=== PATIENT | male | born 1950 | race Caucasian/White ===

== ENCOUNTER 2020-08-31 09:46 | Outpatient (CLI) | payer MEDICARE, BC, SELFPAY ==
--- NOTE | 2020-08-31 09:53 | EST_ITS ---
Patient Info Name: Dylan Rodriges Age: 70 years : 1950 Gender: Male Ht: 67 in Wt: 155 lbs BSA: 1.83 m2 HR: 58 bpm Heart Rhythm: Sinus Rhythm Exam Date: 08/31/2020 10:03 AM Exam Location: [facility] Patient Status: Outpatient Admit Date: 08/31/2020 Staff Ordering Physician: Silverio Moss MD Plate Maker Zinc: Sada Telles RDCS Attending Provider: GUSTAVO MURO Referring Physician: Isa CONCEPCION; Exercise Technologist: Sada Telles RDCS Exam Type: CA stress echo Study Info Indications R07.89 - Other chest pain Treadmill exercise stress echocardiogram is performed. Summary 1. No abnormal ST/T wave changes meeting strict criteria for reversible myocardial ischemia. 2. Occasional stress-induced PVCs and PACs noted. 3. Normal left venticular systolic function with no regional wall motion abnormalities noted at rest. 4. Normal augmentation of all wall segments without evidence of ischemia with stress. 5. Excellent exercise capacity for age achieving 88% of age predicted maximum heart rate and 12.1 Mets peak exercise. Stress Echo Findings Left Ventricle Normal left venticular systolic function with no regional wall motion abnormalities noted at rest. Normal augmentation of all wall segments without evidence of ischemia with stress. Left Ventricle Left ventricular chamber size, wall thickness, systolic and diastolic function are normal with no regional wall motion abnormalities with an estimated ejection fraction of 65-70%. Protocol: Stephan Stress ECG Details Stage: REST Duration (min): 1 min : 12 sec Speed (mph): 0.0 Grade (%): 0 HR (bpm): 64 SBP (mmHg): 139 DBP (mmHg): 76 METS: --- Stage: REST Duration (min): 17 min : 57 sec Speed (mph): 0.0 Grade (%): 0 HR (bpm): 63 SBP (mmHg): 129 DBP (mmHg): 72 METS: --- Stage: STAGE 1 Duration (min): 1 min : 0 sec Speed (mph): 1.7 Grade (%): 10 HR (bpm): 80 SBP (mmHg): 129 DBP (mmHg): 72 METS: --- Stage: STAGE 1 Duration (min): 2 min : 0 sec Speed (mph): 1.7 Grade (%): 10 HR (bpm): 85 SBP (mmHg): 129 DBP (mmHg): 72 METS: --- Stage: STAGE 1 Duration (min): 3 min : 0 sec Speed (mph): 1.7 Grade (%): 10 HR (bpm): 86 SBP (mmHg): 147 DBP (mmHg): 70 METS: --- Stage: STAGE 2 Duration (min): 1 min : 0 sec Speed (mph): 2.5 Grade (%): 12 HR (bpm): 94 SBP (mmHg): 147 DBP (mmHg): 70 METS: --- Stage: STAGE 2 Duration (min): 2 min : 0 sec Speed (mph): 2.5 Grade (%): 12 HR (bpm): 104 SBP (mmHg): 180 DBP (mmHg): 74 METS: --- Stage: STAGE 2 Duration (min): 3 min : 0 sec Speed (mph): 2.5 Grade (%): 12 HR (bpm): 101 SBP (mmHg): 180 DBP (mmHg): 74 METS: --- Stage: STAGE 3 Duration (min): 1 min : 0 sec Speed (mph): 3.4 Grade (%): 14 HR (bpm): 109 SBP (mmHg): 170 DBP (mmHg): 75 METS: --- Stage: STAGE 3 Duration (min): 2 min : 0 sec Speed (mph):
== END 2020-08-31 09:47 | disposition home or self-care (01) ==
LOC: ANHCARD 09:50
PROVIDERS: PCP Family Medicine; Visit Provider Family Medicine
DX: R07.9 Chest pain, unspecified (principal)
CPT/HCPCS: 93351

== ENCOUNTER 2021-02-16 14:30 | Outpatient (RCR) | payer MEDICARE, BC, SELFPAY ==
[2020-12-02 11:09] VITALS: BMI 24.5
[2020-12-02 11:18] VITALS: BMI 24.5
== END 2021-02-22 08:04 | disposition home or self-care (01) ==
LOC: ANHDMC 14:30
PROVIDERS: PCP Family Medicine; Visit Provider Family Medicine
DX: E11.21 Type 2 diabetes mellitus with diabetic nephropathy (principal); Z71.3 Dietary counseling and surveillance; Z71.89 Other specified counseling
CPT/HCPCS: 97802; G0108; G0109

== ENCOUNTER → 2021-03-04 13:13 | Outpatient (CLI) | payer MEDICARE, BC, SELFPAY ==
--- NOTE | ~2021-03-04 | CT_ITS ---
EXAMINATION: CT abdomen pelvis w con DATE: 03/04/2021 13:44 INDICATION: Left flank pain. Elevated liver enzymes. Frequent bowel movements. History of chronic lym phocytic leukemia. TECHNIQUE: Computed tomography (CT) of the abdomen and pelvis was performed with 100 cc Omnipaque 350 intravenous contrast. Automated exposure control and iterative reconstruction technique were employe d. Exam dose: 679.80 mGy-cm total exam DLP. COMPARISON: 05/05/2016 CT abdomen pelvis FINDINGS: No infiltrate or consolidation at the lung bases. Normal heart size. No pericardial or pleu ral effusion. Diffuse hepatic steatosis. No hepatic space-occupying mass lesion. The gallbladder is present. No gal lbladder wall thickening or pericholecystic fluid or fat stranding. No bile duct or pancreatic duct d ilatation. No pancreatic mass lesion or calcification. Normal splenic size. Normal morphology of the adrenal glands. A few very small right renal cysts are suggested. Approximately 3 mm nonobstructing mid right renal calculus. No ureteral calculus or hydroureteronephrosis. Normal caliber of the abdominal aorta. No intraperitoneal or retroperitoneal or patellar lytic mass l esion or adenopathy or ascites. Left inguinal fat-containing hernia. The urinary bladder is unremarkable. Prostate enlargement and calcifications. Normal appendix. Diverticulosis of the colon; no apparent evidence of diverticulitis. No bowel obstru ction, bowel wall thickening, pneumatosis or intraperitoneal free air. Degenerative changes of the thoracic and lumbar spine. No suspicious osteolytic or osteoblastic lesio ns are noted. IMPRESSION: Hepatic steatosis 3 mm nonobstructing mid right renal calculus A few very small right renal cysts Diverticulosis of the colon; no apparent diverticulitis Fat-containing left inguinal hernia Reviewed, dictated and finalized at Location A. Reviewed, dictated and finalized at location A.
[2021-03-04 13:36] LABS: Estimated Glomerular Filt Rate > 60
== END ==
PROVIDERS: PCP Family Medicine; Visit Provider Physician Assistant
DX: K76.0 Fatty (change of) liver, not elsewhere classified (principal); N20.0 Calculus of kidney; K57.30 Diverticulosis of large intestine without perforation or abscess without bleeding; K44.9 Diaphragmatic hernia without obstruction or gangrene; N28.1 Cyst of kidney, acquired
CPT/HCPCS: 74177; Q9967

== ENCOUNTER 2021-04-21 09:13 | Outpatient (RCR) | payer MEDICARE, BC, SELFPAY | END 2021-04-21 10:16 | disposition home or self-care (01) | LOC: ANHDMC 09:13 | PROVIDERS: PCP Family Medicine; Visit Provider Family Medicine | DX: E11.21 Type 2 diabetes mellitus with diabetic nephropathy (principal); Z71.89 Other specified counseling | CPT/HCPCS: G0108 ==

== ENCOUNTER → 2021-06-14 15:05 | Outpatient (CLI) | payer MEDICARE, BC, SELFPAY ==
--- NOTE | ~2021-06-14 | XR_ITS ---
XR hip LT min 3V w AP pelvis DATE: 06/14/2021 15:59 INDICATION: Left hip pain TECHNIQUE: AP pelvis. AP and lateral views of left hip COMPARISON: None FINDINGS: There is diffuse osteopenia. The pubic symphysis and sacroiliac joints are intact. No pelvi c fracture or bone destruction. There is suggestion of a possible subacute or old left greater trochanteric fracture. This may be bet ter demonstrated by CT examination. Otherwise no left hip fracture or dislocation or bone destruction is detected. IMPRESSION: Suggestion of possible subacute or old left greater trochanteric fracture; CT examination of the left hip may be more helpful for definitive evaluation Reviewed, dictated and finalized at location A. IMPRESSION: Suggestion of possible subacute or old left greater trochanteric fr acture; CT examination of the left hip may be more helpful for definitive evalu ation
== END ==
PROVIDERS: PCP Family Medicine; Visit Provider Physician Assistant
DX: M25.559 Pain in unspecified hip (principal)
CPT/HCPCS: 73502

== ENCOUNTER → 2021-06-21 10:16 | Outpatient (CLI) | payer MEDICARE, BC, SELFPAY ==
--- NOTE | ~2021-06-21 | CT_ITS ---
EXAMINATION: CT pelvis wo con DATE: 06/21/2021 10:35 INDICATION: Left hip pain. TECHNIQUE: Computed tomography (CT) of the pelvis was performed without intravenous contrast. Automat ed exposure control and iterative reconstruction technique were employed. The dose-length product was 422.09 mGy-cm. COMPARISON: CT abdomen and pelvis 03/04/2021, pelvis and left hip radiographs 06/14/2021 FINDINGS: There is a left inguinal hernia containing fat. There is diverticulosis of the colon withou t evidence of diverticulitis. There is subcutaneous gas in right anterior abdominal wall, likely an i njection site. Bone alignment is normal. No fracture. There is mild osteoarthritis of the hips. There is mild lumbar spondylosis. IMPRESSION: 1. Mild osteoarthritis of the hips. 2. Left inguinal hernia containing fat. Reviewed, dictated and finalized at location A.
== END ==
PROVIDERS: PCP Family Medicine; Visit Provider Physician Assistant
DX: K40.90 Unilateral inguinal hernia, without obstruction or gangrene, not specified as recurrent (principal); M16.0 Bilateral primary osteoarthritis of hip
CPT/HCPCS: 72192

== ENCOUNTER → 2021-09-19 13:07 | Outpatient (CLI) | payer MEDICARE, BC, SELFPAY ==
--- NOTE | ~2021-09-19 | XR_ITS ---
EXAMINATION: XR hip RT min 3V w AP pelvis DATE: 09/19/2021 14:03 INDICATION: Pain in unspecified hip. TECHNIQUE: An anteroposterior view of the pelvis and 2 views of right hip were obtained. COMPARISON: Pelvis radiograph 06/14/2021 FINDINGS: Bone alignment is normal. No fracture. There is mild osteoarthritis of the hips. There is m ild lumbar spondylosis. IMPRESSION: 1. Mild osteoarthritis of the hips. Reviewed, dictated and finalized at location A. L COREMAKER
--- NOTE | ~2021-09-19 | XR_ITS ---
EXAMINATION: XR lumbar spine 2-3V DATE: 09/19/2021 14:02 INDICATION: Pain in unspecified hip. TECHNIQUE: 3 views of lumbar spine were obtained. COMPARISON: CT abdomen and pelvis 03/04/2021 FINDINGS: There is 4 degrees levocurvature of lumbar spine. There are Schmorl's nodes at multiple lev els. There is mildly decreased disc height at L1-L2 and L3-L4. There are endplate osteophytes at most levels. The facet joints are unremarkable. There is a 4 mm stone in right kidney. There are phleboli ths in the pelvis. IMPRESSION: 1. Mild lumbar spondylosis. Reviewed, dictated and finalized at location A. BRANDER IMPRESSION: 1. Mild lumbar spondylosis.
== END ==
PROVIDERS: PCP Family Medicine; Visit Provider Physician Assistant
DX: M16.0 Bilateral primary osteoarthritis of hip (principal); M47.896 Other spondylosis, lumbar region
CPT/HCPCS: 72100; 73502

== ENCOUNTER → 2021-09-27 08:42 | Outpatient (CLI) | payer MEDICARE, BC, SELFPAY ==
--- NOTE | ~2021-09-27 | CT_ITS ---
EXAMINATION: CT abdomen pelvis wo con DATE: 09/27/2021 09:04 INDICATION: Left flank and low back pain TECHNIQUE: Computed tomography (CT) of the abdomen and pelvis was performed without intravenous contr ast. The dose-length product (DLP) was 696.32 mGy-cm. Automated exposure control and iterative recons truction technique were employed. COMPARISON: 03/04/2021 FINDINGS: Minimal dependent atelectasis is present in the lung bases. The heart size is normal. There is a stable 6 mm nodule of the right middle lobe. There is mild nodularity of the liver surface. Mil d splenomegaly is noted. The pancreas, gallbladder, and adrenal glands are normal. There is a 4 mm no nobstructing stone of the right kidney. No stones are identified in the left kidney, ureters, or the bladder. There is no hydronephrosis or hydroureter. No pathologically enlarged abdominal or pelvic ly mph nodes are identified. There is calcified atherosclerosis of the aorta and many of the other arter ies. There is no free intraperitoneal gas or evidence of bowel obstruction. A fat-containing left ing uinal hernia is noted. Colonic diverticulosis is present without evidence of diverticulitis. There is moderate lumbar spondylosis. IMPRESSION: 1. No CT correlate for the patient's symptoms. Nonobstructing right nephrolithiasis. Reviewed, dictated and finalized at location A. ER/WAITRESS BAR IMPRESSION: 1. No CT correlate for the patient's symptoms. Nonobstructing right nephrolithi asis.
== END ==
PROVIDERS: PCP Physician Assistant; Visit Provider Physician Assistant
DX: R10.9 Unspecified abdominal pain (principal); N20.0 Calculus of kidney
CPT/HCPCS: 74176

== ENCOUNTER 2021-10-29 01:18 | Inpatient (IN) | payer MEDICARE, BC, SELFPAY ==
[2021-10-29] VITALS (14 sets, daily range): BP systolic 102–144; BP diastolic 51–71; PULSE 55–76; RESP 13–23; TEMP 36.6–37.8; O2SAT 88–100; BMI 25.9; BMI 24.5
--- NOTE | ~2021-10-29 | US_ITS ---
EXAMINATION: US right upper quadrant DATE: 10/29/2021 10:32 INDICATION: Pancreatitis. Abnormal liver function tests. TECHNIQUE: Multiple grayscale and Doppler ultrasound images of the abdomen were obtained. COMPARISON: CT abdomen and pelvis 10/29/2021 FINDINGS: There is edema around the pancreas, consistent with acute interstitial pancreatitis. The li abisai demonstrates coarsened echotexture and surface nodularity, consistent with cirrhosis. There is no rmal flow in main portal vein. The gallbladder is normal in size. No gallstones. Gallbladder wall thi ckening is noted. There was no sonographic Gilliam sign. The common duct is normal and measures 5 mm. IMPRESSION: 1. Acute interstitial pancreatitis. 2. Cirrhosis of the liver. 3. Gallbladder wall thickening, which may secondary to interstitial edema or chronic liver disease. Reviewed, dictated and finalized at location A. ER CALENDER HELPER IMPRESSION: 1. Acute interstitial pancreatitis. 2. Cirrhosis of the liver. 3. Gallbladder wall thickening, which may secondary to interstitial edema or ch ronic liver disease.
--- NOTE | ~2021-10-29 | MR_ITS ---
EXAMINATION: MR MRCP wo/w con/w 3D wo ind DATE: 10/31/2021 14:15 INDICATION: Pancreatitis. Cirrhosis. TECHNIQUE: Magnetic resonance imaging (MRI) of the abdomen was performed without and with 14 mL Multi Radha intravenous contrast. Sequences included coronal T2-weighted FS FSE, coronal T2-weighted FSE, a xial T1-weighted LAVA, coronal FS FIESTA, axial dual-echo T1-weighted SPGR, coronal lava-FLEX, sagitt al T2-weighted FSE, axial T2-weighted FSE, and axial DWI. Thick-slab T2-weighted FSE images were obta ined for magnetic resonance cholangiopancreatography (MRCP). Maximum intensity projection 3-D reconst ructions of the volumetric data were created by the technologist. Postcontrast sequences included cor onal LAVA-flex and time course of axial T1-weighted LAVA. COMPARISON: CT abdomen and pelvis 10/29/2021 FINDINGS: ABDOMEN MRI: There are small pleural effusions, right worse than left. There is dependent atelectasis bilaterally. The liver demonstrates hypertrophy of left lateral segment and surface nodularity, cons istent with cirrhosis. There is sludge in the gallbladder, which is normal in size. Gallbladder wall thickening is seen, likely secondary to chronic liver disease. There is mild splenomegaly. There is e cass around the pancreas, consistent with pancreatitis. The pancreatic parenchyma enhances throughout . The adrenal glands and kidneys are normal. There are no dilated loops of bowel. There is a small vo lume of ascites. There are no pathologically enlarged lymph nodes. ABDOMEN MRCP: The common duct is normal and measures 5 mm. No choledocholithiasis. IMPRESSION: 1. Acute interstitial pancreatitis. 2. No choledocholithiasis. 3. Cirrhosis of the liver with portal venous hypertension. 4. Small pleural effusions. Reviewed, dictated and finalized at location B. OLL DIRECTOR
--- NOTE | ~2021-10-29 | CT_ITS ---
EXAMINATION: CT abdomen pelvis w con DATE: 10/29/2021 03:01 INDICATION: Abdominal pain. TECHNIQUE: Computed tomography (CT) of the abdomen and pelvis was performed with 100 mL Omnipaque 350 intravenous contrast. Automated exposure control and iterative reconstruction technique were employe d. The dose-length product was 482.07 mGy-cm. COMPARISON: CT abdomen and pelvis 09/27/2021, 05/05/16 FINDINGS: The visualized portions of the lung bases demonstrates airspace and groundglass opacities i n the lower lobes and lingula with a dependent predominance. Nodules in right middle lobe and lingula are stable from 05/05/2016, consistent with granulomatous disease. No pleural effusion. The heart siz e is normal. No pericardial effusion. The liver demonstrates surface nodularity, consistent with cirr hosis. Paraesophageal varices are noted. There is a paraumbilical portacaval shunt. The gallbladder i s distended. The spleen is normal. There is fat stranding around the pancreas, consistent with acute interstitial pancreatitis. The adrenal glands and kidneys are normal. There is a left inguinal hernia containing fat. There is diverticulosis of the colon without evidence of diverticulitis. There are n o dilated loops of bowel. The appendix is normal. There are no pathologically enlarged lymph nodes. T here is no free intraperitoneal fluid. There is mild thoracolumbar spondylosis. IMPRESSION: 1. Acute interstitial pancreatitis. 2. Cirrhosis of the liver with portal venous hypertension. 2. Airspace and groundglass opacities in the lower lobes and lingula with a dependent predominance, m ost likely atelectasis. Pneumonia cannot be excluded. Reviewed, dictated and finalized at location A. CIPAL NETWORK ENGINEER IMPRESSION: 1. Acute interstitial pancreatitis. 2. Cirrhosis of the liver with portal venous hypertension. 2. Airspace and groundglass opacities in the lower lobes and lingula with a dep endent predominance, most likely atelectasis. Pneumonia cannot be excluded.
--- NOTE | ~2021-10-29 | XR_ITS ---
XR chest 1V portable 10/30/2021 01:18 Indication: Shortness of breath and cough Procedure: AP portable chest Comparison: Comparison to multiple prior studies sequentially, with oldest reviewed study dated 01/28/2009. Findings: Heart size normal. Bibasilar atelectasis. No edema or pneumothorax. No acute osseous abnorm ality. Impression: 1: Bibasilar atelectasis. Pneumonia less favored. Reviewed, dictated and finalized at location A. ANALYST Impression: 1: Bibasilar atelectasis. Pneumonia less favored.
[2021-10-29] MEDS: MORPHINE SULFATE (*CRX) 4 MG/ML INJ IV PUSH (01:53)
[2021-10-29] MEDS: ONDANSETRON INJ 4 MG/2 ML VIAL IV PUSH ×4 (01:54→13:46)
[2021-10-29] MEDS: SODIUM CHLORIDE 0.9% IV 1,000 ML 999 ML IV CONT ×2 (01:54→03:47)
[2021-10-29 01:57] LABS: Basophils Percent Auto 0.4 % (0.2-1.2); Eosinophils Absolute Auto 0.1 K/mm3 (0-0.3); Eosinophils Percent Auto 0.7 % (0-4.4); Hematocrit 43.6 % (42.0-52.0); Hemoglobin 14.6 g/dL (14.0-18.0); Immature Granulocyte Absolute 0.04 K/mm3 (0.00-0.031); Immature Granulocyte Percent A 0.4 % (0-0.5); Lymphocytes Absolute Auto 3.06 K/mm3 (0.9-3.2); Lymphocytes Percent Auto 27.8 % (18.3-44.2); Mean Corpuscular HGB Conc 33.5 g/dl (32-36); Mean Corpuscular Hemoglobin 30.5 pg (26-34); Mean Platelet Volume 11.8 fl (7.4-10.4); Monocytes Absolute Auto 0.6 K/mm3 (0.1-0.6); Monocytes Percent Auto 5.4 % (2.6-8.5); Neutrophils Absolute Auto 7.2 K/mm3 (1.3-6.7); Neutrophils Percent Auto 65.3 % (45.5-73.1); Platelet Count Result 114 k/mm3 (150-375); Red Blood Count 4.79 M/mm3 (4.6-6.20); Red Cell Distribution Width 14.9 % (11.5-14.5)
[2021-10-29 02:06] LABS: Lactic Acid Reflex 2.1 mmol/L (0.7-2.1)
--- NOTE | 2021-10-29 02:27 | ED.GENADULT ---
HPI - General Adult General Chief complaint: Abdominal Pain Stated complaint: abdominal pain Time Seen by Provider: 10/29/21 01:42 History of Present Illness HPI narrative: Patient 71-year-old gentleman who presents the emergency department with chief complaint of abdominal pain. The patient states that this evening started having pain in the right side of his abdomen states it is not worsened by anything or is improved by anything. Patient reports that he had nausea and vomiting reports is been able to keep anything down. Patient states the pain is not worsened by anything or is improved by anything. Patient does not have recent kidney stone but states his somewhat different Related Data Home Medications Medication Instructions Recorded Confirmed finasteride 1 mg tablet 1 mg PO DAILY 12/04/19 09/19/21 sildenafil (pulm.hypertension) 20 20 mg PO ONCE tablet 12/04/19 09/19/21 mg tablet blood sugar diagnostic #10 ea 10/26/20 09/19/21 Allergies Allergy/AdvReac Type Severity Reaction Status Date / Time Bumble Bee Allergy Mild Anaphylactic Uncoded 02/25/21 11:03 Shock Honey Bee Allergy Unknown Swelling Uncoded 02/25/21 11:03 Review of Systems Review of Systems: A 10 system review of systems was completed on the patient and is negative except for what is stated in the HPI. Nursing and ancillary documentation was reviewed. [facility] Family History Family History Father Family history of malignant neoplasm, Onset Age: 75 Mother Carcinoma of colon, Onset Age: 60 Social History Social History Second hand tobacco smoke exposure: No Alcohol intake: never Spiritual care concerns: No Exam Narrative: GENERAL: Well-appearing, well-nourished, and in no acute distress. HEAD: Normocephalic, atraumatic. EYES: PERRLA and EOMI. ENT: Nares clear, no rhinorrhea or epistaxis. Mucous membranes moist. NECK: Supple. CHEST: Clear to auscultation. No respiratory distress. HEART: Regular rate and rhythm. No murmur heard. Normal peripheral pulses. ABDOMEN: Soft, nontender, nondistended, normal active bowel sounds. EXTREMITIES: Normal range of motion. No edema. SKIN: Warm, dry, no rash. NEURO: No focal deficits. Alert and oriented x3. PSYCH: Normal mood and affect. Course Course Emergency Course: CT scan shows evidence of acute pancreatitis Vital Signs Vital signs: Vital Signs Temperature 36.6 C 10/29/21 01:24 Pulse Rate 66 10/29/21 01:24 Respiratory Rate 18 10/29/21 01:24 Blood Pressure 144/67 H 10/29/21 01:24 Pulse Oximetry 100 10/29/21 01:24 Temperature 36.6 C 10/29/21 01:24 Pulse Rate 55 L 10/29/21 02:16 Respiratory Rate 18 10/29/21 02:16 Blood Pressure 103/71 10/29/21 02:15 Pulse Oximetry 98 10/29/21 02:22 Medical Decision Making Vital Signs Vital Signs: Vital Signs Temperature 36.6 C 10/29/21 01:24 Pulse Rate 66 10/29/21 01:24 Respiratory Rate 18 10/29/21 01:24 Blood Pressure 144/67 H 10/29/21 01:24 Pulse Oximetry 100 10/29/21 01:24 Temperature 36.6 C 10/29/21 01:24 Pulse Rate 55 L 10/29/21 02:16 Respiratory Rate 18 10/29/21 02:16 Blood Pressure 103/71 10/29/21 02:15 Pulse Oximetry 98 10/29/21 02:22 Lab Data Result diagrams: 10/29/21 01:47 10/29/21 01:47 Labs: Lab Results 10/29/21 10/29/21 10/29/21 Range/Units 01:47 01:47 01:47 WBC 11.0 H (4.5-10.0) K/mm3 RBC 4.79 (4.6-6.20) M/mm3 Hgb 14.6 (14.0-18.0) g/dL Hct 43.6 (42.0-52.0) % MCV 91.0 (80-100) fl MCH 30.5 (26-34) pg MCHC 33.5 (32-36) g/dl RDW 14.9 H (11.5-14.5) % Plt Count 114 L (150-375) k/mm3 MPV 11.8 H (7.4-10.4) fl Immature Gran % (Auto) 0.4 (0-0.5) % Neut % (Auto) 65.3 (45.5-73.1) % Lymph % (Auto) 27.8 (18.3-44.2) %
[2021-10-29 02:31] LABS: Alanine Aminotransferase 60 U/L (4-50); Albumin Level 4.9 g/dL (3.5-5.1); Alkaline Phosphatase 164 U/L (38-126); Anion Gap 16 mmol/L (8-16); Aspartate Amino Transferase 131 U/L (17-59); Bilirubin,Total 0.9 mg/dL (0.2-1.3); Blood Urea Nitrogen 17 mg/dL (9-20); Carbon Dioxide 20 mmol/L (22-30); Chloride 103 mmol/L (98-107); Estimated CRCL calculation 80 ml/min; Estimated Glomerular Filt Rate > 60; Glucose 205 mg/dL (65-110); Potassium 3.7 mmol/L (3.4-5.0); Sodium 139 mmol/L (137-145)
[2021-10-29] MEDS: HYDROmorphone HCL INJ (*CRX) 1 MG/ML SYR IV PUSH ×4 (02:43→13:47)
--- NOTE | 2021-10-29 02:46 | PC.NURSE ---
Pt to CT scan via stretcher at this time. Pt on 2 L NC O2.
[2021-10-29 03:01] LABS: Add Urine Microscopic? YES; Appearance Urine Clear (Clear); Bilirubin Urine Negative (Negative); Blood Urine Negative (Negative); Color Urine Yellow (Yellow); Glucose Urine UA 3+ mg/dL (Negative); Ketones Urine Negative (Negative); Leukocyte Esterase Ur Negative LEU/UL (Negative); Nitrate Urine Negative (Negative); Protein Urine Negative (Negative); RBC Urine 0-2 /hpf (0-2); Specific Grav Ur 1.021 (1.001-1.035); Urobilinogen Urine Negative mg/dL (<2.0); WBC Urine 0-3 /hpf
[2021-10-29 03:22] LABS: Lipase > 40000 U/L (23-300)
[2021-10-29] MEDS: SODIUM CHLORIDE 0.9% IV 1,000 ML 125 ML IV CONT (04:46)
[2021-10-29 04:54] LABS: Reflex Lactic Acid Yes or No Add Lactic
--- NOTE | 2021-10-29 06:22 | PC.NURSE ---
This patient, Dylan Rodriges, was admitted to 3 Med Surg Room 304-01. Patient/family oriented to hospital policies and general routines including ID bracelet, bed and alarms, visiting hours, pain management, procedures, bathroom and other care routines, personal items, smoking policy, room service/diet, and visiting hours. Information on how to activate the Rapid Response Team has been discussed. Patient/Family are encouraged to report perceived risks to care and to ask questions if they do not understand what they are told or what they should do.
[2021-10-29 07:28] LABS: Lactic Acid 1.4 mmol/L (0.7-2.1)
--- NOTE | 2021-10-29 09:24 | PM.IMHP ---
H&P: HPI History of Present Illness Date/Time: 10/29/21 09:24 Chief Complaint: Abd pain Narrative: Patient is a 71-year-old man with a history of diabetes on multiple medications, hyperlipidemia, BPH, hypothyroidism, who presented to the emergency room with sudden worsening epigastric abdominal pain with intermittent radiation to his lower quadrants which began around 9:00 p.m. on 10/28/2021. Patient otherwise been feeling well without any complaints prior to 9:00 p.m. when pain suddenly began. He states pain is constant, waxing waning, currently rated a 7/10 and it is intermittently sharp and stabbing and moves in a horseshoe from his left lower quadrant to epigastric to right lower quadrant. He did have associated chills, nausea and vomiting prior to arrival. Denies similar pain in the past. Patient states none of his diabetic medications are new. He states he drinks about a 6 pack of beer per year. Denies any chest pain, shortness of breath, cough, fever, urinary symptoms, leg swelling, calf pain, headache, lightheadedness, dizziness, or any other symptoms at this time. Code: Full Code POA: , Nemo POA: Dr. Mcleod Review of Systems Review of Systems: All systems reviewed & are unremarkable except as noted in HPI and below PMFSH Past Medical History Medical History BPH (benign prostatic hyperplasia) Chronic lymphocytic leukemia Dysmetabolic syndrome X Erectile dysfunction Hypothyroidism, unspecified Insomnia, unspecified Mixed hyperlipidemia VIKAS (obstructive sleep apnea) Type 2 diabetes mellitus with diabetic nephropathy Surgical History Surgical History History of surgery on right wrist Family History Family History Father Family history of malignant neoplasm, Onset Age: 75 Mother Carcinoma of colon, Onset Age: 60 Social History Social History (Updated 10/29/21 @ 15:33 by Belle Lawton PA-C) Smoking status: Never smoker Second hand tobacco smoke exposure: No Alcohol intake: never Alcohol use details: Six beers per year Substance use: never Substance use type: does not use Living arrangements: with family Additional living arrangements comments: [facility] Occupation/Education: retired Spiritual care concerns: No Meds Home Medications and Allergies Home Medications Medication Instructions Recorded Confirmed Type finasteride 1 mg tablet 5 mg PO DAILY 12/04/19 10/29/21 History ketoconazole 2 % topical cream 1 applic TOPICAL BID #60 gm 04/09/20 10/29/21 Rx lancets 33 gauge #100 ea 08/30/20 09/19/21 Rx blood sugar diagnostic #10 ea 10/26/20 09/19/21 History blood sugar diagnostic #100 ea 10/26/20 09/19/21 Rx ezetimibe 10 mg tablet 10 mg PO DAILY #90 tablet 06/29/21 10/29/21 Rx dulaglutide 3 mg/0.5 mL See Rx Instructions .ROUTE 07/28/21 10/29/21 Rx subcutaneous pen injector .COMPLEX #6 ml pantoprazole 40 mg tablet,delayed 40 mg PO QAM #90 tablet 09/12/21 10/29/21 Rx release tramadol 50 mg tablet 50 mg PO Q6H PRN #28 tablet 09/23/21 10/29/21 Rx OneTouch Verio test strips #100 ea NS 10/18/21 Rx atorvastatin 20 mg PO DAILY 10/29/21 10/29/21 History empagliflozin [Jardiance] 10 mg PO DAILY 10/29/21 10/29/21 History fenofibrate 160 mg PO DAILY 10/29/21 10/29/21 History fluticasone propionate 2 spray INTRANASAL DAILY 10/29/21 10/29/21 History glimepiride 4 mg PO DAILY 10/29/21 10/29/21 History levothyroxine 75 mcg PO DAILY 10/29/21 10/29/21 History metformin 1,000 mg PO BID 10/29/21 10/29/21 History tamsulosin 0.4 mg PO DAILY 10/29/21 10/29/21 History trazodone 50 mg PO DAILY 10/29/21 10/29/21 History Allergies Allergy/AdvReac Type Severity Reaction Status Date / Time Bumble Bee Allergy Mild Anaphylactic Uncoded 02/25/21 11:03 Shock Honey Bee Allergy
[2021-10-29] MEDS: PANTOPRAZOLE SODIUM IV 40 MG VIAL IV PUSH ×2 (09:32→20:59)
[2021-10-29 11:48] LABS: Glucose Point of Care 215 mg/dl (65-105)
[2021-10-29] MEDS: INSULIN ASPART (*BKC) 100 UNITS/ML SUB-Q (12:40)
[2021-10-29] MEDS: SODIUM CHLORIDE 0.9% IV 1,000 ML 75 ML IV CONT (14:46)
[2021-10-29 16:43] LABS: Glucose Point of Care 192 mg/dl (65-105)
[2021-10-29] MEDS: NEOMYCIN/POLYMYXIN/BACITRACIN OINTMENT 15 GM TUBE 1 APPLIC TOPICAL (16:44)
[2021-10-29 20:42] LABS: Glucose Point of Care 223 mg/dl (65-105)
[2021-10-29] MEDS: traZODone HCL 50 MG TABLET PO (20:58)
[2021-10-29] MEDS: DOCUSATE SODIUM 100 MG CAPSULE PO (20:58)
[2021-10-29] MEDS: traMADol HCL (*CRX) 50 MG TABLET PO (20:58)
[2021-10-30] VITALS (7 sets, daily range): BP systolic 108–129; BP diastolic 51–60; PULSE 64–95; RESP 16–20; TEMP 36.1–36.8; O2SAT 86–100
[2021-10-30] MEDS: FUROSEMIDE INJ 40 MG/4 ML VIAL IV PUSH (02:33)
[2021-10-30] MEDS: SODIUM CHLORIDE 0.9% IV 1,000 ML 30 ML IV CONT (05:33)
[2021-10-30] MEDS: LEVOTHYROXINE SODIUM 75 MCG TABLET PO (05:33)
[2021-10-30 06:51] LABS: Basophils Percent Auto 0.4 % (0.2-1.2); Eosinophils Percent Auto 0.4 % (0-4.4); Hematocrit 36.3 % (42.0-52.0); Hemoglobin 12.1 g/dL (14.0-18.0); Immature Granulocyte Absolute 0.03 K/mm3 (0.00-0.031); Immature Granulocyte Percent A 0.4 % (0-0.5); Lymphocytes Absolute Auto 1.29 K/mm3 (0.9-3.2); Lymphocytes Percent Auto 17.1 % (18.3-44.2); Mean Corpuscular HGB Conc 33.3 g/dl (32-36); Mean Corpuscular Volume 90.1 fl (80-100); Mean Platelet Volume 12.8 fl (7.4-10.4); Monocytes Absolute Auto 0.5 K/mm3 (0.1-0.6); Monocytes Percent Auto 6.1 % (2.6-8.5); Neutrophils Absolute Auto 5.7 K/mm3 (1.3-6.7); Neutrophils Percent Auto 75.6 % (45.5-73.1); Platelet Count Result 85 k/mm3 (150-375); Red Blood Count 4.03 M/mm3 (4.6-6.20); Red Cell Distribution Width 15.2 % (11.5-14.5); White Blood Count 7.6 K/mm3 (4.5-10.0)
[2021-10-30 07:05] LABS: Alanine Aminotransferase 51 U/L (4-50); Albumin Level 3.9 g/dL (3.5-5.1); Alkaline Phosphatase 64 U/L (38-126); Anion Gap 10 mmol/L (8-16); Aspartate Amino Transferase 62 U/L (17-59); Bilirubin,Total 0.8 mg/dL (0.2-1.3); Blood Urea Nitrogen 13 mg/dL (9-20); Calcium 8.2 mg/dL (8.4-10.2); Carbon Dioxide 26 mmol/L (22-30); Chloride 97 mmol/L (98-107); Estimated CRCL calculation 64 ml/min; Estimated Glomerular Filt Rate > 60; Glucose 152 mg/dL (65-110); Magnesium 1.8 mg/dL (1.6-2.3); Potassium 3.5 mmol/L (3.4-5.0); Sodium 133 mmol/L (137-145)
[2021-10-30 07:34] LABS: Lipase 4414 U/L (23-300)
[2021-10-30] MEDS: TAMSULOSIN HCL 0.4 MG CAPSULE PO (08:36)
[2021-10-30] MEDS: FINASTERIDE 5 MG TABLET PO (08:36)
[2021-10-30] MEDS: FLUTICASONE PROPIONATE 0.05% NA SPR 16 GM BTL (*BKC) 2 SPRAY NASAL (08:37)
[2021-10-30] MEDS: PANTOPRAZOLE SODIUM IV 40 MG VIAL IV PUSH ×2 (08:37→21:42)
[2021-10-30] MEDS: DOCUSATE SODIUM 100 MG CAPSULE PO ×2 (08:39→21:44)
[2021-10-30 10:14] LABS: Hemoglobin A1C 8.1 % (<5.7)
[2021-10-30 10:31] LABS: Glucose Point of Care 167 mg/dl (65-105)
--- NOTE | 2021-10-30 11:16 | WPDGICN ---
Assessment and Plan Assessment and plan (1) Acute pancreatitis: Qualifiers: Acute pancreatitis complication: unspecified Pancreatitis type: unspecified pancreatitis type Qualified Code(s): K85.90 - Acute pancreatitis without necrosis or infection, unspecified Code(s): K85.90 - Acute pancreatitis without necrosis or infection, unspecified Status: Acute Assessment and Plan: first episode, denies etoh use will get MRCP to better assess biliary system already feeling better with medical treatment, on liquid diet monitor lft Dr Allred is coming back tomorrow (patient tells me that he actually has an appointment to see him this coming week because his chronic GERD) (2) Cirrhosis: Code(s): K74.60 - Unspecified cirrhosis of liver Status: Acute Assessment and Plan: long standing history of elevated liver enzymes, even had liver bx ~ 20 years ago probably michael related based on history and comorbidities compensated cirrhosis follow-up with Dr Allred (3) Elevated liver enzymes: Code(s): R74.8 - Abnormal levels of other serum enzymes Status: Acute Assessment and Plan: at baseline hepatitis panel in the past negative (4) Gastro-esophageal reflux disease without esophagitis: Code(s): K21.9 - Gastro-esophageal reflux disease without esophagitis Status: Acute Assessment and Plan: on ppi at home (5) Type 2 diabetes mellitus with diabetic nephropathy: Qualifiers: Diabetes mellitus penitentiary insulin use: without penitentiary use Qualified Code(s): E11.21 - Type 2 diabetes mellitus with diabetic nephropathy Code(s): E11.21 - Type 2 diabetes mellitus with diabetic nephropathy Status: Acute (6) Mixed hyperlipidemia: Code(s): E78.2 - Mixed hyperlipidemia Status: Acute (7) Chronic lymphocytic leukemia: Code(s): C91.10 - Chronic lymphocytic leukemia of B-cell type not having achieved remission Status: Acute Assessment and Plan: no issues GI Consult Note Consult date/time: 10/30/21 11:16 Reason for consult: acute pancreatitis, cirrhosis, elevated liver cirrhosis HPI: Dylan Rodriges is a 71 year old male with history of diabetes on multiple medications, hyperlipidemia, BPH, hypothyroidism, CLL without any chemotherapy, GERD for which is using ppi (he is seeing Dr Allred), elevated liver enzymes ~ about 20 years ago had liver biopsy without major findings. He is here with 2 days of severe upper abdominal pain then nausea and vomiting, denies previous episodes, no alcohol use. CT scan reviewed and showed interstitial pancreatitis, also cirrhosis, lipase 40k, transaminases 120 (baseline 60's), normal bilirubin. Today is feeling better and tolerating liquid diet. Also family history of colon cancer and he is uptodate with his colonoscopies. Review of Systems Constitutional: Constitutional: Reports chills Eyes: Eyes: Reports no additional eye complaints ENT: Reports Normal hearing present Cardiovascular: Cardiovascular: Denies chest pain Respiratory: Respiratory: Denies dyspnea Gastrointestinal: Gastrointestinal: Reports abdominal pain, Reports nausea and Reports vomiting Genitourinary: Genitourinary: Denies dysuria Musculoskeletal: Musculoskeletal: Denies neck pain Integumentary/Breasts: Skin/Breast: Denies dry skin Neurologic: Denies headache(s) Psychiatric: Psychiatric: Denies behavioral changes [facility] Past Medical History Medical History (Updated 10/30/21 @ 11:21 by Myron Morrison MD) BPH (benign prostatic hyperplasia) Chronic lymphocytic leukemia Cirrhosis Dysmetabolic syndrome X Erectile dysfunction Hypothyroidism, unspecified Insomnia, unspecified Mixed hyperlipidemia VIKAS (obstructive sleep apnea) Type 2 diabetes mellitus with diabetic nephropathy Surgical History Surgical History History of surgery on right w
[2021-10-30 11:41] LABS: Glucose Point of Care 201 mg/dl (65-105)
--- NOTE | 2021-10-30 12:32 | PM.IMPN ---
Progress Note: A&P Assessment and Plan (1) Acute pancreatitis: Qualifiers: Acute pancreatitis complication: unspecified Pancreatitis type: unspecified pancreatitis type Qualified Code(s): K85.90 - Acute pancreatitis without necrosis or infection, unspecified Code(s): K85.90 - Acute pancreatitis without necrosis or infection, unspecified Status: Acute Assessment and Plan: Patient continues to have abd pain after eating, which is normal for pancreatitis. Will advance to Low fat diet, monitor sx Continue monitoring LFTs and pancreatic enzymes Right upper quadrant ultrasound shows Acute interstitial pancreatitis. Cirrhosis of the liver. Gallbladder wall thickening, which may secondary to interstitial edema or chronic liver disease. GI evaluated the patient and is going to do an MRCP tomorrow for further evaluation a biliary system Continue monitoring. (2) Elevated liver enzymes: Code(s): R74.8 - Abnormal levels of other serum enzymes Status: Acute Assessment and Plan: Patient state he was found to have liver enzyme elevation about 6 months ago. He sees Dr. Allred GI specialist for his routine EGD and colonoscopies, but was never referred for his elevated liver enzymes. CT has concerns of liver cirrhosis Right upper quadrant ultrasound shows cirrhosis Currently he is compensated with his liver cirrhosis and most likely due to AMES Hepatic panel normal GI consultation and appreciate their input Continue monitoring. (3) Gastro-esophageal reflux disease without esophagitis: Code(s): K21.9 - Gastro-esophageal reflux disease without esophagitis Status: Acute Assessment and Plan: Patient takes pantoprazole once daily. 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 Will have him on IV pantoprazole q.12 while in the hospital. (4) Type 2 diabetes mellitus with diabetic nephropathy: Qualifiers: Diabetes mellitus senior living insulin use: without intermodal dispatcher use Qualified Code(s): E11.21 - Type 2 diabetes mellitus with diabetic nephropathy Code(s): E11.21 - Type 2 diabetes mellitus with diabetic nephropathy Status: Acute Assessment and Plan: Will hold all of his diabetes medications since some of these can trigger pancreatitis episodes. He states none of his medications are new. Continue monitoring glucose a.c. HS, hypoglycemic protocol in place, sliding scale insulin. (5) Mixed hyperlipidemia: Code(s): E78.2 - Mixed hyperlipidemia Status: Acute Assessment and Plan: Will hold patient's high cholesterol medications at this time due to LFT elevations. (6) BPH (benign prostatic hyperplasia): Code(s): N40.0 - Benign prostatic hyperplasia without lower urinary tract symptoms Status: Acute Assessment and Plan: Will continue patient's Flomax and finasteride. Continue monitoring for any urinary issues. Time Spent With Patient Time with patient: 25 - 35 minutes Subjective Date/time seen: 10/30/21 12:32 Interval history: Date of service 10/30/2021: Patient says he had some pain rated 8/10 after lunch. He has not been eating very much because he does not like the type of food he has been receiving. He thinks he would eat more if he we advanced his diet. Denies fever, chills, nausea, vomiting, chest pain, shortness of breath, leg swelling, calf pain, or any other symptoms this time. Review of Systems Review of Systems: All systems reviewed & are unremarkable except as noted in HPI and below Exam Narrative: General: 71-year-old man who appears more comfortable today sitting up in bed. In no acute distress. Skin: No jaundice
[2021-10-30] MEDS: INSULIN ASPART (*BKC) 100 UNITS/ML SUB-Q (12:41)
[2021-10-30] MEDS: HYDROmorphone HCL INJ (*CRX) 1 MG/ML SYR 0.5 MG IV PUSH (12:45)
[2021-10-30] MEDS: NEOMYCIN/POLYMYXIN/BACITRACIN OINTMENT 15 GM TUBE 1 APPLIC TOPICAL (15:23)
[2021-10-30] MEDS: traMADol HCL (*CRX) 50 MG TABLET PO ×2 (16:48→23:00)
[2021-10-30 17:02] LABS: Glucose Point of Care 170 mg/dl (65-105)
[2021-10-30] MEDS: traZODone HCL 50 MG TABLET PO (21:42)
[2021-10-30] MEDS: ONDANSETRON INJ 4 MG/2 ML VIAL IV PUSH (21:44)
[2021-10-30 22:34] LABS: Glucose Point of Care 153 mg/dl (65-105)
[2021-10-31 06:00] VITALS: BP 122/71; PULSE 71; RESP 18; TEMP 37.5; O2SAT 92
[2021-10-31 06:49] LABS: Hematocrit 35.6 % (42.0-52.0); Hemoglobin 12.1 g/dL (14.0-18.0); Mean Corpuscular Hemoglobin 30.9 pg (26-34); Mean Corpuscular Volume 90.8 fl (80-100); Mean Platelet Volume 12.3 fl (7.4-10.4); Platelet Count Result 78 k/mm3 (150-375); Red Blood Count 3.92 M/mm3 (4.6-6.20); Red Cell Distribution Width 15.2 % (11.5-14.5); White Blood Count 5.7 K/mm3 (4.5-10.0)
[2021-10-31 07:07] LABS: Alanine Aminotransferase 46 U/L (4-50); Albumin Level 3.9 g/dL (3.5-5.1); Alkaline Phosphatase 69 U/L (38-126); Anion Gap 11 mmol/L (8-16); Aspartate Amino Transferase 48 U/L (17-59); Bilirubin,Total 0.8 mg/dL (0.2-1.3); Blood Urea Nitrogen 13 mg/dL (9-20); Calcium 8.3 mg/dL (8.4-10.2); Carbon Dioxide 24 mmol/L (22-30); Chloride 98 mmol/L (98-107); Estimated CRCL calculation 92 ml/min; Estimated Glomerular Filt Rate > 60; Glucose 138 mg/dL (65-110); Lipase 790 U/L (23-300); Magnesium 1.8 mg/dL (1.6-2.3); Potassium 3.7 mmol/L (3.4-5.0); Sodium 133 mmol/L (137-145)
[2021-10-31] MEDS: LEVOTHYROXINE SODIUM 75 MCG TABLET PO (07:44)
[2021-10-31 09:12] LABS: Glucose Point of Care 147 mg/dl (65-105)
[2021-10-31] MEDS: FINASTERIDE 5 MG TABLET PO (09:23)
[2021-10-31] MEDS: TAMSULOSIN HCL 0.4 MG CAPSULE PO (09:23)
[2021-10-31] MEDS: PANTOPRAZOLE SODIUM IV 40 MG VIAL IV PUSH ×2 (09:23→20:37)
[2021-10-31] MEDS: FLUTICASONE PROPIONATE 0.05% NA SPR 16 GM BTL (*BKC) 2 SPRAY NASAL (09:23)
[2021-10-31] MEDS: DOCUSATE SODIUM 100 MG CAPSULE PO ×2 (09:23→20:37)
[2021-10-31 11:50] LABS: Glucose Point of Care 146 mg/dl (65-105)
--- NOTE | 2021-10-31 12:40 | WPDGIPROGNO ---
Progress Note: A&P Assessment and Plan (1) Acute pancreatitis: Qualifiers: Acute pancreatitis complication: unspecified Pancreatitis type: unspecified pancreatitis type Qualified Code(s): K85.90 - Acute pancreatitis without necrosis or infection, unspecified Code(s): K85.90 - Acute pancreatitis without necrosis or infection, unspecified Status: Acute Assessment and Plan: Acute pancreatitis. This appears to be idiopathic. Laboratory parameters including LFTs and lipase have improved dramatically since hospitalization. Patient now tolerating liquid diet. MRCP is scheduled for today to further define the biliary tree. This is normal would suggest advancing to a low-fat diet. (2) Cirrhosis: Code(s): K74.60 - Unspecified cirrhosis of liver Status: Acute Assessment and Plan: CT scan reveals underlying cirrhosis of liver. Portal hypertension accompanies this. This been present on mildly on recent CT scans. Etiology for this is unclear but may be fatty liver. Supportive care is suggested. (3) Gastro-esophageal reflux disease without esophagitis: Code(s): K21.9 - Gastro-esophageal reflux disease without esophagitis Status: Acute Assessment and Plan: GE reflux appears stable. Currently on pantoprazole 40 mg p.o. daily. Anti-reflux measures are encourage. At some point follow-up EGD may be beneficial both for GE reflux as well as to assess for underlying esophageal varices. This can be arranged electively as an outpatient. (4) Type 2 diabetes mellitus with diabetic nephropathy: Qualifiers: Diabetes mellitus rodent exterminator insulin use: without residential use Qualified Code(s): E11.21 - Type 2 diabetes mellitus with diabetic nephropathy Code(s): E11.21 - Type 2 diabetes mellitus with diabetic nephropathy Status: Acute (5) Chronic lymphocytic leukemia: Code(s): C91.10 - Chronic lymphocytic leukemia of B-cell type not having achieved remission Status: Acute Assessment and Plan: Patient is felt to have CLL currently in remission. Subjective Date/time seen: 10/31/21 12:40 71-year-old white male patient with acute pancreatitis time seen in follow-up patient initially seen over the weekend by Dr. Zuluaga. Patient states abdominal pain persists but is improved significantly. He has required some pain medicines. He has had no bowel movement since admission hospital. Patient currently on liquid diet which appears to be tolerating without difficulty. At home he was never told he had gallstones. Recent gallbladder ultrasound and CT scan revealed no evidence of gallstones pancreatitis is evident. Also question of portal hypertension underlying cirrhosis. Patient denies any ongoing alcohol use. Family history noncontributory. Past medical history is significant for acid reflux disease currently felt to be stable on Protonix. Patient does have a family history of colon cancer. Recent colonoscopy within the last several years is unremarkable. Patient is felt to have CLL in remission. Family history noncontributory. Patient does have a history of mild elevation of LFTs and felt to have underlying cirrhosis likely on the basis of fatty liver. Review of Systems Review of Systems: All systems reviewed & are unremarkable except as noted in HPI and below Exam Narrative: Physical exam reveals patient be alert. Vital signs stable. HEENT exam unremarkable. Patient is anicteric. Lungs are clear to auscultation and percussion. Heart is without murmur or extra sounds. Abdomen bowel sounds are quiet abdomen is soft flat nontender. Objective Data Vital Signs Vital Signs: Vital Signs - 24 hr 10/30/21 14:00 10/30/21 21:47 10/31/21 06:00 Temperature 97.8 F 96.9 F L 99.5 F Pulse Rate 95 64 71 Respiratory Rate 18 16 18 Blood Pressure 108/51 L 129/60 122/71 Pulse Oximetry 90 92 92 Intake/Output Intake/Output: Intake & Outpu
[2021-10-31 14:00] VITALS: BP 124/63; PULSE 68; RESP 16; TEMP 36.4; O2SAT 94
[2021-10-31] MEDS: NEOMYCIN/POLYMYXIN/BACITRACIN OINTMENT 15 GM TUBE 1 APPLIC TOPICAL (14:19)
[2021-10-31] MEDS: polyethylene glycoL 3350 17 GM POWD.PACK PO (14:19)
--- NOTE | 2021-10-31 14:27 | PM.IMPN ---
Progress Note: A&P Assessment and Plan (1) Acute pancreatitis: Qualifiers: Acute pancreatitis complication: unspecified Pancreatitis type: unspecified pancreatitis type Qualified Code(s): K85.90 - Acute pancreatitis without necrosis or infection, unspecified Code(s): K85.90 - Acute pancreatitis without necrosis or infection, unspecified Status: Acute Assessment and Plan: Patient continues to have abd pain after eating, which is normal for pancreatitis. Lipase trending down to 700 today. Continue monitoring LFTs and pancreatic enzymes Right upper quadrant ultrasound shows Acute interstitial pancreatitis. Cirrhosis of the liver. Gallbladder wall thickening, which may secondary to interstitial edema or chronic liver disease. GI evaluated the patient and is going to do an MRCP today which is pending. Will start low-fat diet at this time and see how he tolerates it. Will switch to oral pain medications p.r.n.. Continue monitoring. (2) Elevated liver enzymes: Code(s): R74.8 - Abnormal levels of other serum enzymes Status: Acute Assessment and Plan: Patient state he was found to have liver enzyme elevation about 6 months ago. He sees Dr. Allred GI specialist for his routine EGD and colonoscopies, but was never referred for his elevated liver enzymes. CT has concerns of liver cirrhosis Right upper quadrant ultrasound shows cirrhosis Currently he is compensated with his liver cirrhosis and most likely due to AMES Hepatic panel normal GI consultation and appreciate their input Continue monitoring. (3) Gastro-esophageal reflux disease without esophagitis: Code(s): K21.9 - Gastro-esophageal reflux disease without esophagitis Status: Acute Assessment and Plan: Patient takes pantoprazole once daily. 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 Will have him on IV pantoprazole q.12 while in the hospital. (4) Type 2 diabetes mellitus with diabetic nephropathy: Qualifiers: Diabetes mellitus jail insulin use: without exterminator use Qualified Code(s): E11.21 - Type 2 diabetes mellitus with diabetic nephropathy Code(s): E11.21 - Type 2 diabetes mellitus with diabetic nephropathy Status: Acute Assessment and Plan: Will hold all of his diabetes medications since some of these can trigger pancreatitis episodes. He states none of his medications are new. Continue monitoring glucose a.c. HS, hypoglycemic protocol in place, sliding scale insulin. (5) Mixed hyperlipidemia: Code(s): E78.2 - Mixed hyperlipidemia Status: Acute Assessment and Plan: Will hold patient's high cholesterol medications at this time due to LFT elevations. (6) BPH (benign prostatic hyperplasia): Code(s): N40.0 - Benign prostatic hyperplasia without lower urinary tract symptoms Status: Acute Assessment and Plan: Will continue patient's Flomax and finasteride. Continue monitoring for any urinary issues. Subjective Date/time seen: 10/31/21 14:27 Interval history: Date of service 10/31/2021: Patient is feeling well at this time. He is eager to get some food after his MRCP. Denies any abdominal pain currently. He states he tolerated a low-fat diet last night with only minimal discomfort. Denies any fevers, chills, chest pain, shortness of breath, cough, nausea, vomiting, leg swelling, calf pain, or any other symptoms at this time. Review of Systems Review of Systems: All systems reviewed & are unremarkable except as noted in HPI and below Exam Narrative: General: 71-year-old man who appears more comfortable today sitting up in bed, texting on hi
[2021-10-31] MEDS: INSULIN ASPART (*BKC) 100 UNITS/ML SUB-Q (17:18)
[2021-10-31 17:20] LABS: Glucose Point of Care 202 mg/dl (65-105)
[2021-10-31] MEDS: BISACODYL 10 MG SUPPOSITORY RECTAL (18:07)
[2021-10-31] MEDS: traZODone HCL 50 MG TABLET PO (20:37)
[2021-10-31] MEDS: traMADol HCL (*CRX) 50 MG TABLET PO (20:38)
[2021-10-31 20:47] LABS: Glucose Point of Care 167 mg/dl (65-105)
[2021-10-31 21:17] VITALS: BP 129/61; PULSE 67; RESP 12; TEMP 36.3; O2SAT 94
[2021-11-01 04:51] VITALS: BP 118/70; PULSE 68; RESP 14; TEMP 36.3; O2SAT 94
[2021-11-01 05:56] LABS: Hematocrit 35.3 % (42.0-52.0); Hemoglobin 12.2 g/dL (14.0-18.0); Immature Platelet Fraction Pct 9.5 % (0.9-11.2); Mean Corpuscular HGB Conc 34.6 g/dl (32-36); Mean Corpuscular Hemoglobin 30.3 pg (26-34); Mean Corpuscular Volume 87.8 fl (80-100); Mean Platelet Volume 11.8 fl (7.4-10.4); Platelet Count Result 85 k/mm3 (150-375); Red Blood Count 4.02 M/mm3 (4.6-6.20); Red Cell Distribution Width 14.4 % (11.5-14.5); White Blood Count 5.7 K/mm3 (4.5-10.0)
[2021-11-01 06:09] LABS: Alanine Aminotransferase 39 U/L (4-50); Albumin Level 3.8 g/dL (3.5-5.1); Alkaline Phosphatase 86 U/L (38-126); Anion Gap 12 mmol/L (8-16); Aspartate Amino Transferase 43 U/L (17-59); Bilirubin,Total 0.8 mg/dL (0.2-1.3); Blood Urea Nitrogen 12 mg/dL (9-20); Calcium 8.5 mg/dL (8.4-10.2); Carbon Dioxide 21 mmol/L (22-30); Chloride 98 mmol/L (98-107); Estimated CRCL calculation 92 ml/min; Estimated Glomerular Filt Rate > 60; Glucose 163 mg/dL (65-110); Potassium 3.9 mmol/L (3.4-5.0); Sodium 131 mmol/L (137-145)
[2021-11-01] MEDS: LEVOTHYROXINE SODIUM 75 MCG TABLET PO (06:33)
[2021-11-01 07:46] LABS: Glucose Point of Care 168 mg/dl (65-105)
[2021-11-01] MEDS: FLUTICASONE PROPIONATE 0.05% NA SPR 16 GM BTL (*BKC) 2 SPRAY NASAL (08:12)
[2021-11-01] MEDS: FINASTERIDE 5 MG TABLET PO (08:13)
[2021-11-01] MEDS: DOCUSATE SODIUM 100 MG CAPSULE PO (08:14)
[2021-11-01] MEDS: TAMSULOSIN HCL 0.4 MG CAPSULE PO (08:14)
[2021-11-01] MEDS: PANTOPRAZOLE SODIUM IV 40 MG VIAL IV PUSH (08:15)
[2021-11-01] MEDS: traMADol HCL (*CRX) 50 MG TABLET PO (11:09)
--- NOTE | 2021-11-01 11:18 | WPDGIPROGNO ---
Progress Note: A&P Assessment and Plan (1) Acute pancreatitis: Qualifiers: Acute pancreatitis complication: unspecified Pancreatitis type: unspecified pancreatitis type Qualified Code(s): K85.90 - Acute pancreatitis without necrosis or infection, unspecified Code(s): K85.90 - Acute pancreatitis without necrosis or infection, unspecified Status: Acute Assessment and Plan: Patient with acute pancreatitis. Lipase is continued to improve. Clinically pain is less bowel sounds present passing stool. MRCP reveals no evidence choledocholithiasis. Etiology of pancreatitis likely idiopathic. As patient does not drink no evidence for gallstones. Suggest advancing to low-fat diet discharge if pain is controlled. hopefully discharged today of others agree. (2) Cirrhosis: Code(s): K74.60 - Unspecified cirrhosis of liver Status: Acute Assessment and Plan: Patient with underlying cirrhosis of the liver. Evident on CT scan. Portal hypertension evident on most recent exam. Continue to follow supportively at this juncture. Likely etiology is fatty liver. (3) Chronic lymphocytic leukemia: Code(s): C91.10 - Chronic lymphocytic leukemia of B-cell type not having achieved remission Status: Acute Assessment and Plan: CLL felt to be in remission. 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 Tolerating low-fat diet. Had a bowel movement. Review of Systems Review of Systems: All systems reviewed & are unremarkable except as noted in HPI and below Exam Narrative: Physical exam patient is alert and afebrile. He is anicteric. Lungs are clear. Heart without murmur. Abdomen bowel sounds present soft no localized tenderness. No masses. Objective Data Vital Signs Vital Signs: Vital Signs - 24 hr 10/31/21 14:00 10/31/21 21:17 11/01/21 04:51 Temperature 97.5 F L 97.4 F L 97.3 F L Pulse Rate 68 67 68 Respiratory Rate 16 12 14 Blood Pressure 124/63 129/61 118/70 Pulse Oximetry 94 94 94 Intake/Output Intake/Output: Intake & Output 10/29/21 10/30/21 10/31/21 11/01/21 23:59 23:59 23:59 23:59 Intake Total 4150 2930 1480 360 Output Total 2150 900 300 Balance 4150 780 580 60 Meds/Results Medications: Active Medications Generic Name Dose Route Start Last Admin Trade Name Freq PRN Reason Stop Dose Admin Hydrocodone Bitart/Acetaminophen 1 tab 10/31/21 14:40 Hydrocodone/Acetaminophen (*Crx) 5-325 Mg Tablet PO Q4H PRN Pain Rated 7-10 Dextrose 12.5 gm 10/29/21 09:27 Dextrose 50% 25 Gm/50 Ml Syringe IV PUSH PRN PRN Hypoglycemia Protocol Docusate Sodium 100 mg 10/29/21 21:00 11/01/21 08:14 Docusate Sodium 100 Mg Capsule PO 100 mg Q12HR LÓPEZ Administration Finasteride 5 mg 10/30/21 09:00 11/01/21 08:13 Finasteride 5 Mg Tablet PO 11/29/21 08:59 5 mg DAILY LÓPEZ Administration Fluticasone Propionate 2 spray 10/30/21 09:00 11/01/21 08:12 Fluticasone Propionate 0.05% Na Spr 16 Gm Btl (*Bkc) NASAL 2 spray DAILY LÓPEZ Administration Glucagon 1 mg 10/29/21 09:27 Glucagon For Inj 1 Mg Vial IM PRN PRN Hypoglycemia Protocol Glucose 15 gm 10/29/21 09:27 Glucose Oral Gel 15 Gm Of Glucse In 37.5 Gm Tube PO PRN PRN Hypoglycemia Protocol Hydromorphone HCl 0.5 mg 10/31/21 14:40 Hydromorphone Hcl Inj (*Crx) 1 Mg/Ml Syr IV PUSH Q4H PRN Severe uncontrolled pain Dextrose 1,000 mls @ 100 mls/hr 10/29/21 09:27 Dextrose 5% 1,000 Ml IVPB PRN PRN
[2021-11-01 11:30] LABS: Glucose Point of Care 369 mg/dl (65-105)
[2021-11-01] MEDS: INSULIN ASPART (*BKC) 100 UNITS/ML SUB-Q (11:51)
[2021-11-01 12:06] LABS: Glucose Point of Care 289 mg/dl (65-105)
--- NOTE | 2021-11-01 13:28 | PM.DS ---
DS: Admitting Diagnosis Discharge Date 11/01/21 Admitting Diagnosis pancreatitis DS: Discharge Diagnosis Discharge Diagnosis (1) Acute pancreatitis: Qualifiers: Acute pancreatitis complication: unspecified Pancreatitis type: unspecified pancreatitis type Qualified Code(s): K85.90 - Acute pancreatitis without necrosis or infection, unspecified Code(s): K85.90 - Acute pancreatitis without necrosis or infection, unspecified Status: Acute Assessment and Plan: Idiopathic. Pt does not drink and there is no evidence for gallstones. Lipase trending down to 700. LFTs WNL Right upper quadrant ultrasound shows Acute interstitial pancreatitis. Cirrhosis of the liver. Gallbladder wall thickening, which may secondary to interstitial edema or chronic liver disease. GI evaluated the patient, ordered MRCP which showed acute interstitial pancreatitis and cirrhosis of the liver with portal venous hypertension. Tolerating low fat diet well. Clinically pain is less, bowel sounds are present, and patient is passing stool. Per GI stable for discharge. Will continue low fat diet on discharge and send w/ small narcotic prescription as he is still having some mild pain. (2) Elevated liver enzymes: Code(s): R74.8 - Abnormal levels of other serum enzymes Status: Acute Assessment and Plan: Patient state he was found to have liver enzyme elevation about 6 months ago. He sees Dr. Allred GI specialist for his routine EGD and colonoscopies, but was never referred for his elevated liver enzymes. CT has concerns of liver cirrhosis Right upper quadrant ultrasound shows cirrhosis Currently he is compensated with his liver cirrhosis and most likely due to AMES Hepatic panel normal GI consultation and outpatient follow up. (3) Gastro-esophageal reflux disease without esophagitis: Code(s): K21.9 - Gastro-esophageal reflux disease without esophagitis Status: Acute Assessment and Plan: Patient takes pantoprazole once daily. 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 Was on IV pantoprazole q.12 while in the hospital. (4) Type 2 diabetes mellitus with diabetic nephropathy: Qualifiers: Diabetes mellitus correction insulin use: without parts counterman use Qualified Code(s): E11.21 - Type 2 diabetes mellitus with diabetic nephropathy Code(s): E11.21 - Type 2 diabetes mellitus with diabetic nephropathy Status: Acute Assessment and Plan: -Glucose monitoring ACHS, hypoglycemic protocol, and sliding scale insulin. -All 4 of his diabetes medications were held during admission due to risk of causing pancreatitis. Blood sugars have been reasonably well controlled during admission. -Will restart 3 of 4 home medications on discharge. Reviewed literature on Uptodate and [facility], his Januvia, Metformin, and glimepiride are not known to cause pancreatitis. Will discontinue his Trulicity which could potentially be linked to pancreatitis and advise follow up with pcp within 1 week to discuss alternative options. (5) Mixed hyperlipidemia: Code(s): E78.2 - Mixed hyperlipidemia Status: Acute Assessment and Plan: High cholesterol medications were held during admission due to LFT elevations. LFTs have normalized. . Repeat labs 1 week. (6) BPH (benign prostatic hyperplasia): Code(s): N40.0 - Benign prostatic hyperplasia without lower urinary tract symptoms Status: Acute Assessment and Plan: Continued Flomax and finasteride. (7) Cirrhosis: Code(s): K74.60 - Unspecified cirrhosis of liver Status: Acute Assessment and Plan: -Patient with unde
[2021-11-01 13:55] VITALS: BP 117/65; PULSE 61; RESP 17; TEMP 36.1; O2SAT 96
== END 2021-11-01 15:30 | disposition home or self-care (01) | DRG 439 ==
LOC: ANHED 03:32 → ANH3MEDSUR 07:35
PROVIDERS: Physician Assistant; Admitting Provider Internal Medicine; Emergency Provider Emergency Medicine; PCP Family Medicine; Visit Provider Physician Assistant
DX: K85.00 Idiopathic acute pancreatitis without necrosis or infection (principal); C91.10 Chronic lymphocytic leukemia of B-cell type not having achieved remission; K75.81 Nonalcoholic steatohepatitis (NASH); K74.60 Unspecified cirrhosis of liver; K21.9 Gastro-esophageal reflux disease without esophagitis; E11.21 Type 2 diabetes mellitus with diabetic nephropathy; E78.2 Mixed hyperlipidemia; N40.0 Benign prostatic hyperplasia without lower urinary tract symptoms; E03.9 Hypothyroidism, unspecified; G47.33 Obstructive sleep apnea (adult) (pediatric); E88.81 Metabolic syndrome and other insulin resistance
CPT/HCPCS: 36415; 71045; 74177; 74183; 76376; 76705; 80053; 81001; 82948; 83036; 83605; 83690; 83735; 85025; 85027; 85055; 96361; 96374; 96375; 96376; 99285; A9270; A9577; C9113; G0378; J1170; J1815; J1940; J2270; J2405; J7030; Q9967

== ENCOUNTER 2022-03-28 05:51 | Inpatient (IN) | payer MEDICARE, BC, SELFPAY ==
[2022-03-28] VITALS (27 sets, daily range): BP systolic 88–153; BP diastolic 49–79; PULSE 44–80; RESP 12–24; TEMP 35.9–36.7; O2SAT 91–98; BMI 24.2
--- NOTE | ~2022-03-28 | CT_ITS ---
EXAMINATION: CT abdomen pelvis wo con DATE: 03/28/2022 06:48 INDICATION: Epigastric abdominal pain. TECHNIQUE: Computed tomography (CT) of the abdomen and pelvis was performed without intravenous contr ast. Automated exposure control and iterative reconstruction technique were employed. The dose-length product was 452.65 mGy-cm. COMPARISON: CT abdomen and pelvis 10/29/2021, MRCP 10/31/2021 FINDINGS: The visualized portions of the lung bases demonstrate mild atelectasis. Again seen is a 7 m m nodule at the minor fissure, likely benign. No pleural effusion. The heart size is normal. There ar e coronary artery calcifications. No pericardial effusion. The liver demonstrates surface nodularity, consistent with cirrhosis. There is mild splenomegaly. The gallbladder is distended. There is fat st randing around the head and body of pancreas, consistent with acute interstitial pancreatitis. The ad renal glands and left kidney are normal. There is a 5 mm stone in right kidney. There is a left ingui nal hernia containing fat. The prostate is mildly enlarged. There is diverticulosis of the colon with out evidence of diverticulitis. There are no dilated loops of bowel. The appendix is normal. There is mild thoracolumbar spondylosis. IMPRESSION: 1. Acute interstitial pancreatitis. 2. Cirrhosis of the liver with portal venous hypertension. 3. Gallbladder distention, which may be secondary to fasting. Reviewed, dictated and finalized at location A.
--- NOTE | ~2022-03-28 | XR_ITS ---
EXAMINATION: XR chest port-a-cath/central DATE: 03/30/2022 00:06 INDICATION: Central line placement. TECHNIQUE: A single frontal view of the chest was obtained. COMPARISON: Chest single view 10/30/2021, CT abdomen and pelvis 03/29/2022 FINDINGS: There are small pleural effusions. There are airspace opacities in the mid and lower lung z ones. No pneumothorax. The heart size is normal. A right internal jugular central venous catheter is seen with tip in the superior vena cava. IMPRESSION: 1. Small pleural effusions. 2. Airspace opacities in the mid and lower lung zones, consistent with atelectasis versus pneumonia. Reviewed, dictated and finalized at location A. IMPRESSION: 1. Small pleural effusions. 2. Airspace opacities in the mid and lower lung zones, consistent with atelecta sis versus pneumonia.
--- NOTE | ~2022-03-28 | MR_ITS ---
EXAMINATION: MR MRCP wo/w con/w 3D wo ind DATE: 03/30/2022 15:13 INDICATION: Abnormal liver function tests. Right upper quadrant abdominal pain. TECHNIQUE: Magnetic resonance imaging (MRI) of the abdomen was performed without and with 13 mL Multi Radha intravenous contrast. Sequences included coronal T2-weighted FS FSE, coronal T2-weighted FSE, a xial T1-weighted LAVA, coronal FS FIESTA, axial dual-echo T1-weighted SPGR, coronal lava-FLEX, sagitt al T2-weighted FSE, axial T2-weighted FSE, and axial DWI. Thick-slab T2-weighted FSE images were obta ined for magnetic resonance cholangiopancreatography (MRCP). Maximum intensity projection 3-D reconst ructions of the volumetric data were created by the technologist. Postcontrast sequences included cor onal LAVA-flex and time course of axial T1-weighted LAVA. COMPARISON: MRCP 10/31/2021, CT abdomen and pelvis 03/29/2022 FINDINGS: ABDOMEN MRI: There are small pleural effusions. There are airspace opacities in the lower lobes and l ingula, likely atelectasis. The liver demonstrates a nodular surface contour, consistent with cirrhos is. The gallbladder is normal in size contains sludge. Gallbladder wall thickening is likely secondar y to chronic liver disease. The spleen is normal. The pancreas enhances throughout. There is fat stra nding around the pancreas and in the peritoneum and retroperitoneum. There is a small volume of ascit es. The adrenal glands and kidneys are normal. There are no dilated loops of bowel. ABDOMEN MRCP: The common duct is normal and measures 4 mm. No choledocholithiasis. IMPRESSION: 1. Acute interstitial pancreatitis. 2. Cirrhosis of the liver. 3. Small volume of ascites. 4. Small pleural effusions. 5. Normal common duct. No choledocholithiasis. Reviewed, dictated and finalized at location A.
--- NOTE | ~2022-03-28 | US_ITS ---
EXAMINATION: US venous doppler [facility] DATE: 03/29/2022 14:27 INDICATION: SOB/ elevated D-Dimer . TECHNIQUE: Grayscale images without and with compression and Doppler images of the bilateral lower ex tremity veins were obtained. COMPARISON: None FINDINGS: The right common femoral vein, profunda (deep) femoral vein, femoral vein, popliteal vein, peroneal v ein, posterior tibial veins, and greater saphenous vein are patent. The left common femoral vein, profunda femoral vein, femoral vein, popliteal vein, peroneal vein, pos terior tibial veins and greater saphenous vein are patent. IMPRESSION: 1. Patent bilateral lower extremity veins. No evidence of deep venous thrombosis Reviewed, dictated and finalized at location K. IMPRESSION: 1. Patent bilateral lower extremity veins. No evidence of deep venous thrombos is
--- NOTE | ~2022-03-28 | CT_ITS ---
EXAMINATION: CTA chest PE protocol DATE: 03/29/2022 13:30 INDICATION: Shortness of breath. Elevated d-dimer. TECHNIQUE: Computed tomography angiography (CTA) of the chest was performed with 100 mL Omnipaque-300 intravenous contrast timed to evaluate the pulmonary arteries. Coronal maximum intensity projection 3D-reconstructions were created by the technologist. Automated exposure control and iterative reconst ruction technique were employed. Exam dose: 317.37 mGy-cm total exam DLP. COMPARISON: 10/30/2021 portable AP chest FINDINGS: Examination is limited by motion. No apparent pulmonary embolism is identified. The periphe ral pulmonary arteries are not optimally demonstrated. Cardiomegaly. No pericardial effusion. There is a small right pleural effusion. No hilar or mediastinal mass lesion or lymphadenopathy is evident. No thoracic aortic aneurysm or dissection. There is dependent lingular and prominent bilateral lobe atelectasis/infiltrate No suspicious osteolytic or osteoblastic lesions are noted. IMPRESSION: No pulmonary embolism detected Lingular and particularly prominent bilateral lower lobe dependent atelectasis/infiltrate Reviewed, dictated and finalized at Location A. Reviewed, dictated and finalized at location A. IMPRESSION: No pulmonary embolism detected Lingular and particularly prominent bilateral lower lobe dependent atelectasis/ infiltrate
--- NOTE | ~2022-03-28 | CT_ITS ---
EXAMINATION: CT abdomen pelvis wo con DATE: 03/29/2022 18:53 INDICATION: fever + pancreatitis, mid abd pain TECHNIQUE: Computed tomography (CT) of the abdomen and pelvis was performed without intravenous contr ast. Automated exposure control and iterative reconstruction technique were employed. The dose-length product was 563.44 mGy-cm. COMPARISON: None FINDINGS: Lower thorax: Motion artifact. Bibasilar consolidation and small bilateral effusions. Aortic and olegario nary artery calcification. Liver: Normal. Biliary/Gallbladder: Gallbladder is mildly enlarged. No bile duct dilation. Pancreas: Peripancreatic inflammatory change Spleen: Normal. Adrenals:No mass. Kidneys: Persistent contrast excretion from a previous imaging study. GI tract: The rectum is dilated to 6.4 cm by formed stool. The appendix is normal Mesentery/Peritoneum: Small volume perihepatic and bilateral paracolic gutter fluid Retroperitoneum: No mass. Pelvis: Contrast filled bladder. Prostatomegaly. Soft Tissues: Soft tissues and body wall unremarkable. Bones: No acute osseous finding. IMPRESSION: Bibasilar consolidation/atelectasis. Small bilateral effusions. Persistent pancreatic inflammation. F ecal impaction. Reviewed, dictated and finalized at location K. IMPRESSION: Bibasilar consolidation/atelectasis. Small bilateral effusions. Persistent panc reatic inflammation. Fecal impaction.
--- NOTE | ~2022-03-28 | US_ITS ---
EXAMINATION: US abdomen limited DATE: 03/29/2022 14:28 INDICATION: Pancreatitis TECHNIQUE: Multiple limited grayscale and Doppler ultrasound images of the abdomen were obtained. COMPARISON: CT abdomen and pelvis 03/28/2022 FINDINGS: Echogenic, enlarged . The liver is enlarged with coarse echogenicity. Mild nodularity. Norm al hepatopetal flow in the main portal vein. Enlarged gallbladder, wall thickness 3 mm, nonspecific i n the setting of chronic liver disease. The normal common bile duct measures 6. There was no sonograp hic Gilliam sign. IMPRESSION: 1. Pancreatic findings consistent with the given history of pancreatitis 2. Hepatomegaly and cirrhosis. 3. Gallbladder hydrops with nonspecific wall thickening. Reviewed, dictated and finalized at location K.
--- NOTE | 2022-03-28 06:07 | ECG_ITS ---
Measurements Intervals [place] Rate: 47 P: 23 MD: 215 QRS: 53 QRSD: 98 T: 48 QT: 472 QTc: 421 Interpretive Statements SINUS BRADYCARDIA WITH FIRST DEGREE AV BLOCK Electronically Signed On 03-28-2022 11:14:30 CDT by Martin Carrasquillo M.D.
--- NOTE | 2022-03-28 06:08 | ED.ABDPAIN ---
HPI - Abdominal Pain General Chief Complaint: Abdominal Pain Stated Complaint: abdominal pain Time Seen by Provider: 03/28/22 05:56 Source: patient History of Present Illness HPI narrative: Patient presents with epigastric pain. Reports symptoms started around 230 3:00 and gotten progressively worse. Pain described as it just hurts is in his epigastric area there is no radiation there is no clear aggravating or alleviating factors. He reports some nausea but denies any vomiting or diarrhea. Reports chills at home. Denies any urinary symptoms chest pain cough or shortness of breath. Denies any lightheadedness or dizziness. Patient reports a history of pancreatitis and was admitted in March at this hospital and is concerned that he is having another episode. Related Data Home Medications Medication Instructions Recorded Confirmed finasteride 1 mg tablet 5 mg PO DAILY 12/04/19 02/17/22 blood sugar diagnostic (Blood #10 ea 10/26/20 02/17/22 Glucose Test strips) atorvastatin 20 mg tablet 20 mg PO DAILY 10/29/21 02/17/22 fenofibrate 160 mg tablet 160 mg PO DAILY 10/29/21 02/17/22 glimepiride 4 mg tablet 4 mg PO DAILY 10/29/21 02/17/22 levothyroxine 75 mcg tablet 75 mcg PO DAILY 10/29/21 02/17/22 Allergies Allergy/AdvReac Type Severity Reaction Status Date / Time Bumble Bee Allergy Mild Anaphylactic Uncoded 03/28/22 05:56 Shock Honey Bee Allergy Unknown Swelling Uncoded 03/28/22 05:56 Review of Systems Review of Systems: CONSTITUTIONAL: Denies fever, chills, or sweats. EYES: Denies visual changes, redness, or discharge. ENT: Denies rhinorrhea, congestion, sore throat, or otalgia. CARDIOVASCULAR: Denies chest pain, palpitations, or edema. RESPIRATORY: Denies cough or dyspnea. GASTROINTESTINAL: Abdominal pain with nausea GENITOURINARY: Denies dysuria or hematuria. SKIN: Denies rash or itching. MUSCULOSKELETAL: Denies back pain, joint pain, or myalgia. NEUROLOGIC: Denies headache, numbness, dizziness, or weakness. PSYCHIATRIC: Denies anxiety or depression. All systems reviewed & are unremarkable except as noted in HPI and below PMFSH Past Medical History Medical History BPH (benign prostatic hyperplasia) Chronic lymphocytic leukemia Cirrhosis Dysmetabolic syndrome X Erectile dysfunction Hypothyroidism, unspecified Insomnia, unspecified Mixed hyperlipidemia VIKAS (obstructive sleep apnea) Type 2 diabetes mellitus with diabetic nephropathy Surgical History Surgical History History of surgery on right wrist Family History Family History Father Family history of malignant neoplasm, Onset Age: 75 Mother Carcinoma of colon, Onset Age: 60 Social History Social History Second hand tobacco smoke exposure: No Alcohol intake: never Alcohol use details: Six beers per year Substance use: never Substance use type: does not use Additional living arrangements comments: Lives with in [facility] Spiritual care concerns: No Exam Narrative: GENERAL: Well-appearing, well-nourished, and in no acute distress. HEAD: Normocephalic, atraumatic. EYES: PERRLA and EOMI. ENT: Nares clear, no rhinorrhea or epistaxis. Mucous membranes moist. NECK: Supple. No masses. No JVD CHEST: Clear to auscultation. No respiratory distress. No wheezes rales or rhonchi HEART: Regular rate and rhythm. No murmur heard. Normal peripheral pulses. ABDOMEN: Moderate tenderness in his epigastric area no rebound or guarding soft, nondistended EXTREMITIES: Normal range of motion. No edema. SKIN: Warm, dry, no rash. NEURO: No focal deficits. Alert and oriented x3. PSYCH: Normal mood and affect. Course Reevaluation(s) Reevaluation #1: Patient continues have pain results thus far re
[2022-03-28] MEDS: MORPHINE SULFATE (*CRX) 4 MG/ML INJ IV PUSH (06:17)
[2022-03-28] MEDS: ONDANSETRON INJ 4 MG/2 ML VIAL IV PUSH (06:17)
[2022-03-28] MEDS: SODIUM CHLORIDE 0.9% IV 1,000 ML 999 ML IV CONT (06:19)
[2022-03-28 06:32] LABS: Basophils Percent Auto 0.4 % (0.2-1.2); Eosinophils Absolute Auto 0.1 K/mm3 (0-0.3); Eosinophils Percent Auto 0.7 % (0-4.4); Hematocrit 42.8 % (42.0-52.0); Hemoglobin 13.7 g/dL (14.0-18.0); Immature Granulocyte Absolute 0.04 K/mm3 (0.00-0.031); Immature Granulocyte Percent A 0.4 % (0-0.5); Lymphocytes Percent Auto 23.1 % (18.3-44.2); Mean Corpuscular Hemoglobin 29.5 pg (26-34); Mean Corpuscular Volume 92.2 fl (80-100); Mean Platelet Volume 12.5 fl (7.4-10.4); Monocytes Absolute Auto 0.6 K/mm3 (0.1-0.6); Monocytes Percent Auto 6.1 % (2.6-8.5); Neutrophils Absolute Auto 7.2 K/mm3 (1.3-6.7); Neutrophils Percent Auto 69.3 % (45.5-73.1); Platelet Count Result 107 k/mm3 (150-375); Red Blood Count 4.64 M/mm3 (4.6-6.20); Red Cell Distribution Width 15.1 % (11.5-14.5); White Blood Count 10.4 K/mm3 (4.5-10.0)
--- NOTE | 2022-03-28 06:46 | PC.NURSE ---
Pt went to Ct scan and efused states pain has gotten worse after Mso4 4mg. Pt request more pain meds. SIMONA Liang advised.
[2022-03-28 06:56] LABS: Alanine Aminotransferase 42 U/L (6-50); Albumin Level 4.8 g/dL (3.5-5.1); Alkaline Phosphatase 123 U/L (38-126); Anion Gap 10 mmol/L (8-16); Aspartate Amino Transferase 61 U/L (17-59); Bilirubin,Total 0.5 mg/dL (0.2-1.3); Blood Urea Nitrogen 19 mg/dL (9-20); Calcium 8.9 mg/dL (8.4-10.2); Carbon Dioxide 25 mmol/L (22-30); Chloride 103 mmol/L (98-107); Estimated CRCL calculation 70 ml/min; Estimated Glomerular Filt Rate > 60; Glucose 202 mg/dL (65-110); Potassium 3.8 mmol/L (3.4-5.0); Sodium 138 mmol/L (137-145)
[2022-03-28 07:04] LABS: Troponin I < 0.012 ng/mL (0.000-0.034)
--- NOTE | 2022-03-28 07:12 | PC.NURSE ---
Patient report received from AHSAN Dunn. All question answered and care of patient assumed.
[2022-03-28 07:20] LABS: Appearance Urine Clear (Clear); Bilirubin Urine Negative (Negative); Blood Urine Negative (Negative); Color Urine Yellow (Yellow); Glucose Urine UA 3+ mg/dL (Negative); Ketones Urine Negative (Negative); Leukocyte Esterase Ur Negative LEU/UL (Negative); Nitrate Urine Negative (Negative); Protein Urine Negative (Negative); Specific Grav Ur 1.015 (1.001-1.035); Urobilinogen Urine 0.2 mg/dL (<2.0); pH Urine 6.5 (5.0-9.0)
[2022-03-28 07:34] LABS: Add Urine Microscopic? YES
[2022-03-28 07:35] LABS: RBC Urine 0-2 /hpf (0-2); WBC Urine 0-3 /hpf
[2022-03-28] MEDS: SODIUM CHLORIDE 0.9% IV 1,000 ML 125 ML IV CONT ×2 (07:54→16:02)
--- NOTE | 2022-03-28 08:06 | PM.IMHP ---
H&P: HPI History of Present Illness Date/Time: 03/28/22 08:06 Chief Complaint: Acute abdominal pain Narrative: Patient is a 72-year-old male with a past medical history of cirrhosis of the liver, mixed hyperlipidemia, diabetes mellitus type 2 with neuropathy, VIKAS, dysmetabolic syndrome max and chronic lymphatic leukemia. Patient presented to [facility] with reports of epigastric pain that began around 230-3 o'clock this morning. It progressively became worse. Pain was described as nonradiating with no aggravating or alleviating factors. Patient does endorse nausea but denies any episodes of emesis or diarrhea. Patient endorses chills at home denies any known fever. There are no urinary symptoms, chest pain, shortness a breath. He denies any lightheadedness dizziness. Patient reports he has a history of pancreatitis and was admitted in March at this hospital I was concerned about having another episode. Therefore further workup was performed in the emergency department. Labs and imaging were obtained which revealed WBC of 10.4, hemoglobin 13.7, hematocrit 42.8, platelet 107, sodium 138, potassium 3.8, BUN 19 and creatinine is 0.8. Glucose mildly elevated at 202 and patient does have normal LFTs. Lipase 31,533 with a negative UA. CT of the abdomen and pelvis revealed acute interstitial pancreatitis with cirrhosis of the liver with portal venous hypertension as well as gallbladder distension which may be secondary to fasting. EKG was performed which revealed normal sinus bradycardia with a heart rate in 47. Hospitalist team was consulted for admission for acute pancreatitis without necrosis or infection. Patient will being started on aggressive IV fluid resuscitation and made NPO with a consult to Gastroenterology. Review of Systems Review of Systems: All systems reviewed & are unremarkable except as noted in HPI and below PMFSH Past Medical History Medical History BPH (benign prostatic hyperplasia) Chronic lymphocytic leukemia Cirrhosis Dysmetabolic syndrome X Erectile dysfunction Hypothyroidism, unspecified Insomnia, unspecified Mixed hyperlipidemia VIKAS (obstructive sleep apnea) Type 2 diabetes mellitus with diabetic nephropathy Surgical History Surgical History History of surgery on right wrist Family History Family History (Updated 03/28/22 @ 08:45 by Yessenia Rodriguez RN) Father Family history of malignant neoplasm, Onset Age: 75 CLL (chronic lymphocytic leukemia) Mother Carcinoma of colon, Onset Age: 60 Social History Social History Smoking status: Never smoker Second hand tobacco smoke exposure: No Alcohol intake: never Alcohol use details: Six beers per year Substance use: never Substance use type: does not use Additional living arrangements comments: Lives with in [facility] Spiritual care concerns: No Meds Home Medications and Allergies Home Medications Medication Instructions Recorded Confirmed Type finasteride 1 mg tablet 5 mg PO DAILY 12/04/19 02/17/22 History ketoconazole 2 % topical cream 1 applic topical BID #60 grams 04/09/20 02/17/22 Rx lancets 33 gauge (OneTouch Delica #100 ea 08/30/20 02/17/22 Rx Lancets) blood sugar diagnostic #100 ea 10/26/20 02/17/22 Rx blood sugar diagnostic (Blood #10 ea 10/26/20 02/17/22 History Glucose Test strips) tramadol 50 mg tablet 50 mg PO Q6H PRN pain #28 tabs 09/23/21 02/17/22 Rx OneTouch Verio test strips (blood #100 ea 10/18/21 02/17/22 Rx sugar diagnostic) atorvastatin 20 mg tablet 20 mg PO DAILY 10/29/21 02/17/22 History fenofibrate 160 mg tablet 160 mg PO DAILY 10/29/21 02/17/22 History glimepiride 4 mg tablet 4 mg PO DAILY 10/29/21 02/17/22 History levothyroxine 75 mcg tablet 75 mcg PO DAILY 10/29/21
--- NOTE | 2022-03-28 08:06 | PC.NURSE ---
Patient now resting comfortably in the stretcher with call light in reach. Patient reports pain level is down to 2/10 after IV Tylenol. VSS at this time. Awaiting admission.
--- NOTE | 2022-03-28 08:30 | PC.NURSE ---
This patient, Dylan Rodriges, was admitted to 3 Med Surg Room 331-01. Patient/family oriented to hospital policies and general routines including ID bracelet, bed and alarms, visiting hours, pain management, procedures, bathroom and other care routines, personal items, smoking policy, room service/diet, and visiting hours. Report received from Erin FOREMAN Information on how to activate the Rapid Response Team has been discussed. Patient/Family are encouraged to report perceived risks to care and to ask questions if they do not understand what they are told or what they should do.
[2022-03-28] MEDS: fentaNYL CITRATE INJ (*CRX) 100 MCG/2 ML VIAL 50 MCG IV PUSH ×4 (08:53→18:55)
[2022-03-28 10:15] LABS: Troponin I < 0.012 ng/mL (0.000-0.034)
--- NOTE | 2022-03-28 12:37 | WPDGICN ---
Assessment and Plan Assessment and plan (1) Acute pancreatitis: Qualifiers: Acute pancreatitis complication: unspecified Pancreatitis type: unspecified pancreatitis type Qualified Code(s): K85.90 - Acute pancreatitis without necrosis or infection, unspecified Code(s): K85.90 - Acute pancreatitis without necrosis or infection, unspecified Status: Acute Assessment and Plan: Patient with acute pancreatitis. Markedly elevated lipase noted on presentation. LFTs are essentially normal with mild elevation of AST to 61. Plan to double check lipid panel if not already obtained. I suspect this is idiopathic pancreatitis. Recent exacerbation revealed no evidence of gallstones. Patient does not drink alcohol to any significant degree. There is no family history of pancreatitis. Continued supportive care for now. Currently pain control and NPO status is encouraged. (2) Cirrhosis: Qualifiers: Hepatic cirrhosis type: other cirrhosis Qualified Code(s): K74.69 - Other cirrhosis of liver Code(s): K74.60 - Unspecified cirrhosis of liver Status: Acute Assessment and Plan: Patient has cirrhosis and portal hypertension by imaging studies. Etiology for support erosive felt to be secondary to fatty liver. Long-term weight loss and dietary restriction is encouraged. Supportive care. He may benefit from follow-up EGD to assess for the presence of varices as well as to reassess his GE reflux status. This can be performed electively as his pancreatitis improves. (3) History of colon polyps: Code(s): Z86.010 - Personal history of colonic polyps Status: Acute Assessment and Plan: Patient has a history of colon polyps. Most recent colonoscopy was 4 years ago. Follow-up colonoscopy electively over the next year is suggested this should be performed as an outpatient. (4) Chronic lymphocytic leukemia: Code(s): C91.10 - Chronic lymphocytic leukemia of B-cell type not having achieved remission Status: Acute Assessment and Plan: Patient with CLL. Currently stable. Followed by Hematology. (5) Type 2 diabetes mellitus with diabetic nephropathy: Qualifiers: Diabetes mellitus termite treater helper insulin use: without termite treater helper use Qualified Code(s): E11.21 - Type 2 diabetes mellitus with diabetic nephropathy Code(s): E11.21 - Type 2 diabetes mellitus with diabetic nephropathy Status: Acute (6) Gastro-esophageal reflux disease without esophagitis: Code(s): K21.9 - Gastro-esophageal reflux disease without esophagitis Status: Acute Assessment and Plan: GE reflux disease appears stable. Given his suggestion of cirrhosis by imaging studies follow-up EGD to assess for the presence of varices can be performed elective pancreatitis resolves. Currently patient has no heartburn or significant symptoms. GI Consult Note Consult date/time: 03/28/22 12:37 Reason for consult: Acute pancreatitis HPI: Dylan Rodriges is a 72 year old male I am asked to see at the request of the emergency room because of abdominal pain and pancreatitis. Patient in usual state of health until early this morning at 4:00 a.m. he awoke with rather severe abdominal pain. States pain is rather diffuse located in the mid abdomen. He states his rather intense. He had no emesis until he was in the emergency room and did notice some improvement after emesis. Patient continues to be quite tender. In the ER his lipase was quite elevated. CT scan consistent with acute pancreatitis. Patient has a prior history of pancreatitis in October of 2021 at that time workup included CT scan ultrasound MRCP with no evidence of gallstones. It was felt that he had idiopathic pancreatitis. Patient's past medical history is significant that imaging has revealed cirrhosis. Patient is felt to have underlying fatty liver causing his cirrhosis. He has been treated by Hematolo
[2022-03-29] VITALS (28 sets, daily range): BP systolic 73–146; BP diastolic 50–88; PULSE 61–93; RESP 16–22; TEMP 36.4–39.2; O2SAT 86–95
--- NOTE | 2022-03-29 | ECHO_ITS ---
Patient Info Name: Dyaln Rodriges Age: 72 years : 1950 Gender: Male Ht: 67 in Wt: 154 lbs BSA: 1.82 m2 HR: 85 bpm BP: 146 / 88 mmHg Heart Rhythm: Sinus Rhythm Technical Quality: Fair Exam Date: 03/29/2022 5:07 PM Exam Location: [facility] Patient Status: Inpatient Admit Date: 03/29/2022 Staff Ordering Physician: Shanique Bergeron PA-C Battery Starter: Celena Payton RDCS Attending Provider: Shanique Bergeron PA-C Referring Physician: Rubio BENITEZ; Exam Type: CA echo doppler color flow Study Info Indications - systolic ejection murmur/sob Complete two-dimensional, color flow and Doppler transthoracic echocardiogram is performed. Summary 1. Complete two-dimensional, color flow and Doppler transthoracic echocardiogram is performed. 2. Left ventricular chamber dimension is normal. 3. Left ventricular systolic function is normal, estimated at 60-65%. 4. The left ventricular diastolic function is grade I diastolic dysfunction. 5. E/e' 8 is minimally elevated. 6. There is mild aortic valve sclerosis. 7. There is trace tricuspid valve regurgitation. 8. Mild pulmonary hypertension, estimated pulmonary arterial systolic pressure is 42 mmHg. Left Ventricle E/e' 8 is minimally elevated. Left ventricular chamber dimension is normal. Left ventricular systolic function is normal, estimated at 60-65%. The left ventricular diastolic function is grade I diastolic dysfunction. Right Ventricle Right ventricular systolic function is normal and with normal TAPSE 2.3 cm. Right ventricular chamber dimension is normal. Left Atria Left atrial chamber dimension is normal. Right Atria Right atrial chamber dimension is normal. Aortic Valve The aortic valve is trileaflet. There is mild aortic valve sclerosis. There is no aortic valve stenosis. There is no aortic valve regurgitation. Pulmonic Valve There is no pulmonic regurgitation. Mitral Valve There is no mitral valve stenosis. There is no mitral valve regurgitation. Tricuspid Valve There is trace tricuspid valve regurgitation. Mild pulmonary hypertension, estimated pulmonary arterial systolic pressure is 42 mmHg. Pericardium/Pleural There is no pericardial effusion. Inferior Vena Cava Normal inferior vena cava with >50% collapse upon inspiration consistent with normal right atrial pressure, 5 mmHg. Aorta The aortic root size at the sinus of Valsalva is normal. Left Ventricular Outflow Tract Name Value Normal LVOT 2D LVOT Diameter 2.0 cm LVOT Doppler LVOT Peak Gradient 10 mmHg LVOT Mean Gradient 4 mmHg LVOT VTI 22 cm LVOT VTI/AV VTI Ratio 0.7 LVOT Stroke Volume 69 ml LVOT CO 5.6 l/min LVOT CI 3.1 l/min/m2 Pulmonic Valve Name Value Normal
[2022-03-29] MEDS: fentaNYL CITRATE INJ (*CRX) 100 MCG/2 ML VIAL 50 MCG IV PUSH ×3 (00:14→09:28)
[2022-03-29] MEDS: SODIUM CHLORIDE 0.9% IV 1,000 ML 125 ML IV CONT ×2 (00:18→08:21)
--- NOTE | 2022-03-29 07:36 | WPDGIPROGNO ---
Progress Note: A&P Assessment and Plan (1) Acute pancreatitis: Qualifiers: Acute pancreatitis complication: unspecified Pancreatitis type: unspecified pancreatitis type Qualified Code(s): K85.90 - Acute pancreatitis without necrosis or infection, unspecified Code(s): K85.90 - Acute pancreatitis without necrosis or infection, unspecified Status: Acute Assessment and Plan: Patient with recurrent acute pancreatitis. [place]avener to be idiopathic. Morning labs are pending. But he does have bowel sounds. Plan to allow clear liquid diet. Daily lipase LFTs are encouraged at this point. (2) Cirrhosis: Qualifiers: Hepatic cirrhosis type: other cirrhosis Qualified Code(s): K74.69 - Other cirrhosis of liver Code(s): K74.60 - Unspecified cirrhosis of liver Status: Acute Assessment and Plan: Patient felt to have underlying cirrhosis. 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 Supportive care. No other specific therapy at this time. I would recommend elective EGD after resolution of pancreatitis to assess for varices. Also to assess for status of his stable GE reflux disease. (3) History of colon polyps: Code(s): Z86.010 - Personal history of colonic polyps Status: Acute Assessment and Plan: Patient has a history of colon polyps. Anticipate elective colonoscopy as an outpatient. Originally planned for next year can be performed electively as an outpatient. (4) Gastro-esophageal reflux disease without esophagitis: Code(s): K21.9 - Gastro-esophageal reflux disease without esophagitis Status: Acute Assessment and Plan: Patient with GE reflux appears stable. Plan to continue anti-reflux measures and PPI therapy. (5) Type 2 diabetes mellitus with diabetic nephropathy: Qualifiers: Diabetes mellitus termite exterminator helper insulin use: without custodial use Qualified Code(s): E11.21 - Type 2 diabetes mellitus with diabetic nephropathy Code(s): E11.21 - Type 2 diabetes mellitus with diabetic nephropathy Status: Acute (6) Chronic lymphocytic leukemia: Code(s): C91.10 - Chronic lymphocytic leukemia of B-cell type not having achieved remission Status: Acute Assessment and Plan: Patient with CLL. CBC parameters all appear adequate at present. Currently is followed by Hematology. On no specific therapy presently. Subjective Date/time seen: 03/29/22 07:36 Patient alert comfortable this morning. Notice is modest epigastric discomfort. He feels a hunger pain. Passing flatus. He has had no bowel movement. Review of Systems Review of Systems: Review of systems noncontributory. Exam Narrative: Physical exam reveals patient be alert. Vital signs stable. HEENT exam unremarkable he is anicteric. Lungs are clear. Heart without murmur. Abdomen soft and flat bowel sounds are present. No localized tenderness but modest up for abdominal discomfort. Objective Data Vital Signs Vital Signs: Vital Signs - 24 hr 03/28/22 07:45 03/28/22 07:46 03/28/22 08:00 Temperature Pulse Rate 49 L 49 L 52 L Respiratory Rate 17 20 18 Blood Pressure 92/52 L 93/56 L Pulse Oximetry 92 92 91 Oxygen Delivery 03/28/22 08:01 03/28/22 08:40 03/28/22 08:34 Temperature 96.6 F L Pulse Rate 51 L 53 L Respiratory Rate 19 18 Blood Pressure 96/79 L Pulse Oximetry 91 96 Oxygen Delivery Room Air 03/28/22 14:00 03/28/22 14:43 03/28/22 08:33 Temperature 98.1 F Pulse Rate 61 80 Respiratory Rate 18 Blood Pressure 110/64 Pulse Oximetry 96 96 Oxygen Delivery Room Air 03/28/22 12:00 03/28/22 16:00 03/28/22 20:00 Temperature Pulse Rate 60 62 Respiratory Rate Blood Pressure Pulse Oximetry Oxygen Delivery Room Air 03/28/22 20:00 03/28/22 21:41 03/29/22 00:00 Temperature 98.0 F Pulse Rate 61 59 L 67 Respiratory Rate 16 Blood Pressure 107/55 L Pulse Oximetry 95 Oxygen D
[2022-03-29 07:56] LABS: Basophils Percent Auto 0.3 % (0.2-1.2); Eosinophils Percent Auto 0.3 % (0-4.4); Hematocrit 38.2 % (42.0-52.0); Hemoglobin 12.1 g/dL (14.0-18.0); Immature Granulocyte Absolute 0.02 K/mm3 (0.00-0.031); Immature Granulocyte Percent A 0.3 % (0-0.5); Immature Platelet Fraction Pct 14.6 % (0.9-11.2); Lymphocytes Absolute Auto 1.26 K/mm3 (0.9-3.2); Lymphocytes Percent Auto 17.9 % (18.3-44.2); Mean Corpuscular HGB Conc 31.7 g/dl (32-36); Mean Corpuscular Hemoglobin 29.1 pg (26-34); Mean Corpuscular Volume 91.8 fl (80-100); Mean Platelet Volume 11.9 fl (7.4-10.4); Monocytes Absolute Auto 0.5 K/mm3 (0.1-0.6); Monocytes Percent Auto 7.5 % (2.6-8.5); Neutrophils Absolute Auto 5.2 K/mm3 (1.3-6.7); Neutrophils Percent Auto 73.7 % (45.5-73.1); Platelet Count Result 72 k/mm3 (150-375); Red Blood Count 4.16 M/mm3 (4.6-6.20); Red Cell Distribution Width 15.4 % (11.5-14.5)
[2022-03-29 08:14] LABS: Alanine Aminotransferase 40 U/L (6-50); Albumin Level 3.8 g/dL (3.5-5.1); Alkaline Phosphatase 66 U/L (38-126); Anion Gap 11 mmol/L (8-16); Aspartate Amino Transferase 74 U/L (17-59); Bilirubin,Total 1.2 mg/dL (0.2-1.3); Blood Urea Nitrogen 13 mg/dL (9-20); Calcium 7.6 mg/dL (8.4-10.2); Carbon Dioxide 19 mmol/L (22-30); Chloride 107 mmol/L (98-107); Estimated CRCL calculation 91 ml/min; Estimated Glomerular Filt Rate > 60; Glucose 111 mg/dL (65-110); Potassium 3.8 mmol/L (3.4-5.0); Sodium 137 mmol/L (137-145)
[2022-03-29 09:07] LABS: Lipase 6629 U/L (23-300)
[2022-03-29 11:34] LABS: D Dimer 1.94 ug/mL (<0.48)
--- NOTE | 2022-03-29 13:06 | PM.IMPN ---
Progress Note: A&P Assessment and Plan (1) Acute pancreatitis: Qualifiers: Acute pancreatitis complication: unspecified Pancreatitis type: unspecified pancreatitis type Qualified Code(s): K85.90 - Acute pancreatitis without necrosis or infection, unspecified Code(s): K85.90 - Acute pancreatitis without necrosis or infection, unspecified Status: Acute Assessment and Plan: Patient admitted for recurrent pancreatitis, with CT abdomen pelvis showing acute interstitial pancreatitis, cirrhosis of liver with portal venous hypertension, and gallbladder distension which may be secondary to fasting. 03/29- Patient does report chills, nausea, SOB, and hiccups today, but denies chest pain, palpitations. His oxygen requirements jumped from 0-6 L. He denied lower extremity swelling or pain. No appreciable leukocytosis on CBC, but will continue to trend this. Consult gastroenterology for further evaluation, appreciate assistance and recommendation IV pain management, fentanyl, norco, tylenol. IV fluid resuscitation today. RUQ US showed 1. Pancreatic findings consistent with the given history of pancreatitis 2. Hepatomegaly and cirrhosis. 3. Gallbladder hydrops with nonspecific wall thickening. Lipid Panel AM CBC/CMP/Lipase daily. (2) Fever: Code(s): R50.9 - Fever, unspecified Status: Acute Assessment and Plan: Pt developed fever of 102 today, CTA PE/Bilateral LE venous duplex showed no PE. WBC count 7 this AM. COVID negative. Blood cultures ordered UA showing glucose only CTA chest showed Lingular and particularly prominent bilateral lower lobe dependent atelectasis/infiltrate CTA abdomen pelvis showed no pleural effusion, normal heart size, fat stranding around the head and body of pancreas, Start empiric Primaxin today while investigating etiology. Lactic Acid Influenza screen Repeat CBC Continue to monitor VS (3) Systolic murmur: Code(s): R01.1 - Cardiac murmur, unspecified Status: Acute Assessment and Plan: Patient without reported cardiac history. Systolic ejection murmur heard over the aortic and mitral areas on exam, this, with patient's increased oxygen requirements to 6L, sensation of hiccups, chills, low-grade fever, will be evaluating further. D-dimer is elevated. Troponins were normal from the ER. EKG showed sinus bradycardia with first-degree AV block. Awaiting diagnostic results for further planning. Echo Stat CTA PE protocol and bilateral lower extremity venous duplex showed no PE. Stat Continue to monitor vital signs- Patient is tachypneic Continue telemetry monitoring (4) Cirrhosis: Qualifiers: Hepatic cirrhosis type: other cirrhosis Qualified Code(s): K74.69 - Other cirrhosis of liver Code(s): K74.60 - Unspecified cirrhosis of liver Status: Acute Assessment and Plan: During his last admission in October of 2021, MRCP showed cirrhosis of the liver with portal venous hypertension. Patient does follow with Dr. Allred for his EGDs and colonoscopies. Patient currently stable. 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 Patient continues to follow-up with primary. Thrombocytopenia (72) noted in labwork Will continue to monitor. (7) Respiratory alkalosis: Code(s): E87.3 - Al
[2022-03-29 13:38] LABS: Cholesterol 117 mg/dL (0-200); HDL Direct 45 mg/dL; Triglycerides 143 mg/dL (<150)
[2022-03-29 13:48] LABS: LDL Cholesterol Direct 50 mg/dL
[2022-03-29] MEDS: ACETAMINOPHEN 325 MG TABLET 650 MG PO (14:53)
[2022-03-29 15:08] LABS: PO2 ABG 57.5 mmHg (80.0-100.0); pH ABG 7.497 (7.350-7.450)
[2022-03-29 15:09] LABS: Base Excess ABG -4.7 mEq/l (+/-2.0); Fractional Inspired Oxygen 100 %; HCO3 ABG 16.3 mEq/l (22.0-26.0); Modified Allen's Test Pass; Oxygen Saturation ABG 92.8 % (95.0-100.0); Oxyhemoglobin 90.1 % THb (90.0-100.0); PO2 FiO2 Ratio Arterial Blood 0.57 %; Site Drawn RIGHT RADIAL; Total Hemoglobin 14.2 g/dL (12.0-18.0)
[2022-03-29 15:10] LABS: Device NON-REBREATHER MASK; PCO2 ABG 21.5 mmHg (35.0-45.0)
[2022-03-29 15:49] LABS: SARS-CoV-2 RNA PCR Negative
[2022-03-29] MEDS: WATER FOR IRRIGATION, STERILE 1,000 ML BOTTLE 1000 ML (16:04)
[2022-03-29] MEDS: FUROSEMIDE INJ 40 MG/4 ML VIAL IV PUSH (17:09)
[2022-03-29 17:15] LABS: Influenza Control Positive
[2022-03-29 17:28] LABS: Basophils Percent Auto 0.4 % (0.2-1.2); Hematocrit 42.1 % (42.0-52.0); Hemoglobin 13.4 g/dL (14.0-18.0); Immature Granulocyte Absolute 0.07 K/mm3 (0.00-0.031); Immature Granulocyte Percent A 0.9 % (0-0.5); Immature Platelet Fraction Pct 14.4 % (0.9-11.2); Lymphocytes Absolute Auto 1.13 K/mm3 (0.9-3.2); Mean Corpuscular HGB Conc 31.8 g/dl (32-36); Mean Corpuscular Hemoglobin 28.9 pg (26-34); Mean Corpuscular Volume 90.9 fl (80-100); Mean Platelet Volume 12.4 fl (7.4-10.4); Monocytes Absolute Auto 0.2 K/mm3 (0.1-0.6); Monocytes Percent Auto 2.5 % (2.6-8.5); Neutrophils Absolute Auto 6.1 K/mm3 (1.3-6.7); Neutrophils Percent Auto 81.2 % (45.5-73.1); Platelet Count Result 88 k/mm3 (150-375); Red Blood Count 4.63 M/mm3 (4.6-6.20); Red Cell Distribution Width 15.8 % (11.5-14.5); White Blood Count 7.5 K/mm3 (4.5-10.0)
[2022-03-29 17:41] LABS: Lactic Acid Reflex 5.2 mmol/L (0.7-2.0)
[2022-03-29] MEDS: LACTATED RINGERS 1,000 ML 999 ML IV CONT (17:57)
[2022-03-29] MEDS: MORPHINE SULFATE (*CRX) 4 MG/ML INJ IV PUSH (17:57)
[2022-03-29] MEDS: LORazepam INJ (*CRX) 2 MG/ML VIAL 0.5 MG IV PUSH (17:58)
[2022-03-29 18:51] LABS: CRP 14.2 mg/dL (<1.0)
[2022-03-29 18:52] LABS: Procalcitonin 9.6 ng/mL
[2022-03-29] MEDS: fentaNYL CITRATE INJ (*CRX) 100 MCG/2 ML VIAL 25 MCG IV PUSH (19:38)
[2022-03-29] MEDS: ONDANSETRON INJ 4 MG/2 ML VIAL IV PUSH (19:38)
[2022-03-29] MEDS: LACTATED RINGERS 500 ML 250 ML IV CONT (19:38)
[2022-03-29 20:22] LABS: Reflex Lactic Acid Yes or No Add Lactic
--- NOTE | 2022-03-29 21:06 | PM.CCN ---
Critical Care Event Note Summary Code activated: No Narrative: 03/29/2022 at 21:00 Nursing staff called to notify me that the patient was having hypotension. Patient had been admitted on the due to idiopathic pancreatitis. The patient had received 5.7 L of fluid total since admission. He received 3 L of fluid on the 1st day due to hypotension in the ER that had resolved and stabilized. The patient was subsequently admitted to the medical floor. Then in mid afternoon the patient spiked a fever to 102.5?. Had a lactic acid was obtained which was elevated at 5.2 and an ABG that demonstrated compensatory respiratory alkalosis. Patient received 1 L of fluid bolus. After a L fluid bolus patient developed oxygen requirement was placed on non-rebreather dementia leave wean down to 7 L high-flow. I guess due to the patient's oxygen requirement the patient subsequently received 40 mg of Lasix. The patient had had less than 250 mL of urine output throughout the day even with Lasix administration. Given the patient's fever and elevated D-dimer he underwent CTA of chest abdomen pelvis which demonstrated no evidence of pulmonary embolism but basilar atelectasis, small bilateral pleural effusions and persistent pancreatic inflammation consistent with pancreatitis. The patient has reported a mild cough on and off for last week or so. He was tested for COVID and influenza which were negative. His UA on admission was unremarkable. The patient had been started on empiric antibiotic therapy earlier in the day with Primaxin and blood cultures were obtained and are pending. Nursing staff called me this evening because the patient had persistent hypotension. He had received 25 mcg of fentanyl prior to my evaluation. Almost an hour after fentanyl administration patient remained hypotensive. He had received an additional 500 mL bolus at the time my evaluation. His blood pressure still remained in the 70 systolic. He was not tachycardic. He was having some mild tachypnea without increased work of breathing. He had high-flow nasal cannula in place at 7 L. His oxygen saturations were maintaining at 93%. Repeat lactic acid at that time was 4.4. The patient did have significant elevation in CRP as well. I ordered an additional 1.5 L in fluid bolus. Given the patient's high oxygen requirements, persistent hypotension and shock due to severe pancreatitis I felt the patient needed a higher level of care and side transfer the patient to the ICU. I did discuss the patient's case with the sandblast or shotblast equipment tender who agrees with current plan. If hypotension persist I have discussed with the patient the potential need for central line and he has agreed. I did order Parks catheter to be placed but patient is refusing Parks catheter at this time. I did a bedside bladder scan which demonstrated only 100 mL of urine. The patient had just urinated approximately 100 mL prior to my arrival at bedside. Assessment and plan: Septic shock due to pancreatitis--continue empiric antibiotic therapy with Primaxin. Blood cultures are pending. Continue with IV fluid resuscitation. Will transferred to the ICU. If persistent hypotension central line will be placed for pressor therapy. Addendum: After transfer to the ICU cheetah score was performed and was 11% indicating non fluid responsive state. After a total of 3 L in fluid bolus the patient blood pressures remained in the 70s systolic. The patient consented to central line placement and a right IJ line was placed. Patient has been started on Levophed. 75 minutes spent in critical care activities in exclusion of procedures. This case had a high probability of a clinically significant, sudden, or life threatening deterioration of this patient's condition which required my full and direct attention, intervention and personal management. Critical care time: 75 - 104 mins
[2022-03-29 21:17] LABS: Lactic Acid 4.4 mmol/L (0.7-2.0)
--- NOTE | 2022-03-29 21:24 | PC.NURSE ---
Patient refusing alejandre catheter at present. Dr. Mallory at bedside and is aware. Per bladder scan, 85cc post void in bladder.
[2022-03-29] MEDS: SODIUM CHLORIDE 0.9% IV 500 ML IV CONT (21:27)
[2022-03-29 21:41] LABS: Anion Gap 11 mmol/L (8-16); Blood Urea Nitrogen 18 mg/dL (9-20); Calcium 7.6 mg/dL (8.4-10.2); Carbon Dioxide 16 mmol/L (22-30); Chloride 106 mmol/L (98-107); Estimated CRCL calculation 63 ml/min; Estimated Glomerular Filt Rate > 60; Glucose 214 mg/dL (65-110); Potassium 3.5 mmol/L (3.4-5.0); Sodium 133 mmol/L (137-145)
[2022-03-29] MEDS: SODIUM CHLORIDE 0.9% IV 1,000 ML 999 ML IV CONT (22:01)
[2022-03-29 22:17] LABS: Lipase 88 U/L (23-300)
[2022-03-29 22:21] LABS: INR 1.7
[2022-03-29 22:22] LABS: Partial Thromboplastin Time 45.4 SECONDS (22.3-36.8)
[2022-03-29] MEDS: CALCIUM GLUC 1,000 MG/NS 50 ML 1,000 MG/50 ML BAG 100 MG IVPB (23:09)
[2022-03-29] MEDS: SODIUM BICARBONATE 8.4% 50 MEQ/50 ML SYRINGE IV PUSH (23:09)
[2022-03-29 23:28] LABS: Glucose Point of Care 215 mg/dl (65-105)
[2022-03-30] VITALS (24 sets, daily range): BP systolic 78–134; BP diastolic 59–76; PULSE 65–76; RESP 12–29; TEMP 36.2–36.8; O2SAT 90–99
--- NOTE | 2022-03-30 00:07 | P.PCNBED_ITS ---
Procedures Central Line Placement Right IJ: Central Line Date: 03/29/22 Central Line Time: 23:15 Consent: I have discussed with the patient and/or surrogate, the non-emergent placement of a central venous catheter, including its clinical necessity/indication and associated potential risks and complications. The patient and/or surrogate understand(s) and acknowledge(s) the need to proceed with central venous catheter insertion as an important element of the patient's clinical management. Time Out Performed: Yes Patient Position: trendelenburg Patient placed on monitor/pulse ox: Yes Provider Prep: mask, sterile gown, sterile gloves, Max. sterile barrier precautions, cap and hand hygiene with conventional soap/water or alcohol based hand rub Central line prep: 2% Chlorhexidine scrub and sterile full body sheet applied Local anesthesia used: lidocaine 1% Amount of anesthesia used (ml): 5 Sterile US Technique with sterile gel/sterile probe covers: Yes Central line lumen inserted: triple Georgian: 7 Length (cm): 16 Depth of Insertion (cm): 15 Post Procedure: sutured in place, good blood return, all ports aspirated, flushed, capped, transparent dressing, hemostatic product, antimicrobial product, securement product and aseptic technique maintained throughout procedure Post procedure x-ray: tip of catheter in good position and no pneumothorax seen Patient tolerated procedure: well Additional comments: Chest x-ray personally reviewed. Awaiting radiologic interpretation.
[2022-03-30] MEDS: SODIUM CHLORIDE 0.9% IV 1,000 ML 150 ML IV CONT ×2 (00:14→06:35)
[2022-03-30] MEDS: NOREPINEPHRINE 8 MG/D5W 250 ML 8 MG/250 ML BAG 9.38 MG IV CONT (00:16)
[2022-03-30 00:44] LABS: Glucose Point of Care 256 mg/dl (65-105)
[2022-03-30] MEDS: CENTRAL LINE FLUSH 10 ML IV PUSH ×4 (05:43→21:17)
[2022-03-30 05:45] LABS: Alanine Aminotransferase 137 U/L (6-50); Albumin Level 3.2 g/dL (3.5-5.1); Alkaline Phosphatase 81 U/L (38-126); Anion Gap 10 mmol/L (8-16); Aspartate Amino Transferase 284 U/L (17-59); Blood Urea Nitrogen 20 mg/dL (9-20); Calcium 7.2 mg/dL (8.4-10.2); Carbon Dioxide 19 mmol/L (22-30); Chloride 109 mmol/L (98-107); Estimated CRCL calculation 63 ml/min; Estimated Glomerular Filt Rate > 60; Glucose 220 mg/dL (65-110); Lipase 1820 U/L (23-300); Magnesium 1.5 mg/dL (1.6-2.3); Potassium 3.6 mmol/L (3.4-5.0); Sodium 138 mmol/L (137-145)
[2022-03-30 05:52] LABS: Hemoglobin 12.9 g/dL (14.0-18.0); Immature Platelet Fraction Pct 17.1 % (0.9-11.2); Mean Corpuscular HGB Conc 33.9 g/dl (32-36); Mean Corpuscular Hemoglobin 30.1 pg (26-34); Mean Corpuscular Volume 88.8 fl (80-100); Mean Platelet Volume 13.6 fl (7.4-10.4); Platelet Count Result 102 k/mm3 (150-375); Red Blood Count 4.28 M/mm3 (4.6-6.20); Red Cell Distribution Width 15.9 % (11.5-14.5); White Blood Count 21.4 K/mm3 (4.5-10.0)
[2022-03-30 07:44] LABS: Band Neutrophils Percent 34 % (0-6); Giant Platelets Present; Lymphocytes Absolute Manual 2.56 K/mm3 (1.1-4.5); Metamyelocytes Percent 12 %; Monocytes Absolute Manual 1.07 K/mm3 (0.1-0.90); Monocytes Percent Manual 5 % (3-9); Myelocytes Percent 1 %; Neutrophils Absolute Manual 14.98 K/mm3 (1.3-6.7); Neutrophils Percent Manual 36 % (46-73); Platelet Estimate Adequate (Adequate); Total Cells Counted 100
--- NOTE | 2022-03-30 08:27 | WPDGIPROGNO ---
Progress Note: A&P Assessment and Plan (1) Acute pancreatitis: Qualifiers: Acute pancreatitis complication: unspecified Pancreatitis type: unspecified pancreatitis type Qualified Code(s): K85.90 - Acute pancreatitis without necrosis or infection, unspecified Code(s): K85.90 - Acute pancreatitis without necrosis or infection, unspecified Status: Acute Assessment and Plan: Patient with acute pancreatitis. He had an episode in October now with recurrent pancreatitis. Imaging studies repeated last evening ending including ultrasound and CT scan revealed no gallstones but are consistent with pancreatitis. He had a good bowel movement suggesting no ileus. Abdominal exam however reveals right upper quadrant pain and overnight has had elevation of LFTs. Plan is for MRCP when he is clinically stable enough to undergo this test. Continue monitor LFT broad-spectrum antibiotics for possible infection given blood cultures now growing E coli. (2) Cirrhosis: Qualifiers: Hepatic cirrhosis type: other cirrhosis Qualified Code(s): K74.69 - Other cirrhosis of liver Code(s): K74.60 - Unspecified cirrhosis of liver Status: Acute Assessment and Plan: Patient with imaging suggesting portal hypertension and cirrhosis of liver. Currently felt to be secondary to AMES. Continue supportive care for now. (3) Chronic lymphocytic leukemia: Code(s): C91.10 - Chronic lymphocytic leukemia of B-cell type not having achieved remission Status: Acute Assessment and Plan: Patient with CLL. Lab studies are normally is not on medication. Followed by Oncology elsewhere. He does have significant lymphadenopathy around his neck. (4) Elevated liver enzymes: Code(s): R74.8 - Abnormal levels of other serum enzymes Status: Acute Assessment and Plan: Marked elevation of LFTs overnight with bilirubin approaching 7. This may represent shock liver from his hypotensive episode. However with right upper quadrant pain fever sepsis. MRCP will be obtained to ensure a clear common bile duct. This was not able to be performed this morning because of pressor agents. Hopefully can be performed later. (5) Hypotension: Code(s): I95.9 - Hypotension, unspecified Status: Acute Assessment and Plan: Patient with low blood pressure that developed overnight associated with fever, E coli sepsis. Now on pressor agents in the unit. Suspect this is related to his pancreatitis but other etiologies cannot be excluded. Imaging studies revealed no evidence pulmonary embolus. Subjective Date/time seen: 03/30/22 08:27 Patient became progressively short of breath yesterday was found to have significant hypo tension and was transferred to the intensive care unit where he is now on supplemental oxygen and pressor agents. Patient reports a large bowel movement. He has not taken significant pain medications today. Still feels somewhat uncomfortable in the upper abdomen. Review of Systems Review of Systems: Review of systems noncontributory. Exam Narrative: physical exam reveals patient to now be in the ICU. He is on pressor agents. Vital signs stable with improved blood pressure on agents. HEENT exam reveals supplemental oxygen. Lungs are clear. Heart without murmur. Abdomen bowel sounds are present soft he has significant tenderness predominantly in the right upper quadrant of the abdomen. No masses are palpable. Objective Data Vital Signs Vital Signs: Vital Signs - 24 hr 03/29/22 10:25 03/29/22 10:30 03/29/22 12:37 Temperature 98.7 F 99.2 F Pulse Rate 93 93 Respiratory Rate 22 H 22 H Blood Pressure 146/88 H 146/88 H Pulse Oximetry 88 L 90 86 L Oxygen Delivery Room Air Nasal Cannula Room Air Oxygen Flow Rate 2 03/29/22 12:45 03/29/22 14:53 03/29/22 14:00 Temperature 102.5 F H 102.5 F H Pulse Rate 88 Respiratory Rate 22 H Blood P
[2022-03-30 08:33] LABS: Reflex Lactic Acid Yes or No Add Lactic
[2022-03-30 09:02] LABS: Glucose Point of Care 219 mg/dl (65-105)
[2022-03-30] MEDS: MAGNESIUM SULF 2 GM/WATER 50ML 2 GM/50 ML BAG IVPB (09:05)
[2022-03-30] MEDS: LACTATED RINGERS 1,000 ML 125 ML IV CONT ×2 (09:06→18:02)
[2022-03-30 09:16] LABS: Lactic Acid 2.7 mmol/L (0.7-2.0)
[2022-03-30] MEDS: KCL 40 MEQ/WATER 100 ML 100 ML 25 ML IVPB (09:17)
[2022-03-30] MEDS: CALCIUM GLUC 2,000 MG/NS 100ML 2,000 MG/100 ML BAG 100 MG IVPB (09:17)
[2022-03-30 09:18] LABS: Appearance Urine Clear (Clear); Bilirubin Urine 3+ (Negative); Blood Urine Trace-lysed (Negative); Glucose Urine UA 3+ mg/dL (Negative); Ketones Urine 1+ mg/dL (Negative); Leukocyte Esterase Ur Negative LEU/UL (NEGATIVE); Nitrate Urine Negative (Negative); Protein Urine 1+ mg/dL (Negative); Specific Grav Ur 1.025 (1.001-1.035)
[2022-03-30] MEDS: PANTOPRAZOLE SODIUM IV 40 MG VIAL IV PUSH (09:18)
--- NOTE | 2022-03-30 09:23 | WPDCNINT ---
Assessment and Plan Assessment and plan (1) Acute pancreatitis: Qualifiers: Acute pancreatitis complication: unspecified Pancreatitis type: unspecified pancreatitis type Qualified Code(s): K85.90 - Acute pancreatitis without necrosis or infection, unspecified Code(s): K85.90 - Acute pancreatitis without necrosis or infection, unspecified Status: Acute Assessment and Plan: patient had an episode of pancreatitis in October with no obvious etiology this time presented again with acute interstitial pancreatitis with no clear etiology. his triglyceride level was normal, he does not drink alcohol imaging has not shown any gallstones. he is not also on any drugs that is known to cause pancreatitis gallbladder sludging is a possibility GI has been consulted and is following MRCP ordered NPO and pain control IV fluid repeat CT scan today shows persistent pancreatic inflammation (2) Cirrhosis: Qualifiers: Hepatic cirrhosis type: other cirrhosis Qualified Code(s): K74.69 - Other cirrhosis of liver Code(s): K74.60 - Unspecified cirrhosis of liver Status: Acute Assessment and Plan: GI believes cirrhosis is secondary to fatty liver. 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 Qualified Code(s): E11.21 - Type 2 diabetes mellitus with diabetic nephropathy Code(s): E11.21 - Type 2 diabetes mellitus with diabetic nephropathy Status: Acute Assessment and Plan: continue sliding scale insulin (4) Elevated liver enzymes: Code(s): R74.8 - Abnormal levels of other serum enzymes Status: Acute Assessment and Plan: suspect secondary to shock liver his bilirubin is also elevated and can be secondary to cholestasis versus cholangitis monitor levels (5) Septic shock: Code(s): A41.9 - Sepsis, unspecified organism; R65.21 - Severe sepsis with septic shock Status: Acute Assessment and Plan: secondary to Gram-negative bacteremia and pancreatitis, cholangitis is also possibility continue imipenem which showed cover for Gram-negative rods he has received significant amount IV fluids. Continue current IV fluids and change to LR monitor lactic acid level continue Levophed titration t (6) Gram-negative bacteremia: Code(s): R78.81 - Bacteremia Status: Acute Assessment and Plan: blood cultures are growing Gram-negative rods on prelim report continue imipenem (7) Metabolic acidosis: Code(s): E87.2 - Acidosis Status: Acute Assessment and Plan: secondary to sepsis and hyperchloremia change IV fluids to LR may need bicarb infusion (8) Electrolyte abnormality: Code(s): E87.8 - Other disorders of electrolyte and fluid balance, not elsewhere classified Status: Acute Assessment and Plan: replace low magnesium calcium and potassium (9) Hypoxia: Code(s): R09.02 - Hypoxemia Status: Acute Assessment and Plan: Chest CTA on admission showed bilateral dependent atelectasis versus infiltrates incentive spirometry continue imipenem Additional Plan DVT prophylaxis - SCDs as patient is thrombocytopenic Stress ulcer prophylaxis - IV PPI Nutrition - NPO Code Status - patient requests to be full code Case discussed with GI Total Critical Care Time - 40 minutes Due to a high probability of clinically significant, life threatening deterioration, the patient required my highest level of preparedness to intervene emergently and I personally spent this critical care time directly and personally managing the patient. This critical care time included obtaining a history; examining the patient; pulse oximetry;
[2022-03-30 09:27] LABS: Add Urine Microscopic? YES; Color Urine Dark Yellow (Yellow)
[2022-03-30 09:31] LABS: Mucus Urine Rare /lpf; RBC Urine 0-2 /hpf (0-2); WBC Urine 0-3 /hpf (0-3)
[2022-03-30 10:32] LABS: Ammonia < 9 umol/L (9-30)
[2022-03-30 12:22] LABS: Glucose Point of Care 192 mg/dl (65-105)
[2022-03-30] MEDS: MORPHINE SULFATE (*CRX) 2 MG/ML INJ IV PUSH (12:27)
[2022-03-30 13:10] LABS: Glucose Point of Care 204 mg/dl (65-105)
--- NOTE | 2022-03-30 13:22 | PM.IMPN ---
Progress Note: A&P Assessment and Plan (1) Acute pancreatitis: Qualifiers: Acute pancreatitis complication: unspecified Pancreatitis type: unspecified pancreatitis type Qualified Code(s): K85.90 - Acute pancreatitis without necrosis or infection, unspecified Code(s): K85.90 - Acute pancreatitis without necrosis or infection, unspecified Status: Acute Assessment and Plan: Appears to be stable, plan is for MRCP when he is off Levophed, appreciate GI consultation and critical care assistance, cannot rule out ascending cholangitis (2) Cirrhosis: Qualifiers: Hepatic cirrhosis type: other cirrhosis Qualified Code(s): K74.69 - Other cirrhosis of liver Code(s): K74.60 - Unspecified cirrhosis of liver Status: Acute Assessment and Plan: Unsure of etiology (3) Type 2 diabetes mellitus with diabetic nephropathy: Qualifiers: Diabetes mellitus intermediate project manager insulin use: without intermediate project manager use Qualified Code(s): E11.21 - Type 2 diabetes mellitus with diabetic nephropathy Code(s): E11.21 - Type 2 diabetes mellitus with diabetic nephropathy Status: Acute Assessment and Plan: Goal blood sugar of less than 180 consistently, hemoglobin A1c was 8, uncontrolled, will add Lantus 7 units before bed tonight (4) Elevated liver enzymes: Code(s): R74.8 - Abnormal levels of other serum enzymes Status: Acute (5) Septic shock: Code(s): A41.9 - Sepsis, unspecified organism; R65.21 - Severe sepsis with septic shock Status: Acute (6) Gram-negative bacteremia: Code(s): R78.81 - Bacteremia Status: Acute (7) Metabolic acidosis: Code(s): E87.2 - Acidosis Status: Acute (8) Electrolyte abnormality: Code(s): E87.8 - Other disorders of electrolyte and fluid balance, not elsewhere classified Status: Acute (9) Hypoxia: Code(s): R09.02 - Hypoxemia Status: Acute Subjective Date/time seen: 03/30/22 13:22 Interval history: Still with abdominal pain, about the same as yesterday. No new symptoms. Events yesterday that brought the patient to the ICU noted. Review of Systems Review of Systems: Twelve point review of systems was reviewed and is negative except as noted in the HPI Exam Narrative: General: Patient resting comfortably in bed, no acute distress HEENT: Atraumatic, normocephalic, mucous membranes moist CV: Regular rate and rhythm, S1, S2, no murmurs rubs or gallops noted Lungs: Clear to auscultation bilaterally, no rales or crackles noted, no wheezes, good air entry Abdomen: Soft, mildly diffusely tender to palpation, no rebounding or guarding Extremities: Normal to inspection, no edema noted Skin: No rashes noted, no lesions or wounds seen Psych: Euthymic, normal affect Neuro: Cranial nerves 2-12 grossly intact, strength 5/5 upper and lower extremities noted Objective Data Vital Signs Vital Signs: Vital Signs - 24 hr 03/29/22 14:53 03/29/22 14:00 03/29/22 15:00 Temperature 102.5 F H 102.5 F H Pulse Rate 88 Respiratory Rate 22 H Blood Pressure 123/53 L Pulse Oximetry 90 91 Oxygen Delivery Non-Rebreather Mask Oxygen Flow Rate 15 03/29/22 15:10 03/29/22 15:53 03/29/22 16:04 Temperature 100.4 F H Pulse Rate Respiratory Rate Blood Pressure Pulse Oximetry 92 94 Oxygen Delivery High Flow Nasal Cannula High Flow Nasal Cannula Oxygen Flow Rate 11 9 03/29/22 16:00 03/29/22 18:05 03/29/22 16:50 Temperature 98 F Pulse Rate 85 Respiratory Rate Blood Pressure Pulse Oximetry 93 Oxygen Delivery High Flow Nasal Cannula Oxygen Flow Rate 6 03/29/22 19:00 03/29/22 18:55 03/29/22 20:48 Temperature Pulse Rate Respiratory Rate Blood Pressure Pulse Oximetry 91 88 L 95 Oxygen Delivery High Flow Nasal Cannula High Flow Nasal Cannula High Flow Nasal Cannula Oxygen Flow Rate 7 6 7 03/29/22 19:30
[2022-03-30] MEDS: ONDANSETRON INJ 4 MG/2 ML VIAL IV PUSH (14:08)
[2022-03-30 15:44] LABS: Lactic Acid Reflex 2.1 mmol/L (0.7-2.0)
[2022-03-30 18:03] LABS: Glucose Point of Care 188 mg/dl (65-105)
[2022-03-30 21:01] LABS: Glucose Point of Care 165 mg/dl (65-105)
[2022-03-31] VITALS (13 sets, daily range): BP systolic 125–148; BP diastolic 68–83; PULSE 63–74; RESP 16–23; TEMP 36.7–37.8; O2SAT 90–98
[2022-03-31 00:49] LABS: Glucose Point of Care 160 mg/dl (65-105)
[2022-03-31] MEDS: LACTATED RINGERS 1,000 ML 125 ML IV CONT (05:15)
[2022-03-31 05:35] LABS: INR 1.6; Prothrombin Time 18.4 Seconds (11.1-14.7)
[2022-03-31 05:38] LABS: Alanine Aminotransferase 179 U/L (6-50); Albumin Level 2.8 g/dL (3.5-5.1); Alkaline Phosphatase 95 U/L (38-126); Anion Gap 5 mmol/L (8-16); Aspartate Amino Transferase 255 U/L (17-59); Bilirubin,Total 5.4 mg/dL (0.2-1.3); Blood Urea Nitrogen 18 mg/dL (9-20); Calcium 7.5 mg/dL (8.4-10.2); Carbon Dioxide 24 mmol/L (22-30); Chloride 106 mmol/L (98-107); Estimated CRCL calculation 91 ml/min; Estimated Glomerular Filt Rate > 60; Glucose 156 mg/dL (65-110); Lipase 182 U/L (23-300); Phosphorus 1.9 mg/dL (2.5-4.5); Potassium 3.7 mmol/L (3.4-5.0); Sodium 135 mmol/L (137-145)
[2022-03-31] MEDS: CENTRAL LINE FLUSH 10 ML IV PUSH ×4 (06:54→21:08)
[2022-03-31 07:04] LABS: Hematocrit 33.4 % (42.0-52.0); Hemoglobin 10.9 g/dL (14.0-18.0); Immature Platelet Fraction Pct 16.2 % (0.9-11.2); Mean Corpuscular HGB Conc 32.6 g/dl (32-36); Mean Corpuscular Hemoglobin 29.3 pg (26-34); Mean Corpuscular Volume 89.8 fl (80-100); Mean Platelet Volume 12.7 fl (7.4-10.4); Platelet Count Result 52 k/mm3 (150-375); Red Blood Count 3.72 M/mm3 (4.6-6.20); White Blood Count 5.6 K/mm3 (4.5-10.0)
[2022-03-31 09:04] LABS: Hypochromasia 1+ (NORMAL); Large Platelets Present; Platelet Estimate Decreased (Adequate)
[2022-03-31 09:05] LABS: Band Neutrophils Percent 25 % (0-6); Lymphocytes Absolute Manual 0.89 K/mm3 (1.1-4.5); Lymphocytes Percent Manual 16 % (18-44); Metamyelocytes Percent 2 %; Monocytes Absolute Manual 0.05 K/mm3 (0.1-0.90); Monocytes Percent Manual 1 % (3-9); Neutrophils Absolute Manual 4.53 K/mm3 (1.3-6.7); Neutrophils Percent Manual 56 % (46-73); Nucleated Red Blood Cells 1 %; Total Cells Counted 100
--- NOTE | 2022-03-31 09:08 | WPDINTPN ---
Progress Note: A&P Assessment and Plan (1) Acute pancreatitis: Qualifiers: Acute pancreatitis complication: unspecified Pancreatitis type: unspecified pancreatitis type Qualified Code(s): K85.90 - Acute pancreatitis without necrosis or infection, unspecified Code(s): K85.90 - Acute pancreatitis without necrosis or infection, unspecified Status: Acute Assessment and Plan: Patient had an episode of pancreatitis in October with no obvious etiology This time presented again with acute interstitial pancreatitis with no clear etiology. his triglyceride level was normal, he does not drink alcohol imaging has not shown any gallstones. he is not also on any drugs that is known to cause pancreatitis Gallbladder sludging is a possibility although MRCP did not show any stones or duct dilatation GI has been consulted and is following He appears to be clinically improved and lipase level has normalized. Start clear liquid diet and advance as tolerated Continue pain control Continue IV fluid but decrease rate MRCP 03/30 IMPRESSION: 1. Acute interstitial pancreatitis. 2. Cirrhosis of the liver. 3. Small volume of ascites. 4. Small pleural effusions. 5. Normal common duct. No choledocholithiasis. 03/28? CT abdomen pelvis IMPRESSION: 1. Acute interstitial pancreatitis. 2. Cirrhosis of the liver with portal venous hypertension. 3. Gallbladder distention, which may be secondary to fasting. 03/29? Chest CTA IMPRESSION:? No pulmonary embolism detected Lingular and particularly prominent bilateral lower lobe dependent atelectasis/infiltrate 03/29 US? abdomen IMPRESSION: 1. Pancreatic findings consistent with the given history of pancreatitis 2. Hepatomegaly and cirrhosis. 3. Gallbladder hydrops with nonspecific wall thickening. 03/29? CT abdomen pelvis Bibasilar consolidation/atelectasis. Small bilateral effusions. Persistent pancreatic inflammation. Fecal impaction (2) Cirrhosis: Qualifiers: Hepatic cirrhosis type: other cirrhosis Qualified Code(s): K74.69 - Other cirrhosis of liver Code(s): K74.60 - Unspecified cirrhosis of liver Status: Acute Assessment and Plan: GI believes cirrhosis is secondary to fatty liver. He had workup done on his last admission monitor coags Normal ammonia level (3) Type 2 diabetes mellitus with diabetic nephropathy: Qualifiers: Diabetes mellitus terminal system operator insulin use: without penitentiary use Qualified Code(s): E11.21 - Type 2 diabetes mellitus with diabetic nephropathy Code(s): E11.21 - Type 2 diabetes mellitus with diabetic nephropathy Status: Acute Assessment and Plan: continue sliding scale insulin (4) Elevated liver enzymes: Code(s): R74.8 - Abnormal levels of other serum enzymes Status: Acute Assessment and Plan: suspect secondary to shock liver his bilirubin is also elevated and can be secondary to cholestasis versus cholangitis monitor levels which are improving (5) Septic shock: Code(s): A41.9 - Sepsis, unspecified organism; R65.21 - Severe sepsis with septic shock Status: Acute Assessment and Plan: secondary to Gram-negative bacteremia and pancreatitis, cholangitis is also possibility continue imipenem which showed cover for Gram-negative rods he has received significant amount IV fluids and is now off of vasopressors. Will decrease IV fluid rate Lactic acid level has normalized Off Levophed since yesterday (6) Gram-negative bacteremia: Code(s): R78.81 - Bacteremia Status: Acute Assessment and Plan: blood cultures are growing Gram-negative rods on prelim report Identification is susceptibilities are pending continue imipenem (7) Metabolic acidosis: Code(s): E87.2 - Acidosis Status: Acute Assessment and Plan: secondary to sepsis and hyperchloremia Improved with changing IV fluids to LR (8) Electrolyte abnormality:
[2022-03-31] MEDS: PANTOPRAZOLE SODIUM IV 40 MG VIAL IV PUSH (09:10)
[2022-03-31] MEDS: CALCIUM GLUC 2,000 MG/NS 100ML 2,000 MG/100 ML BAG 100 MG IVPB (09:12)
[2022-03-31] MEDS: POTASSIUM PHOS,M-BASIC-D-BASIC 15 MMOL in SODIUM CHLORIDE 0.9% IV 250 ML 63.75 MMOL IVPB (09:12)
--- NOTE | 2022-03-31 11:41 | WPDGIPROGNO ---
Progress Note: A&P Assessment and Plan (1) Septic shock: Code(s): A41.9 - Sepsis, unspecified organism; R65.21 - Severe sepsis with septic shock Status: Acute Assessment and Plan: Patient with apparent septic shock associated with hypotension and elevated LFTs. Now on antibiotics. No specific in flexion identified. Suspect this is related to acute pancreatitis. Continue supportive care for now. Patient has become somewhat short of breath continued monitoring respiratory status advised. Blood pressure is improved. (2) Acute pancreatitis: Qualifiers: Acute pancreatitis complication: unspecified Pancreatitis type: unspecified pancreatitis type Qualified Code(s): K85.90 - Acute pancreatitis without necrosis or infection, unspecified Code(s): K85.90 - Acute pancreatitis without necrosis or infection, unspecified Status: Acute Assessment and Plan: Patient with recurrent acute pancreatitis. Initial episode in October. Appears to be idiopathic in nature. MRCP reveals no common bile duct nor gallbladder stones. (3) Cirrhosis: Qualifiers: Hepatic cirrhosis type: other cirrhosis Qualified Code(s): K74.69 - Other cirrhosis of liver Code(s): K74.60 - Unspecified cirrhosis of liver Status: Acute Assessment and Plan: Patient with underlying cirrhosis of liver. 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 Continued supportive care advised. (4) Elevated liver enzymes: Code(s): R74.8 - Abnormal levels of other serum enzymes Status: Acute Assessment and Plan: Elevated LFTs. Occurred rather abruptly associated with hypotensive episode raising question of ?shock liver?. Also potentially related to pancreatitis. Common bile duct appears normal by MRCP performed yesterday. Suggesting gallstones were not related. (5) Chronic lymphocytic leukemia: Code(s): C91.10 - Chronic lymphocytic leukemia of B-cell type not having achieved remission Status: Acute Assessment and Plan: CLL with unremarkable lab features. Patient now with mild anemia. Lymphadenopathy noted in his neck. Subjective Date/time seen: 03/31/22 11:41 Patient remains somewhat short of breath this morning. Denies significant abdominal pain at present. Continues to pass occasional stools. Review of Systems Review of Systems: Review of systems noncontributory. Exam Narrative: Physical exam reveals patient to be alert. Somewhat [place] of breath on supplemental oxygen. HEENT exam reveals mild scleral icterus. Lungs reveal scattered rhonchi. Heart without murmur. Abdomen is somewhat distended. Bowel sounds are present soft no significant tympany. No masses noted. No localized tenderness. Objective Data Vital Signs Vital Signs: Vital Signs - 24 hr 03/30/22 12:00 03/30/22 12:00 03/30/22 12:00 Temperature 97.6 F Pulse Rate 69 68 Respiratory Rate 28 H Blood Pressure 108/67 Pulse Oximetry 96 93 Oxygen Delivery High Flow Nasal Cannula Oxygen Flow Rate 5 03/30/22 15:20 03/30/22 15:20 03/30/22 15:39 Temperature Pulse Rate 76 76 Respiratory Rate 21 H Blood Pressure 121/70 Pulse Oximetry 93 90 Oxygen Delivery High Flow Nasal Cannula Oxygen Flow Rate 5 03/30/22 16:00 03/30/22 12:30 03/30/22 17:21 Temperature Pulse Rate 67 68 Respiratory Rate Blood Pressure 112/63 Pulse Oximetry 95 Oxygen Delivery Nasal Cannula Oxygen Flow Rate 4 03/30/22 16:00 03/30/22 18:00 03/30/22 18:00 Temperature 98.2 F Pulse Rate 68 72 72 Respiratory Rate 20 20 Blood Pressure 115/65 134/67 Pulse Oximetry 93 93 Oxygen Delivery Oxygen Flow Rate 03/30/22 20:00 03/30/22 20:00 03/30/22 20:00 Temperature 98.3 F Pulse Rate 73 73 73 Respiratory Rate 20 19 Blood Pressure 132/66 Pulse Oximetry 93 92 Oxygen Delivery Nasal Cannula Oxygen Flow Rate 6 03/30/22 22:00 03/30/22 22:00 03/31/22 00:00 Temp
--- NOTE | 2022-03-31 11:49 | PM.IMPN ---
Progress Note: A&P Assessment and Plan (1) Acute pancreatitis: Qualifiers: Acute pancreatitis complication: unspecified Pancreatitis type: unspecified pancreatitis type Qualified Code(s): K85.90 - Acute pancreatitis without necrosis or infection, unspecified Code(s): K85.90 - Acute pancreatitis without necrosis or infection, unspecified Status: Acute Assessment and Plan: Idiopathic pancreatitis, 1st episode was in October 2021, this is a recurrent episode. MRCP showed no choledocholithiasis. Lipid panel was essentially within normal limits. He does however have diabetes. Continue to advance diet as tolerated. Appreciate GI consultation (2) Cirrhosis: Qualifiers: Hepatic cirrhosis type: other cirrhosis Qualified Code(s): K74.69 - Other cirrhosis of liver Code(s): K74.60 - Unspecified cirrhosis of liver Status: Acute Assessment and Plan: GI believes cirrhosis is secondary to fatty liver. He had workup done on his last admission monitor coags Normal ammonia level (3) Type 2 diabetes mellitus with diabetic nephropathy: Qualifiers: Diabetes mellitus stunner insulin use: without senior care use Qualified Code(s): E11.21 - Type 2 diabetes mellitus with diabetic nephropathy Code(s): E11.21 - Type 2 diabetes mellitus with diabetic nephropathy Status: Acute Assessment and Plan: continue sliding scale insulin (4) Elevated liver enzymes: Code(s): R74.8 - Abnormal levels of other serum enzymes Status: Acute Assessment and Plan: suspect secondary to shock liver his bilirubin is also elevated and can be secondary to cholestasis versus cholangitis monitor levels which are improving (5) Septic shock: Code(s): A41.9 - Sepsis, unspecified organism; R65.21 - Severe sepsis with septic shock Status: Acute Assessment and Plan: secondary to Gram-negative bacteremia and pancreatitis, cholangitis is also possibility continue imipenem which showed cover for Gram-negative rods he has received significant amount IV fluids and is now off of vasopressors. Will decrease IV fluid rate Lactic acid level has normalized Off Levophed since yesterday (6) Gram-negative bacteremia: Code(s): R78.81 - Bacteremia Status: Acute Assessment and Plan: blood cultures are growing Gram-negative rods on prelim report Identification is susceptibilities are pending continue imipenem (7) Metabolic acidosis: Code(s): E87.2 - Acidosis Status: Acute Assessment and Plan: secondary to sepsis and hyperchloremia Improved with changing IV fluids to LR (8) Electrolyte abnormality: Code(s): E87.8 - Other disorders of electrolyte and fluid balance, not elsewhere classified Status: Acute Assessment and Plan: replace low calcium and potassium (9) Hypoxia: Code(s): R09.02 - Hypoxemia Status: Acute Assessment and Plan: Chest CTA on admission showed bilateral dependent atelectasis versus infiltrates incentive spirometry Up in chair continue imipenem (10) Thrombocytopenia: Code(s): D69.6 - Thrombocytopenia, unspecified Status: Acute Assessment and Plan: Patient has chronic thrombocytopenia going back to 2019. This appears likely secondary to cirrhosis and splenomegaly. Monitor this point. Not on any anticoagulation Additional Plan DVT prophylaxis - SCDs as patient is thrombocytopenic Stress ulcer prophylaxis - IV PPI Nutrition -start clear liquid diet Code Status - patient requests to be full code Transfer out of ICU today Subjective Date/time seen: 03/31/22 11:49 Interval history: Patient resting comfortably in bed. States he feels very weak and tired after having a bowel movement. Denies chest pain shortness a breath. Admits to some tenderness in his abdomen. No fevers or chills. Denies nausea vomiting or loni
[2022-03-31] MEDS: FINASTERIDE 5 MG TABLET PO (11:58)
[2022-03-31] MEDS: LEVOTHYROXINE SODIUM 75 MCG TABLET PO (11:58)
[2022-03-31 12:07] LABS: Glucose Point of Care 161 mg/dl (65-105)
[2022-03-31] MEDS: LACTATED RINGERS 1,000 ML 50 ML IV CONT (14:53)
--- NOTE | 2022-03-31 15:45 | PCPTNOTE ---
attempted PT eval 1545- pt refused, in ICU and reports fatigued; discussed pt with RN, Rissa, he did not sleep well last night and will be moving out of ICU this afternoon.
[2022-03-31 17:08] LABS: Glucose Point of Care 151 mg/dl (65-105)
--- NOTE | 2022-03-31 17:40 | PC.NURSE ---
This patient, Dylan Rodriges, was transferred to [[id number]] on 03/31/22 at 1740. Personal belongings sent with patient. Report given to [Molly FOREMAN]. Appropriate documentation sent with patient.
[2022-03-31 20:19] LABS: Glucose Point of Care 200 mg/dl (65-105)
[2022-03-31] MEDS: INSULIN GLARGINE (*BKC) 100 UNITS/ML 7 UNITS SUB-Q (21:00)
[2022-04-01] VITALS (9 sets, daily range): BP systolic 117–120; BP diastolic 69–71; PULSE 49–62; RESP 16–22; TEMP 36.6–36.9; O2SAT 90–97
[2022-04-01 00:47] LABS: Glucose Point of Care 157 mg/dl (65-105)
[2022-04-01 04:18] LABS: Glucose Point of Care 165 mg/dl (65-105)
[2022-04-01] MEDS: LEVOTHYROXINE SODIUM 75 MCG TABLET PO (05:56)
[2022-04-01] MEDS: CENTRAL LINE FLUSH 10 ML IV PUSH ×4 (06:10→22:06)
[2022-04-01 06:16] LABS: Hematocrit 31.5 % (42.0-52.0); Immature Platelet Fraction Pct 15.4 % (0.9-11.2); Mean Corpuscular HGB Conc 34.9 g/dl (32-36); Mean Corpuscular Hemoglobin 30.2 pg (26-34); Mean Corpuscular Volume 86.5 fl (80-100); Mean Platelet Volume 12.7 fl (7.4-10.4); Platelet Count Result 52 k/mm3 (150-375); Red Blood Count 3.64 M/mm3 (4.6-6.20); Red Cell Distribution Width 15.4 % (11.5-14.5)
[2022-04-01 06:24] LABS: INR 1.3; Prothrombin Time 15.4 Seconds (11.1-14.7)
[2022-04-01 06:25] LABS: Alanine Aminotransferase 186 U/L (6-50); Albumin Level 2.8 g/dL (3.5-5.1); Alkaline Phosphatase 153 U/L (38-126); Anion Gap 4 mmol/L (8-16); Aspartate Amino Transferase 215 U/L (17-59); Bilirubin,Total 5.7 mg/dL (0.2-1.3); Blood Urea Nitrogen 16 mg/dL (9-20); Calcium 7.7 mg/dL (8.4-10.2); Carbon Dioxide 24 mmol/L (22-30); Chloride 103 mmol/L (98-107); Estimated CRCL calculation 107 ml/min; Estimated Glomerular Filt Rate > 60; Glucose 139 mg/dL (65-110); Lipase 173 U/L (23-300); Magnesium 1.7 mg/dL (1.6-2.3); Potassium 3.5 mmol/L (3.4-5.0); Sodium 131 mmol/L (137-145)
[2022-04-01 07:26] LABS: Band Neutrophils Percent 3 % (0-6); Eosinophils Absolute Manual 0.05 K/mm3 (0.02-0.5); Eosinophils Percent Manual 1 % (0-4); Monocytes Percent Manual 2 % (3-9); Myelocytes Percent 2 %; Neutrophils Absolute Manual 4.35 K/mm3 (1.3-6.7); Neutrophils Percent Manual 84 % (46-73); Total Cells Counted 100
[2022-04-01 07:27] LABS: Platelet Estimate Decreased (Adequate)
--- NOTE | 2022-04-01 08:29 | WPDGIPROGNO ---
Progress Note: A&P Assessment and Plan (1) Acute pancreatitis: Qualifiers: Acute pancreatitis complication: unspecified Pancreatitis type: unspecified pancreatitis type Qualified Code(s): K85.90 - Acute pancreatitis without necrosis or infection, unspecified Code(s): K85.90 - Acute pancreatitis without necrosis or infection, unspecified Status: Acute Assessment and Plan: Idiopathic pancreatitis, 1st episode was in October 2021, this is a recurrent episode. MRCP showed no choledocholithiasis. Lipid panel was essentially within normal limits. Continue to advance diet as tolerated. He states that he never was a drinker. 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 He states that he has been worked up in the past for this. He had workup done on his last admission monitor coags Normal ammonia level (3) Type 2 diabetes mellitus with diabetic nephropathy: Qualifiers: Diabetes mellitus manager long term care insulin use: without correction use Qualified Code(s): E11.21 - Type 2 diabetes mellitus with diabetic nephropathy Code(s): E11.21 - Type 2 diabetes mellitus with diabetic nephropathy Status: Acute Assessment and Plan: continue sliding scale insulin (4) Elevated liver enzymes: Code(s): R74.8 - Abnormal levels of other serum enzymes Status: Acute Assessment and Plan: Although MRCP is normal, the fact that he came in with pancreatitis and has had a bump in his bilirubin and liver enzymes suggest that perhaps he has sludge in his common bile duct. We will need to continue to watch those (5) Septic shock: Code(s): A41.9 - Sepsis, unspecified organism; R65.21 - Severe sepsis with septic shock Status: Acute Assessment and Plan: secondary to Gram-negative bacteremia and pancreatitis, cholangitis is also possibility continue imipenem which showed cover for Gram-negative rods he has received significant amount IV fluids and is now off of vasopressors. Will decrease IV fluid rate Lactic acid level has normalized (6) Gram-negative bacteremia: Code(s): R78.81 - Bacteremia Status: Acute Assessment and Plan: blood cultures are growing Gram-negative rods on prelim report Identification is susceptibilities are pending continue imipenem (7) Thrombocytopenia: Code(s): D69.6 - Thrombocytopenia, unspecified Status: Acute Assessment and Plan: Patient has chronic thrombocytopenia going back to 2019. This appears likely secondary to cirrhosis and splenomegaly. Monitor this point. Not on any anticoagulation Additional Plan DVT prophylaxis - SCDs as patient is thrombocytopenic Subjective Date/time seen: 04/01/22 08:29 the patient states that he is comfortable today. He is tolerating clear liquids and denies abdominal pain. His lipase has returned to normal. Unfortunately bilirubin remains elevated, 5.7 today versus 5.4 yesterday. MRCP was normal. Review of Systems Review of Systems: All systems reviewed & are unremarkable except as noted in HPI and below Exam Const: General: alert Orientation/consciousness: patient oriented x3 Resp: Auscultation: clear to auscultation bilaterally Cardio: Rhythm: regular rhythm GI: GI Palp: Yes Soft to palpation and No Tenderness to palpation present (GI) Percussion: Yes normal to percussion Auscultation: normal bowel sounds Skin: General skin exam: jaundice Neuro: General: patient oriented x3 Objective Data Vital Signs Vital Signs: Vital Signs - 24 hr 03/31/22 10:00 03/31/22 10:00 03/31/22 12:00 Temperature Pulse Rate 64 64 63 Respiratory Rate 18 Blood Pressure 139/78 Pulse Oximetry 95 Oxygen Deliv
[2022-04-01] MEDS: PANTOPRAZOLE SODIUM IV 40 MG VIAL IV PUSH (10:01)
[2022-04-01] MEDS: FINASTERIDE 5 MG TABLET PO (10:02)
[2022-04-01 12:14] LABS: Glucose Point of Care 168 mg/dl (65-105)
--- NOTE | 2022-04-01 12:49 | PM.IMPN ---
Progress Note: A&P Assessment and Plan (1) Acute pancreatitis: Qualifiers: Acute pancreatitis complication: unspecified Pancreatitis type: unspecified pancreatitis type Qualified Code(s): K85.90 - Acute pancreatitis without necrosis or infection, unspecified Code(s): K85.90 - Acute pancreatitis without necrosis or infection, unspecified Status: Acute Assessment and Plan: Idiopathic pancreatitis, 1st episode was in October 2021, this is a recurrent episode. MRCP showed no choledocholithiasis. Lipid panel was essentially within normal limits. He does however have diabetes. Continue to advance diet as tolerated. Appreciate GI consultation (2) Cirrhosis: Qualifiers: Hepatic cirrhosis type: other cirrhosis Qualified Code(s): K74.69 - Other cirrhosis of liver Code(s): K74.60 - Unspecified cirrhosis of liver Status: Acute Assessment and Plan: GI believes cirrhosis is secondary to fatty liver. He had workup done on his last admission monitor coags Normal ammonia level (3) Type 2 diabetes mellitus with diabetic nephropathy: Qualifiers: Diabetes mellitus long distance billing operator insulin use: without shelter use Qualified Code(s): E11.21 - Type 2 diabetes mellitus with diabetic nephropathy Code(s): E11.21 - Type 2 diabetes mellitus with diabetic nephropathy Status: Acute Assessment and Plan: continue sliding scale insulin (4) Elevated liver enzymes: Code(s): R74.8 - Abnormal levels of other serum enzymes Status: Acute Assessment and Plan: suspect secondary to shock liver his bilirubin is also elevated and can be secondary to cholestasis versus cholangitis monitor levels 04/01: Bilirubin a little higher today, transaminitis continues, monitor closely, appreciate GI consultation (5) Septic shock: Code(s): A41.9 - Sepsis, unspecified organism; R65.21 - Severe sepsis with septic shock Status: Acute Assessment and Plan: secondary to Gram-negative bacteremia and pancreatitis, cholangitis is also possibility continue imipenem which showed cover for Gram-negative rods (6) Gram-negative bacteremia: Code(s): R78.81 - Bacteremia Status: Acute Assessment and Plan: blood cultures are growing Gram-negative rods on prelim report Identification is susceptibilities are pending continue imipenem Repeat blood cultures pending (7) Metabolic acidosis: Code(s): E87.2 - Acidosis Status: Acute Assessment and Plan: secondary to sepsis and hyperchloremia Improved with changing IV fluids to LR (8) Electrolyte abnormality: Code(s): E87.8 - Other disorders of electrolyte and fluid balance, not elsewhere classified Status: Acute Assessment and Plan: replace low calcium and potassium (9) Hypoxia: Code(s): R09.02 - Hypoxemia Status: Acute Assessment and Plan: Chest CTA on admission showed bilateral dependent atelectasis versus infiltrates incentive spirometry Up in chair continue imipenem (10) Thrombocytopenia: Code(s): D69.6 - Thrombocytopenia, unspecified Status: Acute Assessment and Plan: Patient has chronic thrombocytopenia going back to 2019. This appears likely secondary to cirrhosis and splenomegaly. Monitor this point. Not on any anticoagulation Additional Plan DVT prophylaxis - SCDs as patient is thrombocytopenic Stress ulcer prophylaxis - IV PPI Nutrition -start clear liquid diet Code Status - patient requests to be full code Transfer out of ICU today Subjective Date/time seen: 04/01/22 12:49 Interval history: Patient resting comfortably in bed. States he feels a little better than yesterday, not as sleepy more awake today. He states he was up and moving around in his room went to the bathroom by himself and set up in the chair for a while and he got very tired. He states his appeti
[2022-04-01] MEDS: LACTATED RINGERS 1,000 ML 50 ML IV CONT (13:16)
[2022-04-01 18:24] LABS: Glucose Point of Care 193 mg/dl (65-105)
[2022-04-01] MEDS: INSULIN GLARGINE (*BKC) 100 UNITS/ML 7 UNITS SUB-Q (22:04)
[2022-04-02] VITALS: PULSE 64
[2022-04-02 00:56] LABS: Glucose Point of Care 150 mg/dl (65-105)
[2022-04-02 04:00] VITALS: PULSE 66
[2022-04-02 04:57] VITALS: BP 126/82; PULSE 54; RESP 16; TEMP 36.1; O2SAT 96
[2022-04-02 05:53] LABS: Glucose Point of Care 158 mg/dl (65-105)
[2022-04-02] MEDS: CENTRAL LINE FLUSH 10 ML IV PUSH ×4 (06:02→22:27)
[2022-04-02 06:11] LABS: Basophils Percent Auto 0.7 % (0.2-1.2); Eosinophils Absolute Auto 0.1 K/mm3 (0-0.3); Eosinophils Percent Auto 2.6 % (0-4.4); Hematocrit 30.3 % (42.0-52.0); Hemoglobin 10.1 g/dL (14.0-18.0); Immature Granulocyte Absolute 0.07 K/mm3 (0.00-0.031); Immature Granulocyte Percent A 1.6 % (0-0.5); Immature Platelet Fraction Pct 17.3 % (0.9-11.2); Lymphocytes Absolute Auto 0.73 K/mm3 (0.9-3.2); Lymphocytes Percent Auto 17.1 % (18.3-44.2); Mean Corpuscular HGB Conc 33.3 g/dl (32-36); Mean Corpuscular Hemoglobin 29.3 pg (26-34); Mean Corpuscular Volume 87.8 fl (80-100); Mean Platelet Volume 12.1 fl (7.4-10.4); Monocytes Absolute Auto 0.4 K/mm3 (0.1-0.6); Monocytes Percent Auto 9.8 % (2.6-8.5); Neutrophils Absolute Auto 2.9 K/mm3 (1.3-6.7); Neutrophils Percent Auto 68.2 % (45.5-73.1); Platelet Count Result 53 k/mm3 (150-375); Red Blood Count 3.45 M/mm3 (4.6-6.20); Red Cell Distribution Width 15.5 % (11.5-14.5); White Blood Count 4.3 K/mm3 (4.5-10.0)
[2022-04-02 06:23] LABS: Alanine Aminotransferase 155 U/L (6-50); Albumin Level 2.6 g/dL (3.5-5.1); Alkaline Phosphatase 185 U/L (38-126); Anion Gap 4 mmol/L (8-16); Aspartate Amino Transferase 142 U/L (17-59); Bilirubin,Total 3.4 mg/dL (0.2-1.3); Blood Urea Nitrogen 11 mg/dL (9-20); Calcium 7.3 mg/dL (8.4-10.2); Carbon Dioxide 24 mmol/L (22-30); Chloride 107 mmol/L (98-107); Estimated CRCL calculation 107 ml/min; Estimated Glomerular Filt Rate > 60; Glucose 149 mg/dL (65-110); Lipase 228 U/L (23-300); Magnesium 1.6 mg/dL (1.6-2.3); Potassium 3.2 mmol/L (3.4-5.0); Sodium 135 mmol/L (137-145)
[2022-04-02 06:27] LABS: INR 1.2
[2022-04-02 08:00] VITALS: PULSE 54; RESP 16; O2SAT 96
[2022-04-02] MEDS: LEVOTHYROXINE SODIUM 75 MCG TABLET PO (08:10)
[2022-04-02 08:13] LABS: Glucose Point of Care 146 mg/dl (65-105)
[2022-04-02] MEDS: FINASTERIDE 5 MG TABLET PO (09:42)
[2022-04-02] MEDS: PANTOPRAZOLE SODIUM IV 40 MG VIAL IV PUSH (09:42)
[2022-04-02] MEDS: POTASSIUM CHLORIDE 20 MEQ TABLET 40 MEQ PO (09:43)
[2022-04-02 12:07] LABS: Glucose Point of Care 294 mg/dl (65-105)
--- NOTE | 2022-04-02 12:07 | PM.IMPN ---
Progress Note: A&P Assessment and Plan (1) Acute pancreatitis: Qualifiers: Acute pancreatitis complication: unspecified Pancreatitis type: unspecified pancreatitis type Qualified Code(s): K85.90 - Acute pancreatitis without necrosis or infection, unspecified Code(s): K85.90 - Acute pancreatitis without necrosis or infection, unspecified Status: Acute Assessment and Plan: Idiopathic pancreatitis, 1st episode was in October 2021, this is a recurrent episode. MRCP showed no choledocholithiasis. Lipid panel was essentially within normal limits. He does however have diabetes. Continue to advance diet as tolerated. Appreciate GI consultation. Labs continue to improve. (2) Cirrhosis: Qualifiers: Hepatic cirrhosis type: other cirrhosis Qualified Code(s): K74.69 - Other cirrhosis of liver Code(s): K74.60 - Unspecified cirrhosis of liver Status: Acute Assessment and Plan: GI believes cirrhosis is secondary to fatty liver. He had workup done on his last admission monitor coags Normal ammonia level May eventually be a candidate for liver transplant outpatient (3) Type 2 diabetes mellitus with diabetic nephropathy: Qualifiers: Diabetes mellitus longwall shearer operator insulin use: without longwall shearer operator use Qualified Code(s): E11.21 - Type 2 diabetes mellitus with diabetic nephropathy Code(s): E11.21 - Type 2 diabetes mellitus with diabetic nephropathy Status: Acute Assessment and Plan: continue sliding scale insulin (4) Elevated liver enzymes: Code(s): R74.8 - Abnormal levels of other serum enzymes Status: Acute Assessment and Plan: suspect secondary to shock liver his bilirubin is also elevated and can be secondary to cholestasis versus cholangitis monitor levels 04/01: Bilirubin a little higher today, transaminitis continues, monitor closely, appreciate GI consultation 04/02: Labs improved today (5) Septic shock: Code(s): A41.9 - Sepsis, unspecified organism; R65.21 - Severe sepsis with septic shock Status: Acute Assessment and Plan: secondary to Gram-negative bacteremia and pancreatitis, cholangitis is also possibility continue imipenem, started March 29, 2022, which will cover for Gram-negative rods Patient is on antibiotic day 5 of imipenem, will discontinue antibiotics at day 7, April 04, 2022 Discontinue IV antibiotics today and switch to oral antibiotics, susceptibility shows pansensitive E coli, will start cefdinir today, 300 mg q.12, discontinued April 04 (6) Gram-negative bacteremia: Code(s): R78.81 - Bacteremia Status: Acute Assessment and Plan: blood cultures are growing Gram-negative rods on prelim report Identification is susceptibilities are pending continue imipenem Repeat blood cultures pending, negative so far (7) Metabolic acidosis: Code(s): E87.2 - Acidosis Status: Acute Assessment and Plan: Resolved (8) Electrolyte abnormality: Code(s): E87.8 - Other disorders of electrolyte and fluid balance, not elsewhere classified Status: Acute Assessment and Plan: Resolved (9) Hypoxia: Code(s): R09.02 - Hypoxemia Status: Acute Assessment and Plan: Improving dramatically, will attempt to continue to wean oxygen (10) Thrombocytopenia: Code(s): D69.6 - Thrombocytopenia, unspecified Status: Acute Assessment and Plan: Patient has chronic thrombocytopenia going back to 2020. This appears likely secondary to cirrhosis and splenomegaly. Monitor this point. Not on any anticoagulation Additional Plan DVT prophylaxis - SCDs as patient is thrombocytopenic Stress ulcer prophylaxis - IV PPI Nutrition -start clear liquid diet, advance diet as tolerated Code Status - patient requests to be full code Subjective Date/time seen: 04/02/22 12:07 Interval history: Patient resting comfortabl
--- NOTE | 2022-04-02 12:21 | WPDGIPROGNO ---
Progress Note: A&P Assessment and Plan (1) Acute pancreatitis: Qualifiers: Acute pancreatitis complication: unspecified Pancreatitis type: unspecified pancreatitis type Qualified Code(s): K85.90 - Acute pancreatitis without necrosis or infection, unspecified Code(s): K85.90 - Acute pancreatitis without necrosis or infection, unspecified Status: Acute Assessment and Plan: Idiopathic pancreatitis, 1st episode was in October 2021, this is a recurrent episode. MRCP showed no choledocholithiasis. Lipid panel was essentially within normal limits. Continue to advance diet as tolerated. He states that he never was a drinker. 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 He states that he has been worked up in the past for this. He had workup done on his last admission monitor coags Normal ammonia level 04/02 we discussed his liver disease. Apparently he had liver biopsy about 15 years ago showing a fatty liver. I discussed [place] with him and explained how fatty liver turns to cirrhosis. Also told the that it would still be important to try to avoid excess calories, alcohol etc.. He states thatdoes not drink at all. (3) Type 2 diabetes mellitus with diabetic nephropathy: Qualifiers: Diabetes mellitus rn long term care insulin use: without rn long term care use Qualified Code(s): E11.21 - Type 2 diabetes mellitus with diabetic nephropathy Code(s): E11.21 - Type 2 diabetes mellitus with diabetic nephropathy Status: Acute Assessment and Plan: continue sliding scale insulin (4) Elevated liver enzymes: Code(s): R74.8 - Abnormal levels of other serum enzymes Status: Acute Assessment and Plan: Although MRCP is normal, the fact that he came in with pancreatitis and has had a bump in his bilirubin and liver enzymes suggest that perhaps he has sludge in his common bile duct. We will need to continue to watch those (5) Septic shock: Code(s): A41.9 - Sepsis, unspecified organism; R65.21 - Severe sepsis with septic shock Status: Acute Assessment and Plan: secondary to Gram-negative bacteremia and pancreatitis, cholangitis is also possibility continue imipenem which showed cover for Gram-negative rods he has received significant amount IV fluids and is now off of vasopressors. Will decrease IV fluid rate Lactic acid level has normalized (6) Gram-negative bacteremia: Code(s): R78.81 - Bacteremia Status: Acute Assessment and Plan: blood cultures are growing Gram-negative rods on prelim report Identification is susceptibilities are pending continue imipenem (7) Thrombocytopenia: Code(s): D69.6 - Thrombocytopenia, unspecified Status: Acute Assessment and Plan: Patient has chronic thrombocytopenia going back to 2019. This appears likely secondary to cirrhosis and splenomegaly. Monitor this point. Not on any anticoagulation Additional Plan DVT prophylaxis - SCDs as patient is thrombocytopenic Subjective Date/time seen: 04/02/22 12:21 he is feeling good today. He tolerated his clear liquid diet. Is not having any abdominal pain. He states that he was told by the hospitalist that he would be ready to go home around the middle of the week. We were finally seen improvement in his bilirubin which is now down to 3.4 Exam Const: General: alert Orientation/consciousness: patient oriented x3 Resp: Auscultation: clear to auscultation bilaterally Cardio: Rhythm: regular rhythm GI: Auscultation: normal bowel sounds Skin: General skin exam: jaundice Neuro: General: patient oriented x3 Objective Data Vital Signs Vital Signs: Vital Signs - 24 hr 04/01/22 15:37 0
[2022-04-02] MEDS: INSULIN ASPART (*BKC) 100 UNITS/ML SUB-Q ×2 (12:59→18:57)
--- NOTE | 2022-04-02 14:18 | PCOTNOTE ---
Pt was sleeping and was told to not disturb him per PUG MACHINE OPERATOR due to having visitors all day and to attempt later. Due to therapist schedule, pt is the last one for the day. Will continue per poc duration/frequency tomorrow.
--- NOTE | 2022-04-02 14:23 | PCPTNOTE ---
The patient treatment was not able to be completed due to pt unarousable. Will plan to continue treatment per plan of care.
[2022-04-02 18:25] LABS: Glucose Point of Care 230 mg/dl (65-105)
[2022-04-02 19:29] VITALS: BP 119/70; PULSE 66; RESP 20; TEMP 36.7; O2SAT 98
[2022-04-02 20:00] VITALS: PULSE 60; RESP 16; O2SAT 96
[2022-04-02] MEDS: traZODone HCL 50 MG TABLET PO (22:13)
[2022-04-02] MEDS: CEFDINIR 300 MG CAPSULE PO (22:15)
[2022-04-02] MEDS: INSULIN GLARGINE (*BKC) 100 UNITS/ML 7 UNITS SUB-Q (22:25)
[2022-04-02 23:22] LABS: Glucose Point of Care 201 mg/dl (65-105)
[2022-04-03] VITALS: BP 120/65; PULSE 60; RESP 16; TEMP 36.6; O2SAT 96
[2022-04-03 00:57] LABS: Glucose Point of Care 201 mg/dl (65-105)
[2022-04-03] MEDS: LACTATED RINGERS 1,000 ML 50 ML IV CONT (05:11)
[2022-04-03] MEDS: CENTRAL LINE FLUSH 10 ML IV PUSH ×2 (05:13→13:16)
[2022-04-03 05:21] LABS: Hematocrit 28.7 % (42.0-52.0); Immature Platelet Fraction Pct 18.9 % (0.9-11.2); Mean Corpuscular HGB Conc 34.8 g/dl (32-36); Mean Corpuscular Hemoglobin 29.6 pg (26-34); Mean Corpuscular Volume 84.9 fl (80-100); Mean Platelet Volume 13.7 fl (7.4-10.4); Platelet Count Result 56 k/mm3 (150-375); Red Blood Count 3.38 M/mm3 (4.6-6.20); Red Cell Distribution Width 15.9 % (11.5-14.5); White Blood Count 3.9 K/mm3 (4.5-10.0)
[2022-04-03 05:30] LABS: Alanine Aminotransferase 127 U/L (6-50); Albumin Level 2.5 g/dL (3.5-5.1); Alkaline Phosphatase 239 U/L (38-126); Anion Gap 4 mmol/L (8-16); Aspartate Amino Transferase 105 U/L (17-59); Bilirubin,Total 2.3 mg/dL (0.2-1.3); Blood Urea Nitrogen 8 mg/dL (9-20); Calcium 7.2 mg/dL (8.4-10.2); Carbon Dioxide 24 mmol/L (22-30); Chloride 109 mmol/L (98-107); Estimated CRCL calculation 130 ml/min; Estimated Glomerular Filt Rate > 60; Glucose 148 mg/dL (65-110); Lipase 257 U/L (23-300); Magnesium 1.7 mg/dL (1.6-2.3); Phosphorus 2.6 mg/dL (2.5-4.5); Potassium 3.3 mmol/L (3.4-5.0); Sodium 137 mmol/L (137-145)
[2022-04-03 05:36] LABS: INR 1.3; Prothrombin Time 15.6 Seconds (11.1-14.7)
[2022-04-03] MEDS: LEVOTHYROXINE SODIUM 75 MCG TABLET PO (06:22)
[2022-04-03 06:43] LABS: Glucose Point of Care 160 mg/dl (65-105)
[2022-04-03 07:44] LABS: Hypochromasia 1+ (NORMAL); Large Platelets Present; Macrocytosis 1+ (NORMAL); Platelet Estimate Decreased (Adequate); Poikilocytosis 1+ (NORMAL); Tear Drop Cells 1+ (NORMAL); Total Cells Counted 100
[2022-04-03 07:45] LABS: Atypical Lymphocytes Present; Polychromasia 1+ (NORMAL); Stomatocytes 1+ (NORMAL)
[2022-04-03 07:54] LABS: Glucose Point of Care 165 mg/dl (65-105)
[2022-04-03 08:00] VITALS: O2SAT 94
[2022-04-03 08:15] LABS: Neutrophils Percent Manual 47 % (46-73)
[2022-04-03 08:16] LABS: Band Neutrophils Percent 9 % (0-6); Lymphocytes Absolute Manual 1.13 K/mm3 (1.1-4.5); Metamyelocytes Percent 6 %; Monocytes Percent Manual 5 % (3-9); Neutrophils Absolute Manual 2.18 K/mm3 (1.3-6.7)
[2022-04-03 08:18] LABS: Basophils Absolute Manual 0.03 K/mm3 (0.0-0.1); Basophils Percent Manual 1 % (0-1); Eosinophils Absolute Manual 0.07 K/mm3 (0.02-0.5); Eosinophils Percent Manual 2 % (0-4); Monocytes Absolute Manual 0.19 K/mm3 (0.1-0.90); Promyelocytes Percent 1 %
[2022-04-03 08:21] LABS: Spherocytes 1+ (NORMAL); Target Cells 1+ (NORMAL)
[2022-04-03] MEDS: PANTOPRAZOLE SODIUM IV 40 MG VIAL IV PUSH (08:39)
[2022-04-03] MEDS: FINASTERIDE 5 MG TABLET PO (08:39)
[2022-04-03] MEDS: CEFDINIR 300 MG CAPSULE PO ×2 (08:39→21:08)
[2022-04-03 11:28] LABS: Glucose Point of Care 283 mg/dl (65-105)
--- NOTE | 2022-04-03 13:08 | PM.IMPN ---
Progress Note: A&P Assessment and Plan (1) Acute pancreatitis: Qualifiers: Acute pancreatitis complication: unspecified Pancreatitis type: unspecified pancreatitis type Qualified Code(s): K85.90 - Acute pancreatitis without necrosis or infection, unspecified Code(s): K85.90 - Acute pancreatitis without necrosis or infection, unspecified Status: Acute Assessment and Plan: Idiopathic pancreatitis, 1st episode was in October 2021, this is a recurrent episode. MRCP showed no choledocholithiasis. Lipid panel was essentially within normal limits. He does however have diabetes. Continue to advance diet as tolerated. Appreciate GI consultation. Labs continue to improve. (2) Cirrhosis: Qualifiers: Hepatic cirrhosis type: other cirrhosis Qualified Code(s): K74.69 - Other cirrhosis of liver Code(s): K74.60 - Unspecified cirrhosis of liver Status: Acute Assessment and Plan: GI believes cirrhosis is secondary to fatty liver. He had workup done on his last admission monitor coags Normal ammonia level May eventually be a candidate for liver transplant outpatient Stable thrombocytopenia noted, platelets remain in the 50s (3) Type 2 diabetes mellitus with diabetic nephropathy: Qualifiers: Diabetes mellitus custodial insulin use: without custodial use Qualified Code(s): E11.21 - Type 2 diabetes mellitus with diabetic nephropathy Code(s): E11.21 - Type 2 diabetes mellitus with diabetic nephropathy Status: Acute Assessment and Plan: continue sliding scale insulin (4) Elevated liver enzymes: Code(s): R74.8 - Abnormal levels of other serum enzymes Status: Acute Assessment and Plan: suspect secondary to shock liver his bilirubin is also elevated and can be secondary to cholestasis versus cholangitis monitor levels 04/01: Bilirubin a little higher today, transaminitis continues, monitor closely, appreciate GI consultation 04/02: Labs improved today (5) Septic shock: Code(s): A41.9 - Sepsis, unspecified organism; R65.21 - Severe sepsis with septic shock Status: Acute Assessment and Plan: secondary to Gram-negative bacteremia and pancreatitis, cholangitis is also possibility continue imipenem, started March 29, 2022, which will cover for Gram-negative rods Patient is on antibiotic day 5 of imipenem, will discontinue antibiotics at day 7, April 04, 2022 Discontinue IV antibiotics today and switch to oral antibiotics, susceptibility shows pansensitive E coli, will start cefdinir today, 300 mg q.12, discontinued April 04 (6) Gram-negative bacteremia: Code(s): R78.81 - Bacteremia Status: Acute Assessment and Plan: blood cultures are growing Gram-negative rods on prelim report Identification is susceptibilities are pending continue imipenem Repeat blood cultures pending, negative so far (7) Metabolic acidosis: Code(s): E87.2 - Acidosis Status: Acute Assessment and Plan: Resolved (8) Electrolyte abnormality: Code(s): E87.8 - Other disorders of electrolyte and fluid balance, not elsewhere classified Status: Acute Assessment and Plan: Resolved (9) Hypoxia: Code(s): R09.02 - Hypoxemia Status: Acute Assessment and Plan: Improving dramatically, will attempt to continue to wean oxygen (10) Thrombocytopenia: Code(s): D69.6 - Thrombocytopenia, unspecified Status: Acute Assessment and Plan: Patient has chronic thrombocytopenia going back to 2019. This appears likely secondary to cirrhosis and splenomegaly. Monitor this point. Not on any anticoagulation Subjective Date/time seen: 04/03/22 13:08 Interval history: Patient feels a little better than yesterday. States the abdomen is hurting more be still feels kind of weak. Denies headaches or vision changes. No nausea vomiting diarrhea. No chest sal
--- NOTE | 2022-04-03 13:09 | WPDGIPROGNO ---
Progress Note: A&P Assessment and Plan (1) Acute pancreatitis: Qualifiers: Acute pancreatitis complication: unspecified Pancreatitis type: unspecified pancreatitis type Qualified Code(s): K85.90 - Acute pancreatitis without necrosis or infection, unspecified Code(s): K85.90 - Acute pancreatitis without necrosis or infection, unspecified Status: Acute Assessment and Plan: Patient with improving acute pancreatitis. Appears to be idiopathic in nature. Now advanced to low-fat diet which she appears to be tolerating. Still somewhat short of breath after response admission the hospital with septic shock. No longer hypotensive. Clinically pancreatitis improving tolerating diet passage of bowel movements. His LFTs still moderately enlarged but decreasing. These will need to be followed up after discharge. (2) Cirrhosis: Qualifiers: Hepatic cirrhosis type: other cirrhosis Qualified Code(s): K74.69 - Other cirrhosis of liver Code(s): K74.60 - Unspecified cirrhosis of liver Status: Acute Assessment and Plan: patient with cirrhosis felt to be secondary of fatty liver. Continue supportive care. He is not a drinker. Hepatitis serologies have been negative. (3) History of colon polyps: Code(s): Z86.010 - Personal history of colonic polyps Status: Acute Assessment and Plan: Patient has a prior history of colon polyps long-term plan is for continued surveillance at 5 year intervals. (4) Elevated liver enzymes: Code(s): R74.8 - Abnormal levels of other serum enzymes Status: Acute Assessment and Plan: LFTs continue to improve. Likely related to recent episode of pancreatitis. (5) Type 2 diabetes mellitus with diabetic nephropathy: Qualifiers: Diabetes mellitus longwall headgate operator insulin use: without longwall headgate operator use Qualified Code(s): E11.21 - Type 2 diabetes mellitus with diabetic nephropathy Code(s): E11.21 - Type 2 diabetes mellitus with diabetic nephropathy Status: Acute (6) Chronic lymphocytic leukemia: Code(s): C91.10 - Chronic lymphocytic leukemia of B-cell type not having achieved remission Status: Acute Assessment and Plan: CLL with lymphadenopathy. CBC is fairly stable. Currently pancytopenic however. Followed by Oncology. Currently on no medications. Subjective Date/time seen: 04/03/22 13:09 Patient alert this morning. A appears somewhat less short of breath. Tolerating low-fat diet. He denies abdominal pain. Passing flatus and stool. Review of Systems Review of Systems: Review of systems noncontributory. Exam Narrative: Physical exam reveals patient be alert. Vital signs stable. He is afebrile. Anicteric. Lungs are clear to auscultation and percussion. Still somewhat short of breath on supplemental oxygen. Abdomen bowel sounds present soft nontender no are organic masses noted. Extremities without clubbing cyanosis or edema. Objective Data Vital Signs Vital Signs: Vital Signs - 24 hr 04/02/22 19:29 04/03/22 00:00 04/02/22 20:00 Temperature 98.1 F 98 F Pulse Rate 66 60 60 Respiratory Rate 20 16 16 Blood Pressure 119/70 120/65 Pulse Oximetry 98 96 96 Oxygen Delivery Nasal Cannula Oxygen Flow Rate 2 Intake/Output Intake/Output: Intake & Output 03/31/22 04/01/22 04/02/22 04/03/22 23:59 23:59 23:59 23:59 Intake Total 3775 2354 2102 1030 Output Total 1000 1400 404 Balance 2775 954 1698 1030 Meds/Results Medications: Active Medications Generic Name Dose Route Start Last Admin Trade Name Freq PRN Reason Stop Dose Admin Cefdinir 300 mg 04/02/22 21:00 04/03/22 08:39 Cefdinir 300 Mg Capsule PO 04/04/22 21:00 300 mg Q12HR LÓPEZ Administration Dextrose 12.5 gm 03/29/22 21:50 Dextrose 50% 25 Gm/50 Ml Syringe IV PUSH PRN PRN Hypoglycemia Protocol Finasteride 5 mg 03/31/22 09:25 04/03/22 08:39 Fin
[2022-04-03] MEDS: INSULIN ASPART (*BKC) 100 UNITS/ML SUB-Q (13:15)
[2022-04-03 15:06] VITALS: BP 120/62; PULSE 56; RESP 16; TEMP 35.7; O2SAT 98
[2022-04-03 16:28] LABS: Glucose Point of Care 185 mg/dl (65-105)
[2022-04-03 17:37] VITALS: O2SAT 96
[2022-04-03] MEDS: INSULIN GLARGINE (*BKC) 100 UNITS/ML 7 UNITS SUB-Q (21:08)
[2022-04-03 21:38] LABS: Glucose Point of Care 277 mg/dl (65-105)
[2022-04-03 22:00] VITALS: BP 146/75; PULSE 55; RESP 16; TEMP 36.2; O2SAT 94
[2022-04-03 23:54] VITALS: O2SAT 94
[2022-04-04] MEDS: LACTATED RINGERS 1,000 ML 50 ML IV CONT (04:10)
[2022-04-04] MEDS: LEVOTHYROXINE SODIUM 75 MCG TABLET PO (05:51)
[2022-04-04 06:00] VITALS: BP 130/77; PULSE 60; RESP 16; TEMP 36.2; O2SAT 95
[2022-04-04 06:39] LABS: Hematocrit 31.7 % (42.0-52.0); Hemoglobin 10.6 g/dL (14.0-18.0); Immature Platelet Fraction Pct 18.5 % (0.9-11.2); Mean Corpuscular HGB Conc 33.4 g/dl (32-36); Mean Corpuscular Hemoglobin 29.3 pg (26-34); Mean Corpuscular Volume 87.6 fl (80-100); Mean Platelet Volume 13.4 fl (7.4-10.4); Platelet Count Result 78 k/mm3 (150-375); Red Blood Count 3.62 M/mm3 (4.6-6.20); Red Cell Distribution Width 15.9 % (11.5-14.5); White Blood Count 4.6 K/mm3 (4.5-10.0)
[2022-04-04 06:47] LABS: Alanine Aminotransferase 110 U/L (6-50); Albumin Level 2.9 g/dL (3.5-5.1); Alkaline Phosphatase 255 U/L (38-126); Anion Gap 5 mmol/L (8-16); Aspartate Amino Transferase 82 U/L (17-59); Bilirubin,Total 2.1 mg/dL (0.2-1.3); Blood Urea Nitrogen 7 mg/dL (9-20); Calcium 7.7 mg/dL (8.4-10.2); Carbon Dioxide 24 mmol/L (22-30); Chloride 107 mmol/L (98-107); Estimated CRCL calculation 130 ml/min; Estimated Glomerular Filt Rate > 60; Glucose 193 mg/dL (65-110); Lipase 322 U/L (23-300); Magnesium 1.6 mg/dL (1.6-2.3); Phosphorus 3.3 mg/dL (2.5-4.5); Potassium 3.6 mmol/L (3.4-5.0); Sodium 136 mmol/L (137-145)
[2022-04-04 07:09] LABS: INR 1.2; Prothrombin Time 14.3 Seconds (11.1-14.7)
[2022-04-04 07:12] LABS: Glucose Point of Care 192 mg/dl (65-105)
[2022-04-04 07:38] LABS: Atypical Lymphocytes Present; Band Neutrophils Percent 4 % (0-6); Eosinophils Absolute Manual 0.09 K/mm3 (0.02-0.5); Eosinophils Percent Manual 2 % (0-4); Giant Platelets Present; Large Platelets Present; Lymphocytes Absolute Manual 1.51 K/mm3 (1.1-4.5); Metamyelocytes Percent 2 %; Monocytes Absolute Manual 0.41 K/mm3 (0.1-0.90); Monocytes Percent Manual 9 % (3-9); Neutrophils Absolute Manual 2.48 K/mm3 (1.3-6.7); Neutrophils Percent Manual 50 % (46-73); Smudge Cells PRESENT; Total Cells Counted 100
[2022-04-04 07:39] LABS: Anisocytosis 1+ (NORMAL); Hypochromasia 2+ (NORMAL); Poikilocytosis 1+ (NORMAL); Target Cells 1+ (NORMAL)
[2022-04-04 08:50] LABS: Glucose Point of Care 180 mg/dl (65-105)
[2022-04-04 09:06] VITALS: O2SAT 95
[2022-04-04] MEDS: FINASTERIDE 5 MG TABLET PO (09:12)
[2022-04-04] MEDS: CEFDINIR 300 MG CAPSULE PO (09:12)
[2022-04-04] MEDS: PANTOPRAZOLE SODIUM IV 40 MG VIAL IV PUSH (09:12)
[2022-04-04 12:26] LABS: Glucose Point of Care 287 mg/dl (65-105)
[2022-04-04] MEDS: INSULIN ASPART (*BKC) 100 UNITS/ML SUB-Q (12:58)
--- NOTE | 2022-04-04 14:08 | PM.DS ---
DS: Admitting Diagnosis Discharge Date April 04, 2022 Admitting Diagnosis Acute pancreatitis DS: Discharge Diagnosis Discharge Diagnosis (1) Acute pancreatitis: Qualifiers: Acute pancreatitis complication: unspecified Pancreatitis type: unspecified pancreatitis type Qualified Code(s): K85.90 - Acute pancreatitis without necrosis or infection, unspecified Code(s): K85.90 - Acute pancreatitis without necrosis or infection, unspecified Status: Acute Assessment and Plan: Idiopathic pancreatitis, 1st episode was in October 2021, this is a recurrent episode. MRCP showed no choledocholithiasis. Lipid panel was essentially within normal limits. He does however have diabetes. Continue to advance diet as tolerated. Appreciate GI consultation. Labs continue to improve. (2) Cirrhosis: Qualifiers: Hepatic cirrhosis type: other cirrhosis Qualified Code(s): K74.69 - Other cirrhosis of liver Code(s): K74.60 - Unspecified cirrhosis of liver Status: Acute Assessment and Plan: GI believes cirrhosis is secondary to fatty liver. He had workup done on his last admission monitor coags Normal ammonia level May eventually be a candidate for liver transplant outpatient Stable thrombocytopenia noted, platelets remain in the 50s (3) Type 2 diabetes mellitus with diabetic nephropathy: Qualifiers: Diabetes mellitus group home insulin use: without lathe puller use Qualified Code(s): E11.21 - Type 2 diabetes mellitus with diabetic nephropathy Code(s): E11.21 - Type 2 diabetes mellitus with diabetic nephropathy Status: Acute Assessment and Plan: continue sliding scale insulin (4) Elevated liver enzymes: Code(s): R74.8 - Abnormal levels of other serum enzymes Status: Acute Assessment and Plan: suspect secondary to shock liver his bilirubin is also elevated and can be secondary to cholestasis versus cholangitis monitor levels 04/01: Bilirubin a little higher today, transaminitis continues, monitor closely, appreciate GI consultation 04/02: Labs improved today (5) Septic shock: Code(s): A41.9 - Sepsis, unspecified organism; R65.21 - Severe sepsis with septic shock Status: Acute Assessment and Plan: secondary to Gram-negative bacteremia and pancreatitis, cholangitis is also possibility continue imipenem, started March 29, 2022, which will cover for Gram-negative rods Patient is on antibiotic day 5 of imipenem, will discontinue antibiotics at day 7, April 04, 2022 Discontinue IV antibiotics today and switch to oral antibiotics, susceptibility shows pansensitive E coli, will start cefdinir today, 300 mg q.12, discontinued April 04 (6) Gram-negative bacteremia: Code(s): R78.81 - Bacteremia Status: Acute Assessment and Plan: blood cultures are growing Gram-negative rods on prelim report Identification is susceptibilities are pending continue imipenem Repeat blood cultures pending, negative so far (7) Metabolic acidosis: Code(s): E87.2 - Acidosis Status: Acute Assessment and Plan: Resolved (8) Electrolyte abnormality: Code(s): E87.8 - Other disorders of electrolyte and fluid balance, not elsewhere classified Status: Acute Assessment and Plan: Resolved (9) Hypoxia: Code(s): R09.02 - Hypoxemia Status: Acute Assessment and Plan: Improving dramatically, will attempt to continue to wean oxygen (10) Thrombocytopenia: Code(s): D69.6 - Thrombocytopenia, unspecified Status: Acute Assessment and Plan: Patient has chronic thrombocytopenia going back to 2019. This appears likely secondary to cirrhosis and splenomegaly. Monitor this point. Not on any anticoagulation DS: Summary Hospital Course Hospital Course: 72-year-old male past medical history significant for cirrhosis, hyperlipidemia, diabetes, metabolic syndro
--- NOTE | 2022-04-04 15:11 | WPDGIPROGNO ---
Progress Note: A&P Assessment and Plan (1) Septic shock: Code(s): A41.9 - Sepsis, unspecified organism; R65.21 - Severe sepsis with septic shock Status: Acute Assessment and Plan: Patient with resolve sepsis likely related to his pancreatitis. This appears to be improving clinically. No longer on pressor agents able to go home. He appears somewhat weak and may benefit from rehab for home health. (2) Acute pancreatitis: Qualifiers: Acute pancreatitis complication: unspecified Pancreatitis type: unspecified pancreatitis type Qualified Code(s): K85.90 - Acute pancreatitis without necrosis or infection, unspecified Code(s): K85.90 - Acute pancreatitis without necrosis or infection, unspecified Status: Acute Assessment and Plan: Patient with 2nd episode of pancreatitis appears be idiopathic. No evidence of stones. He does not drink. Previous episode was in October. Long discussion with patient that is hard to predict whether this will continue recur. I would advised to remain on low-fat diet. (3) Cirrhosis: Qualifiers: Hepatic cirrhosis type: other cirrhosis Qualified Code(s): K74.69 - Other cirrhosis of liver Code(s): K74.60 - Unspecified cirrhosis of liver Status: Acute Assessment and Plan: Imaging studies reveal that patient has cirrhosis. 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 Supportive care advised. There were no varices at the time of endoscopy. (4) History of colon polyps: Code(s): Z86.010 - Personal history of colonic polyps Status: Acute Assessment and Plan: Patient had a previous colonoscopy several years ago. Continued follow-up at 5 year intervals if medical condition allows advised as an outpatient. (5) Elevated liver enzymes: Code(s): R74.8 - Abnormal levels of other serum enzymes Status: Acute Assessment and Plan: LFTs continue to improve after recent bout of pancreatitis. Suspect this was related to his pancreatitis. Potentially could passed biliary sludge. No gallstones have been found on multiple imaging studies. Supportive care advised follow-up LFTs after discharge to ensure resolution. (6) Chronic lymphocytic leukemia: Code(s): C91.10 - Chronic lymphocytic leukemia of B-cell type not having achieved remission Status: Acute Subjective Date/time seen: 04/04/22 15:11 Patient anxious to go home today. No longer on supplemental oxygen. He continues to feel somewhat weak however. He is tolerating regular diet. Has good bowel function and normal bowel habits. He denies abdominal pain. Review of Systems Review of Systems: Review of systems noncontributory. Exam Narrative: Physical exam reveals patient be alert comfortable at rest. HEENT exam reveals no icterus. Lungs reveal few rhonchi. Heart without murmur. Abdomen bowel sounds present soft nontender with no organomegaly. Objective Data Vital Signs Vital Signs: Vital Signs - 24 hr 04/03/22 17:37 04/03/22 22:00 04/03/22 20:00 Temperature 97.1 F L Pulse Rate 55 L Respiratory Rate 16 Blood Pressure 146/75 H Pulse Oximetry 96 94 Oxygen Delivery Nasal Cannula Room Air Oxygen Flow Rate 2 04/03/22 23:54 04/04/22 06:00 04/04/22 09:06 Temperature 97.2 F L Pulse Rate 60 Respiratory Rate 16 Blood Pressure 130/77 Pulse Oximetry 94 95 95 Oxygen Delivery Room Air Room Air Oxygen Flow Rate Intake/Output Intake/Output: Intake & Output 04/01/22 04/02/22 04/03/22 04/04/22 23:59 23:59 23:59 23:59 Intake Total 2354 2102 1620 2009 Output Total 1400 404 Balance 954 1698 1620 2009 Meds/Results Medications: Active Medications Generic Name Dose Route Start Last Admin Trade Name Freq PRN Reason Stop Dose Admin Cefdinir 300 mg 04/02/22 21:00 04/04/22 09:12 Cefdinir 300 Mg Capsule PO 04/04/22 21:00 300 mg Q12HR LÓPEZ Administration Dextrose 12.5
== END 2022-04-04 16:26 | disposition home health service (06) | DRG 438 ==
LOC: ANHED 07:52 → ANH3MEDSUR 08:06 → ANHICU 03-31 13:22 → ANH3MEDSUR 04-02 07:38 → ANHICU 04-05 10:54
PROVIDERS: Internal Medicine; Internal Medicine Gastroenterology; Student in an Organized Health Care Education/Training Program; Admitting Provider Chiropractor; Emergency Provider Emergency Medicine; PCP Family Medicine; Visit Provider Student in an Organized Health Care Education/Training Program
DX: K85.90 Acute pancreatitis without necrosis or infection, unspecified (principal); A41.9 Sepsis, unspecified organism; R65.21 Severe sepsis with septic shock; K72.00 Acute and subacute hepatic failure without coma; C91.11 Chronic lymphocytic leukemia of B-cell type in remission; E87.3 Alkalosis; E87.2 Acidosis; K83.09 Other cholangitis; Z20.822 Contact with and (suspected) exposure to COVID-19; R00.1 Bradycardia, unspecified; E11.21 Type 2 diabetes mellitus with diabetic nephropathy; Z79.899 Other long term (current) drug therapy; Z79.84 Long term (current) use of oral hypoglycemic drugs; N40.0 Benign prostatic hyperplasia without lower urinary tract symptoms; E03.9 Hypothyroidism, unspecified; E78.2 Mixed hyperlipidemia; E11.40 Type 2 diabetes mellitus with diabetic neuropathy, unspecified; G47.00 Insomnia, unspecified; G47.33 Obstructive sleep apnea (adult) (pediatric); E88.81 Metabolic syndrome and other insulin resistance; Z80.0 Family history of malignant neoplasm of digestive organs; Z80.7 Family history of other malignant neoplasms of lymphoid, hematopoietic and related tissues; Z86.010 Personal history of colon polyps; K74.69 Other cirrhosis of liver; R01.1 Cardiac murmur, unspecified; R59.0 Localized enlarged lymph nodes; R09.02 Hypoxemia; D69.6 Thrombocytopenia, unspecified
CPT/HCPCS: 36415; 36600; 71275; 74176; 74183; 76376; 76705; 80048; 80053; 80061; 80076; 81001; 82140; 82728; 82805; 82948; 83036; 83605; 83690; 83735; 84100; 84145; 84443; 84484; 85025; 85055; 85380; 85610; 85730; 86140; 87040; 87077; 87186; 87804; 93005; 93306; 93970; 96361; 96365; 96375; 96376; 97110; 97116; 97161; 97165; 97530; 97535; 99285; A9270; A9577; C1751; C9113; C9803; G0378; J0131; J0610; J0743; J1815; J1940; J2060; J2270; J2405; J3010; J3475; J3480; J7030; J7040; J7050; J7120; Q9967; U0003; U0005

== ENCOUNTER 2022-05-16 08:49 | Outpatient (CLI) | payer MEDICARE, BC, SELFPAY ==
[2022-05-16 09:05] LABS: Basophils Percent Auto 0.6 % (0.2-1.2); Eosinophils Absolute Auto 0.1 K/mm3 (0-0.3); Eosinophils Percent Auto 1.9 % (0-4.4); Hemoglobin 12.7 g/dL (14.0-18.0); Immature Platelet Fraction Pct 12.2 % (0.9-11.2); Lymphocytes Absolute Auto 1.71 K/mm3 (0.9-3.2); Lymphocytes Percent Auto 53.4 % (18.3-44.2); Mean Corpuscular HGB Conc 31.8 g/dl (32-36); Mean Corpuscular Volume 91.3 fl (80-100); Mean Platelet Volume 12.2 fl (7.4-10.4); Monocytes Absolute Auto 0.3 K/mm3 (0.1-0.6); Neutrophils Absolute Auto 1.1 K/mm3 (1.3-6.7); Neutrophils Percent Auto 34.1 % (45.5-73.1); Platelet Count Result 80 k/mm3 (150-375); Red Blood Count 4.38 M/mm3 (4.6-6.20); Red Cell Distribution Width 15.3 % (11.5-14.5); White Blood Count 3.2 K/mm3 (4.5-10.0)
[2022-05-16 09:13] LABS: Alanine Aminotransferase 42 U/L (6-50); Albumin Level 4.5 g/dL (3.5-5.1); Alkaline Phosphatase 119 U/L (38-126); Anion Gap 12 mmol/L (8-16); Aspartate Amino Transferase 56 U/L (17-59); Bilirubin,Total 0.6 mg/dL (0.2-1.3); Blood Urea Nitrogen 16 mg/dL (9-20); Calcium 9.2 mg/dL (8.4-10.2); Carbon Dioxide 27 mmol/L (22-30); Chloride 100 mmol/L (98-107); Estimated Glomerular Filt Rate > 60; Glucose 165 mg/dL (65-110); Sodium 139 mmol/L (137-145)
== END 2022-05-16 08:50 | disposition home or self-care (01) ==
PROVIDERS: PCP Family Medicine; Visit Provider Internal Medicine Gastroenterology
DX: E11.21 Type 2 diabetes mellitus with diabetic nephropathy (principal); K74.69 Other cirrhosis of liver
CPT/HCPCS: 36415; 80048; 80076; 85025; 85055

== ENCOUNTER 2022-10-02 09:15 | Outpatient (CLI) | payer MEDICARE, BC, SELFPAY ==
[2022-10-02 09:59] LABS: Basophils Percent Auto 0.8 % (0.2-1.2); Eosinophils Absolute Auto 0.1 K/mm3 (0-0.3); Eosinophils Percent Auto 1.6 % (0-4.4); Hemoglobin 15.2 g/dL (14.0-18.0); Immature Granulocyte Absolute 0.01 K/mm3 (0.00-0.031); Immature Granulocyte Percent A 0.3 % (0-0.5); Lymphocytes Absolute Auto 1.45 K/mm3 (0.9-3.2); Lymphocytes Percent Auto 38.6 % (18.3-44.2); Mean Corpuscular HGB Conc 33.8 g/dl (32-36); Mean Corpuscular Hemoglobin 31.3 pg (26-34); Mean Corpuscular Volume 92.6 fl (80-100); Mean Platelet Volume 12.5 fl (7.4-10.4); Monocytes Absolute Auto 0.4 K/mm3 (0.1-0.6); Monocytes Percent Auto 10.6 % (2.6-8.5); Neutrophils Absolute Auto 1.8 K/mm3 (1.3-6.7); Neutrophils Percent Auto 48.1 % (45.5-73.1); Platelet Count Result 72 k/mm3 (150-375); Red Blood Count 4.86 M/mm3 (4.6-6.20); White Blood Count 3.8 K/mm3 (4.5-10.0)
[2022-10-02 12:40] LABS: Alanine Aminotransferase 78 U/L (6-50); Albumin Level 4.6 g/dL (3.5-5.1); Alkaline Phosphatase 136 U/L (38-126); Anion Gap 9 mmol/L (8-16); Aspartate Amino Transferase 67 U/L (17-59); Bilirubin,Total 0.5 mg/dL (0.2-1.3); Blood Urea Nitrogen 13 mg/dL (9-20); Calcium 9.2 mg/dL (8.4-10.2); Carbon Dioxide 28 mmol/L (22-30); Chloride 101 mmol/L (98-107); Estimated Glomerular Filt Rate > 60; Glucose 249 mg/dL (65-110); Potassium 4.6 mmol/L (3.4-5.0); Sodium 138 mmol/L (137-145)
[2022-10-02 13:48] LABS: Folic Acid > 20.0 ng/mL (2.76->20)
[2022-10-02 16:54] LABS: Iron 97 ug/dL (49-181)
[2022-10-02 17:05] LABS: Percent Iron Saturation 22 % (20-50)
== END 2022-10-02 09:16 | disposition home or self-care (01) ==
LOC: ANHLAB 09:16
PROVIDERS: PCP Family Medicine; Visit Provider Internal Medicine Hematology & Oncology
DX: D64.9 Anemia, unspecified (principal)
CPT/HCPCS: 36415; 80053; 82607; 82728; 82746; 83540; 83550; 85025

== ENCOUNTER 2022-11-03 02:22 | Day surgery (SDC) | payer MEDICARE, BC, SELFPAY ==
[2022-10-27 08:41] VITALS: BMI 24.8
--- NOTE | 2022-11-02 14:01 | WPDANESEPPF ---
Anes - Initial Pre Proc Eval Procedure: Operation Date: 11/03/22 11:00 Proposed Procedures p Screening Colonoscopy - Yunier Allred MD Date/Time: 11/02/22 14:01 Surgeon: Yunier Allred MD Pre Op Diagnosis: hx colon polyps, family hx colon polyps Patient Data Age: 72 Gender: M Height: 1.68 m Weight: 69.8 kg Allergies Allergy/AdvReac Type Severity Reaction Status Date / Time bee venom protein (honey bee) Allergy Anaphylaxis Verified 11/03/22 09:44 Home Medications Medication Instructions Recorded Confirmed Type ezetimibe 10 mg tablet 10 mg PO HS 03/28/22 10/27/22 History metformin 500 mg tablet,extended 1,000 mg PO BID 03/28/22 10/27/22 History release 24 hr atorvastatin 20 mg tablet 20 mg PO QHS 04/26/22 10/27/22 History finasteride 5 mg tablet 5 mg PO DAILY 04/26/22 10/27/22 History empagliflozin 25 mg tablet 25 mg PO DAILY #90 tabs 05/17/22 10/27/22 Rx (Jardiance) ferrous sulfate 325 mg (65 mg 325 mg PO DAILY #1 tablet 06/29/22 10/27/22 Rx iron) tablet vitamin B12 500 mcg-folic acid 400 1 tablet PO DAILY #1 tablet 06/29/22 10/27/22 Rx mcg tablet glimepiride 4 mg tablet 4 mg PO DAILY #90 tabs 09/11/22 10/27/22 Rx sodium,potassium,mag sulfates 17.5 See Rx Instructions PO .COMPLEX 10/25/22 Rx gram-3.13 gram-1.6 gram oral soln #354 mL (Suprep Bowel Prep Kit) levothyroxine 88 mcg tablet 88 mcg PO DAILY #90 tabs 10/26/22 10/27/22 Rx multivitamin with minerals-folic 1 tablet PO DAILY 10/27/22 10/27/22 History acid 0.4 mg tablet pantoprazole 40 mg tablet,delayed 40 mg PO EVERY OTHER DAY 10/27/22 10/27/22 History release flash glucose sensor (FreeStyle #6 ea 10/30/22 Rx Brenton 2 Sensor kit) Patient hx anesthesia problems: none Family hx anesthesia problems: none Results Review: All pre-operative results and documents have been reviewed as part of the pre-operative evaluation. 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 Surgical History Surgical History History of surgery on right wrist (~10/2019) Family History Family History Father Family history of malignant neoplasm, Onset Age: 75 CLL (chronic lymphocytic leukemia) Mother Carcinoma of colon, Onset Age: 60 Grandparent Hypertension Heart disease Cerebrovascular accident Social History Social History (Updated 06/29/22 @ 10:34 by Gisselle Jon MA) Smoking status: Never smoker Second hand tobacco smoke exposure: No Alcohol intake: never Alcohol use details: Six beers per year Substance use: never Substance use type: does not use Living arrangements: with family Additional living arrangements comments: Lives with in [facility] Gender identity (if verbalized by the patient): Male Sexual Orientation (if Verbalized by the Patient): Straight or Heterosexual Spiritual care concerns: No Agree to blood products: Yes Anes - Eval Final PreProcedure Day of Procedure 11/02/22 14:01 Patient weight: normal Heart: regular rate and rhythm Lungs: clear to auscultation and normal air movement Airway: Mallampati scale class II Neurological: alert and oriented Last oral intake: >/= 8 hours ASA classification: III Emergent: no Anesthetic plan: proceed Anesthesia type and monitoring: general GIVS and standard monitoring Results Review: All pre-operative results and documents have been reviewed as part of the pre-operative evaluation.
[2022-11-03 09:46] VITALS: BP 136/61; PULSE 59; RESP 20; TEMP 36.6; O2SAT 96; BMI 24.1
[2022-11-03] MEDS: LACTATED RINGERS 1,000 ML 150 ML IV CONT (09:55)
[2022-11-03 09:58] LABS: Glucose Point of Care 152 mg/dl (65-105)
--- NOTE | 2022-11-03 10:06 | PM.HPGS ---
History of Present Illness History of Present Illness Consent: Risks, benefits, and alternatives have been discussed and questions answered. Patient agrees to proceed with procedure. Chief complaint: hx colon polyps, family hx colon polyps Narrative: Dylan Rodriges is a 72 year old male Presents for screening colonoscopy. Patient has a prior history of colon polyps. Family history is significant that his mother had colon cancer. Patient presents today for screening colonoscopy reports his current weight appetite and bowel movements are normal. Patient does have a history of cryptogenic cirrhosis felt to be stable. He has been treated for CLL in the past. He does have a distant history of pancreatitis that was felt to be idiopathic and is now resolved. Patient presents today for neoplasia screening colonoscopy. Review of Systems Review of Systems: Review of systems noncontributory. 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 Surgical History Surgical History History of surgery on right wrist (~10/2019) Family History Family History Father Family history of malignant neoplasm, Onset Age: 75 CLL (chronic lymphocytic leukemia) Mother Carcinoma of colon, Onset Age: 60 Grandparent Hypertension Heart disease Cerebrovascular accident Social History Social History (Updated 06/29/22 @ 10:34 by Gisselle Jon MA) Smoking status: Never smoker Second hand tobacco smoke exposure: No Alcohol intake: never Alcohol use details: Six beers per year Substance use: never Substance use type: does not use Living arrangements: with family Additional living arrangements comments: Lives with in [facility] Gender identity (if verbalized by the patient): Male Sexual Orientation (if Verbalized by the Patient): Straight or Heterosexual Spiritual care concerns: No Agree to blood products: Yes Meds Home Medications and Allergies Home Medications Medication Instructions Recorded Confirmed Type ezetimibe 10 mg tablet 10 mg PO HS 03/28/22 10/27/22 History metformin 500 mg tablet,extended 1,000 mg PO BID 03/28/22 10/27/22 History release 24 hr atorvastatin 20 mg tablet 20 mg PO QHS 04/26/22 10/27/22 History finasteride 5 mg tablet 5 mg PO DAILY 04/26/22 10/27/22 History empagliflozin 25 mg tablet 25 mg PO DAILY #90 tabs 05/17/22 10/27/22 Rx (Jardiance) ferrous sulfate 325 mg (65 mg 325 mg PO DAILY #1 tablet 06/29/22 10/27/22 Rx iron) tablet vitamin B12 500 mcg-folic acid 400 1 tablet PO DAILY #1 tablet 06/29/22 10/27/22 Rx mcg tablet glimepiride 4 mg tablet 4 mg PO DAILY #90 tabs 09/11/22 10/27/22 Rx sodium,potassium,mag sulfates 17.5 See Rx Instructions PO .COMPLEX 10/25/22 Rx gram-3.13 gram-1.6 gram oral soln #354 mL (Suprep Bowel Prep Kit) levothyroxine 88 mcg tablet 88 mcg PO DAILY #90 tabs 10/26/22 10/27/22 Rx multivitamin with minerals-folic 1 tablet PO DAILY 10/27/22 10/27/22 History acid 0.4 mg tablet pantoprazole 40 mg tablet,delayed 40 mg PO EVERY OTHER DAY 10/27/22 10/27/22 History release flash glucose sensor (FreeStyle #6 ea 10/30/22 Rx Brenton 2 Sensor kit) Allergies Allergy/AdvReac Type Severity Reaction Status Date / Time bee venom protein (honey bee) Allergy Anaphylaxis Verified 11/03/22 09:44 Vital Signs Vital Signs - 24 hr 11/03/22 09:46 Temperature 97.9 F Pulse Rate 59 L Respiratory Rate 20
[2022-11-03] MEDS: SIMETHICONE ORAL SUSPENSION 20 MG/0.3 ML 30 ML BOTTLE 0.6 ML IRRIGATION (10:22)
[2022-11-03 10:34] VITALS: BP 102/62; PULSE 60; RESP 20; O2SAT 96
[2022-11-03 10:44] VITALS: BP 109/64; PULSE 58; RESP 20; O2SAT 96
[2022-11-03 10:54] VITALS: BP 114/70; PULSE 56; RESP 18; O2SAT 97
== END 2022-11-03 11:14 | disposition home or self-care (01) ==
PROVIDERS: PCP Family Medicine; Visit Provider Internal Medicine Gastroenterology
PROC: 0DJD8ZZ Inspection of Lower Intestinal Tract, Via Natural or Artificial Opening Endoscopic (ICD-10-PCS; CPT 45378; principal; 2022-11-03 11:00)
DX: Z12.11 Encounter for screening for malignant neoplasm of colon (principal); D12.5 Benign neoplasm of sigmoid colon; K57.30 Diverticulosis of large intestine without perforation or abscess without bleeding; K64.8 Other hemorrhoids; Z80.0 Family history of malignant neoplasm of digestive organs; C91.10 Chronic lymphocytic leukemia of B-cell type not having achieved remission; E11.21 Type 2 diabetes mellitus with diabetic nephropathy; E03.9 Hypothyroidism, unspecified; E78.2 Mixed hyperlipidemia; G47.33 Obstructive sleep apnea (adult) (pediatric); N40.0 Benign prostatic hyperplasia without lower urinary tract symptoms; K74.60 Unspecified cirrhosis of liver; Z79.84 Long term (current) use of oral hypoglycemic drugs
CPT/HCPCS: 45385; 82948; 88305; J2704; J7120

== ENCOUNTER 2023-04-02 08:53 | Outpatient (CLI) | payer MEDICARE, BC, SELFPAY ==
[2023-04-02 09:26] LABS: Basophils Percent Auto 0.9 % (0.2-1.2); Eosinophils Absolute Auto 0.1 K/mm3 (0-0.3); Eosinophils Percent Auto 2.3 % (0-4.4); Hematocrit 44.4 % (42.0-52.0); Hemoglobin 14.8 g/dL (14.0-18.0); Immature Granulocyte Absolute 0.01 K/mm3 (0.00-0.031); Immature Granulocyte Percent A 0.3 % (0-0.5); Immature Platelet Fraction Pct 10.3 % (0.9-11.2); Lymphocytes Absolute Auto 1.55 K/mm3 (0.9-3.2); Lymphocytes Percent Auto 44.5 % (18.3-44.2); Mean Corpuscular HGB Conc 33.3 g/dl (32-36); Mean Corpuscular Volume 92.9 fl (80-100); Mean Platelet Volume 11.2 fl (7.4-10.4); Monocytes Absolute Auto 0.3 K/mm3 (0.1-0.6); Monocytes Percent Auto 8.6 % (2.6-8.5); Neutrophils Absolute Auto 1.5 K/mm3 (1.3-6.7); Neutrophils Percent Auto 43.4 % (45.5-73.1); Platelet Count Result 72 k/mm3 (150-375); Red Blood Count 4.78 M/mm3 (4.6-6.20); Red Cell Distribution Width 14.2 % (11.5-14.5); White Blood Count 3.5 K/mm3 (4.5-10.0)
[2023-04-02 10:44] LABS: Cholesterol 240 mg/dL (0-200); HDL Direct 39 mg/dL; Triglycerides 271 mg/dL (<150)
[2023-04-02 10:49] LABS: Alanine Aminotransferase 106 U/L (6-50); Albumin Level 4.6 g/dL (3.5-5.1); Alkaline Phosphatase 136 U/L (38-126); Anion Gap 9 mmol/L (8-16); Aspartate Amino Transferase 82 U/L (17-59); Bilirubin,Total 0.6 mg/dL (0.2-1.3); Blood Urea Nitrogen 11 mg/dL (9-20); Calcium 8.9 mg/dL (8.4-10.2); Carbon Dioxide 26 mmol/L (22-30); Chloride 101 mmol/L (98-107); Estimated Glomerular Filt Rate > 60; Glucose 165 mg/dL (65-110); Potassium 4.1 mmol/L (3.4-5.0); Sodium 136 mmol/L (137-145)
[2023-04-02 10:56] LABS: LDL Cholesterol Direct 131 mg/dL
[2023-04-02 11:13] LABS: Iron 111 ug/dL (49-181)
[2023-04-02 11:15] LABS: Hemoglobin A1C 7.7 % (<5.7)
[2023-04-02 11:16] LABS: Thyroid Stimulating Hormone 0.511 uIU/mL (0.465-4.680)
[2023-04-02 11:26] LABS: Percent Iron Saturation 26 % (20-50)
[2023-04-02 11:30] LABS: Vitamin D 25 Hydroxy 56.6 ng/mL
[2023-04-02 12:57] LABS: Folic Acid > 20.0 ng/mL (2.76->20)
== END 2023-04-02 08:54 | disposition home or self-care (01) ==
LOC: ANHLAB 08:55
PROVIDERS: PCP Family Medicine; Visit Provider Internal Medicine Hematology & Oncology
DX: E11.9 Type 2 diabetes mellitus without complications (principal); E78.5 Hyperlipidemia, unspecified; E03.9 Hypothyroidism, unspecified; E55.9 Vitamin D deficiency, unspecified; D64.9 Anemia, unspecified
CPT/HCPCS: 36415; 80053; 80061; 82306; 82607; 82728; 82746; 83036; 83540; 83550; 84443; 85025; 85055

== ENCOUNTER 2023-06-12 13:58 | Outpatient (CLI) | payer MEDICARE, BC, SELFPAY ==
--- NOTE | ~2023-06-12 | US_ITS ---
US art doppler w press LE BI INDICATION: Peripheral vascular disease TECHNIQUE: Segmental pressures and plethysmographic and Doppler waveforms of the brachial and lower e xtremity arteries were obtained. COMPARISON: None. FINDINGS: Right and left brachial artery pressures of 117 mm Hg and 120 mm Hg, respectively, are concordant (no rmal difference <= 30 mmHg). The right ankle-brachial index (MIHAELA) is 1.33 (normal >= 0.9-1.0). The right great toe-brachial index (TBI) is 0.82 (normal >= 0.60). The left MIHAELA is 1.21. The left TBI is 0.71. IMPRESSION: 1. Normal bilateral ankle-brachial indices. Reviewed, dictated and finalized at location L.
== END 2023-06-12 13:59 | disposition home or self-care (01) ==
PROVIDERS: PCP Family Medicine; Visit Provider Podiatrist Foot & Ankle Surgery
DX: I73.9 Peripheral vascular disease, unspecified (principal); Z01.818 Encounter for other preprocedural examination
CPT/HCPCS: 93923

== ENCOUNTER 2023-06-22 09:48 | Outpatient (CLI) | payer MEDICARE, BC, SELFPAY ==
[2023-06-22 11:21] LABS: Glucose 127 mg/dL (65-110)
[2023-06-25 11:54] LABS: Glutamic acid decarboxylase AA <5 IU/mL (<5)
[2023-06-26 14:16] LABS: C-Peptide 1.26 ng/mL (0.80-3.85)
== END 2023-06-22 09:49 | disposition home or self-care (01) ==
LOC: ANHLAB 09:51
PROVIDERS: PCP Family Medicine; Referring Provider Internal Medicine; Visit Provider Internal Medicine Hematology & Oncology
DX: E11.21 Type 2 diabetes mellitus with diabetic nephropathy (principal)
CPT/HCPCS: 36415; 82947; 84681; 86341

== ENCOUNTER → 2023-09-11 09:15 | Outpatient (CLI) | payer MEDICARE, BC, SELFPAY ==
--- NOTE | ~2023-09-11 | US_ITS ---
US right upper quadrant INDICATION: Cirrhosis of the liver PROCEDURE: Realtime right upper abdominal ultrasound. COMPARISON: No prior studies for comparison. FINDINGS: Pancreas is not well visualized due to bowel gas. Liver echotexture is heterogeneous and i ncreased, consistent with fatty infiltration. Nodular surface, compatible with cirrhosis. There is n ormal directional flow in the portal vein. There is a small gallbladder polyp. No definite gallstones or gallbladder wall thickening. Common francy e duct measures 3 mm. No sonographic Gilliam's sign. Right renal echotexture is unremarkable. Right k idney measures 11.4 cm. IMPRESSION: 1: Cirrhosis of the liver with hepatic steatosis. 2: Gallbladder polyp Reviewed, dictated and finalized at location L. K TERMINAL MANAGER
== END ==
PROVIDERS: PCP Family Medicine
DX: K74.60 Unspecified cirrhosis of liver (principal); K82.4 Cholesterolosis of gallbladder
CPT/HCPCS: 76705

== ENCOUNTER 2023-09-18 10:38 | Inpatient (IN) | payer MEDICARE, BC, SELFPAY ==
[2023-09-18] VITALS (22 sets, daily range): BP systolic 115–148; BP diastolic 51–65; PULSE 59–84; RESP 11–26; TEMP 36.4–36.6; O2SAT 93–100; BMI 24.7
--- NOTE | ~2023-09-18 | CT_ITS ---
CT of the Abdomen and Pelvis: Indication: Abdominal pain Technique: 2.5 mm axial scans were obtained through the abdomen and pelvis following intravenous adm inistration of 100 cc of Omnipaque 350. Dose reduction technique was used on this scan by utilizing a utomated exposure control and iterative reconstruction technique. The dose-length product (DLP) was 4 71.58 mGy-cm. COMPARISON: 03/29/2022 Findings: Scans through the lung bases demonstrate stable pulmonary nodule at the anteromedial right lung base. The liver, spleen, gallbladder, adrenals and kidneys are within normal limits. There is peripancreati c inflammatory change and fluid, consistent with acute pancreatitis. No pseudocyst or pancreatic necr osis evident. No evidence of aortic aneurysm. No lymphadenopathy. No bowel obstruction or bowel wall thickening. There is no evidence to suggest acute appendicitis. Images through the pelvis were performed. Urinary bladder unremarkable. Prostate gland is mildly enla rged. Small fat-containing left inguinal hernia present. No ascites. Impression: Acute pancreatitis. Stable right basilar pulmonary nodule. Small fat-containing left inguinal hernia. Reviewed, dictated and finalized at [facility]. [employer] STORE MANAGER Impression: Acute pancreatitis. Stable right basilar pulmonary nodule. Small fat-containing left inguinal hernia.
--- NOTE | ~2023-09-18 | XR_ITS ---
EXAMINATION: XR chest 2V DATE: 09/18/2023 11:10 INDICATION: Chest pain. TECHNIQUE: Frontal and lateral views of the chest were obtained. COMPARISON: Chest single view 03/29/2022 FINDINGS: There is mild atelectasis in left lower lung zone. No pleural effusion or pneumothorax. The heart size is normal. IMPRESSION: 1. Mild atelectasis in left lower lung zone. Reviewed, dictated and finalized at location A. ONAL FINANCIAL ADVISOR
--- NOTE | 2023-09-18 10:39 | ECG_ITS ---
Measurements Intervals Odell Rate: 55 P: 17 WA: 211 QRS: 58 QRSD: 90 T: 53 QT: 421 QTc: 404 Interpretive Statements SINUS BRADYCARDIA WITH FIRST DEGREE AV BLOCK BASELINE ARTIFACT- I, II, III, V4-V6 BORDERLINE ECG COMPARED TO ECG 03/28/2022 06:14:35 HEART RATE HAS INCREASED Electronically Signed On 09-18-2023 10:56:23 METER MAINTENANCE PERSON by Luis Desai D.O.
[2023-09-18 11:01] LABS: Basophils Percent Auto 0.6 % (0.2-1.2); Eosinophils Absolute Auto 0.1 K/mm3 (0-0.3); Eosinophils Percent Auto 1.4 % (0-4.4); Hematocrit 46.3 % (42.0-52.0); Hemoglobin 15.2 g/dL (14.0-18.0); Immature Granulocyte Absolute 0.01 K/mm3 (0.00-0.031); Immature Granulocyte Percent A 0.2 % (0-0.5); Immature Platelet Fraction Pct 12.7 % (0.9-11.2); Lymphocytes Absolute Auto 2.22 K/mm3 (0.9-3.2); Lymphocytes Percent Auto 34.9 % (18.3-44.2); Mean Corpuscular HGB Conc 32.8 g/dl (32-36); Mean Corpuscular Hemoglobin 31.1 pg (26-34); Mean Corpuscular Volume 94.9 fl (80-100); Mean Platelet Volume 12.2 fl (7.4-10.4); Monocytes Absolute Auto 0.5 K/mm3 (0.1-0.6); Monocytes Percent Auto 7.7 % (2.6-8.5); Neutrophils Absolute Auto 3.5 K/mm3 (1.3-6.7); Neutrophils Percent Auto 55.2 % (45.5-73.1); Platelet Count Result 81 k/mm3 (150-375); Red Blood Count 4.88 M/mm3 (4.6-6.20); Red Cell Distribution Width 14.6 % (11.5-14.5); White Blood Count 6.4 K/mm3 (4.5-10.0)
[2023-09-18 11:45] LABS: Prothrombin Time 13.7 Seconds (11.1-14.7)
[2023-09-18 11:46] LABS: Partial Thromboplastin Time 32.6 SECONDS (22.3-36.8)
--- NOTE | 2023-09-18 12:02 | PC.NURSE ---
pt states that he was told not to take aspirin due to liver cirrhosis and MD said to hold off on it until he is seen.
[2023-09-18 12:04] LABS: Alanine Aminotransferase 98 U/L (6-50); Albumin Level 4.5 g/dL (3.5-5.1); Alkaline Phosphatase 105 U/L (38-126); Anion Gap 10 mmol/L (8-16); Aspartate Amino Transferase 99 U/L (17-59); Bilirubin,Total 0.9 mg/dL (0.2-1.3); Blood Urea Nitrogen 15 mg/dL (9-20); Calcium 9.8 mg/dL (8.4-10.2); Carbon Dioxide 26 mmol/L (22-30); Chloride 102 mmol/L (98-107); Estimated CRCL calculation 87 ml/min; Estimated Glomerular Filt Rate > 60; Glucose 171 mg/dL (65-110); Potassium 3.9 mmol/L (3.4-5.0); Sodium 138 mmol/L (137-145)
[2023-09-18 12:06] LABS: Troponin I < 0.012 ng/mL (0.000-0.034)
--- NOTE | 2023-09-18 12:39 | ED.CHESTPAIN ---
HPI - Chest Pain General Chief Complaint: Chest Pain Stated Complaint: cp/abd pain Time Seen by Provider: 09/18/23 12:26 History of Present Illness HPI narrative: Pt states that he developed epigastric and chest pain after eating breakfast at about 0830 this morning. Pt says he came to ED and had episode of emesis in WR and pain resolved. Pt says pain is returning now (12 noon) but is more right sided and RLQ. Pt has history o pancreatitis and cirrhosis. Related Data Home Medications Medication Instructions Recorded Confirmed finasteride 5 mg tablet 5 mg PO HS 04/26/22 09/18/23 multivitamin with minerals-folic 1 tablet PO DAILY 10/27/22 09/18/23 acid 0.4 mg tablet pantoprazole 40 mg tablet,delayed 40 mg PO EVERY OTHER DAY 12/28/22 09/18/23 release omega-3 fatty acids 1,000 mg PO DAILY 09/18/23 09/18/23 Allergies Allergy/AdvReac Type Severity Reaction Status Date / Time bee venom protein (honey bee) Allergy Anaphylaxis Verified 06/21/23 14:00 Review of Systems Review of Systems: All systems reviewed & are unremarkable except as noted in HPI and below PMFSH Past Medical History Medical History BPH (benign prostatic hyperplasia) Chronic lymphocytic leukemia Cirrhosis Coccyx pain Diabetes type 2, controlled Erectile dysfunction History of colon polyps Hypothyroidism, unspecified Insomnia, unspecified Mixed hyperlipidemia VIKAS (obstructive sleep apnea) 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 Surgical History Surgical History History of surgery on right wrist (~10/2019) Family History Family History Father Family history of malignant neoplasm, Onset Age: 75 CLL (chronic lymphocytic leukemia) Mother Carcinoma of colon, Onset Age: 60 Grandparent Hypertension Heart disease Cerebrovascular accident Social History Social History Smoking status: Never smoker Second hand tobacco smoke exposure: No Alcohol intake: never Alcohol use details: Six beers per year Substance use: never Substance use type: does not use Lack of Transportation: No Lack of Food: Never True Current Housing: I Have Housing Concerned About Future Housing: No Difficulty Paying Gas/Electric Bills: No Difficulty Paying for Meds: No Currently Unemployed: No Education: Master's Degree or Higher Difficulty w/ Childcare or Family Care: No Living arrangements: with family Additional living arrangements comments: Lives with in [facility] Occupation/Education: retired Gender identity (if verbalized by the patient): Male Sexual Orientation (if Verbalized by the Patient): Straight or Heterosexual Spiritual care concerns: No Agree to blood products: Yes Exam Const: General: healthy appearing and no acute distress Orientation/consciousness: patient oriented x3 Limitations: no limitations Neck: Neck: normal visual inspection Chest: Chest palpation & inspection: normal inspection of the chest Resp: Effort & Inspection: normal respiratory effort Auscultation: clear to auscultation bilaterally Cardio: Rate: regular rate Rhythm: regular rhythm GI: Inspection: distended Auscultation: normal bowel sounds Other: tender right mid and right lower quadrant and epigastric area : General: Yes bladder normal to palpation Skin: General skin exam: normal color Rashes: no rashes Wounds: no wounds Neuro: General: patient oriented x3 Speech: normal speech Extrem: General: normal to inspection and no clubbing, cyanosis or edema Psych: Mental Status: mental status grossly normal Affect: normal affect Attitude: cooperative Course Vital Signs Vital signs: Vital Signs Temp
[2023-09-18] MEDS: ONDANSETRON INJ 4 MG/2 ML VIAL IV PUSH (12:45)
[2023-09-18] MEDS: fentaNYL CITRATE INJ (*CRX) 100 MCG/2 ML VIAL 50 MCG IV PUSH (12:45)
--- NOTE | 2023-09-18 13:02 | PC.NURSE ---
pt to CT @[id number] and back to room @[id number]
[2023-09-18 13:39] LABS: Lipase > 40000 U/L (23-300)
[2023-09-18 14:16] LABS: Troponin I < 0.012 ng/mL (0.000-0.034)
[2023-09-18] MEDS: LACTATED RINGERS 1,000 ML 999 ML IV CONT (14:46)
--- NOTE | 2023-09-18 15:16 | PM.IMHP ---
H&P: HPI History of Present Illness Date/Time: 09/18/23 15:00 Chief Complaint: Abdominal pain. Narrative: This is a pleasant 73-year-old male with history of idiopathic pancreatitis, cirrhosis, gastroesophageal reflux disease, type 2 diabetes mellitus, hypothyroidism, anemia, and benign prostatic hyperplasia who presented to the emergency department who presented to the emergency department for evaluation of abdominal pain. He felt fine when he got up this morning and went to the gym for 1.5 hours. Thereafter he came home and ate breakfast to include chicken enchiladas and cinnamon raisin toast. About an hour later he developed severe, diffuse abdominal pain which she has difficulties describing. At times it is sharp and shooting in nature. It does not seem to radiate. Associated symptoms include nausea, vomiting, and chills. The symptoms are similar to when he has had previous episodes of pancreatitis. Workup in the ED was significant for a lipase of greater than 40,[address] scan showing acute pancreatitis. He is being admitted in this setting for further treatment. Review of Systems Review of Systems: Twelve systems were reviewed. No fever. No recent cold or flu symptoms. Denies alcohol use. No history of gallstones. Glucose has been stable. No chest pain shortness a breath. Except as documented, all other systems were reviewed and are negative. 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 Surgical History Surgical History History of surgery on right wrist (~10/2019) Family History Family History Father Family history of malignant neoplasm, Onset Age: 75 CLL (chronic lymphocytic leukemia) Mother Carcinoma of colon, Onset Age: 60 Grandparent Hypertension Heart disease Cerebrovascular accident Social History Social History Smoking status: Never smoker Second hand tobacco smoke exposure: No Alcohol intake: never Alcohol use details: Six beers per year Substance use: never Substance use type: does not use Lack of Transportation: No Lack of Food: Never True Current Housing: I Have Housing Concerned About Future Housing: No Difficulty Paying Gas/Electric Bills: No Difficulty Paying for Meds: No Currently Unemployed: No Education: Master's Degree or Higher Difficulty w/ Childcare or Family Care: No Living arrangements: with family Additional living arrangements comments: Lives with in [facility] Occupation/Education: retired Gender identity (if verbalized by the patient): Male Sexual Orientation (if Verbalized by the Patient): Straight or Heterosexual Spiritual care concerns: No Agree to blood products: Yes Meds Home Medications and Allergies Home Medications Medication Instructions Recorded Confirmed Type finasteride 5 mg tablet 5 mg PO HS 04/26/22 09/18/23 History ferrous sulfate 325 mg (65 mg 325 mg PO DAILY #1 tablet 06/29/22 09/18/23 Rx iron) tablet vitamin B12 500 mcg-folic acid 400 1 tablet PO DAILY #1 tablet 06/29/22 09/18/23 Rx mcg tablet multivitamin with minerals-folic 1 tablet PO DAILY 10/27/22 09/18/23 History acid 0.4 mg tablet pantoprazole 40 mg tablet,delayed 40 mg PO EVERY OTHER DAY 12/28/22 09/18/23 History release glimepiride 4 mg tablet 4 mg PO BID #180 tabs 06/04/23 09/18/23 Rx metformin 500 mg tablet,extended 1,000
[2023-09-18] MEDS: fentaNYL CITRATE INJ (*CRX) 100 MCG/2 ML VIAL 25 MCG IV PUSH ×3 (16:04→21:18)
--- NOTE | 2023-09-18 17:08 | ADMGEN ---
This patient, Dylan Rodriges, was admitted to 3 Med Surg Room 302-01. Patient/family oriented to hospital policies and general routines including ID bracelet, bed and alarms, visiting hours, pain management, procedures, bathroom and other care routines, personal items, smoking policy, room service/diet, and visiting hours. Information on how to activate the Rapid Response Team has been discussed. Patient/Family are encouraged to report perceived risks to care and to ask questions if they do not understand what they are told or what they should do.
[2023-09-18 18:08] LABS: Troponin I < 0.012 ng/mL (0.000-0.034)
[2023-09-18] MEDS: SODIUM CHLORIDE 0.9% IV 1,000 ML 125 ML IV CONT (18:54)
[2023-09-18 19:11] LABS: Glucose Point of Care 93 mg/dl (65-105)
[2023-09-18 20:30] LABS: Glucose Point of Care 82 mg/dl (65-105)
[2023-09-18 21:28] LABS: Glucose 104 mg/dL (65-110)
[2023-09-18 23:55] LABS: Glucose Point of Care 120 mg/dl (65-105)
[2023-09-19] MEDS: SODIUM CHLORIDE 0.9% IV 1,000 ML 125 ML IV CONT ×3 (03:39→21:55)
[2023-09-19 04:24] VITALS: BP 120/60; PULSE 59; RESP 16; TEMP 36.4; O2SAT 96
[2023-09-19 05:19] LABS: Glucose Point of Care 102 mg/dl (65-105)
[2023-09-19] MEDS: LEVOTHYROXINE SODIUM INJ 100 MCG/5 ML VIAL 50 MCG IV PUSH (05:22)
[2023-09-19 05:44] LABS: Hematocrit 40.2 % (42.0-52.0); Hemoglobin 13.6 g/dL (14.0-18.0); Mean Corpuscular HGB Conc 33.8 g/dl (32-36); Mean Corpuscular Hemoglobin 31.3 pg (26-34); Mean Corpuscular Volume 92.4 fl (80-100); Mean Platelet Volume 12.2 fl (7.4-10.4); Platelet Count Result 57 k/mm3 (150-375); Red Blood Count 4.35 M/mm3 (4.6-6.20); Red Cell Distribution Width 14.4 % (11.5-14.5); White Blood Count 6.2 K/mm3 (4.5-10.0)
[2023-09-19 06:16] LABS: Alanine Aminotransferase 76 U/L (6-50); Albumin Level 2.4 g/dL (3.5-5.1); Alkaline Phosphatase 67 U/L (38-126); Anion Gap 8 mmol/L (8-16); Aspartate Amino Transferase 57 U/L (17-59); Blood Urea Nitrogen 13 mg/dL (9-20); Calcium 8.8 mg/dL (8.4-10.2); Carbon Dioxide 23 mmol/L (22-30); Chloride 104 mmol/L (98-107); Estimated CRCL calculation 102 ml/min; Estimated Glomerular Filt Rate > 60; Glucose 104 mg/dL (65-110); Magnesium 1.8 mg/dL (1.6-2.3); Potassium 3.8 mmol/L (3.4-5.0); Sodium 135 mmol/L (137-145)
[2023-09-19 06:41] LABS: Lipase 5558 U/L (23-300)
[2023-09-19 07:36] LABS: Glucose Point of Care 111 mg/dl (65-105)
[2023-09-19] MEDS: ENOXAPARIN 40 MG/0.4 ML SYRINGE SUB-Q (08:47)
[2023-09-19] MEDS: PANTOPRAZOLE SODIUM IV 40 MG VIAL IV PUSH (09:01)
[2023-09-19 11:16] LABS: Glucose Point of Care 90 mg/dl (65-105)
[2023-09-19 13:30] VITALS: O2SAT 93
[2023-09-19 14:00] VITALS: BP 100/55; PULSE 61; RESP 17; TEMP 36.1; O2SAT 97
--- NOTE | 2023-09-19 14:41 | ECHO_ITS ---
Patient Info Name: Dylan Rodriges Age: 73 years : 1950 Gender: Male Ht: 66 in Wt: 154 lbs BSA: 1.81 m2 HR: 74 bpm BP: 120 / 60 mmHg Heart Rhythm: Sinus Rhythm Technical Quality: Fair Exam Date: 09/19/2023 9:53 AM Exam Location: Echo Lab Exam Room: 302 Patient Status: Inpatient Admit Date: 09/18/2023 Staff Ordering Physician: Brandee Monterroso PA-C Radiology Aide: Luna Shore RCS Attending Provider: Layla Mckenzie DO Referring Physician: Loc SOTOMAYOR; Exam Type: CA echo doppler color flow Study Info Indications - murmur Complete two-dimensional, color flow and Doppler transthoracic echocardiogram is performed. Summary 1. Complete two-dimensional, color flow and Doppler transthoracic echocardiogram is performed. 2. Left ventricular chamber dimension is normal. 3. Left ventricular systolic function is normal, estimated at 65-70%. 4. There is no increased left ventricular wall thickness. 5. The left ventricular diastolic function is normal. 6. Right atrial chamber dimension is mildly enlarged. Thin filamentous mobile echodensity in the right atrium most likely consistent with Chiari network although could not be further characterized. 7. There is mild mitral valve regurgitation. 8. There is no aortic valve stenosis. 9. There is mild aortic valve sclerosis. 10. There is mild aortic valve regurgitation. 11. There is trace tricuspid valve regurgitation. 12. No pulmonary hypertension, estimated pulmonary arterial systolic pressure is 28 mmHg. Left Ventricle Left ventricular chamber dimension is normal. Left ventricular systolic function is normal, estimated at 65-70%. There is no increased left ventricular wall thickness. The left ventricular diastolic function is normal. Right Ventricle Right ventricular chamber dimension is normal. Right ventricular systolic function is normal. Left Atria Left atrial chamber dimension is mildly enlarged. Right Atria Right atrial chamber dimension is mildly enlarged. Thin filamentous mobile echodensity in the right atrium most likely consistent with Chiari network although could not be further characterized. Aortic Valve The aortic valve is not well visualized. There is mild aortic valve sclerosis. There is no aortic valve stenosis. There is mild aortic valve regurgitation. Pulmonic Valve The pulmonic valve is not well visualized. There is trace pulmonic regurgitation. Mitral Valve The mitral valve has thickened leaflets. There is mild mitral valve regurgitation. Tricuspid Valve The tricuspid valve leaflets are normal. There is trace tricuspid valve regurgitation. No pulmonary hypertension, estimated pulmonary arterial systolic pressure is 28 mmHg. Pericardium/Pleural The pericardium appears normal. There is trivial pericardial effusion. Inferior Vena Cava Normal inferior vena cava with >50% collapse upon inspiration consistent with normal right atrial pressure, 5 mmHg. Aorta The aortic root size at the sinus of Valsalva is normal. There is mild-moderate aortic atherosclerosis. Left Ventricular Outflow Tract Name Value Normal LVOT 2D LVOT Diameter 2.0 cm LVOT Doppler LVOT Peak Gradient 6 mmHg
[2023-09-19 16:21] LABS: Glucose Point of Care 124 mg/dl (65-105)
--- NOTE | 2023-09-19 17:25 | PM.IMPN ---
Progress Note: A&P Assessment and Plan (1) Hx of pancreatitis: Code(s): Z87.19 - Personal history of other diseases of the digestive system Status: Acute (2) Acute pancreatitis: Code(s): K85.90 - Acute pancreatitis without necrosis or infection, unspecified Status: Acute Plan greatly improved. tolerating CLD. continue to advance diet as tolerated. lipase greatly decreased. likely home tomorrow. f/u with hepatology, PCP, and GI Subjective Date/time seen: 09/19/23 17:25 Interval history: reports tolerating CLD. abdominal pain is now resolved. ready to go home tomorrow Review of Systems Review of Systems: All systems reviewed & are unremarkable except as noted in HPI and below Exam Const: General: comfortable and no acute distress Eyes: Pupils: Equal, round and reactive pupils present Neck: Neck: supple Resp: Effort & Inspection: normal respiratory effort Auscultation: clear to auscultation bilaterally, no crackles, no rales and no rhonchi Cardio: Rate: regular rate Rhythm: regular rhythm Heart sounds: no gallops, no murmurs and no rubs GI: Inspection: distended GI Palp: Yes Soft to palpation, No Tenderness to palpation present (GI) and No Guarding due to palpation present (GI) Auscultation: bowels sounds not normal (hyperactive BS) Extrem: General: no edema Objective Data Vital Signs Vital Signs: Vital Signs - 24 hr 09/18/23 18:40 09/18/23 20:44 09/18/23 20:00 Temperature 97.9 F Pulse Rate 72 72 Respiratory Rate 16 16 Blood Pressure 122/51 L Pulse Oximetry 95 95 Oxygen Delivery Room Air Room Air 09/19/23 04:24 09/19/23 08:45 09/19/23 13:30 Temperature 97.5 F L Pulse Rate 59 L Respiratory Rate 16 Blood Pressure 120/60 Pulse Oximetry 96 93 Oxygen Delivery Room Air Room Air 09/19/23 14:00 Temperature 96.9 F L Pulse Rate 61 Respiratory Rate 17 Blood Pressure 100/55 L Pulse Oximetry 97 Oxygen Delivery Intake/Output Intake/Output: Intake & Output 09/16/23 09/17/23 09/18/23 09/19/23 23:59 23:59 23:59 23:59 Intake Total 1000 2222 Output Total 250 550 Balance 750 1672 Meds/Results Medications: Active Medications Generic Name Dose Route Start Last Admin Trade Name Freq PRN Reason Stop Dose Admin Dextrose 12.5 gm 09/18/23 21:49 Dextrose 50% 25 Gm/50 Ml Syringe IV PUSH PRN PRN Hypoglycemia Protocol Enoxaparin Sodium 40 mg 09/19/23 09:00 09/19/23 08:47 Enoxaparin 40 Mg/0.4 Ml Syringe SUB-Q 40 mg DAILY LÓPEZ Administration Fentanyl Citrate 25 mcg 09/18/23 18:09 09/18/23 21:18 Fentanyl Citrate Inj (*Crx) 100 Mcg/2 Ml Vial IV PUSH 25 mcg Q2H PRN Administration Pain Rated 7-10 Glucagon 1 mg 09/18/23 21:49 Glucagon For Inj 1 Mg Vial IM PRN PRN Hypoglycemia Protocol Glucose 15 gm 09/18/23 21:49 Glucose Oral Gel 15 Gm Of Glucse In 37.5 Gm Tube PO PRN PRN Hypoglycemia Protocol Sodium Chloride 1,000 mls @ 125 mls/hr 09/18/23 15:00 09/19/23 11:44 Normal Saline Iv IV CONT 125 mls/hr .Q8H LÓPEZ Administration Dextrose 1,000 mls @ 100 mls/hr 09/18/23 21:49 Dextrose 5% 1,000 Ml IVPB PRN PRN Hypoglycemia Protocol Insulin Aspart 2 - 5 units 09/19/23 00:00 09/19/23 11:35 Insulin Aspart (*Bkc) 100 Units/Ml SUB-Q Not Given Q6HR LÓPEZ Protocol Levothyroxine Sodium 50 mcg 09/19/23 06:30 09/19/23 05:22 Levothyroxine Sodium Inj 100 Mcg/5 Ml Vial IV PUSH 50 mcg DAILY@0630 LÓPEZ Administration Ondansetron HCl 4 mg 09/18/23 21:49 Ondansetron Inj 4 Mg/2 Ml Vial IV PUSH Q6H PRN Nausea And Vomiting Pantoprazole Sodium 40 mg 09/19/23 09:00 09/19/23 09:01 Pantoprazole Sodium Iv 40 Mg Vial IV PUSH 40 mg QAM LÓPEZ Administration Perflutren Lipid Microsphere 0 ml 09/18/23 14:40 Perflutren Lipid Microspheres 1.5 Ml Vial Diluted To 10 Ml Total Volume IV PUSH 09/21/23 14:41
--- NOTE | 2023-09-19 19:28 | PC.NURSE ---
On 09/19/23, the SPRAYER AUTOMATIC SPRAY MACHINE, Jessica Zuluaga, provided care and completed Spot[employer] documentation on this patient. I have reviewed the SPRAYER AUTOMATIC SPRAY MACHINE's documentation and agree with the findings.
[2023-09-19 20:00] VITALS: PULSE 62; RESP 16; O2SAT 95
[2023-09-19 20:31] VITALS: BP 115/56; PULSE 62; RESP 16; TEMP 36.3; O2SAT 95
[2023-09-19 21:55] LABS: Glucose Point of Care 210 mg/dl (65-105)
[2023-09-20 05:29] VITALS: BP 128/77; PULSE 59; RESP 16; TEMP 36.4; O2SAT 99
[2023-09-20] MEDS: LEVOTHYROXINE SODIUM 100 MCG TABLET PO (06:02)
[2023-09-20 06:30] LABS: Basophils Percent Auto 0.5 % (0.2-1.2); Eosinophils Absolute Auto 0.1 K/mm3 (0-0.3); Eosinophils Percent Auto 1.6 % (0-4.4); Hematocrit 38.8 % (42.0-52.0); Hemoglobin 12.9 g/dL (14.0-18.0); Immature Granulocyte Absolute 0.01 K/mm3 (0.00-0.031); Immature Granulocyte Percent A 0.3 % (0-0.5); Immature Platelet Fraction Pct 12.4 % (0.9-11.2); Lymphocytes Absolute Auto 1.34 K/mm3 (0.9-3.2); Lymphocytes Percent Auto 35.5 % (18.3-44.2); Mean Corpuscular HGB Conc 33.2 g/dl (32-36); Mean Corpuscular Hemoglobin 31.2 pg (26-34); Mean Corpuscular Volume 93.7 fl (80-100); Mean Platelet Volume 12.4 fl (7.4-10.4); Monocytes Absolute Auto 0.3 K/mm3 (0.1-0.6); Neutrophils Percent Auto 53.1 % (45.5-73.1); Platelet Count Result 55 k/mm3 (150-375); Red Blood Count 4.14 M/mm3 (4.6-6.20); Red Cell Distribution Width 14.5 % (11.5-14.5); White Blood Count 3.8 K/mm3 (4.5-10.0)
[2023-09-20 06:41] LABS: Alanine Aminotransferase 59 U/L (6-50); Albumin Level 3.7 g/dL (3.5-5.1); Alkaline Phosphatase 70 U/L (38-126); Anion Gap 9 mmol/L (8-16); Aspartate Amino Transferase 41 U/L (17-59); Bilirubin,Total 0.8 mg/dL (0.2-1.3); Blood Urea Nitrogen 9 mg/dL (9-20); Calcium 8.5 mg/dL (8.4-10.2); Carbon Dioxide 22 mmol/L (22-30); Chloride 106 mmol/L (98-107); Estimated CRCL calculation 102 ml/min; Estimated Glomerular Filt Rate > 60; Glucose 119 mg/dL (65-110); Magnesium 1.9 mg/dL (1.6-2.3); Potassium 3.7 mmol/L (3.4-5.0); Sodium 137 mmol/L (137-145)
[2023-09-20 07:43] LABS: Glucose Point of Care 121 mg/dl (65-105)
--- NOTE | 2023-09-20 08:12 | PM.DS ---
DS: Admitting Diagnosis Discharge Date 09/20/23 Admitting Diagnosis pancreatitis DS: Discharge Diagnosis Discharge Diagnosis (1) Hx of pancreatitis: Code(s): Z87.19 - Personal history of other diseases of the digestive system Status: Acute (2) Acute pancreatitis: Code(s): K85.90 - Acute pancreatitis without necrosis or infection, unspecified Status: Acute DS: Summary Hospital Course Hospital Course: 73M w/ history of idiopathic pancreatitis presented with abdominal pain. Treated conservatively for acute pancreatitis. 09/20 - tolerated ham sandwich last night, will be filling out bhupendra awards for his nurses as he was ecstatic about his care at [facility]. will be dc'ed to home after breakfast if tolerates. stable condition to home. he knows to f/u with his primary care, GI, and hepatology for his cirrhosis workup and idiopathic pancreatitis. encouraged a low fat diet with small meals and adequate hydration. More than 30 minutes spent on discharge planning and documentation. Time Spent with Patient Time attestation: Total time spent providing and/or coordinating discharge services: Exam Const: General: cooperative and no acute distress Resp: Effort & Inspection: normal respiratory effort Auscultation: clear to auscultation bilaterally Cardio: Rate: regular rate Rhythm: regular rhythm Heart sounds: S1 normal heart sound present and S2 normal heart sound present GI: GI Palp: No abdominal tenderness Auscultation: normal bowel sounds DS: Data Data Completed and Pending Labs on day of discharge: Labs from last 24 hours 09/20/23 09/20/23 09/19/23 07:37 05:36 20:28 WBC 3.8 L RBC 4.14 L Hgb 12.9 L Hct 38.8 L MCV 93.7 MCH 31.2 MCHC 33.2 RDW 14.5 Plt Count 55 L MPV 12.4 H Immature Gran % (Auto) 0.3 Neut % (Auto) 53.1 Lymph % (Auto) 35.5 [place] % (Auto) 9.0 H Eos % (Auto) 1.6 Baso % (Auto) 0.5 Lymph # (Auto) 1.34 [place] # (Auto) 0.3 Eos # (Auto) 0.1 Baso # (Auto) 0.0 Abs Immat Gran (auto) 0.01 Absolute Neuts (auto) 2.0 Absolute Nucleated RBC 0.0 Nucleated RBC % 0.0 % Immature Plt Fraction 12.4 H Sodium 137 Potassium 3.7 Chloride 106 Carbon Dioxide 22 Anion Gap 9 BUN 9 Creatinine 0.50 L Estim Creat Clear Calc 102 Estimated GFR > 60 Glucose 119 H POC Capillary Glucose 121 H 210 H Calcium 8.5 Magnesium 1.9 Total Bilirubin 0.8 AST 41 ALT 59 H Alkaline Phosphatase 70 Total Protein 7.0 Albumin 3.7 09/19/23 09/19/23 16:19 11:14 WBC RBC Hgb Hct MCV MCH MCHC RDW Plt Count MPV Immature Gran % (Auto) Neut % (Auto) Lymph % (Auto) [place] % (Auto) Eos % (Auto) Baso % (Auto) Lymph # (Auto) [place] # (Auto) Eos # (Auto) Baso # (Auto) Abs Immat Gran (auto) Absolute Neuts (auto) Absolute Nucleated RBC Nucleated RBC % % Immature Plt Fraction Sodium Potassium Chloride Carbon Dioxide Anion Gap BUN Creatinine Estim Creat Clear Calc Estimated GFR Glucose POC Capillary Glucose 124 H 90 Calcium Magnesium Total Bilirubin AST ALT Alkaline Phosphatase Total Protein Albumin Preliminary micro results at discharge 09/19/23 05:33 Blood Culture - Preliminary Blood 09/19/23 05:33 Blood Culture - Preliminary Blood Discharge Plan Discharge Attending physician on discharge: Tracy Dennis Discharging Clinician: Tracy Dennis Patient Disposition: Home, Self-Care Activity: february shower Diet: heart healthy and diabetic Stand Alone Forms: General Discharge Information Follow-up/Referrals: Sil Joseph MD [Primary Care Provider] - 2 Weeks (follow up on pancreatitis) Discharge Medications: Continued ferrous sulfate 325 mg (65 mg iron) tablet 325 mg PO DAILY Qty: 1 0RF vitamin N05-yexki acid 500-400
--- NOTE | 2023-09-20 10:31 | PC.NURSE ---
patient performed care and assessment for this patient. I have reviewed and agree with her charting.
== END 2023-09-20 10:29 | disposition home or self-care (01) | DRG 439 ==
LOC: ANHED 13:41 → ANH3MEDSUR 15:35
PROVIDERS: Emergency Medicine; General Practice; Physician Assistant; Admitting Provider Student in an Organized Health Care Education/Training Program; Emergency Provider Emergency Medicine; PCP Family Medicine; Visit Provider Student in an Organized Health Care Education/Training Program
DX: K85.90 Acute pancreatitis without necrosis or infection, unspecified (principal); C91.10 Chronic lymphocytic leukemia of B-cell type not having achieved remission; D69.6 Thrombocytopenia, unspecified; K74.60 Unspecified cirrhosis of liver; K21.9 Gastro-esophageal reflux disease without esophagitis; E11.21 Type 2 diabetes mellitus with diabetic nephropathy; E03.9 Hypothyroidism, unspecified; E78.2 Mixed hyperlipidemia; N40.0 Benign prostatic hyperplasia without lower urinary tract symptoms; G47.33 Obstructive sleep apnea (adult) (pediatric); Z86.010 Personal history of colon polyps
CPT/HCPCS: 36415; 71046; 74177; 80053; 82947; 82948; 83690; 83735; 84484; 85025; 85027; 85055; 85610; 85730; 87040; 93005; 93306; 96374; 96375; 99285; A9270; C9113; J1650; J2405; J3010; J7030; J7120; Q9967

== ENCOUNTER 2023-12-05 14:21 | Outpatient (CLI) | payer MEDICARE, BC, SELFPAY ==
[2023-12-05 14:45] LABS: Basophils Percent Auto 0.8 % (0.2-1.2); Eosinophils Absolute Auto 0.1 K/mm3 (0-0.3); Eosinophils Percent Auto 2.4 % (0-4.4); Hematocrit 40.6 % (42.0-52.0); Hemoglobin 13.8 g/dL (14.0-18.0); Immature Granulocyte Absolute 0.02 K/mm3 (0.00-0.031); Immature Granulocyte Percent A 0.5 % (0-0.5); Immature Platelet Fraction Pct 12.2 % (0.9-11.2); Lymphocytes Absolute Auto 1.41 K/mm3 (0.9-3.2); Lymphocytes Percent Auto 38.2 % (18.3-44.2); Mean Corpuscular Hemoglobin 31.3 pg (26-34); Mean Corpuscular Volume 92.1 fl (80-100); Mean Platelet Volume 11.6 fl (7.4-10.4); Monocytes Absolute Auto 0.4 K/mm3 (0.1-0.6); Monocytes Percent Auto 9.8 % (2.6-8.5); Neutrophils Absolute Auto 1.8 K/mm3 (1.3-6.7); Neutrophils Percent Auto 48.3 % (45.5-73.1); Platelet Count Result 77 k/mm3 (150-375); Red Blood Count 4.41 M/mm3 (4.6-6.20); Red Cell Distribution Width 14.2 % (11.5-14.5); White Blood Count 3.7 K/mm3 (4.5-10.0)
[2023-12-05 15:41] LABS: Iron 96 ug/dL (49-181)
[2023-12-05 15:47] LABS: Alanine Aminotransferase 72 U/L (6-50); Albumin Level 4.3 g/dL (3.5-5.1); Alkaline Phosphatase 134 U/L (38-126); Anion Gap 10 mmol/L (8-16); Aspartate Amino Transferase 99 U/L (17-59); Bilirubin,Total 0.6 mg/dL (0.2-1.3); Blood Urea Nitrogen 12 mg/dL (9-20); Calcium 9.9 mg/dL (8.4-10.2); Carbon Dioxide 25 mmol/L (22-30); Chloride 104 mmol/L (98-107); Estimated Glomerular Filt Rate > 60; Glucose 168 mg/dL (65-110); Potassium 4.3 mmol/L (3.4-5.0); Sodium 139 mmol/L (137-145)
[2023-12-05 15:52] LABS: Percent Iron Saturation 23 % (20-50)
== END 2023-12-05 14:22 | disposition home or self-care (01) ==
LOC: ANHLAB 14:23
PROVIDERS: PCP Family Medicine; Visit Provider Internal Medicine Hematology & Oncology
DX: D64.9 Anemia, unspecified (principal)
CPT/HCPCS: 36415; 80053; 82607; 82728; 83540; 83550; 85025; 85055

== ENCOUNTER 2024-01-23 10:29 | Outpatient (RCR) | payer MEDICARE, BC, SELFPAY | END 2024-04-08 14:16 | disposition home or self-care (01) | LOC: ANHDMC 10:29 | PROVIDERS: PCP Family Medicine; Visit Provider Internal Medicine | DX: E11.65 Type 2 diabetes mellitus with hyperglycemia (principal); Z71.89 Other specified counseling | CPT/HCPCS: G0108 ==

== ENCOUNTER 2024-02-08 15:55 | Emergency (ER) | payer MEDICARE, BC, SELFPAY ==
--- NOTE | ~2024-02-08 | XR_ITS ---
EXAMINATION: XR elbow LT min 3V DATE: 02/08/2024 17:32 INDICATION: Left elbow injury. Fall. TECHNIQUE: 4 views of left elbow were obtained. COMPARISON: None. FINDINGS: Bone alignment is normal. No fracture. Joint spaces are normal. No elbow joint effusion. IMPRESSION: 1. No fracture. Reviewed, dictated and finalized at location E. IMPRESSION: 1. No fracture.
--- NOTE | ~2024-02-08 | XR_ITS ---
EXAMINATION: XR hip LT 2V w AP pelvis DATE: 02/08/2024 17:32 INDICATION: Fall. TECHNIQUE: An anteroposterior view of the pelvis and 2 views of left hip were obtained. COMPARISON: None. FINDINGS: Bone alignment is normal. No fracture. There is mild osteoarthritis of the hips. There is m ild lumbar spondylosis. IMPRESSION: 1. Mild osteoarthritis of the hips. Reviewed, dictated and finalized at location E.
--- NOTE | ~2024-02-08 | XR_ITS ---
EXAMINATION: XR hand LT min 3V DATE: 02/08/2024 17:32 INDICATION: Left hand injury. Fall. TECHNIQUE: 4 views of left hand were obtained. COMPARISON: None. FINDINGS: Bone alignment is normal. No fracture. There is severe osteoarthritis of first carpometacar pal joint and mild osteoarthritis of triscaphe joint. There is severe osteoarthritis of most of the i nterphalangeal joints. There is ankylosis of the second and fourth proximal interphalangeal joints. IMPRESSION: 1. Polyarticular osteoarthritis. Reviewed, dictated and finalized at location E.
[2024-02-08 16:05] VITALS: BP 142/71; PULSE 56; RESP 16; TEMP 36.3; O2SAT 99
--- NOTE | 2024-02-08 17:06 | ED_ITS ---
HPI - Extremity Injury (Upper) General Chief Complaint: Extremity Injury, Upper <Maria L Oates PA-C - Last Filed: 02/08/24 17:08> Stated Complaint: finger injury <Maria L Oates PA-C - Last Filed: 02/08/24 17:08> Time Seen by Provider: 02/08/24 17:38 <Maria L Oates PA-C - Last Filed: 02/08/24 17:08> Focused HPI:73-year-old male presents to emergency department for pain and bruising to his left 3rd and 4th fingers, dorsum of left hand, pain to his left elbow and left hip after mechanical fall that occurred 2 days ago. Patient states he was on a treadmill at the gym when he accidentally stepped on the treadmill next to him causing him to fall off. He denies hitting his head or losing consciousness. He denies neck pain or back pain, other injuries acquired. He is not anticoagulated. Last tetanus was in 2020. GENERAL: Well-appearing, well-nourished, and in no acute distress. HEAD: Normocephalic, atraumatic. CHEST: Clear to auscultation. ?No respiratory distress. MSK: Bruising and ecchymosis to the distal aspect of the 3rd and 4th digits on the left hand. Small abrasion to the left 4th digit nail fold on the ulnar aspect of the nail fold. Bleeding controlled. Patient has difficulty flexing the 4th and 3rd digits secondary to pain. Tenderness to the dorsum of the 3rd and 4th metacarpals. No tenderness to the remainder of upper extremity. Abrasion to the left elbow, bleeding controlled. tenderness to the left hip. no deformities throughout. he is neurovascularly intact. HEART: Regular rate and rhythm.? NEURO: ?Alert and oriented x3. Patient screened in triage and initial orders placed.? ?Additional care and disposition to be based upon?diagnostic testing and treatment. <Maria L Oates PA-C - Last Filed: 02/08/24 17:08> History of Present Illness HPI narrative: 73-year-old male presenting ED for evaluation for injury to his left hand elbow and hip after having a ground level fall 2 days ago. <Cooper Rosas MD - Last Filed: 02/08/24 21:40> Related Data Home Medications: Home Medications Medication Instructions Recorded Confirmed finasteride 5 mg tablet 5 mg PO HS 04/26/22 11/19/23 multivitamin with minerals-folic 1 tablet PO DAILY 10/27/22 11/19/23 acid 0.4 mg tablet omega-3 fatty acids 1,000 mg PO DAILY 09/18/23 11/19/23 sildenafil 100 mg tablet 100 mg PO DAILY PRN 11/19/23 11/19/23 <Maria L Oates PA-C - Last Filed: 02/08/24 17:08> Allergies/Adverse Reactions: Allergies Allergy/AdvReac Type Severity Reaction Status Date / Time No Known Allergies Allergy Verified 02/08/24 17:41 <Maria L Oates PA-C - Last Filed: 02/08/24 17:08> Review of Systems Review of Systems: All systems reviewed & are unremarkable except as noted in HPI and below <Cooper Rosas MD - Last Filed: 02/08/24 21:40> ON LICENSE OF [facility] Past Medical History Medical History: Medical History BPH (benign prostatic hyperplasia) Chronic lymphocytic leukemia Cirrhosis Coccyx pain Diabetes type 2, controlled Erectile dysfunction History of colon polyps Hypothyroidism, unspecified Insomnia, unspecified Mixed hyperlipidemia VIKAS (obstructive sleep apnea) Pancreatitis 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 <Maria L Oates PA-C - Last Filed: 02/08/24 17:08> Surgical History Surgical History: Surgical History History of Mohs surgery for squamous cell carcinoma in situ of skin (~10/2019) right wrist History of shoulder surgery right shoulder adhesive capsulitis manipulation History of surgery on right wrist ORIF of right wrist fracture <Maria L Oates PA-C - Last Filed: 02/08/24 17:08> Family History Family History: Family History Father Family history of malignant neoplasm, Onset Age: 75 CLL (chronic lymphocytic leukemia) Mother Carcinoma of colon, Onset Age: 60 Grandparent Hypertension Heart disease Cerebrovascular accident <Maria L Oates PA-C - Last Filed: 02/08/24 17:08> Social History Social History: Social History Smoking status: Never smoker Second hand tobacco smoke exposure: No Alcohol intake: never Alcohol use details: Six beers per year Substance use: never Substance use type: does not use Do You Feel Safe in your Home?: Yes Lack of Transportation: No Lack of Food: Never True Current Housing: I Have Housing Concerned About Future Housing: No Difficulty Paying Gas/Electric Bills: No Difficulty Paying for Meds: No Currently Unemployed: No Education: Master's Degree or Higher Difficulty w/ Childcare or Family Care: No Living arrangements: with family Additional living arrangements comments: Lives with in [facility] Occupation/Education: retired Gender identity (if verbalized by the patient): Male Sexual Orientation (if Verbalized by the Patient): Straight or Heterosexual Spiritual care concerns: No Agree to blood products: Yes <Maria L Oates PA-C - Last Filed: 02/08/24 17:08> Exam Narrative: APPEARANCE: Well appearing, no pain, no distress, well-nourished. HEAD: normocephalic, atraumatic. EYES: PERRLA/EOMI, conjunctivae clear. NOSE: Normal no drainage EARS:TMS clear with good light reflex. THROAT: Pharynx clear, no exudate. NECK: Supple. No adenopathy, no masses. RESPIRATORY: Airway patent, respirations nonlabored. Clear to auscultation bilaterally, no rales, rhonchi, wheezing. CARDIOVASCULAR: Regular rate and rhythm without murmurs rubs or gallops. ABDOMINAL: Soft, nontender, nondistended, normal bowel sounds MUSCULOSKELETAL: Moves all extremities. Strength/ROM intact, No edema, No calf tenderness. NEURO: Alert. Cranial nerves II through XII intact. Grossly intact SKIN: ecchymosis and abrasions to left hand left forearm and elbow <Cooper Rosas MD - Last Filed: 02/08/24 21:40> Course Vital Signs Vital signs: Vital Signs Temperature 97.3 F L 02/08/24 16:05 Pulse Rate 56 L 02/08/24 16:05 Respiratory Rate 16 02/08/24 16:05 Blood Pressure 142/71 H 02/08/24 16:05 Pulse Oximetry 99 02/08/24 16:05 Oxygen Delivery Room Air 02/08/24 16:05 Temperature 97.3 F L 02/08/24 16:05 Pulse Rate 56 L 02/08/24 16:05 Respiratory Rate 16 02/08/24 16:05 Blood Pressure 142/71 H 02/08/24 16:05 Pulse Oximetry 99 02/08/24 16:05 Oxygen Delivery Room Air 02/08/24 16:05 <Maria L Oates PA-C - Last Filed: 02/08/24 17:08> Vital Signs Temperature 97.3 F L 02/08/24 16:05 Pulse Rate 56 L 02/08/24 16:05 Respiratory Rate 16 02/08/24 16:05 Blood Pressure 142/71 H 02/08/24 16:05 Pulse Oximetry 99 02/08/24 16:05 Oxygen Delivery Room Air 02/08/24 16:05 Temperature 97.3 F L 02/08/24 16:05 Pulse Rate 56 L 02/08/24 16:05 Respiratory Rate 16 02/08/24 16:05 Blood Pressure 142/71 H 02/08/24 16:05 Pulse Oximetry 99 02/08/24 16:05 Oxygen Delivery Room Air 02/08/24 16:05 <Cooper Rosas MD - Last Filed: 02/08/24 21:40> MDM - Extremity Injury (Upper) MDM Narrative Medical decision making narrative: 73-year-old male presenting emergency department for evaluation of left hand elbow pain after having a ground level fall 2 days ago. X-rays were negative for the left hip left hand and left elbow. patient did have a ring on his left ring finger with some ecchymosis of the left ring finger but ring is not tight and patient preferred not to have it cut off at this time. Patient was encouraged of close follow-up with primary care physician for follow-up <Cooper Rosas MD - Last Filed: 02/08/24 21:40> Imaging Data Radiologist's impression: Impressions Elbow X-Ray 02/08/24 17:37 IMPRESSION: 1. No fracture. Hand X-Ray 02/08/24 17:38 IMPRESSION: 1. Polyarticular osteoarthritis. Hip/Pelvis X-Ray 02/08/24 17:40 IMPRESSION: 1. Mild osteoarthritis of the hips. <Cooper Rosas MD - Last Filed: 02/08/24 21:40> Discharge Plan Discharge Clinical Impression: Osteoarthritis, Contusion of left hand, Contusion of elbow <Maria L Oates PA-C - Last Filed: 02/08/24 17:08> Patient Disposition: Home, Self-Care <Maria L Oates PA-C - Last Filed: 02/08/24 17:08> Condition: Stable <Maria L Oates PA-C - Last Filed: 02/08/24 17:08> Instructions: Antibiotic Form, Osteoarthritis (DC), Arthralgia (ED), Fall Prevention (ED) <Maria L Oates PA-C - Last Filed: 02/08/24 17:08> Additional Instructions: Your hip hand and elbow x-rays were negative for acute fractures. have close follow-up with her primary care physician. If you have any worsening symptoms please call or return to the emergency department. <Maria L Oates PA-C - Last Filed: 02/08/24 17:08> Prescriptions: No Action ferrous sulfate 325 mg (65 mg iron) tablet 325 mg PO DAILY Qty: 1 0RF vitamin B83-bodzk acid 500-400 mcg tablet 1 tablet PO DAILY Qty: 1 0RF Rx Instructions: administer with a meal sildenafil 100 mg tablet 100 mg PO DAILY PRN pantoprazole 20 mg tablet,delayed release (DR/EC) 20 mg PO QAM PRN (Reason: gastric reflux) Qty: 90 1RF finasteride 5 mg tablet 5 mg PO HS (DME) pen needle, diabetic [Comfort EZ Pen [place]] 33 gauge x 1/4 needle See Rx Instructions .Route Qty: 100 12RF Rx Instructions: once daily omega-3 fatty acids Capsule 1,000 mg PO DAILY multivit with min-folic acid 0.4 mg Tablet 1 tablet PO DAILY (DME) FreeStyle [place] 2 Sensor Kit See Rx Instructions .Route Qty: 6 3RF Rx Instructions: As directed insulin glargine [Basaglar KwikPen U-100 Insulin] 100 unit/mL (3 mL) insulin pen 5 unit subcut QAM Qty: 15 0RF levothyroxine 100 mcg tablet 100 mcg PO DAILY Qty: 90 1RF (DME) FreeStyle [place] 3 Sensor Device See Rx Instructions .Route Qty: 6 2RF Rx Instructions: change every 14 days atorvastatin 20 mg tablet 20 mg PO DAILY Qty: 90 1RF fenofibrate 54 mg tablet See Rx Instructions .ROUTE .COMPLEX Qty: 90 0RF Dose Instruction: TAKE 1 TABLET BY MOUTH DAILY Rx Instructions: TAKE 1 TABLET BY MOUTH DAILY metformin 500 mg tablet extended release 24 hr 1,000 mg PO BID Qty: 360 1RF glimepiride 4 mg tablet 4 mg PO BID Qty: 180 1RF Rx Instructions: 4 mg with breakfast and 4 mg with supper Gvoke HypoPen 2-Pack 1 mg/0.2 mL auto-injector 1 mg subcut ONCE Qty: 0.4 0RF Rx Instructions: as a single dose; may repeat once after 15 minutes if no response glucose 4 gram tablet,chewable 16 g PO Q15M PRN (Reason: hypoglycemia) Qty: 360 0RF Rx Instructions: until symptoms of low blood sugar are controlled <Maria L Oates PA-C - Last Filed: 02/08/24 17:08> Follow-up/Referrals: Sil Joseph MD [Primary Care Provider] - <Maria L Oates PA-C - Last Filed: 02/08/24 17:08>
== END 2024-02-08 18:23 | disposition home or self-care (01) ==
PROVIDERS: Emergency Provider Emergency Medicine; PCP Family Medicine
DX: S60.032A Contusion of left middle finger without damage to nail, initial encounter (principal); S60.042A Contusion of left ring finger without damage to nail, initial encounter; S50.02XA Contusion of left elbow, initial encounter; M16.0 Bilateral primary osteoarthritis of hip; M19.042 Primary osteoarthritis, left hand; M18.9 Osteoarthritis of first carpometacarpal joint, unspecified; M19.032 Primary osteoarthritis, left wrist; E11.21 Type 2 diabetes mellitus with diabetic nephropathy; E03.9 Hypothyroidism, unspecified; E78.2 Mixed hyperlipidemia; K74.60 Unspecified cirrhosis of liver; G47.33 Obstructive sleep apnea (adult) (pediatric); N40.0 Benign prostatic hyperplasia without lower urinary tract symptoms; Z85.6 Personal history of leukemia; Z86.010 Personal history of colon polyps; Z85.828 Personal history of other malignant neoplasm of skin; W31.89XA Contact with other specified machinery, initial encounter; Y93.A1 Activity, exercise machines primarily for cardiorespiratory conditioning
CPT/HCPCS: 73080; 73130; 73502; 99284

== ENCOUNTER 2024-06-05 09:29 | Outpatient (CLI) | payer MEDICARE, BC, SELFPAY ==
[2024-06-05 09:50] LABS: Basophils Percent Auto 0.8 % (0.2-1.2); Eosinophils Absolute Auto 0.3 K/mm3 (0-0.3); Eosinophils Percent Auto 7.1 % (0-4.4); Hematocrit 38.9 % (42.0-52.0); Hemoglobin 13.3 g/dL (14.0-18.0); Immature Granulocyte Absolute 0.01 K/mm3 (0.00-0.031); Immature Granulocyte Percent A 0.3 % (0-0.5); Immature Platelet Fraction Pct 12.4 % (0.9-11.2); Lymphocytes Absolute Auto 1.51 K/mm3 (0.9-3.2); Lymphocytes Percent Auto 41.5 % (18.3-44.2); Mean Corpuscular HGB Conc 34.2 g/dl (32-36); Mean Corpuscular Volume 93.5 fl (80-100); Mean Platelet Volume 11.3 fl (7.4-10.4); Monocytes Absolute Auto 0.3 K/mm3 (0.1-0.6); Monocytes Percent Auto 8.2 % (2.6-8.5); Neutrophils Absolute Auto 1.5 K/mm3 (1.3-6.7); Neutrophils Percent Auto 42.1 % (45.5-73.1); Platelet Count Result 75 k/mm3 (150-375); Red Blood Count 4.16 M/mm3 (4.6-6.20); Red Cell Distribution Width 13.5 % (11.5-14.5); White Blood Count 3.6 K/mm3 (4.5-10.0)
[2024-06-05 09:51] LABS: Blood Urea Nitrogen 10 mg/dL (8-26); Carbon Dioxide 23 mmol/L (22-30); Chloride 102 mmol/L (98-109); Estimated Glomerular Filt Rate > 60; Glucose 231 mg/dL (70-105); Ionized Calcium (POC) 1.22 mmol/L (1.11-1.31); Sodium 137 mmol/L (138-146)
[2024-06-05 11:06] LABS: Alanine Aminotransferase 77 U/L (6-50); Albumin Level 4.2 g/dL (3.5-5.1); Alkaline Phosphatase 179 U/L (38-126); Anion Gap 12 mmol/L (4-12); Aspartate Amino Transferase 80 U/L (17-59); Bilirubin,Total 0.6 mg/dL (0.2-1.3); Blood Urea Nitrogen 11 mg/dL (9-20); Calcium 9.3 mg/dL (8.4-10.2); Carbon Dioxide 23 mmol/L (22-30); Chloride 99 mmol/L (98-107); Estimated Glomerular Filt Rate > 60; Glucose 223 mg/dL (65-110); Potassium 4.1 mmol/L (3.4-5.0); Sodium 134 mmol/L (137-145)
== END 2024-06-05 09:30 | disposition home or self-care (01) ==
LOC: ANHLAB 09:31
PROVIDERS: PCP Family Medicine; Visit Provider Internal Medicine Hematology & Oncology
DX: D64.9 Anemia, unspecified (principal)
CPT/HCPCS: 36415; 80047; 80053; 85025; 85055

== ENCOUNTER 2024-06-17 09:06 | Outpatient (RCR) | payer MEDICARE, BC, SELFPAY | END 2024-09-08 10:46 | disposition home or self-care (01) | LOC: ANHDMC 09:06 | PROVIDERS: PCP Family Medicine; Visit Provider Internal Medicine | DX: E11.65 Type 2 diabetes mellitus with hyperglycemia (principal); Z71.89 Other specified counseling | CPT/HCPCS: G0108 ==

== ENCOUNTER 2024-09-01 15:08 | Outpatient (CLI) | payer MEDICARE, BC, SELFPAY ==
--- NOTE | ~2024-09-01 | XR_ITS ---
XR abdomen/kub 1V Ordering provider: Sil Joseph MD History: . R10.9 - Unspecified abdominal pain . Comparison: None. FINDINGS: BOWEL: Nonobstructive bowel gas pattern. ORGANOMEGALY: None. SIGNIFICANT PATHOLOGIC CALCIFICATIONS: None. OTHER: No free air is seen under the diaphragm. Degenerative the spine. IMPRESSION: NO ACUTE ABDOMINAL FINDINGS. Reviewed, dictated and finalized at location A. [employer]
== END 2024-09-01 15:09 | disposition home or self-care (01) ==
LOC: GOSHIMG 15:12
PROVIDERS: PCP Internal Medicine Gastroenterology; Visit Provider Family Medicine
DX: R10.9 Unspecified abdominal pain (principal)
CPT/HCPCS: 74018

== ENCOUNTER 2024-09-10 08:33 | Outpatient (CLI) | payer MEDICARE, BC, SELFPAY ==
--- NOTE | ~2024-09-10 | CT_ITS ---
EXAMINATION: CT abdomen pelvis w con DATE: 09/10/2024 09:36 INDICATION: Unspecified abdominal pain. TECHNIQUE: Computed tomography (CT) of the abdomen and pelvis was performed with 100 mL Omnipaque 350 intravenous contrast. Automated exposure control and iterative reconstruction technique were employe d. The dose-length product was 680.25 mGy-cm. COMPARISON: CT abdomen and pelvis 09/18/2023 FINDINGS: The visualized portions of the lung bases demonstrate mild atelectasis. No pleural effusion . The heart size is normal. No pericardial effusion. Paraesophageal varices are noted. There is diffu se hepatic steatosis. There are changes of cholecystectomy. There is a 2.7 x 1.3 cm mass in the gallb ladder fossa. There is a periumbilical portacaval shunt. There is mild splenomegaly. The pancreas, ad renal glands, and left kidney are normal. There are cysts in right kidney measuring up to 4 mm. There is a 4 mm stone in right kidney. The prostate is mildly enlarged. There is a left inguinal hernia co ntaining fat. There is diverticulosis of the colon without evidence of diverticulitis. The appendix i s normal. There are no pathologically enlarged lymph nodes. There is no free intraperitoneal fluid. T here is mild lumbar spondylosis. IMPRESSION: 1. 2.7 x 1.3 cm mass in the gallbladder fossa status post cholecystectomy, which may be scarring or h ematoma. 2. Diffuse hepatic steatosis. 3. Portal venous hypertension. 4. Left inguinal hernia containing fat. Reviewed, dictated and finalized at location A. [employer] IMPRESSION: 1. 2.7 x 1.3 cm mass in the gallbladder fossa status post cholecystectomy, whic h may be scarring or hematoma. 2. Diffuse hepatic steatosis. 3. Portal venous hypertension. 4. Left inguinal hernia containing fat.
[2024-09-10 09:16] LABS: Estimated Glomerular Filt Rate > 60
== END 2024-09-10 08:34 | disposition home or self-care (01) ==
PROVIDERS: PCP Family Medicine; Visit Provider Physician Assistant
DX: R10.9 Unspecified abdominal pain (principal); K40.90 Unilateral inguinal hernia, without obstruction or gangrene, not specified as recurrent; K76.0 Fatty (change of) liver, not elsewhere classified
CPT/HCPCS: 74177; Q9967

== ENCOUNTER 2024-12-10 08:30 | Outpatient (CLI) | payer MEDICARE, BC, SELFPAY ==
--- OUTSIDE RECORDS SUMMARY | 2024-12-10 08:36 | XMS_ITS | Clinical Summary ---
Author Organization [facility] Address [address] [place] [address] Care Team Providers Care Principal Engineer Name Role Phone Jason Joseph MD Primary Care Provider Source Comments [facility] [employer],non-owned Affiliates and Associated Physician Practices is amultiple site organization consisting of ambulatory clinics and hospital sitesin [place], [place], [place] and [place]. This disclosure is being madepursuant to the Care Everywhere program and may not contain all information available regarding this patient. Last updated 18.[facility] [employer] Allergies Active Allergy Reactions Criticality Noted Date Comments Bee Venom Itching Low 02/23/1975 Medications * Be aware that medications may not be up to date on this document. Alwaysverify current medications with the patient. Medication Sig Dispensed Refills Start Date End Date Status Multiple Vitamins-Minerals (CENTRUM SILVER PO)Indications:Hepa tic cirrhosis, unspecified hepatic cirrhosis type, unspecified whether ascites present (HCC) Active ferrous sulfate 325 (65 FE) MG tabletIndications:H epatic cirrhosis, unspecified hepatic cirrhosis type, unspecified whether ascites present (HCC) Take 1 (one) tablet by mouth once daily Active finasteride (Proscar) 5 MG tabletIndications:H epatic cirrhosis, unspecified hepatic cirrhosis type, unspecified whether ascites present (HCC) Per instructions DAILY (route: oral) 03/21/2022 Active levothyroxine (Synthroid) 100 MCG tabletIndications:H epatic cirrhosis, unspecified hepatic cirrhosis type, unspecified whether ascites present (HCC) Take 1 (one) tablet by mouth once daily 06/19/2023 Active metFORMIN ER 24hr (Glucophage XR) 500 MG tabletIndications:H epatic cirrhosis, unspecified hepatic cirrhosis type, unspecified whether ascites present (HCC) Take 2 (two) tablets by mouth 2 times daily 07/19/2023 Active pantoprazole EC (Protonix) 40 MG tabletIndications:H epatic cirrhosis, unspecified hepatic cirrhosis type, unspecified whether ascites present (HCC) Take 1 (one) tablet by mouth as needed for Heartburn 3 times per week 03/16/2023 Active lidocaine 1.5%-NIFEdipine 0.3% compounded ointmentIndications :Hepatic cirrhosis, unspecified hepatic cirrhosis type, unspecified whether ascites present (HCC) Apply to affected area as needed 1 g rectally BID Active Basaglar KwikPen (Basaglar) pen Inject 22 (twenty two) Units subcutaneously once daily Active atorvastatin (Lipitor) 20 MG tablet Take 1 (one) tablet by mouth at bedtime patient only takes 4-5 times per week Active cyanocobalamin (Vitamin B-12) 1000 MCG tablet Take 1 (one) tablet by mouth once daily Active sildenafil (Viagra) 100 MG tablet Take 1 (one) tablet by mouth once daily 01/11/2024 Active insulin aspart (NovoLOG) pen Inject 12 (twelve) Units subcutaneously 3 times daily before meals Sliding scale Active vitamin D3 (Cholecalciferol) 25 MCG (1000 UNITS) tablet Take 1 (one) tablet by mouth once daily Active fish oil/omega-3 fatty acids (Promega;Cardi-Omeg a 3) 1000 MG capsule Take 1 (one) capsule by mouth 3 times daily with meals Active Multiple Vitamins-Minerals (EYE VITAMINS PO) Take by mouth once Active Active Problems Problem Noted Date Diagnosed Date Nonrheumatic aortic valve stenosis 11/03/2024 Mixed hyperlipidemia 08/11/2024 Type 2 diabetes mellitus without complication Idiopathic chronic pancreatitis 08/11/2024 Cirrhosis (alexeiley prior [facility]) 09/07/2023 Overview (09/07/2023): 09/06/23 Fibroscan CAP 291, LSM 9.7 kPa Chronic lymphocytic leukemia 06/12/2022 Osteopenia of multiple sites 06/16/2020 Resolved Problems Problem Noted Date Diagnosed Date Resolved Date 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 Encounters Date Type Department Care Team Description 11/03/2024 3:00 PM RN OUTPATIENT SURGERY Office Visit [facility] - Cardiology [address] [place] [phone] Jack Díaz MD Type 2 diabetes mellitus without complication, with long-term current use of insulin (HCC) (Primary Dx); Mixed hyperlipidemia; Nonrheumatic aortic valve stenosis 11/03/2024 2:00 PM RN OUTPATIENT SURGERY Ancillary Procedure [facility] - Echosonography [address] [place] [address] Undiagnosed cardiac murmurs 11/03/2024 Travel from Last 3 Months Immunizations Name Administration Dates Next Due [employer] primary monoval ent 12+ yr 0.3mL Purple cap 06/08/2021,01/02/2021,12/05/2020 Hep B, Adjuvanted 11/06/2023,09/28/2023 INFLUENZA VACCINE 07/09/2020 INFLUENZA VACCINE, ADJUVANTE D, TRIV. (FLUAD TRIVALENT; 65Y+) (AIIV3) 07/03/2019 INFLUENZA VACCINE, HIGH-DOSE , QUADR. (FLUZONE HIGH-DOSE QUADRIVALENT; 65Y+), 0.7 ML (HD-IIV4) 07/31/2023,08/01/2022,07/20/2021, 018 INFLUENZA VACCINE, HIGH-DOSE , TRIV. (FLUZONE HIGH-DOSE TRIVALENT; 65Y+) (HD-IIV3) 07/12/2018,07/08/2018,07/20/2017 INFLUENZA VACCINE, TRIV. (FL UZONE; FLULAVAL; FLUARIX; AFLURIA TRIVALENT; 6MO+), 0.5 ML (IIV3) 07/09/2020,07/02/2016,07/09/2015 RSV AREXVY 60YR+ 0.5ML 10/24/2023 TDAP, HISTORIC VACCINE 05/20/2021 Family History Medical History Relation Name Comments CVA Maternal Grandfather Cancer - Colon Mother Relation Name Status Comments Maternal Grandfather Mother Social History Tobacco Use Types Packs/Day Years Used Date Smoking Tobacco: Never Smokeless Tobacco: Never Tobacco Cessation:Counseling Given: Not Answered Alcohol Use Standard Drinks/Week Comments Not Currently 0 (1 standard drink = 0.6 oz pur e alcohol) Sex and Gender Information Value Date Recorded Sex Assigned at Not on file Gender Identity Not on file Sexual Orientation Not on file Last Filed Vital Signs Vital Sign Reading Time Taken Comments Blood Pressure 120/60 11/03/2024 2:29 PM RN OUTPATIENT SURGERY Pulse 64 11/03/2024 2:29 PM RN OUTPATIENT SURGERY Temperature 36.6 C (97.9 F) 08/11/2024 12:56 PM CDT Respiratory Rate 18 11/03/2024 2:29 PM RN OUTPATIENT SURGERY Oxygen Saturation 95% 11/03/2024 2:29 PM RN OUTPATIENT SURGERY Inhaled Oxygen Concentration 40% 05/15/2024 9 :55 AM CDT Weight 77.1 kg (170 lb) 11/03/2024 2:29 PM RN OUTPATIENT SURGERY Height 167.6 cm (5' 6 ) 08/28/2024 8:53 AM RN OUTPATIENT SURGERY Body Mass Index 27.44 08/28/2024 8:53 AM RN OUTPATIENT SURGERY Plan of Treatment Upcoming Encounters Date Type Department Care Team (Late st Contact Info) Description 02/26/2025 8:00 AM CDT Appointment [facility] [address] [place] [phone] Clif Sepulveda MD [facility] [place] [phone] 02/26/2025 9:00 AM CDT Office Visit [facility] [address] [facility] [place] [phone] Clif Sepulveda MD [address] [place] [phone] 11/02/2025 11:00 AM RN OUTPATIENT SURGERY Office Visit [facility] - Cardiology [address] [facility] [place] [address] [place] [address] Jack Díaz MD [address] [facility] [address] [place] [id number] Health Maintenance Due Date Last Done Comments COLOGUARD (AGES 45-75) - COLON CA SCREENING 1950 COLON MONITORING 1950 COLONOSCOPY - COLON CA SCREENING 1950 CT COLONOGRAPHY - COLON CA SCREENING 1950 Colorectal Cancer Screening 1950 FIT - COLON CA SCREENING 1950 FLEX SIG - COLON CA SCREENING 1950 MEDICARE AWV 12 MONTHS 1950 PNEUMOCOCCAL VACCINE 50+ (1 of 2 - PCV) 1971 ZOSTER VACCINE (1 of 2) 1971 COVID-19 VACCINE (2023- season) 2024 07/31/2023, 08/01/2022, 01/21/2022, Additional history exists INFLUENZA VACCINE (#1) 2024 , 08/01/2022, 07/20/2021, Additional history exists DIABETES RETINOPATHY SCREENING 08/11/2024 DIABETES-FOOT EXAM WITH MONOFILAMENT 08/11/2024 DIABETES-HGB A1C 08/11/2024 DEPRESSION SCREENING 10/22/2024 DIABETES - URINE PROTEIN SCREENING 10/22/2024 DIABETES-SERUM CREATININE 08/22/20252023, 04/22/2024, 03/24/2024, Additional history exists DTAP/TDAP/TD VACCINES (2 - Td or Tdap) 05/20/2031 05/20/2021 HEPATITIS C SCREENING Completed 09/07/2023 Respiratory Syncytial Virus (RSV) Vaccine Pt: or over 60 yrs Completed 10/24/2023 HEPATITIS B VACCINE Completed 11/06/2023, HIB VACCINE Aged Out No longer eligi ble based on patient's age to complete this topic HPV VACCINE Aged Out No longer eligi ble based on patient's age to complete this topic MENINGOCOCCAL (Group B) VACCINE Aged Out No longer eligible based on patient's age to complete this topic MENINGOCOCCAL VACCINE Aged Out No marcy lauryn eligible based on patient's age to complete this topic Goals Goal Patient Goal Type Associated Problems Recent Progress Patient-Stated? Author Medication Management General On track( 024 8:54 AM RN OUTPATIENT SURGERY) Tyesha Mcdaniels, RN Note: Expected end date: ongoing Interventions: Take all medications as prescribed Let your doctor know right away about any changes in your medications Make sure to request a refill of your medication at least one week prior to your last dose Procedures Procedure Name Priority Date/Time Associated Diagnosis Comments ECHO COMPLETE Routine 11/03/2024 2:37 PM RN OUTPATIENT SURGERY Undiagnosed cardiac murmurs PROC TECHNICAL APPLICATIONS SPECIALIST READ, 14 DAY Routine 09/10/2024 5:37 PM RN OUTPATIENT SURGERY Palpitations COMPREHENSIVE METABOLIC PANEL 08/22/2024 7:12 AM CDT HEPATITIS C AB W/RFLX TO HCV RNA QN PCR Routine 09/07/2023 7:59 AM RN OUTPATIENT SURGERY Hepatic cirrhosis, unspecified hepatic cirrhosis type, unspecified whether ascites present (HCC) Portal hypertension (HCC) from Last 3 Months or Most Recently Relevant to Health Maintenance Results * ECHO COMPLETE (11/03/2024 2:37 PM RN OUTPATIENT SURGERY) IVSd 2D 0.784 cm SSM CV FUJ I PACS LVIDd 4.21 cm SSM CV FUJ I PACS LVIDs 2.887 cm SSM CV FUJ I PACS LVOT diam 2.008 cm SSM CV FUJ I PACS LVPWd 0.83 cm SSM CV FUJ I PACS LV biplane EF 70.96 % SSM CV FUJI PACS LV A2C EF 72.727 % SSM CV FUJ I PACS LV A4C EF 68.288 % SSM CV FUJ I PACS LV EDV A2C 66.889 ml SSM CV FU JI PACS LV EDV A4C 71.083 ml SSM CV FU JI PACS LV ESV A2C 18.242 ml SSM CV FU JI PACS LV ESV A4C 22.542 ml SSM CV FU JI PACS LVOT pk severo 147.691 cm/s SSM CV F UJI PACS LVOT VTI 29.498 cm SSM CV FUJ I PACS RVIDd 3.888 cm SSM CV FUJ I PACS RVOT pk severo 72.096 cm/s SSM CV F UJI PACS RVOT VTI 17.035 cm SSM CV FUJ I PACS LA vol BP 44.318 ml SSM CV FUJ I PACS RA area 17.389 cm SSM CV FUJI PACS AV mn grad 10.682 mmHg SSM CV FU JI PACS AV pk severo 246.694 cm/s SSM CV FUJ I PACS AV VTI 50.398 cm SSM CV FUJ I PACS MV A pk severo 84.034 cm/s SSM CV F UJI PACS MV E pk severo 77.343 cm/s SSM CV F UJI PACS MV E' lateral severo 9.18 cm/s SSM CV FUJI PACS MV mn grad 1.653 mmHg SSM CV FU JI PACS MV VTI 28.445 cm SSM CV FUJ I PACS PV pk severo 135.591 cm/s SSM CV FUJ I PACS TAPSE 2.533 cm SSM CV FUJ I PACS TR pk severo 221.204 cm/s SSM CV FUJ I PACS Ascending aorta 2.955 cm SSM CV FUJI PACS IVC Diam Expiration 1.514 cm SSM CV FUJI PACS Sinus of Valsalva 3.137 cm SSM CV FUJI PACS LA vol index 0.023 l/m SSM CV FUJI PACS Myocardial strain charge 2 unitless SSM CV FUJI PACS Anatomical Region Laterality Modality Ultrasound 11/03/2024 3:14 PM RN OUTPATIENT SURGERY Narrative 11/03/2024 2:49 PM RN OUTPATIENT SURGERY Summary * The left ventricle is normal in size. * Left ventricular segmental wall motion is normal. * Left ventricular systolic function is normal with an estimated ejection fraction of 71% by biplane method of disks. * The left ventricular diastolic function is normal. * Right ventricle is normal in size with normal systolic function. * There is mild aortic valve regurgitation. Patient Info Name: Dylan Rodriges Age: 74 years : 1950 Gender: Male Ht: 67 in Wt: 170 lb BSA: 1.92 m2 HR: 57 bpm BP: 126 / 62 mmHg Exam Date: 11/03/2024 3:14 PM Patient Status: O Study Site: [facility] Primary Location: [facility] EStudy Info Exam Type: ECHO COMPLETE Indications R01.1 - Undiagnosed cardiac murmurs Procedure(s) * A complete 2D, color Doppler, spectral Doppler, and M-Mode transthoracic echocardiogram was performed. Staff Referring Physician: Jack Díaz Ordering Provider: Jack Díaz Dip Tube Assembler Machine: [id number] Kelley Left Ventricle The left ventricular mass is normal. The left ventricle is normal in size. Left ventricular segmental wall motion is normal. Left ventricular systolic function is normal with an estimated ejection fraction of 71% by biplane method of disks. The left ventricular diastolic function is normal. Right Ventricle The right ventricle is normal in size. Right ventricular systolic function is normal. Left Atrium The left atrium is normal in size with a left atrial volume index of 23 ml/m2 by BP MOD. Right Atrium The right atrium is normal in size. Atrial Septum Intact interatrial septum visualized by 2D and color Doppler imaging. Aortic Valve The aortic valve is trileaflet. There is no aortic valve stenosis. There is mild aortic valve regurgitation. Pulmonic Valve The pulmonic valve is normal. There is no pulmonic valve stenosis. There is no pulmonic regurgitation. Mitral Valve The mitral valve is normal. There is no mitral valve stenosis. There is mild mitral valve regurgitation. Tricuspid Valve The tricuspid valve is normal. There is mild tricuspid valve regurgitation. The pulmonary artery systolic pressure is normal, 23 mmHg. Inferior Vena Cava The inferior vena cava is normal in size (< 2.1 cm). There is > 50% collapse of the IVC upon inspiration with an estimated right atrial pressure of 3 mmHg. Pericardium/Pleural There is no pericardial effusion. Aorta The aortic root at the sinus of Valsalva is normal in size. The ascending aorta is normal in size. Measurements Left Ventricular Outflow Tract Name Value Normal LVOT 2D LVOT Diameter 2.0 cm LVOT Area 3.2 cm2 LVOT Doppler LVOT Peak Velocity 1.5 m/s LVOT Peak Gradient 9 mmHg LVOT Mean Velocity 90.65 cm/s LVOT Mean Gradient 4 mmHg LVOT VTI 29.5 cm LVOT VTI/AV VTI Ratio 0.6 LVOT Stroke Volume 93 ml LVOT Stroke Volume Index 49 ml/m2 35-58 LVOT CO 5.3 l/min LVOT CI 2.8 l/min/m2 Pulmonic Valve Name Value Normal RVOT Doppler RVOT Peak Velocity 0.7 m/s RVOT Peak Gradient 2 mmHg RVOT Mean Gradient 1 mmHg PV Doppler PV Peak Velocity 1.4 m/s PV Peak Gradient 3 mmHg PV Mean Gradient 4 mmHg PV Accel Time 119.89 ms Mitral Valve Name Value Normal MV Doppler MV Peak Gradient 5 mmHg MV Mean Gradient 2 mmHg MV DI (VTI) 0.96 MV PHT 89 ms MV Area (PHT) 2.47 cm2 4.00-5.00 MV Area (Cont Eq VTI) 3.28 cm2 MV Diastolic Function MV E Peak Velocity 0.8 m/sec MV A Peak Velocity 0.8 m/sec MV E/A 0.9 MV Decel Time (PW) 288 ms MV A Wave Duration 134 ms MV Annular TDI MV Septal e' Velocity 7 cm/s >=8 MV E/e' (Septal) 11 <=8 MV Lateral e' Velocity 9 cm/s >=10 MV E/e' (Lateral) 8 <=8 MV e' Average 8 cm/s MV E/e' (Average) 10 Tricuspid Valve Name Value Normal TV Regurgitation Doppler TR Peak Velocity 2.2 m/s TR Peak Gradient 20 mmHg Estimated PAP/RSVP RA Pressure 3 mmHg <=5 PA Systolic Pressure 23 mmHg <35 RV Systolic Pressure 23 mmHg <36 TV Annular TDI TV Lateral Rosamaria s' Velocity 15 cm/s 10-19 Pulmonary Vessels Name Value Normal Pulmonary Veins Pulm Vein Peak Systolic Velocity 55.6 cm/s Pulm Vein Peak Diastolic Velocity 49.6 cm/s Pulm Vein S/D Velocity Ratio 1 Pulm Vein Ar Velocity 36.5 cm/s Pulm Vein Ar Dur - MV A Dur 20 ms Aorta Name Value Normal Ascending Aorta Sinus of Valsalva Diameter 3.1 cm 2.8-4.0 Sinus of Valsalva Index 1.6 cm/m2 1.3-2.1 Asc Ao Diameter 3.0 cm 2.2-3.8 Asc Ao Diameter Index 1.5 cm/m2 1.1-1.9 Venous Name Value Normal IVC/SVC IVC Diameter 1.5 cm <=2.1 Aortic Valve Name Value Normal AV Doppler AV Peak Velocity 2.47 m/s AV Peak Gradient 20 mmHg AV Mean Gradient 11 mmHg AV VTI 50 cm AV Area (Cont Eq VTI) 1.85 cm2 >=2.00 AV Area (Cont Eq Severo) 1.90 cm2 AV DI (VTI) 0.59 AV DI (Severo) 0.60 AV Regurgitation 2D LVOT Area 3.16 cm2 Ventricles Name Value Normal LV Dimensions 2D/MM IVS Diastolic Thickness (2D) 0.8 cm 0.6-1.0 LVID Diastole (2D) 4.2 cm 4.2-5.8 LVPW Diastolic Thickness (2D) 0.8 cm 0.6-1.0 LVID Systole (2D) 2.9 cm 2.5-4.0 LV Mass (2D Cubed) 103 g 88-224 LV Mass Index (2D Cubed) 53 g/m2 49-115 Relative Wall Thickness (2D) 0.39 <=0.42 LV Fractional Shortening/Ejection Fraction 2D/MM LV Fractional Shortening (2D) 31 % 25-43 LV EF (2D Teicholz) 60 % 52-72 LV Diastolic Volume (4C MOD) 71 ml LV EF (4C MOD) 68 % LV Diastolic Volume (2C MOD) 67 ml LV EF (2C MOD) 73 % LV Diastolic Volume (BP MOD) 72 ml 62-150 LV Diastolic Volume Index (BP MOD) 38 ml/m2 34-74 LV Systolic Volume (BP MOD) 21 ml 21-61 LV Systolic Volume Index (BP MOD) 11 ml/m2 11-31 LV EF (BP MOD) 71 % 52-72 LV Diastolic Length (4C) 9.0 cm LV Systolic Length (4C) 7.1 cm LV Stroke Volume (4C MOD) 49 ml RV Dimensions 2D/MM RVID Diastole (2D) 3.9 cm 2.5-3.5 TAPSE 2.5 cm >=1.7 Atria Name Value Normal LA Dimensions LA Volume (BP MOD) 44 ml LA Volume Index (BP MOD) 23 ml/m2 16-34 RA Dimensions RA Area (4C) 17 cm2 <=18 RA Area (4C) Index 9 cm2/m2 RA ESV (4C MOD) 52 ml 18-32 RA ESV Index (4C MOD) 27 ml/m2 16-34 Report Signatures Finalized by Blessing Medley MD on 11/03/2024 02:49 PM Procedure Note Blessing Medley MD - 11/03/2024 Summary * The left ventricle is normal in size. * Left ventricular segmental wall motion is normal. * Left ventricular systolic function is normal with an estimatedejection fraction of 71% by biplane method of disks. * The left ventricular diastolic function is normal. * Right ventricle is normal in size with normal systolic function. * There is mild aortic valve regurgitation. Patient Info Name: Dylan Rodriges Age: 74 years : 1950 Gender: Male Ht: 67 in Wt: 170 lb BSA: 1.92 m2 HR: 57 bpm BP: 126 / 62 mmHg Exam Date: 11/03/2024 3:14 PM Patient Status: O Study Site: [facility] Primary Location: [facility] EStudy Info Exam Type: ECHO COMPLETE Indications R01.1 - Undiagnosed cardiac murmurs Procedure(s) * A complete 2D, color Doppler, spectral Doppler, and M-Modetransthoracic echocardiogram was performed. Staff Referring Physician: Jack Díaz Ordering Provider: Jack Díaz Dip Tube Assembler Machine: Bhumika Kelley Left Ventricle The left ventricular mass is normal. The left ventricle is normal insize. Left ventricular segmental wall motion is normal. Left ventricularsystolic function is normal with an estimated ejection fraction of 71% by biplane method of disks. The left ventricular diastolic function is normal. Right Ventricle The right ventricle is normal in size. Right ventricular systolicfunction is normal. Left Atrium The left atrium is normal in size with a left atrial volume index of23 ml/m2 by BP MOD. Right Atrium The right atrium is normal in size. Atrial Septum Intact interatrial septum visualized by 2D and color Doppler imaging. Aortic Valve The aortic valve is trileaflet. There is no aortic valve stenosis. Thereis mild aortic valve regurgitation. Pulmonic Valve The pulmonic valve is normal. There is no pulmonic valve stenosis. Thereis no pulmonic regurgitation. Mitral Valve The mitral valve is normal. There is no mitral valve stenosis. There ismild mitral valve regurgitation. Tricuspid Valve The tricuspid valve is normal. There is mild tricuspid valveregurgitation. The pulmonary artery systolic pressure is normal, 23 mmHg. Inferior Vena Cava The inferior vena cava is normal in size (< 2.1 cm). There is > 50%collapse of the IVC upon inspiration with an estimated right atrial pressure of 3mmHg. Pericardium/Pleural There is no pericardial effusion. Aorta The aortic root at the sinus of Valsalva is normal in size. Theascending aorta is normal in size. Measurements Left Ventricular Outflow Tract Name Value Normal LVOT 2D LVOT Diameter 2.0 cm LVOT Area 3.2 cm2 LVOT Doppler LVOT Peak Velocity 1.5 m/s LVOT Peak Gradient 9 mmHg LVOT Mean Velocity 90.65 cm/s LVOT Mean Gradient 4 mmHg LVOT VTI 29.5 cm LVOT VTI/AV VTI Ratio 0.6 LVOT Stroke Volume 93 ml LVOT Stroke Volume Index 49 ml/m2 35-58 LVOT CO 5.3 l/min LVOT CI 2.8 l/min/m2 Pulmonic Valve Name Value Normal RVOT Doppler RVOT Peak Velocity 0.7 m/s RVOT Peak Gradient 2 mmHg RVOT Mean Gradient 1 mmHg PV Doppler PV Peak Velocity 1.4 m/s PV Peak Gradient 3 mmHg PV Mean Gradient 4 mmHg PV Accel Time 119.89 ms Mitral Valve Name Value Normal MV Doppler MV Peak Gradient 5 mmHg MV Mean Gradient 2 mmHg MV DI (VTI) 0.96 MV PHT 89 ms MV Area (PHT) 2.47 cm2 4.00-5.00 MV Area (Cont Eq VTI) 3.28 cm2 MV Diastolic Function MV E Peak Velocity 0.8 m/sec MV A Peak Velocity 0.8 m/sec MV E/A 0.9 MV Decel Time (PW) 288 ms MV A Wave Duration 134 ms MV Annular TDI MV Septal e' Velocity 7 cm/s >=8 MV E/e' (Septal) 11 <=8 MV Lateral e' Velocity 9 cm/s >=10 MV E/e' (Lateral) 8 <=8 MV e' Average 8 cm/s MV E/e' (Average) 10 Tricuspid Valve Name Value Normal TV Regurgitation Doppler TR Peak Velocity 2.2 m/s TR Peak Gradient 20 mmHg Estimated PAP/RSVP RA Pressure 3 mmHg <=5 PA Systolic Pressure 23 mmHg <35 RV Systolic Pressure 23 mmHg <36 TV Annular TDI TV Lateral Rosamaria s' Velocity 15 cm/s 10-19 Pulmonary Vessels Name Value Normal Pulmonary Veins Pulm Vein Peak Systolic Velocity 55.6 cm/s Pulm Vein Peak Diastolic Velocity 49.6 cm/s Pulm Vein S/D Velocity Ratio 1 Pulm Vein Ar Velocity 36.5 cm/s Pulm Vein Ar Dur - MV A Dur 20 ms Aorta Name Value Normal Ascending Aorta Sinus of Valsalva Diameter 3.1 cm 2.8-4.0 Sinus of Valsalva Index 1.6 cm/m2 1.3-2.1 Asc Ao Diameter 3.0 cm 2.2-3.8 Asc Ao Diameter Index 1.5 cm/m2 1.1-1.9 Venous Name Value Normal IVC/SVC IVC Diameter 1.5 cm <=2.1 Aortic Valve Name Value Normal AV Doppler AV Peak Velocity 2.47 m/s AV Peak Gradient 20 mmHg AV Mean Gradient 11 mmHg AV VTI 50 cm AV Area (Cont Eq VTI) 1.85 cm2 >=2.00 AV Area (Cont Eq Severo) 1.90 cm2 AV DI (VTI) 0.59 AV DI (Severo) 0.60 AV Regurgitation 2D LVOT Area 3.16 cm2 Ventricles Name Value Normal LV Dimensions 2D/MM IVS Diastolic Thickness (2D) 0.8 cm 0.6-1.0 LVID Diastole (2D) 4.2 cm 4.2-5.8 LVPW Diastolic Thickness (2D) 0.8 cm 0.6-1.0 LVID Systole (2D) 2.9 cm 2.5-4.0 LV Mass (2D Cubed) 103 g 88-224 LV Mass Index (2D Cubed) 53 g/m2 49-115 Relative Wall Thickness (2D) 0.39 <=0.42 LV Fractional Shortening/Ejection Fraction 2D/MM LV Fractional Shortening (2D) 31 % 25-43 LV EF (2D Teicholz) 60 % 52-72 LV Diastolic Volume (4C MOD) 71 ml LV EF (4C MOD) 68 % LV Diastolic Volume (2C MOD) 67 ml LV EF (2C MOD) 73 % LV Diastolic Volume (BP MOD) 72 ml 62-150 LV Diastolic Volume Index (BP MOD) 38 ml/m2 34-74 LV Systolic Volume (BP MOD) 21 ml 21-61 LV Systolic Volume Index (BP MOD) 11 ml/m2 11-31 LV EF (BP MOD) 71 % 52-72 LV Diastolic Length (4C) 9.0 cm LV Systolic Length (4C) 7.1 cm LV Stroke Volume (4C MOD) 49 ml RV Dimensions 2D/MM RVID Diastole (2D) 3.9 cm 2.5-3.5 TAPSE 2.5 cm >=1.7 Atria Name Value Normal LA Dimensions LA Volume (BP MOD) 44 ml LA Volume Index (BP MOD) 23 ml/m2 16-34 RA Dimensions RA Area (4C) 17 cm2 <=18 RA Area (4C) Index 9 cm2/m2 RA ESV (4C MOD) 52 ml 18-32 RA ESV Index (4C MOD) 27 ml/m2 16-34 Report Signatures Finalized by Blessing Medley MD on 11/03/2024 02:49 PM Jack Díaz MD ECHO CUPID * Holter Read - 14 Day (09/10/2024 5:37 PM RN OUTPATIENT SURGERY) Narrative Jack Díaz MD - 09/10/2024 5:37 PM RN OUTPATIENT SURGERY Jack Díaz MD 09/10/2024 5:41 PM Read Date: 09/10/2024 Patient name: Dylan Rodriges Patient : 1950 Patient Age: [age] year old EVENT MONITOR REPORT: Indication for placement: Palpitation Requesting MD: Dr. Díaz Duration of monitorin days Available tracings are adequate for interpretation for 13 days 21 Hour 2 mins. 1. The fastest HR overall was: 155 bpm 2. The lowest HR noted was: 47 bpm 3. The average HR was: 68 bpm 4. 1156 premature ventricular complexes (PVCs) occurred (<1% of 1.35 million complexes). 954 premature atrial contractions (PACs) occurred <1% of the time. 5. Atrial fibrillation was not detected. 6. No Pause(s) noted of 3 seconds or longer. Patient transmitted 0 manually-triggered recordings and reported no symptoms. Other recordings demonstrated sinus rhythm without conduction or rhythm abnormalities. Final Interpretation: No sustained arrhythmias. Jack Díaz MD PROCEDURE/MINOR SURG ICAL ORDERABLES * (ABNORMAL) COMPREHENSIVE METABOLIC PANEL (08/22/2024 7:12 AM CDT) Glucose 166(H) 65 - 99 mg/dL [facility] Comment: Fasting reference interval For someone without known diabetes, a glucose value >125 mg/dL indicates that they may have diabetes and this should be confirmed with a follow-up test. BUN 10 7 - 25 mg/dL [facility] Creatinine 0.57(L) 0.70 - 1.28 mg/dL [facility] eGFR by Cystatin C 104 > OR = 60 mL/min/1.7 3m2 [facility] BUN/Creatinine Ratio 18 6 - 22 (calc) [facility] Sodium 138 135 - 146 mmol/L [facility] Potassium 4.2 3.5 - 5.3 mmol/L [facility] Chloride 100 98 - 110 mmol/L [facility] CO2 28 20 - 32 mmol/L [facility] Calcium 9.4 8.6 - 10.3 mg/dL [facility] Protein Total 7.4 6.1 - 8.1 g/dL [facility] Albumin 4.1 3.6 - 5.1 g/dL [facility] Globulin Total 3.3 1.9 - 3.7 g/dL (calc) [facility] Albumin/Globulin Ratio 1.2 1.0 - 2.5 (calc) [facility] Bilirubin Total 0.6 0.2 - 1.2 mg/dL [facility] Alkaline Phosphatase 109 35 - 144 U/L [facility] AST 61(H) 10 - 35 U/L [facility] ALT 58(H) 9 - 46 U/L [facility] Comment: Test Performed at: [facility] [address] [place] [address] CELESTE VENTURA MD 08/22/2024 7:12 AM CDT 08/22/2024 7:12 AM CDT Clif Sepulveda MD LAB - CHEMISTRY MARIJA LAGOS [facility] Organization Address City/State/ZIP Co de Phone Number [facility] [address] [place] [address] * HEPATITIS C AB W/RFLX TO HCV RNA QN PCR (09/07/2023 7:59 AM RN OUTPATIENT SURGERY) Pathologist [facility] Hepatitis C Antibody NON-REACTI VE NON-REACT DAVIAN [facility] Comment: HCV antibody was non-reactive. There is no laboratory evidence of HCV infection. In most cases, no further action is required. However, if recent HCV exposure is suspected, a test for HCV RNA (test code 26863) is suggested. For additional information please refer to http://education.Fluency/faq/NMQ75i9 (This link is being provided for informational/ educational purposes only.) Test Performed at: [facility] [address] [facility] [place] [address] CELESTE VENTURA MD Blood BLOOD SPECIMEN / Unknown 09/07/2023 7:59 AM RN OUTPATIENT SURGERY 09/07/2023 8:00 AM RN OUTPATIENT SURGERY Clif Sepulveda MD LAB - CHEMISTRY MARIJA LAGOS [facility] Organization Address City/State/ZIP Co de Phone Number [email or web address] [address] [place] [address] from Last 3 Months or Most Recently Relevant to Health Maintenance Advance Directives Documents on File Type Date Recorded Patient Supervisor Clam Bed Expl anation Adv Directive/Living Will/POA 05/16/2024 9:57 AM Care Teams Principal Engineer Relationship Specialty Start Date End Date Jason Joseph MD [address] [address] [place] [address] PCP - General Family Medicine 08/11/24
--- OUTSIDE RECORDS SUMMARY | 2024-12-10 08:36 | XMS_ITS | Referral Summary ---
Author Organization [facility] Address [address] [facility] [place] [address] Care Team Providers Care Housetrailer Servicer Name Role Phone Jason Joseph MD Primary Care Provider Source Comments [facility],non-owned Affiliates and Associated Physician Practices is amultiple site organization consisting of ambulatory clinics and hospital sitesin [place], [place], [place] and [place]. This disclosure is being madepursuant to the Care Everywhere program and may not contain all information available regarding this patient. Last updated 18.[facility] Encounters Date Type Department Care Team Description 11/03/2024 Travel 11/03/2024 3:00 PM HALAL BUTCHER Office Visit [facility] - Cardiology [address] [facility], [address] [phone] Jack Díaz MD Type 2 diabetes mellitus without complication, with long-term current use of insulin (HCC) (Primary Dx); Mixed hyperlipidemia; Nonrheumatic aortic valve stenosis 11/03/2024 2:00 PM HALAL BUTCHER Ancillary Procedure [facility] - Echosonography [address] [facility], [place] [id number] [place] [phone] Undiagnosed cardiac murmurs from Last 3 Months Allergies Active Allergy Reactions Criticality Noted Date [...] without complication Idiopathic chronic pancreatitis 08/11/2024 Cirrhosis (marta baird [facility]) 09/07/2023 Overview (09/07/2023): 09/06/23 Fibroscan CAP 291, LSM 9.7 kPa Chronic lymphocytic leukemia 06/12/2022 Osteopenia of multiple sites 06/16/2020 Resolved Problems Problem Noted Date Diagnosed Date Resolved Date 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 Immunizations Name Administration Dates Next Due TRUECar primary monoval ent 12+ yr 0.3mL Purple [...] 60YR+ 0.5ML 10/24/2023 TDAP, HISTORIC VACCINE 05/20/2021 Social History Tobacco Use Types Packs/Day Years [...] Comments Blood Pressure 120/60 11/03/2024 2:29 PM HALAL BUTCHER Pulse 64 11/03/2024 2:29 PM HALAL BUTCHER Temperature 36.6 C (97.9 F) 08/11/2024 12:56 PM CDT Respiratory Rate 18 11/03/2024 2:29 PM HALAL BUTCHER Oxygen Saturation 95% 11/03/2024 2:29 PM HALAL BUTCHER Inhaled Oxygen Concentration 40% 05/15/2024 9 :55 AM CDT Weight 77.1 kg (170 lb) 11/03/2024 2:29 PM HALAL BUTCHER Height 167.6 cm (5' 6 ) 08/28/2024 8:53 AM HALAL BUTCHER Body Mass Index 27.44 08/28/2024 8:53 AM HALAL BUTCHER Functional Status Functional Status Response Date of Assess ment Is person deaf or have serious hearing difficult y? No 05/15/2024 Is person blind or have serious difficulty seein g? No 05/15/2024 Does person have serious dif ficulty walking/climbing stairs? No 05/15/2024 Does person have difficulty dressing/bathing? No 05/15/2024 Does person have difficulty doing errands alone? No 05/15/2024 Cognitive Status Response Date of Assessm ent Does person have difficulty concentrating/remembering/making decisions? No 05/15/2024 Plan of Treatment Upcoming Encounters Date Type Department Care Team (Late st Contact Info) Description 02/26/2025 8:00 AM CDT Appointment [facility] CAT SCAN [address] [place] [address] Clif Sepulveda MD [address] [place] [phone] 02/26/2025 9:00 AM CDT Office Visit [facility] - [address] [facility], [place] [address] Clif Sepulveda MD [address] [place] [phone] 11/02/2025 11:00 AM HALAL BUTCHER Office Visit [facility] - Cardiology [address] [facility], [place] [address] [place] [address] Jack Díaz MD [address] [facility] [address] [place] [address] Goals Goal Patient Goal Type Associated Problems Recent Progress Patient-Stated? Author Medication Management General On track( 024 8:54 AM HALAL BUTCHER) Tyesha Mcdaniels, RN Note: Expected end date: ongoing Interventions: Take all medications as prescribed Let your doctor know right away about any changes in your medications Make sure to request a refill of your medication at least one week prior to your last dose Procedures Procedure Name Priority Date/Time Associated Diagnosis Comments ECHO COMPLETE Routine 11/03/2024 2:37 PM HALAL BUTCHER Undiagnosed cardiac murmurs PROC ROUSTABOUT CREW LEADER READ, 14 DAY Routine 09/10/2024 5:37 PM HALAL BUTCHER Palpitations COMPREHENSIVE METABOLIC PANEL 08/22/2024 7:12 AM CDT HEPATITIS C AB W/RFLX TO HCV RNA QN PCR Routine 09/07/2023 7:59 AM HALAL BUTCHER Hepatic cirrhosis, unspecified hepatic cirrhosis type, unspecified whether ascites present (HCC) Portal hypertension (HCC) from Last 3 Months or Most Recently Relevant to Health Maintenance Results * ECHO COMPLETE (11/03/2024 2:37 PM HALAL BUTCHER) IVSd 2D 0.784 cm SSM CV FUJ [...] LV A4C EF 68.288 % SSM CV [email or web address]] I PACS LV EDV A2C 66.889 ml SSM CV FU JI PACS LV EDV A4C 71.083 ml SSM CV FU JI PACS LV ESV A2C 18.242 ml SSM CV FU JI PACS LV ESV A4C 22.542 ml SSM CV FU JI PACS LVOT pk severo 147.691 cm/s SSM CV F UJI PACS LVOT VTI 29.498 cm SSM CV [facility] [[email or web address]] I PACS RVIDd 3.888 cm SSM CV [facility] [[email or web address]] I PACS RVOT pk severo 72.096 cm/s SSM CV F UJI PACS RVOT VTI 17.035 cm SSM CV [facility] [[email or web address]] I PACS LA vol BP 44.318 ml SSM CV [facility] [[email or web address] I PACS RA area 17.389 cm SSM CV [email or web address]I PACS AV mn grad 10.682 mmHg SSM CV FU PACS AV pk severo 246.694 cm/s SSM CV [facility] [[email or web address]] I PACS AV VTI 50.398 cm SSM CV [facility] [[email or web address]] I PACS MV A pk severo 84.034 cm/s SSM CV F U PACS MV E pk severo 77.343 cm/s SSM CV F UJI PACS MV E' lateral severo 9.18 cm/s SSM CV [facility] [[email or web address]]I PACS MV mn grad 1.653 mmHg SSM CV FU PACS MV VTI 28.445 cm SSM CV [facility] [[email or web address]] I PACS PV pk severo 135.591 cm/s SSM CV [facility] [[email or web address]] I PACS TAPSE 2.533 cm SSM CV [facility] [[email or web address]] I PACS TR pk severo 221.204 cm/s SSM CV [facility] [[email or web address] I PACS Ascending aorta 2.955 cm SSM CV [email or web address]I PACS IVC Diam Expiration 1.514 cm SSM CV [email or web address]I PACS Sinus of Valsalva 3.137 cm SSM CV [email or web address]I PACS LA vol index 0.023 l/m [facility] CV [email or web address]I PACS Myocardial strain charge 2 unitless SSM CV [facility] [[email or web address]I PACS Anatomical Region Laterality Modality Ultrasound 11/03/2024 3:14 PM HALAL BUTCHER Narrative 11/03/2024 2:49 PM HALAL BUTCHER Summary * The left ventricle is normal [...] 3:14 PM Patient Status: O Study Site: [facility] Primary Location: [facility] Info Exam Type: ECHO COMPLETE Indications R01.1 - Undiagnosed cardiac murmurs Procedure(s) * A complete 2D, color Doppler, spectral Doppler, and M-Mode transthoracic echocardiogram was performed. Staff Referring Physician: Jack Díaz Ordering Provider: Jack Díaz Podiatric Surgeon: Bhumika Kelley Left Ventricle The left ventricular [...] 3:14 PM Patient Status: O Study Site: [facility] Primary Location: [facility] Info Exam Type: ECHO COMPLETE Indications R01.1 - Undiagnosed cardiac murmurs Procedure(s) * A complete 2D, color Doppler, spectral Doppler, and M-Modetransthoracic echocardiogram was performed. Staff Referring Physician: Jack Díaz Ordering Provider: Jack Díaz Podiatric Surgeon: Bhumika Kelley Left Ventricle The left ventricular [...] Read - 14 Day (09/10/2024 5:37 PM HALAL BUTCHER) Narrative Jack Díaz MD - 09/10/2024 5:37 PM HALAL BUTCHER Jack Díaz MD 09/10/2024 5:41 PM Read [...] 46 U/L [facility] Comment: Test Performed at: [facility] [address] [place] [address] CELESTE VENTURA MD 08/22/2024 7:12 AM CDT 08/22/2024 7:12 AM CDT Clif Sepulveda MD LAB - CHEMISTRY MARIJA LAGOS Performing Organization Address [facility] Co de Phone Number [facility] [address] [place] [address] * HEPATITIS C AB W/RFLX TO HCV RNA QN PCR (09/07/2023 7:59 AM HALAL BUTCHER) Hepatitis C Antibody NON-REACTI VE NON-REACT DAVIAN [facility] Comment: HCV antibody was non-reactive. There is no laboratory evidence of HCV infection. In most cases, no further action is required. However, if recent HCV exposure is suspected, a test for HCV RNA (test code 77026) is suggested. For additional information please refer to http://education.[employer]/faq/XST28m2 (This link is being provided for informational/ educational purposes only.) Test Performed at: [facility] [address] [place] [address] CELESTE VENTURA MD Blood BLOOD SPECIMEN / Unknown 09/07/2023 7:59 AM HALAL BUTCHER 09/07/2023 8:00 AM HALAL BUTCHER Clif Sepulveda MD LAB - CHEMISTRY MARIJA LAGOS Performing Organization Address [facility] Co de Phone Number [facility] [address] [place] [address] from Last 3 Months or Most Recently Relevant to Health Maintenance Advance Directives Documents on File Type Date Recorded Patient Under Baster Expl anation Adv Directive/Living Will/POA 05/16/2024 9:57 AM Care Teams Housetrailer Servicer Relationship Specialty Start Date End Date Jason Joseph MD [address] [facility] [address] [place] [address] PCP - General Family Medicine 08/11/24
--- OUTSIDE RECORDS SUMMARY | 2024-12-10 08:37 | XMS_ITS | Encounter Summary ---
Author Organization [facility] Address [address] [place] [address] Care Team Providers Care Commercial Fisherman Name Role Phone Jason Joseph MD Primary Care Provider Jason Joseph MD Primary Care Provider Encounter Details Date Type Department Care Team (Late Contact Info) Description 12/27/2018 Lab Requisition [facility] DermPath Lab [address] [place] [phone] Kylah Olvera MD [address] [place] [address] [address] [place] [address] Social History Tobacco Use Types Packs/Day Years Used Date Smoking Tobacco: Never Assessed Sex and Gender Information Value Date Recorded Sex Assigned at Not on file Gender Identity Not on file Sexual Orientation Not on file documented as of this encounter Plan of Treatment Upcoming Encounters Date Type Department Care Team (Late Contact Info) Description 02/26/2025 8:00 AM CDT Appointment [facility] CAT SCAN [address] [place] [phone] Clif Sepulveda MD [facility] [place] [phone] 02/26/2025 9:00 AM CDT Office Visit [facility] - [address] [place] [phone] Clif Sepulveda MD [address] [place] [phone] 11/02/2025 11:00 AM REHAB PHYSICIAN Office Visit [facility] - Cardiology [address] [facility] [place] [phone] Jack Díaz MD [address] [facility] [address] [place] [address] documented as of this encounter Procedures Procedure Name Priority Date/Time Associated Diagnosis Comments DERMATOPATHOLOGY Routine 12/26/2018 12:0 0 AM REHAB PHYSICIAN documented in this encounter Results * DERMATOPATHOLOGY (12/26/2018 12:00 AM REHAB PHYSICIAN) Case Report Dermatopathology Report Case: [id number] Authorizing Provider: Kylah Olvera MD Collected: 12/26/2018 12:00 AM Pathologist: Lis Garcia MD Received: 12/27/2018 11:56 AM Specimen: Skin, left christianity 3:02 PM CDT DERMATOPATHOLOGY LABORATORY Final Diagnosis Specimen A. SKIN, left christianity: SEBORRHEIC KERATOSIS, RETICULATED (ADENOID) TYPE (L82.1) 3:02 PM CDT DERMATOPATHOLOGY LABORATORY Clinical History SK vs other. Failed LN2 x 2. 3:02 PM CDT DERMATOPATHOLOGY LABORATORY Gross Description Specimen A: Received is one formalin filled container labeled with the patient's name and designated left christianity. The specimen consists of a shave measuring [id number]. Jar 0. 3:02 PM CDT DERMATOPATHOLOGY LABORATORY Microscopic Description Specimen A. SKIN, left christianity: There is reticulated hyperplasia of the epidermis with overlying delicate hyperorthokeratosis . Hyperpigmentation is present in the basaloid cells. 3:02 PM CDT DERMATOPATHOLOGY LABORATORY AP Comment 3:02 PM CDT DERMATOPATHOLOGY LABORATORY Disclaimer An external and internal positive and negative controls are appropriate for the histochemical, immunohistochemical and immunofluorescence stain(s) in this case (if any), except where stated explicitly. The performance characteristics of the stain(s) cited in this report were developed and its performance characteristic determined by the Dermatopathology Laboratory at [facility], directed by Dr. Leonard Poole. These tests need not be, and therefore are not, approved by the [place] Food and Drug Administration. The tests are used for clinical purposes. Billing Codes Specimen Charges Stain Charges 80295 1 9 3:02 PM CDT DERMATOPATHOLOGY LABORATORY Embedded Images 9 3:02 PM CDT DERMATOPATHOLOGY LABORATORY Pathology/Cytolog y TISSUE SPECIMEN FROM SKIN / Unknown 12/26/2018 12/27/2018 11:56 AM REHAB PHYSICIAN Kylah Olvera MD LAB - PATHOLOGY/CYT OLOGY ORDERABLES DERMATOPATHOLOGY LABORATORY [facility] - Department of Dermatology [address] [place] [address] [address] [phone] documented in this encounter Visit Diagnoses Not on filedocumented in this encounter Care Teams Commercial Fisherman Relationship Specialty Start Date End Date Jason Joseph MD [address] [place] [address] PCP - General Family Medicine 09/07/23 08/10/24 Jason Joseph MD [address] [facility] [address] [place] [address] PCP - General Family Medicine 08/11/24 documented as of this encounter
--- OUTSIDE RECORDS SUMMARY | 2024-12-10 08:37 | XMS_ITS | Clinical Summary ---
Author Organization [facility] Chapito Salazar Address [address] [place] [address] Care Team Providers Care Lump Inspector Name Role Phone Jason Joseph MD Primary Care Provider Allergies Active Allergy Reactions Criticality Noted Date Comments Honey Other (See Comments) Low 06/03/2020 Venom-Honey Bee Itching Low 02/23/1975 Medications atorvastatin (LIPITOR) 20 mg tablet atorvastatin 20 mg tablet TK 1 T PO QD Active fenofibrate (LOFIBRA) 160 mg Tablet Take 160 mg by mouth daily. 2 Active fluorouraciL (EFUDEX) 5 % Cream APPLY TO AFFECTED AREA OF FACE AND HANDS TWICE DAILY FOR 2-4 WEEKS 1 Active levothyroxine 75 mcg tablet Take 75 mcg by mouth daily. 2 Active metFORMIN (GLUCOPHAGE XR) 500 mg Extended Release 24 hour tablet metformin ER 500 mg tablet,extended release 24 hr 1 Active sildenafiL, pulm.hypertensi on, (REVATIO) 20 mg Tablet sildenafil (pulmonary hypertension) 20 mg tablet TAKE 2 TO 3 TABLETS BY MOUTH NEEDED FOR ED Active tamsulosin (FLOMAX) 0.4 mg capsule Take 0.4 mg by mouth daily. 2 Active FreeStyle Brenton 14 Day Sensor Kit DIRECTED 2 Active insulin glargine (LANTUS) 100 unit/mL pen syringe Inject 16 Units by subcutaneous injection one time only. Active insulin aspart U-100 (NovoLOG Flexpen U-100 Insulin) 100 unit/mL pen syringe Inject by subcutaneous injection. Active Active Problems Problem Noted Date Diagnosed Date Pancytopenia 06/27/2022 CLL (chronic lymphocytic leukemia) 06/12/2022 Encounters Date Type Department Care Team Description 11/12/2024 External Device Data STL ABSTRACTION Provider, Abstract 11/12/2024 External Device Data ST[facility] ABSTRACTION Provider, Abstract 11/05/2024 External Device Data ST[facility] ABSTRACTION Provider, Abstract from Last 3 Months Family History Medical History Relation Name Comments Cancer Father Cancer Mother Cancer Sister Relation Name Status Comments Father Mother Sister Alive Social History Tobacco Use Types Packs/Day Years Used Date Smoking Tobacco: Never Smokeless Tobacco: Never Alcohol Use Standard Drinks/Week Comments Never 0 (1 standard drink = 0.6 oz pur e alcohol) Sex and Gender Information Value Date Recorded Sex Assigned at Not on file Legal Sex Male 11:44 AM CDT Gender Identity Not on file Sexual Orientation Not on file Last Filed Vital Signs Vital Sign Reading Time Taken Comments Blood Pressure 114/60 06/05/2024 9:49 AM CDT Pulse 58 06/05/2024 9:49 AM CDT Temperature 36.7 C (98 F) 06/05/2024 9:49 AM CDT Respiratory Rate 18 06/05/2024 9:49 AM CDT Oxygen Saturation 97% 06/05/2024 9:49 AM CDT Inhaled Oxygen Concentration - - Weight 71.7 kg (158 lb) 06/05/2024 9:49 AM CDT Height 167.6 cm (5' 6 ) 06/27/2022 11:08 AM CDT Body Mass Index 25.5 06/27/2022 11:08 AM CDT Plan of Treatment Upcoming Encounters Date Type Department Care Team (Late st Contact Info) Description 12/11/2024 10:00 AM GALLERY OR MUSEUM ATTENDANT Office Visit [facility] Oncology and Hematology - [place] [address] [facility] [address] [place] [address] Kwadwo Ford MD [address] [facility] [address] [place] [address] Health Maintenance Due Date Last Done Comments DIABETES ANNUAL FOOT EXAM 1970 DIABETES MICROALBUMIN ANNUAL SCREEN 1970 LDL CHOLESTEROL ANNUAL 1970 PNEUMOCOCCAL VACCINE 65+ YEA RS (1 of 2 - PCV) 1971 Traditional Medicare (ACO) A nnual Wellness Visit 1971 ZOSTER VACCINE (1 of 2) 1971 FIT-DNA Q 3 years 1997 FIT/FOBT Q 1 year 1997 Flex Sig/CT Colonography Q 5 years 1997 RSV VACCINE (60+ or ) (1 - Risk 60-74 years 1-dose series) 2012 INFLUENZA VACCINE (#1) 2024 , 08/01/2022, 07/20/2021, Additional history exists COVID-19 Vaccine ( - 2023-2 5 season) 2024 06/08/2021, 01/02/2021, 12/05/2020 DIABETES ANNUAL RETINAL EXAM 10/05/2024, 10/05/2023, 10/04/2021, Additional history exists DIABETES HBA1C Q 6 MONTHS 10/31/20242023, 10/10/2023, 04/02/2023, Additional history exists DTAP/TDAP/TD VACCINES (2 - T d or Tdap) 05/20/2031 05/20/2021 COLORECTAL SCREENING 11/03/2032 11/03/2022 Colorectal Cancer Screening 11/03/[address] [place] [address] MEDICARE PART A AND B [facility] Care Teams Lump Inspector Relationship Specialty Start Date End Date Jason Joseph MD [address] [place] [address] PCP - General Family Practice 06/27/22
--- OUTSIDE RECORDS SUMMARY | 2024-12-10 08:37 | XMS_ITS | Encounter Summary ---
Author Organization [facility] Address [address] [facility] [place] [address] Phone Care Team Providers Care Manager Action Name Role Phone Savanah Moss MD Primary Care Provider Savanah Moss MD Primary Care Provider [phone] Savanah Moss MD Unavailable Vignesh Bean MD Unavailable [phone] Encounter Details Date Type Department Care Team (Latest Contact Info) Description 02/13/2019 Orders Only [facility] Scanning, Provider Social History Tobacco Use Types Packs/Day Years Used Date Smoking Tobacco: Never Smokeless Tobacco: Never Alcohol Use Standard Drinks/Week Comments No 0 (1 standard drink = 0.6 oz pur e alcohol) Sex and Gender Information Value Date Recorded Sex Assigned at Not on file Legal Sex Male 2: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 Gender Identity Male 06/01/2020 10:59 PM CDT Sexual Orientation Straight 06/01/2020 10 :59 PM CDT documented as of this encounter Plan of Treatment Not on file documented as of this encounter Procedures Procedure Name Priority Date/Time Associated Diagnosis Comments SCAN - LABS 02/13/2019 documented in this encounter Results * SCAN - LABS (02/13/2019) us Provider Scanning Final Result documented in this encounter Visit Diagnoses Not on filedocumented in this encounter Care Teams Manager Action Relationship Specialty Start Date End Date Isa, K Max, MD [address] [place] [address] PCP - General 10/06/11 10/27/19 Savanah Moss MD [address] [place] [address] PCP - General 10/28/19 Savanah Moss MD [address] [place] [address] 10/28/19 Vignesh Bean MD [address] [place], [place] [id number] Medical Oncologist/Dining Room Attendant Cafeter[facility] Hematology and Oncology 10/30/18 documented as of this encounter
--- OUTSIDE RECORDS SUMMARY | 2024-12-10 08:37 | XMS_ITS | Clinical Summary ---
Author Organization [facility] [address] Address [address] [place] [address] Care Team Providers Care Production Control Expert Name Role Phone Savanah Moss MD Primary Care Provider [phone] Savanah Moss MD Unavailable Vignesh Bean MD Unavailable [phone] Allergies Active Allergy Reactions Criticality Noted Date Comments Honey Other (See comments) Low 06/03/2020 Other Unknown Low 05/08/2019 Honey and bee stings Venom-Honey Bee Itching Low 02/23/1975 Medications traZODone (DESYREL) 50 mg tablet TK 1 T PO QD 0 8 Active tamsulosin (FLOMAX) 0.4 mg extended release capsule TK 1 C PO ONCE D [address] (PROTONIX) 40 mg EC tablet TK 1 T PO D 4 8 Active levothyroxine (SYNTHROID, LEVOTHROID) 75 mcg tablet TK 1 T PO D 3 8 Active glimepiride (AMARYL) 4 mg tabletIndications :type 2 diabetes mellitus TK 1 T PO D 3 8 Active fenofibrate (TRIGLIDE) 160 mg tablet TK 1 T PO QHS 3 8 Active atorvastatin (LIPITOR) 20 mg tablet TK 1 T PO QD 0 8 Active sildenafil, antihypertensive, (REVATIO) 20 mg tabletIndications :Pulmonary Arterial Hypertension Take 20 mg by mouth as directed Twice a week Active finasteride (PROSCAR) 5 mg tablet TK 1 T PO D 4 9 Active ONETOUCH DELICA LANCETS 33 gauge misc U UTD D FOR 30 DAYS 3 9 Active fluorouraciL (EFUDEX) 5 % cream APPLY TO AFFECTED AREA OF FACE AND HANDS TWICE DAILY FOR 2-4 WEEKS 1 Active Trulicity 3 mg/0.5 mL pen injector 1 Active metFORMIN XR (GLUCOPHAGE XR) 500 mg 24 hr tablet Take 1,000 mg by mouth 2 (two) times a day 1 Active Jardiance 10 mg tablet Take 10 mg by mouth daily 1 Active ezetimibe (ZETIA) 10 mg tablet Take 10 mg by mouth daily 1 Active Active Problems Problem Noted Date Diagnosed Date Osteopenia of multiple sites 06/16/2020 Fracture, Colles, right, closed 03/12/2020 Acute pain of right shoulder 12/31/2019 Closed fracture of right distal radius 0 Chronic lymphoid leukemia, w ithout mention of having achieved remission(204.10) (CMS/HCC) 05/08/2018 Immunizations Immunization Administration Dates Next Due Influenza, Quad, Adjuvantate d, Intramuscular 07/09/2020 Influenza, Trivalent, Adjuva nted, Intramuscular 07/03/2019 Influenza, Trivalent, High D ose, Split, Preservative Free, Intramuscular 07/09/2018 Pfizer SARS-CoV-2 Monovalent Vaccination (12+ Yrs) PURPLE 06/08/2021,01/02/2021,12/05/2020 Surgical History Surgery Date Site/Laterality Comments WRIST FRACTURE SURGERY TRANSDUODENAL SPHINCTEROTOMY / SPHINCTEROPLASTY 10/22/2009 - 11/21/2009 COLONOSCOPY Medical History Medical History Date Comments Diabetes mellitus (HCC) Leukemia (HCC) H/O wrist surgery 11/06/2019 Gastric reflux Osteoporosis Family History Medical History Relation Name Comments Breast cancer Father Family history of malignant neoplasm of breast - (Added by TW Conv) Heart disease Father Family history of cardiac disorder - (Added by TW Conv) Leukemia Father Family history of leukemia - (Added by TW Conv) Stroke Father Family history of cerebrovascular accident - (Added by TW Conv) Breast cancer Mother Family history of malignant neoplasm of breast - (Added by TW Conv) Colon cancer Mother Colon cancer - (Added by TW Conv) Heart disease Mother Family history of cardiac disorder - (Added by TW Conv) Leukemia Mother Family history of leukemia - (Added by TW Conv) Stroke Mother Family history of cerebrovascular accident - (Added by TW Conv) Heart disease Other 1 Family history of cardiac disorder - (Added by TW Conv) Stroke Other 2 Family history of cerebrovascular accident - (Added by TW Conv) Breast cancer Sister 1 Family history of malignant neoplasm of breast - (Added by TW Conv) Heart disease Sister 2 Family history of cardiac disorder - (Added by TW Conv) Stroke Sister 3 Family history of cerebrovascular accident - (Added by TW Conv) Relation Name Status Comments Father Mother Other 1 Other 2 Sister 1 Sister 2 Sister 3 Social History Tobacco Use Types Packs/Day Years Used Date Smoking Tobacco: Never Smokeless Tobacco: Never Alcohol Use Standard Drinks/Week Comments No 0 (1 standard drink = 0.6 oz pur e alcohol) Sex and Gender Information Value Date Recorded Sex Assigned at Not on file Legal Sex Male 2:00 AM NUCLEAR MEDICINE OFFICER Gender Identity Male 06/01/2020 10:59 PM CDT Sexual Orientation Straight 06/01/2020 10 :59 PM CDT Obstetrics History Last Filed Vital Signs Vital Sign Reading Time Taken Comments Blood Pressure 120/77 12/02/2021 10:24 AM NUCLEAR MEDICINE OFFICER Pulse 66 12/02/2021 10:24 AM NUCLEAR MEDICINE OFFICER Temperature 36.6 C (97.9 F) 12/02/2021 10:24 AM NUCLEAR MEDICINE OFFICER Respiratory Rate 16 12/02/2021 10:2 4 AM NUCLEAR MEDICINE OFFICER Oxygen Saturation 96% 12/02/2021 10: 24 AM NUCLEAR MEDICINE OFFICER Inhaled Oxygen Concentration - - Weight 70.2 kg (154 lb 12.8 oz) 022 10:24 AM NUCLEAR MEDICINE OFFICER Height 170.2 cm (5' 7 ) 12/02/2021 10:2 4 AM NUCLEAR MEDICINE OFFICER Body Mass Index 24.25 12/02/2021 10:24 AM NUCLEAR MEDICINE OFFICER Plan of Treatment Health Maintenance Due Date Last Done Comments Colon Cancer Screening-Colonoscopy 1950 Depression Screening 1950 Fall Risk Assessment 1950 Hepatitis C Screening 1950 DTaP/Tdap/Td Vaccine (1 - Tdap) 1963 Hepatitis B Screening 1970 Pneumococcal vaccine 65+ (1 of 1 - PCV) 2002 Zoster Vaccine (1 of 2) 2002 Abdominal Aortic Aneurysm (A AA) Screen 2017 Well Visit 65+ 2017 Covid-19 Vaccine ( season) 2024 06/08/2021, 01/02/2021, 12/05/2020 Influenza Vaccine (#1) 2024 , 07/03/2019, 07/09/2018 Insurance MEDICARE [facility] MEDICARE MEDICARE [facility] WORKERS COMPENSATION GENERIC Care Teams Production Control Expert Relationship Specialty Start Date End Date Savanah Moss MD [address] [place] [address] PCP - General 10/28/19 Savanah Moss MD [address] [place] [address] 10/28/19 Vignesh Bean MD [address] [place] [address] Medical Oncologist/Resource Room Teacher Hematology and Oncology 10/30/18
--- OUTSIDE RECORDS SUMMARY | 2024-12-10 08:37 | XMS_ITS | Clinical Summary ---
Author Organization [facility] Address [address] [place] [id number] Care Team Providers Care Blueprint Tracer Name Role Phone Silverio Moss MD Primary Care Provider [phone] Social History Tobacco Use Types Packs/Day Years Used Date Smoking Tobacco: Never Assessed Sex and Gender Information Value Date Recorded Sex Assigned at Not on file Legal Sex Male 8:00 PM CDT Gender Identity Not on file Sexual Orientation Not on file Plan of Treatment Health Maintenance Due Date Last Done Comments Colorectal Cancer Screening Colonoscopy (10 Years) 1952 Hepatitis C 1970 DTaP, Tdap and Td Vaccines ( 1 - Tdap) 1971 Zoster Vaccines (1 of 2) 2002 Annual Medicare Wellness Visit 2017 Pneumococcal Vaccine: 65+ Ye ars (1 of 1 - PCV) 2017 COVID-19 Vaccine ( - 2023-2 5 season) 2024 Influenza Adult (#1) 2024 RSV Immunization or 60+ Years (1 - 1-dose 75+ series) 2027 Meningococcal B Vaccine Aged Out No l onger eligible based on patient's age to complete this topic Meningococcal Vaccine Aged Out No marcy lauryn eligible based on patient's age to complete this topic RSV Immunizations Under 20 Months Aged Out No longer eligible based on patient's age to complete this topic Insurance MEDICARE [facility] Care Teams Blueprint Tracer Relationship Specialty Start Date End Date Silverio Moss MD [address] [place] [address] PCP - General FAMILY PRACTICE 10/08/19
--- OUTSIDE RECORDS SUMMARY | 2024-12-10 08:37 | XMS_ITS | Patient Health Summary ---
Author Organization [facility] Address [address] [place] [address] Care Team Providers Care Machine Assistant Name Role Phone Jason Joseph MD Primary Care Provider Note from [facility],non-owned Affiliates and Associated Physician Practices is amultiple site organization consisting of ambulatory clinics and hospital sitesin [place], [place], [place] and [place]. This disclosure is being madepursuant to the Care Everywhere program and may not contain all information available regarding this patient. Last updated 18.[facility] Allergies * Bee Venom(Itching) -Low Criticality * Honey(Other) -Low Criticality,Inactive Medications * Be aware that medications may not be up to date on this document. Alwaysverify current medications with the patient. * Multiple Vitamins-Minerals (CENTRUM SILVER PO) * ferrous sulfate 325 (65 FE) MG tablet Take 1 (one) tablet by mouth once daily * finasteride (Proscar) 5 MG tablet(Started 03/21/2022) Per instructions DAILY (route: oral) * levothyroxine (Synthroid) 100 MCG tablet(Started 06/19/2023) Take 1 (one) tablet by mouth once daily * metFORMIN ER 24hr (Glucophage XR) 500 MG tablet(Started 07/19/2023) Take 2 (two) tablets by mouth 2 times daily * pantoprazole EC (Protonix) 40 MG tablet(Started 03/16/2023) Take 1 (one) tablet by mouth as needed for Heartburn 3 times per week * lidocaine 1.5%-NIFEdipine 0.3% compounded ointment Apply to affected area as needed 1 g rectally BID * Basaglar KwikPen (Basaglar) pen Inject 22 (twenty two) Units subcutaneously once daily * atorvastatin (Lipitor) 20 MG tablet Take 1 (one) tablet by mouth at bedtime patient only takes 4-5 times per week * cyanocobalamin (Vitamin B-12) 1000 MCG tablet Take 1 (one) tablet by mouth once daily * sildenafil (Viagra) 100 MG tablet(Started 01/11/2024) Take 1 (one) tablet by mouth once daily * insulin aspart (NovoLOG) pen Inject 12 (twelve) Units subcutaneously 3 times daily before meals Sliding scale * vitamin D3 (Cholecalciferol) 25 MCG (1000 UNITS) tablet Take 1 (one) tablet by mouth once daily * fish oil/omega-3 fatty acids (Promega;Cardi-[place] 3) 1000 MG capsule Take 1 (one) capsule by mouth 3 times daily with meals * Multiple Vitamins-Minerals (EYE VITAMINS PO) Take by mouth once Active Problems Problem Noted Date Diagnosed Date Nonrheumatic aortic valve stenosis 11/03/2024 Mixed hyperlipidemia 08/11/2024 Type 2 diabetes mellitus without complication Idiopathic chronic pancreatitis 08/11/2024 [facility] 09/07/2023 Chronic lymphocytic leukemia 06/12/2022 Osteopenia of multiple sites 06/16/2020 Resolved Problems Problem Noted Date Diagnosed Date Resolved Date 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 (FLUAD TRIVALENT; 65Y+) (AIIV3)(Given 07/03/2019) * INFLUENZA VACCINE, HIGH-DOSE, QUADR. (FLUZONE HIGH-DOSE QUADRIVALENT; 65Y+), 0.7 ML (HD-IIV4)(Given 07/31/2023, 08/01/2022, 07/20/2021, 07/09/2018) * INFLUENZA VACCINE, HIGH-DOSE, TRIV. (FLUZONE HIGH-DOSE TRIVALENT; 65Y+) (HD-IIV3)(Given 07/12/2018, 07/08/2018, 07/20/2017) * INFLUENZA VACCINE, TRIV. (FLUZONE; FLULAVAL; FLUARIX; AFLURIA TRIVALENT; 6MO+), 0.5 ML (IIV3)(Given 07/09/2020, 07/02/2016, 07/09/2015) * RSV AREXVY 60YR+ 0.5ML(Given 10/24/2023) * TDAP, HISTORIC VACCINE(Given 05/20/2021) Social History Tobacco Use Types Packs/Day Years [...] Comments Blood Pressure 120/60 11/03/2024 2:29 PM [employer] Pulse 64 11/03/2024 2:29 PM [employer] Temperature 36.6 C (97.9 F) 08/11/2024 12:56 PM CDT Respiratory Rate 18 11/03/2024 2:29 PM [employer] Oxygen Saturation 95% 11/03/2024 2:29 PM [employer] Inhaled Oxygen Concentration 40% 05/15/2024 9 :55 AM CDT Weight 77.1 kg (170 lb) 11/03/2024 2:29 PM [employer] Height 167.6 cm (5' 6 ) 08/28/2024 8:53 AM [employer] Body Mass Index 27.44 08/28/2024 8:53 AM [employer] Procedures * ECHO COMPLETE(Performed 11/03/2024) Performed for Undiagnosed cardiac murmurs * PROC CHOIR TEACHER READ, 14 DAY(Performed 09/10/2024) Performed for Palpitations * US ABDOMEN LIMITED(Performed 08/28/2024) Performed for Hepatic fibrosis * ALPHA FETOPROTEIN BLOOD TUMOR MARKER(Performed 08/22/2024) * PT-INR(Performed 08/22/2024) * CBC W AUTO DIFFERENTIAL(Performed 08/22/2024) * COMPREHENSIVE METABOLIC PANEL(Performed 08/22/2024) * BILIRUBIN DIRECT(Performed 08/22/2024) * EKG 12-LEAD(Performed 08/11/2024) Performed for Palpitations * CARDIAC HOLTER MONITOR ORDER(Performed 08/11/2024) * PREPARE RBC LEUKOREDUCED UNIT(Performed 05/16/2024) * GLUCOSE - POINT OF CARE(Performed 05/15/2024) * PATHOLOGY TISSUE(Performed 05/15/2024) Performed for Biliary calculus of other site with obstruction * ENDOTRACHEAL TUBE NOTE(Performed 05/15/2024) * DE LAP,CHOLECYSTECTOMY(Performed 05/15/2024) Performed for Biliary calculus of other site with obstruction * GLUCOSE - POINT OF CARE(Performed 05/15/2024) * TYPE + SCREEN PANEL(Performed 05/15/2024) Performed for Pre-op evaluation * CBC W/O DIFFERENTIAL(Performed 05/15/2024) Performed for Pre-op evaluation * TYPE + SCREEN PANEL(Performed 04/22/2024) Performed for Pre-op evaluation * CBC W/O DIFFERENTIAL(Performed 04/22/2024) Performed for Cirrhosis of liver without ascites, unspecified hepatic cirrhosis type (HCC) * PT-INR [facility](Performed 04/22/2024) Performed for Cirrhosis of liver without ascites, unspecified hepatic cirrhosis type (HCC) * COMPREHENSIVE METABOLIC PANEL(Performed 04/22/2024) Performed for Cirrhosis of liver without ascites, unspecified hepatic cirrhosis type (HCC) * EKG 12-LEAD(Performed 04/22/2024) Performed for Pre-op examination * ALPHA FETOPROTEIN BLOOD TUMOR MARKER(Performed 03/24/2024) Performed for Hepatic fibrosis * BILIRUBIN DIRECT(Performed 03/24/2024) Performed for Hepatic fibrosis * COMPREHENSIVE METABOLIC PANEL(Performed 03/24/2024) Performed for Hepatic fibrosis * CBC W AUTO DIFFERENTIAL(Performed 03/24/2024) Performed for Hepatic fibrosis * US ABDOMEN LIMITED(Performed 03/20/2024) Performed for Hepatic cirrhosis, unspecified hepatic cirrhosis type, unspecified whether ascites present (HCC) * PLATELET ESTIMATE REFLEXED(Performed 09/07/2023) Performed for Hepatic cirrhosis, unspecified hepatic cirrhosis type, unspecified whether ascites present (HCC) * CBC W AUTO DIFFERENTIAL(Performed 09/07/2023) Performed for Hepatic cirrhosis, unspecified hepatic cirrhosis type, unspecified whether ascites present (HCC), Portal hypertension (HCC) * COMPREHENSIVE METABOLIC PANEL(Performed 09/07/2023) Performed for Hepatic cirrhosis, unspecified hepatic cirrhosis type, unspecified whether ascites present (HCC), Portal hypertension (HCC) * PT-INR(Performed 09/07/2023) Performed for Hepatic cirrhosis, unspecified hepatic cirrhosis type, unspecified whether ascites present (HCC), Portal hypertension (HCC) * BILIRUBIN DIRECT(Performed 09/07/2023) Performed for Hepatic cirrhosis, unspecified hepatic cirrhosis type, unspecified whether ascites present (HCC), Portal hypertension (HCC) * ALPHA FETOPROTEIN BLOOD TUMOR MARKER(Performed 09/07/2023) Performed for Hepatic cirrhosis, unspecified hepatic cirrhosis type, unspecified whether ascites present (HCC), Portal hypertension (HCC) * HEPATITIS C AB W/RFLX TO HCV RNA QN PCR(Performed 09/07/2023) Performed for Hepatic cirrhosis, unspecified hepatic cirrhosis type, unspecified whether ascites present (HCC), Portal hypertension (HCC) * HUMPHREY BLOOD SCREEN W/REFLEX TITER(Performed 09/07/2023) Performed for Hepatic cirrhosis, unspecified hepatic cirrhosis type, unspecified whether ascites present (HCC), Portal hypertension (HCC) * IRON + TIBC + FERRITIN(Performed 09/07/2023) Performed for Hepatic cirrhosis, unspecified hepatic cirrhosis type, unspecified whether ascites present (HCC), Portal hypertension (HCC) * [id number] BLOOD(Performed 09/07/2023) Performed for Hepatic cirrhosis, unspecified hepatic cirrhosis type, unspecified whether ascites present (HCC), Portal hypertension (HCC) * GGT(Performed 09/07/2023) Performed for Hepatic cirrhosis, unspecified hepatic cirrhosis type, unspecified whether ascites present (HCC), Portal hypertension (HCC) * SMOOTH MUSCLE ANTIBODY(Performed 09/07/2023) Performed for Hepatic cirrhosis, unspecified hepatic cirrhosis type, unspecified whether ascites present (HCC), Portal hypertension (HCC) * MITOCHONDRIAL ANTIBODY SCREEN(Performed 09/07/2023) Performed for Hepatic cirrhosis, unspecified hepatic cirrhosis type, unspecified whether ascites present (HCC), Portal hypertension (HCC) * HEPATITIS A ANTIBODY(Performed 09/07/2023) Performed for Hepatic cirrhosis, unspecified hepatic cirrhosis type, unspecified whether ascites present (HCC), Portal hypertension (HCC) * HEPATITIS B SURFACE ANTIGEN W RFLX CONFIRMATION(Performed 09/07/2023) Performed for Hepatic cirrhosis, unspecified hepatic cirrhosis type, unspecified whether ascites present (HCC), Portal hypertension (HCC), Encounter for screening for other viral diseases * HEPATITIS B SURFACE ANTIBODY(Performed 09/07/2023) Performed for Hepatic cirrhosis, unspecified hepatic cirrhosis type, unspecified whether ascites present (HCC), Portal hypertension (HCC), Encounter for screening for other viral diseases * HEPATITIS B CORE ANTIBODY TOTAL(Performed 09/07/2023) Performed for Hepatic cirrhosis, unspecified hepatic cirrhosis type, unspecified whether ascites present (HCC), Portal hypertension (HCC), Encounter for screening for other viral diseases * CERULOPLASMIN(Performed 09/07/2023) Performed for Hepatic cirrhosis, unspecified hepatic cirrhosis type, unspecified whether ascites present (HCC), Portal hypertension (HCC) * IGG BLOOD(Performed 09/07/2023) Performed for Hepatic cirrhosis, unspecified hepatic cirrhosis type, unspecified whether ascites present (HCC), Portal hypertension (HCC) * DE LIVER ELASTOGRAPHY(Performed 09/06/2023) Performed for Hepatic cirrhosis, unspecified hepatic cirrhosis type, unspecified whether ascites present (HCC) * DERMATOPATHOLOGY(Performed 12/26/2018) * DERMATOPATHOLOGY(Performed 06/21/2017) * DERMATOPATHOLOGY(Performed 07/27/2016) * DERMATOPATHOLOGY(Performed 05/18/2011) Results * ECHO COMPLETE (11/03/2024 2:37 PM [employer]) IVSd 2D 0.784 cm SSM CV FUJ [...] Region Laterality Modality Ultrasound 11/03/2024 3:14 PM [employer] Narrative 11/03/2024 2:49 PM [employer] Summary * The left ventricle is normal [...] 3:14 PM Patient Status: O Study Site: [facility] Primary Location: [facility] Exam Type: ECHO COMPLETE Indications R01.1 - Undiagnosed cardiac murmurs Procedure(s) * A complete 2D, color Doppler, spectral Doppler, and M-Mode transthoracic echocardiogram was performed. Staff Referring Physician: Irma Díaz Ordering Provider: Irma Díaz Filament Shaper: Bhumika Kelley Left Ventricle The left ventricular [...] 3:14 PM Patient Status: O Study Site: [facility] Primary Location: [facility] Exam Type: ECHO COMPLETE Indications R01.1 - Undiagnosed cardiac murmurs Procedure(s) * A complete 2D, color Doppler, spectral Doppler, and M-Modetransthoracic echocardiogram was performed. Staff Referring Physician: Irma Díaz Ordering Provider: Irma Díaz Filament Shaper: Bhumika Kelley Left Ventricle The left ventricular [...] 27 ml/m2 16-34 Report Signatures Finalized by Belssing Medley MD on 11/03/2024 02:49 PM Irma Díaz MD ECHO CUPID * Holter Read - 14 Day (09/10/2024 5:37 PM [employer]) Narrative Irma Díaz MD - 09/10/2024 5:37 PM [employer] Irma Díaz MD 09/10/2024 5:41 PM Read Date: [...] rhythm abnormalities. Final Interpretation: No sustained arrhythmias. Irma Díaz MD PROCEDURE/MINOR SURG ICAL ORDERABLES * US ABDOMEN LIMITED (08/28/2024 8:35 AM [employer]) Only the most recent of2 resultswithin the time period is included. Anatomical Region Laterality Modality Abdomen Ultrasound 08/28/2024 8:41 AM [employer] Impressions 08/28/2024 1:53 PM [employer] IMPRESSION: Liver Visualization Score B: Moderate limitations. US-1 Negative. Repeat surveillance US in 6 months. Patent hepatic vasculature. 1.Hepatic cirrhosis and steatosis without discrete hepatic lesion. 2.Status post cholecystectomy. Report drafted by Dominick Syed MD > Dictated by Dominick Syed MD (Report Clerk) 08/28/2024 8:41 AM ILali MD have personally reviewed and interpreted this examination/study. > Interpreting Provider: Lali Pope MD on 08/28/2024 1:53 PM Narrative 08/28/2024 1:53 PM [employer] PROCEDURE: US ABDOMEN LIMITED, DATE/TIME OF EXAM: 08/28/2024 8:35 AM, LOCATION [facility] INDICATION: K74.00: Hepatic fibrosis COMPARISON: Abdomen ultrasound from 03/20/2024 FINDINGS: Liver Visualization Score: Moderate limitations in liver visualization Liver Morphology: The liver has a coarse echotexture and nodular surface and exhibits mildly increased echogenicity. Liver Observations: None. Main Portal Vein: Color Doppler evaluation demonstrates patency of the main portal vein. Hepatic Veins: Color Doppler evaluation demonstrates patency of the hepatic veins. Bile Ducts: The common bile duct is nondilated, measuring 2.7 mm. No intrahepatic or extrahepatic biliary dilation. Gallbladder: The gallbladder is absent. Ascites: No ascites is present. Spleen: The spleen measures 14.3 cm in length. Pancreas: The visible pancreas is normal in echogenicity. Right Kidney: The right kidney measures 10.6 cm in length. Limited views of the right kidney reveal no evidence of nephrolithiasis or hydronephrosis. No discrete mass identified. Procedure Note Christie Pope MD - 08/28/2024 PROCEDURE: US ABDOMEN LIMITED, DATE/TIME OF EXAM: 08/28/2024 8:35 AM, LOCATION [facility] INDICATION: K74.00: Hepatic fibrosis COMPARISON: Abdomen ultrasound from 03/20/2024 FINDINGS: Liver Visualization Score: Moderate limitations in liver visualization Liver Morphology: The liver has a coarse echotexture and nodular surface and exhibitsmildly increased echogenicity. Liver Observations: None. Main Portal Vein: Color Doppler evaluation demonstrates patency of the main portal vein. Hepatic Veins: Color Doppler evaluation demonstrates patency of the hepatic veins. Bile Ducts: The common bile duct is nondilated, measuring 2.7 mm. No intrahepatic or extrahepatic biliary dilation. Gallbladder: The gallbladder is absent. Ascites: No ascites is present. Spleen: The spleen measures 14.3 cm in length. Pancreas: The visible pancreas is normal in echogenicity. Right Kidney: The right kidney measures 10.6 cm in length. Limited views of the right kidney reveal no evidence of nephrolithiasis or hydronephrosis. No discrete mass identified. IMPRESSION: Liver Visualization Score B: Moderate limitations. US-1 Negative. Repeat surveillance US in 6 months. Patent hepatic vasculature. 1.Hepatic cirrhosis and steatosis without discrete hepatic lesion. 2.Status post cholecystectomy. Report drafted by Dominick Syed MD > Dictated by Dominick Syed MD (Report Clerk) 08/28/2024 8:41 AM ILali MD have personally reviewed and interpreted this examination/study. > Interpreting Provider: Lali Pope MD on 08/28/2024 1:53 PM Clif Sepulveda MD US ORDERABLES * ALPHA FETOPROTEIN BLOOD TUMOR MARKER (08/22/2024 7:12 AM CDT) Only the most recent of3 resultswithin the time period is included. Alpha-Fetoprotei n Tumor Marker 2.9 <6.1 ng/mL [facility] Comment: This test was performed using the [place] chemiluminescent method. Values obtained from different assay methods cannot be used interchangeably. AFP levels, regardless of value, should not be interpreted as absolute evidence of the presence or absence of disease. Test Performed at: [facility] [address] [address] MATTHEW BROOKS 08/22/2024 7:12 AM CDT 08/22/2024 7:12 AM CDT Clif Sepulveda MD LAB - CHEMISTRY ORDE DEMOND Performing Organization Address [facility] Co de Phone Number [address] [address] * (ABNORMAL) PT-INR (08/22/2024 7:12 AM CDT) Only the most recent of2 resultswithin the time period is included. INR 1.2(H) [facility] Comment: Reference Range 0.9-1.1 Moderate-intensity Warfarin Therapy 2.0-3.0 Higher-intensity Warfarin Therapy 3.0-4.0 PT 12.3(H) 9.0 - 11.5 sec [facility] Comment: For additional information, please refer to http://education.rankur.3rd Planet/faq/LXV413 (This link is being provided for informational/ educational purposes only.) Test Performed at: [facility] [address] CELESTE VENTURA MD 08/22/2024 7:12 AM CDT 08/22/2024 7:12 AM CDT Clif Sepulveda MD LAB - COAGULATION OR DERABLES Performing Organization Address [facility] de Phone Number [address] [address] * (ABNORMAL) CBC WITH DIFFERENTIAL (08/22/2024 7:12 AM CDT) Only the most recent of3 resultswithin the time period is included. White Blood Cell Count 3.0(L) 3.8 - 10.8 Thousand/ uL [facility] RBC 4.28 4.20 - 5.80 Million/u L [facility] Hemoglobin 13.7 13.2 - 17.1 g/dL [facility] Hematocrit 41.3 38.5 - 50.0 % [facility] MCV 96.5 80.0 - 100.0 fL [facility] MCH 32.0 27.0 - 33.0 pg [facility] MCHC 33.2 32.0 - 36.0 g/dL [facility] Comment: For adults, a slight decrease in the calculated MCHC value (in the range of 30 to 32 g/dL) is most likely not clinically significant; however, it should be interpreted with caution in correlation with other red cell parameters and the patient's clinical condition. RDW 13.3 11.0 - 15.0 % [facility] Platelet Count 64(L) 140 - 400 Thousand/ uL [facility] MPV 12.2 7.5 - 12.5 fL [facility] Neutrophil Absolute 1263(L) 1500 - 7800 cells/uL [facility] Absolute Bands [facility] Metamyelocytes Absolute [facility] Myelocytes Absolute [facility] Absolute Prolymphocytes [facility] Lymphocytes Absolute 1353 850 - 3900 cells/uL [facility] Absolute Monocytes 252 200 - 950 cells/uL [facility] Eosinophils Absolute 102 15 - 500 cells/uL [facility] Basophils Absolute 30 0 - 200 cells/uL [facility] Absolute Blasts [facility] nRBC Absolute [facility] Granulocytes % 42.1 % [facility] Band Neutrophil [facility] Metamyelocytes [facility] Myelocytes [facility] Promyelocytes [facility] Lymphocytes % 45.1 % [facility] Lymphocyte Reactive [facility] Monocytes % 8.4 % [facility] Eosinophils % 3.4 % [facility] Basophils % 1.0 % [facility] Blasts [facility] nRBC [facility] Comments [facility] Comment: Review of the peripheral smear reveals decreased numbers of platelets. Test Performed at: [facility] [address] [place] [address] CELESTE VENTURA MD 08/22/2024 7:12 AM CDT 08/22/2024 7:12 AM CDT Clif Sepulveda MD LAB - HEMATOLOGY ORD ERABLES [facility] [address] [place] [address] * (ABNORMAL) COMPREHENSIVE METABOLIC PANEL (08/22/2024 7:12 AM CDT) Only the most recent of4 resultswithin the time period is included. Pathologist [facility] Glucose 166(H) 65 - 99 mg/dL [facility] [...] 46 U/L [facility] Comment: Test Performed at: [employer] [place] [address] CELESTE VENTURA MD 08/22/2024 7:12 AM CDT 08/22/2024 7:12 AM CDT Clif Sepulveda MD LAB - CHEMISTRY MARIJA LAGOS Performing Organization Address [facility] de Phone Number [facility] [address] [place] [address] * BILIRUBIN DIRECT (08/22/2024 7:12 AM CDT) Only the most recent of3 resultswithin the time period is included. Bilirubin Direct 0.1 < OR = 0.2 mg/dL [facility] Comment: Test Performed at: [facility] [place] [address] CELESTE VENTURA MD 08/22/2024 7:12 AM CDT 08/22/2024 7:12 AM CDT Clif Sepulveda MD LAB - CHEMISTRY MARIJA LAGOS Performing Organization Address [facility] Co de Phone Number [facility] [address] [place] [address] * EKG 12-LEAD (08/11/2024 1:04 PM CDT) Only the most recent of2 resultswithin the time period is included. [facility] Ventricular Rate 53 BPM [facility] Atrial Rate 53 BPM [facility] P-R Interval 214 ms [facility] QRS Duration ms 84 ms [facility] Q-T Interval ms 428 ms [facility] QTC Calculation (Bezet) 401 ms [facility] Calculated P [place] 37 degrees [facility] Calculated R [place] 52 degrees [facility] Calculated T [place] 74 degrees [facility] Interpretation EKG SINUS BRADYCARDIA WITH 1ST DEGREE A-V BLOCK OTHERWISE NORMAL ECG WHEN COMPARED WITH ECG OF 22-APR-2024 12:17, T WAVE AMPLITUDE HAS DECREASED IN LATERAL LEADS Confirmed by IRMA DÍAZ MD ([id number]) on 08/18/2024 7:01:54 PM [facility] 08/11/2024 1:04 PM CDT 08/18/2024 7:01 PM CDT Irma Díaz MD ECG ORDERABLES [facility] * CARDIAC HOLTER MONITOR ORDER (08/11/2024) Narrative 08/11/2024 Ordered by an unspecified provider. Scanned Document CARDIAC SERVICES ORD ERABLES * PREPARE (CROSSMATCH) RBC UNIT(S), 2 Units (05/16/2024 1:17 AM CDT) [facility] Unit Description AS1 LR PRBC [facility] Unit ABO O [facility] Unit Rh POS [facility] Product Number R44 [facility] B LOOD [facility] Unit Donor # [id number] [facility] Unit Status released [facility] BLOO D BANK LAB Product Code [id number] [facility] BLO OD [facility]ANK LAB Blood Type Barcode 5100 [facility] Expiration Date [id number] S BLOOD BANK LAB Unit Description AS1 LR PRBC [facility] Unit ABO O [facility] Unit Rh POS [facility] Product Number R02 [facility] B LOOD BANK LAB Unit Donor # [id number] [facility] Unit Status released [facility] BLOO D BANK LAB Product Code [id number] [facility] BLO OD BANK LAB Blood Type Barcode 5100 [facility] B[facility] LAB Expiration Date [id number] S BLOOD BANK LAB Blood Bank BLOOD SPECIMEN / Unknown 05/15/2024 6:14 AM CDT Ene Doyle MD LAB - BLOOD BA NK ORDERABLES Performing Organization Address City/[facility]/ZIP Co de Phone Number [facility] [address] [place] [address], [facility] [phone] * (ABNORMAL) GLUCOSE - POINT OF CARE (05/15/2024 10:05 AM CDT) Only the most recent of2 resultswithin the time period is included. Glucose WB/POC 206(H) 70 - 115 mg/dL 05/15/2024 10:25 AM CDT [facility] Specimen Type Cap Fingerstick 2023 10:25 AM CDT [facility] Blood BLOOD SPECIMEN / Unknown 05/15/2024 10:05 AM CDT 05/15/2024 10:25 AM CDT Ene Doyle MD LAB - POINT OF CARE ORDERABLES Performing Organization Address City/[facility]/ZIP Co de Phone Number [facility] [address] [place] [address], [facility] [phone] * PATHOLOGY TISSUE (05/15/2024 9:12 AM CDT) Case Report Surgical Pathology Report Case: [id number] Authorizing Provider: Ene Doyle, Collected: 05/15/2024 09:12 AM Ordering Location: [facility] OP Received: 05/15/2024 10:49 AM Pathologist: Daija Awan MD Specimen: Gallbladder 05/16/2024 12:23 PM CDT [facility] PATH[facility]Y [facility] Final Diagnosis Gallbladder, cholecystectomy (A): - Mild chronic cholecystitis 05/16/2024 12:23 PM [facility] PATHOLOGY LAB Microscopic Description and Comment Microscopic examination substantiates the final diagnosis. 05/16/2024 12:23 PM [facility] Clinical History The patient is a 74-year-old man with gallstone pancreatitis. Operative procedure: Laparoscopic cholecystectomy 05/16/2024 12:23 PM [facility] Gross Description The requisition and specimen(s) are identified with the patient's name Dylan Rodriges . Received in formalin, specimen A , is an previously disrupted gallbladder 8.5 cm length x 3.6 cm fundus diameter. The serosal is pink-harrell, wrinkled with adhered adipose tissue. The hepatic surface is pink-harrell and rough with adhered adipose tissue and a 0.2 x 0.1 transmural defect. The cystic duct is received stapled and no prominent lymph node is identified. Serial sectioning shows a 0.1 cm average wall thickness. The mucosa is erythematous, hyperemic, and velvety at the neck to smooth at the fundus. Present on the hepatic side body wall are 2 foci of yellow-green mucosa, 0.1-0.2 cm. The cystic duct is patent and dilated. No calculi are identified. Guidance Director sections are submitted in cassette A1 (w/ cystic duct, en face)./REGIS 05/16/2024 12:23 PM [facility] Pathologist Location at [facility] 05/16/2024 12:23 PM [facility] Disclaimer The performance characteristics of all immunohistochemical and indirect immunofluorescence stains (if any) cited in this report were determined by the Histopathology Laboratory of [facility]. Some of these tests were developed by our own laboratory and have not been cleared or approved by the US Food and Drug Administration. The FDA does not require this test to go through premarket FDA review. These tests are used for clinical purposes. They should not be regarded as investigational or for research. This laboratory is certified under the Clinical Laboratory Improvement Amendments (CLIA) as qualified to perform high complexity clinical laboratory testing. This case has been personally reviewed and interpreted by the attending (teaching) pathologist. 05/16/2024 12:23 PM [facility] Embedded Images 05/16/2024 12:23 PM CDT [facility] Biopsy, Excision ENTIRE GALLBLADDER / Unknown 05/15/2024 9:12 AM CDT 05/15/2024 10:49 AM CDT Comment:Pre-op diagnosis: Cholelithiasis Ene Doyle MD LAB - PATHOLOG Y/CYTOLOGY ORDERABLES [facility] [address] [facility]. [place], [place] [address] [phone] * ETT LINE PERFORMABLE (05/15/2024 8:27 AM CDT) Narrative Alonzo Mcgarry MD - 05/15/2024 8:27 AM CDT Alonzo Mcgarry MD 05/15/2024 8:28 AM Endotracheal Tube Placement: Patient Location: OR. Intubation Event Date/Time: 05/15/2024 7:57 AM Procedure: intubation ([id number]) Procedure Section: Sedation: under general anesthesia. Indications for Airway Management: anesthesia Induction: rapid sequence Patient Position: supine Mask Ventilation: not attempted. Blade Type: Harpal Blade Size: 4 Laryngoscopy View: grade 1 (full cords) Intubation Adjuncts: stylet Tube: endotracheal tube Placement: oral Tube type: cuff - inflated Tube Size (MM): 7 Depth of Insertion (CM): 21 Measured From: lips Cuff Inflated With: air Number of Attempts: 1. Placement Verified By: direct visualization, bilateral breath sounds and CO2 monitor Tube secured with: adhesive tape. Dentition unchanged? Yes Difficult Airway? No. Procedure Start Time: 05/15/2024 7:57 AM. Staff Section Anesthesia Provider: Poornima Carlson MD Provider #1: Alonzo Mcgarry MD, Performed the procedure. Poornima Carlson MD GENERAL ANESTHESIA O RDERABLES * TYPE + SCREEN PANEL (05/15/2024 6:06 AM CDT) Only the most recent of2 resultswithin the time period is included. Antibody Screen NEG 7:03 AM CDT [facility] ABO Rh O POS 05/15/2024 7:03 AM CDT [facility] Blood Bank BLOOD SPECIMEN / Unknown Venipuncture / Unknown 05/15/2024 6:06 AM CDT 05/15/2024 6:14 AM CDT Haven Carrillo TAFFY CANDY [employer] LAB - BLO OD BANK ORDERABLES [facility] [address] [place] [address], [facility] [phone] * (ABNORMAL) CBC W/O DIFFERENTIAL (05/15/2024 6:06 AM CDT) Only the most recent of2 resultswithin the time period is included. WBC 3.5(L) 4.0 - 10.7 x10E9/L 05/15/2024 6:24 AM [facility] RBC Count 4.20(L) 4.30 - 5.80 x10E12/L 05/15/2024 6:24 AM [facility] Hemoglobin 13.3 13.3 - 17.5 g/dL 05/15/2024 6:24 AM [facility] Hematocrit 38.1(L) 38.7 - 51.1 % 05/15/2024 6:24 AM [facility] MCV 90.7 80.0 - 98.0 fL 05/15/2024 6:24 AM [facility] MCH 31.7 26.7 - 33.6 pg 05/15/2024 6:24 AM [facility] MCHC 34.9 31.7 - 36.3 g/dL 05/15/2024 6:24 AM [facility] RDW-CV 13.6 11.3 - 14.8 % 05/15/2024 6:24 AM [facility] Platelet Count 67(L) 150 - 420 x10E9/L 05/15/2024 6:24 AM [facility] MPV 12.1(H) 7.8 - 11.4 fL 05/15/2024 6:24 AM [facility] Blood BLOOD SPECIMEN / Unknown Venipuncture / Unknown 05/15/2024 6:06 AM CDT 05/15/2024 6:10 AM CDT Haven Carrillo APRN-[employer] LAB - HEM ATOLOGY ORDERABLES Performing Organization Address [facility] Co de Phone Number [address] [address], [facility] [phone] * PT-INR [facility] (04/22/2024 1:08 PM CDT) Pathologist [facility] PT 14.6 12.1 - 14.8 Seconds 04/22/2024 1:56 PM CDT [facility] INR 1.2 See Comment 04/22/2024 1:56 PM CDT [facility] Comment:The suggested therap eutic range for standard coumadin (warfarin) therapy is an INR of 2.0-3.0. For high-risk patients (Mechanical Mitral Valve Prosthesis, etc.), the suggested prophylactic therapeutic range is an INR of 2.5-3.5. Blood BLOOD SPECIMEN / Unknown Lab Venipuncture / Unknown 04/22/2024 1:08 PM CDT 04/22/2024 1:35 PM CDT Ene Doyle MD LAB - COAGULAT ION ORDERABLES Performing Organization Address [facility] Co de Phone Number [address] [address], [facility] [phone] * HEPATITIS C AB W/RFLX TO HCV RNA QN PCR (09/07/2023 7:59 AM [employer]) Hepatitis C Antibody NON-REACTI VE NON-REACT DAVIAN [facility] Comment: HCV antibody was non-reactive. There is no laboratory evidence of HCV infection. In most cases, no further action is required. However, if recent HCV exposure is suspected, a test for HCV RNA (test code 63982) is suggested. For additional information please refer to http://education.Matchpoint/faq/IHA72o6 (This link is being provided for informational/ educational purposes only.) Test Performed at: [email or web address] [id number] [place] [address] CELESTE VENTURA MD Blood BLOOD SPECIMEN / Unknown 09/07/2023 7:59 AM [employer] 09/07/2023 8:00 AM [employer] Clif Sepulveda MD LAB - CHEMISTRY MARIJA LAGOS Performing Organization Address [facility]/ZIP Co de Phone Number [facility] [address] [place] [phone] * (ABNORMAL) PLATELET ESTIMATE REFLEXED (09/07/2023 7:59 AM [employer]) [facility] Platelet Estimation DECREASED (A) ADEQUATE [facility] Comment: Test Performed at: [employer] [place] [address] CELESTE VENTURA MD 09/07/2023 7:59 AM [employer] 09/07/2023 8:00 AM [employer] Clif Sepulveda MD LAB - HEMATOLOGY ORD ERAANDRIA Performing Organization Address [facility]/ZIP Co de Phone Number [facility] [address] [place] [address] * IRON + TIBC + FERRITIN (09/07/2023 7:59 AM [employer]) [facility] Iron 110 50 - 180 mcg/dL [facility] TIBC 406 250 - 425 mcg/dL (calc) [facility] % Saturation 27 20 - 48 % (calc) [facility] Ferritin 85 24 - 380 ng/mL [facility] Comment: Test Performed at: [facility] [employer] [place] [address] CELESTE VENTURA MD Blood BLOOD SPECIMEN / Unknown 09/07/2023 7:59 AM [employer] 09/07/2023 8:00 AM [employer] Clif Sepulveda MD LAB - CHEMISTRY MARIJA LAGOS Performing Organization Address City/[facility]/ZIP Co de Phone Number [facility] [address] [place] [address] * MITOCHONDRIAL ANTIBODY SCREEN (09/07/2023 7:59 AM [employer]) [facility] Mitochondrial M2 Antibody <20.0 U [facility] Comment: Reference Range: NEGATIVE: < OR = 20.0 EQUIVOCAL: 20.1-24.9 POSITIVE: > OR = 25.0 Test Performed at: [facility]/[facility] [address] [place] [address] URIEL MORSE MD,PHD,PRESLEY Blood BLOOD SPECIMEN / Unknown 09/07/2023 7:59 AM [employer] 09/07/2023 8:00 AM [employer] Clif Sepulveda MD LAB - CHEMISTRY MARIJA LAGOS Performing Organization Address [facility] Co de Phone Number [facility] [address] [place] [address] * HUMPHREY BLOOD SCREEN W/REFLEX TITER (09/07/2023 7:59 AM [employer]) HUMPHREY Screen NEGATIVE NEGATIVE [facility] Comment: HUMPHREY IFA is a first line screen for detecting the presence of up to approximately 150 autoantibodies in various autoimmune diseases. A negative HUMPHREY IFA result suggests an HUMPHREY-associated autoimmune disease is not present at this time, but is not definitive. If there is high clinical suspicion for Sjogren's syndrome, testing for anti-SS-A/Ro antibody should be considered. Anti-Jocy-1 antibody should be considered for clinically suspected inflammatory myopathies. AC-0: Negative International Consensus on HUMPHREY Patterns (https://doi.org/10.1515/mmda-1641-2396) For additional information, please refer to http://education.Hybrid Logic.3rd Planet/faq/DFY332 (This link is being provided for informational/ educational purposes only.) Test Performed at: [facility] [place] [address] [place] [address] CELESTE VENTURA MD Blood BLOOD SPECIMEN / Unknown 09/07/2023 7:59 AM [employer] 09/07/2023 8:00 AM [employer] Clif Sepulveda MD LAB - CHEMISTRY MARIJA LAGOS Performing Organization Address City/[facility]/ZIP Co de Phone Number [facility] [address] [place] [address] * CERULOPLASMIN (09/07/2023 7:59 AM [employer]) Pathologist [facility] Ceruloplasmin 25 18 - 36 mg/dL [facility] Comment: Test Performed at: [employer] [address] [place] [address] CELESTE VENTURA MD Blood BLOOD SPECIMEN / Unknown 09/07/2023 7:59 AM [employer] 09/07/2023 8:00 AM [employer] Clif Sepulveda MD LAB - CHEMISTRY MARIJA LAGOS Performing Organization Address [facility] [place] [address] * [id number] BLOOD (09/07/2023 7:59 AM [employer]) Pathologist [facility] Efnwc-7-Xsvlagup sin 124 83 - 199 mg/dL [facility] Comment: Test Performed at: [employer] [address] [address] [facility] [place] [address] CELESTE VENTURA MD Blood BLOOD SPECIMEN / Unknown 09/07/2023 7:59 AM [employer] 09/07/2023 8:00 AM [employer] Clif Sepulveda MD LAB - CHEMISTRY MARIJA LAGOS Performing Organization Address [facility] [place] [address] * SMOOTH MUSCLE ANTIBODY (09/07/2023 7:59 AM [employer]) [facility] Actin Antibody IgG <20 <20 U [facility] Comment: Reference Range: <20 U: Negative >or=20 U: Positive Antibodies recognizing actin are the main component of smooth muscle antibodies associated with auto- immune liver disease. Actin antibodies are found in approximately 75% of patients with autoimmune hepatitis (AIH) type 1, approximately 65% of patients with autoimmune cholangitis, approximately 30% of patients with primary biliary cirrhosis and approximately 2% of healthy controls. High values are closely correlated with AIH type 1. Test Performed at: [employer]/[facility] [address] [place], [place] MERCEDES MORRIS MD,PHD Blood BLOOD SPECIMEN / Unknown 09/07/2023 7:59 AM [employer] 09/07/2023 8:00 AM [employer] Clif Sepulveda MD LAB - SEROLOGY ORDER DIAMOND Performing Organization Address [facility] [place] [address] * HEPATITIS B SURFACE ANTIBODY (09/07/2023 7:59 AM [employer]) Hepatitis B Virus Surface Antibody NON-REACTI VE NON-REACT DAVIAN [facility] Comment: Test Performed at: [employer] [address] [facility] [place] [place] [address] CELESTE VENTURA MD Blood BLOOD SPECIMEN / Unknown 09/07/2023 7:59 AM [employer] 09/07/2023 8:00 AM [employer] Clif Sepluveda MD LAB - CHEMISTRY MARIJA LAGOS Performing Organization Address [facility] [place] [address] * HEPATITIS B CORE ANTIBODY TOTAL (09/07/2023 7:59 AM [employer]) Hepatitis B Core Virus Antibody Total NON-REACTI VE NON-REACT DAVIAN [facility] Comment: For additional information, please refer to http://education.Matchpoint/faq/ATF756 (This link is being provided for informational/ educational purposes only.) Test Performed at: [employer] [address] [facility] [place] [address] CELESTE VENTURA MD Blood BLOOD SPECIMEN / Unknown 09/07/2023 7:59 AM [employer] 09/07/2023 8:00 AM [employer] Clif Sepulveda MD LAB - CHEMISTRY MARIJA LAGOS Performing Organization Address [facility] [place] [address] * HEPATITIS B SURFACE ANTIGEN W RFLX CONFIRMATION (09/07/2023 7:59 AM [employer]) Hepatitis B Virus Surface Antigen NON-REACT DAVIAN NON-REACT DAVIAN [facility] Comment: For additional information, please refer to http://education.rankur.3rd Planet/faq/HHV815 (This link is being provided for informational/ educational purposes only.) Test Performed at: [employer] [address] [place] [address] CELESTE VENTURA MD Confirmation [facility] Comment: Test Performed at: [employer] [address] [place] [address] CELESTE VENTURA MD Blood BLOOD SPECIMEN / Unknown 09/07/2023 7:59 AM [employer] 09/07/2023 8:00 AM [employer] Clif Sepulveda MD LAB - CHEMISTRY MARIJA LAGOS Performing Organization Address [facility] [place] [address] * (ABNORMAL) GGT (09/07/2023 7:59 AM [employer]) GGT 144(H) 3 - 70 U/L [facility] Comment: Test Performed at: [employer] [place] [address] CELESTE VENTURA MD Blood BLOOD SPECIMEN / Unknown 09/07/2023 7:59 AM [employer] 09/07/2023 8:00 AM [employer] Clif Sepulveda MD LAB - CHEMISTRY MARIJA LAGOS Performing Organization Address City/[facility]/ZIP Co de Phone Number [address] [address] * IGG BLOOD (09/07/2023 7:59 AM [employer]) IgG 1111 600 - 1540 mg/dL [facility] Comment: Test Performed at: [employer] [place] [address] CELESTE VENTURA MD Blood BLOOD SPECIMEN / Unknown 09/07/2023 7:59 AM [employer] 09/07/2023 8:00 AM [employer] Clif Sepulveda MD LAB - CHEMISTRY ORDYue LAGOS Performing Organization Address [facility] Co de Phone Number [facility] [address] [place] [address] * (ABNORMAL) HEPATITIS A ANTIBODY (09/07/2023 7:59 AM [employer]) Hepatitis A Virus Antibody Total REACTIVE(A ) NON-REACT DAVIAN [employer] Comment: For additional information, please refer to http://education.Matchpoint/faq/TLX444 (This link is being provided for informational/ educational purposes only.) Test Performed at: [employer] [address] [place] [address] CELESTE VENTURA MD Blood BLOOD SPECIMEN / Unknown 09/07/2023 7:59 AM [employer] 09/07/2023 8:00 AM [employer] Clif Sepulveda MD LAB - CHEMISTRY MARIJA LILYSAMANTHA Performing Organization Address [facility] de Phone Number [facility] [address] [place] [address] * PROC FIBROSCAN (09/06/2023 10:42 AM [employer]) Narrative Siddharth Atkins MD - 09/06/2023 10:42 AM [employer] Siddharth Atkins MD 09/07/2023 9:30 AM Diagnosis: Hepatic Cirrhosis RN verified patient is NPO for prior 3 hours. Procedure explained. Date of Exam: 09/06/2023 Liver Stiffness: (LSM, kPa) median: 9.7 IQR/Median% (ideally < 30%): 28% CAP (controlled attenuation parameter): 291 Technical Difficulty: None Ordering Provider: Dr. Sepulveda Phone Fax Fibroscan interpretation: I have personally reviewed the Fibroscan report and associated tracings. The calculated Liver Stiffness Measurement (LSM, kPa) indicates that: The probability of advanced liver fibrosis is: moderate. The loss of ultrasound signal, (controlled attenuation parameter, CAP [dB/m]), indicates that the probability of hepatic steatosis is: high. Siddharth Kinsey MD The following criteria are used to indicate the probability of advanced (stage 3-4) fibrosis: < 7.0 kPa: low 7.0-8.9 kPa: low to moderate 9.0-14.9 kPa: moderate 15-20 kPa: high > 20 kPa: very high Liver stiffness > 20 kPa is also associated with a high probability of complications of portal hypertension including varices and ascites. Liver stiffness > 50 kPa is associated with a high risk of variceal bleeding. These interpretations are based on the following published data: Cornelia PJ, Jovani M, Machelle M, et al. Accuracy of FibroScan controlled attenuation parameter and liver stiffness measurement in assessing steatosis and fibrosis in patients with nonalcoholic fatty liver disease. Gastroenterology 2019;156:7987-7963. Marcela MS, Alexandra R, Van Natta ML, et al. Vibration-controlled transient elastography to assess fibrosis and steatosis in patients with nonalcoholic fatty liver disease. Clin Gastroenterol Hepatol 2019;17:156-163. Note that scores have been developed that incorporate the Fibroscan liver stiffness measurement from large cohorts of patients with liver biopsies to further refine the ability of Fibroscan to identify patients with AMES and advanced fibrosis. These include the FAST (Fibroscan-AST) score (Dar, 202) and the Agile3+ and Agile4 scores (Minor, 202). Dar TA, Van Natta ML, Hull M, Owen A, et al. Validation of the accuracy of the FAST score for detecting patients with at-risk nonalcoholic steatohepatitis (AMES) in a [place] cohort and comparison to other non-invasive algorithms. PLoS ONE (2021) 17: h8877034. Minor AJ, Emmanuel J, Inez ZM, et al. Enhanced diagnosis of advanced fibrosis and cirrhosis in individuals with NAFLD using FibroScan-based Agile scores. J Hepatol (2022) 78: 247-259. Fibroscan LSM can also be used with laboratory parameters without formulas to assess prognosis. According to the Baveno-VII criteria (Marroquin, 2021), Fibroscan LSM ?15 kPa plus a platelet count of ?193s317/L rules out clinically significant portal hypertension (sensitivity and negative predictive value >90%) in patients with compensated advanced chronic liver disease. Marroquin R, Brayan J, Samir G, Jeffrey T, Karlene C on behalf of the Baveno VII Faculty. Baveno VII--Renewing consensus in portal hypertension. J Hepatol (2021) 76: 959-974 Assessing the likelihood of advanced fibrosis in patients with indeterminate liver stiffness measurement (LSM) by Fibroscan (e.g., 8-15 kPa) can be improved by also calculating the FIB-4 score (Alie et al. Hepatology Communications 2019;3:4190-9991) or NAFLD Fibrosis score (Mukherjee et al. Clinical Gastroenterology and Hepatology 2019;17:4422-2406 using routine clinical data. Note: 1. Fibroscan cannot reliably identify earlier stages of fibrosis (ie distinguish F0 from F1 and F2) and thus a histologic stage cannot be predicted from the Fibroscan reading. 2. Liver stiffness can be increased by factors other than fibrosis including passive congestion, infiltrative processes, active alcoholism, recent moderate alcohol consumption in the 2 weeks before the exam, biliary obstruction and marked inflammation. The interpretation of the Fibroscan result provided above may not have taken such clinical factors into account. Disease etiology also influences Fibroscan cutoff values for fibrosis stages and the following cutoffs have been proposed (Indra et al, Clin Gastro Hepatol 2015; 13:27-36): Cutoffs for Stage 3 and Stage 4 fibrosis respectively: Hepatitis B: >9 and >11.7 kPa Hepatitis C: >9.5 and >12.5 kPa HCV-HIV: >11 and >14 kPa Cholestatic liver diseases: >10 and >17.9 kPa NAFLD/AMES: >10 and >14 kPa CAP estimates of steatosis: normal <200 dB/m mild 200 to 250 dB/m moderate 250-290 dB/m substantial > 290 dB/m (Note that Fibroscan is not a quantitative measure of liver fat.) These criteria are estimates and may change as additional supporting data becomes available. (This additional interpretive data was last updated 02/24/23.) [email or web address] Clif Sepulveda MD PROCEDURE/MINOR SURG ICAL ORDERABLES * DERMATOPATHOLOGY (12/26/2018 12:00 AM [employer]) Only the most recent of4 resultswithin the time period is included. Case Report Dermatopathology Report Case: [id number] Authorizing Provider: Kylah Olvera MD Collected: 12/26/2018 12:00 AM Pathologist: Lis Garcia MD Received: 12/27/2018 11:56 AM Specimen: Skin, left anabaptist 3:02 PM CDT DERMATOPATHOLOGY LABORATORY Final Diagnosis Specimen A. SKIN, left anabaptist: SEBORRHEIC KERATOSIS, RETICULATED (ADENOID) TYPE (L82.1) 3:02 PM CDT DERMATOPATHOLOGY LABORATORY Clinical History SK vs other. Failed LN2 x 2. 3:02 PM CDT DERMATOPATHOLOGY LABORATORY Gross Description Specimen A: Received is one formalin filled container labeled with the patient's name and designated left anabaptist. The specimen consists of a shave measuring [id number]. Jar 0. 3:02 PM CDT DERMATOPATHOLOGY LABORATORY Microscopic Description Specimen A. SKIN, left anabaptist: There is reticulated hyperplasia of the epidermis [...] characteristic determined by the Dermatopathology Laboratory at [facility], directed by Dr. Leonard Poole. These tests need not be, and therefore are not, approved by the [place] Food and Drug Administration. The tests are used for clinical purposes. Billing Codes Specimen Charges Stain Charges 30054 1 3:02 PM CDT DERMATOPATHOLOGY LABORATORY Embedded Images 3:02 PM CDT DERMATOPATHOLOGY LABORATORY Pathology/Cytolog y TISSUE SPECIMEN FROM SKIN / Unknown 12/26/2018 12/27/2018 11:56 AM [employer] Kylah Olvera MD LAB - PATHOLOGY/CYT OLOGY ORDERABLES DERMATOPATHOLOGY LABORATORY [facility] - Department of Dermatology [address] [facility], 5th Floor Lab [address] [phone] Care Teams Machine Assistant Relationship Specialty Start Date End Date Jason Joseph MD [facility] [address] [facility] [address] [place] [id number] PCP - General Family Medicine 08/11/24
--- OUTSIDE RECORDS SUMMARY | 2024-12-10 08:37 | XMS_ITS | Referral Summary ---
Author Organization [facility] [address] Address [address] [place] [address] Care Team Providers Care Paper Coating Machine Operator Name Role Phone Savanah Moss MD Primary Care Provider [phone] Svaanah Moss MD Unavailable Vignesh Bean MD Unavailable [phone] Allergies Active Allergy Reactions Criticality Noted [...] w ithout mention of having achieved remission(204.10) ([facility]) 05/08/2018 Immunizations Immunization Administration Dates Next Due Influenza, Quad, Adjuvantate d, Intramuscular 07/09/2020 Influenza, Trivalent, Adjuva nted, Intramuscular 07/03/2019 Influenza, Trivalent, High D ose, Split, Preservative Free, Intramuscular 07/09/2018 Pfizer SARS-CoV-2 Monovalent Vaccination (12+ Yrs) PURPLE 06/08/2021,01/02/2021,12/05/2020 Social History Tobacco Use Types Packs/Day Years Used Date Smoking Tobacco: Never Smokeless Tobacco: Never Alcohol Use Standard Drinks/Week Comments No 0 (1 standard drink = 0.6 oz pur e alcohol) Sex and Gender Information Value Date Recorded Sex Assigned at Not on file Legal Sex Male 2:00 AM POLITICAL ADVISOR Gender Identity Male 06/01/2020 10:59 PM CDT Sexual Orientation Straight 06/01/2020 10 :59 PM CDT Last Filed Vital Signs Vital Sign Reading Time Taken Comments Blood Pressure 120/77 12/02/2021 10:24 AM POLITICAL ADVISOR Pulse 66 12/02/2021 10:24 AM POLITICAL ADVISOR Temperature 36.6 C (97.9 F) 12/02/2021 10:24 AM POLITICAL ADVISOR Respiratory Rate 16 12/02/2021 10:2 4 AM POLITICAL ADVISOR Oxygen Saturation 96% 12/02/2021 10: 24 AM POLITICAL ADVISOR Inhaled Oxygen Concentration - - Weight 70.2 kg (154 lb 12.8 oz) 022 10:24 AM POLITICAL ADVISOR Height 170.2 cm (5' 7 ) 12/02/2021 10:2 4 AM POLITICAL ADVISOR Body Mass Index 24.25 12/02/2021 10:24 AM POLITICAL ADVISOR Plan of Treatment Not on file Insurance MEDICARE [facility] MEDICARE MEDICARE [facility] [employer]ENS[employer] GENERIC Care Teams Paper Coating Machine Operator Relationship Specialty Start Date End Date Savanah Moss MD [address] [place] [address] PCP - General 10/28/19 Savanah Moss MD [address] [place] [address] 10/28/19 Vignesh Bean MD [address] [place] [address] Medical Oncologist/[facility] 10/30/18
[2024-12-10 09:45] LABS: Basophils Percent Auto 0.6 % (0.2-1.2); Eosinophils Absolute Auto 0.1 K/mm3 (0-0.3); Eosinophils Percent Auto 2.4 % (0-4.4); Hematocrit 42.1 % (42.0-52.0); Hemoglobin 14.6 g/dL (14.0-18.0); Immature Granulocyte Absolute 0.01 K/mm3 (0.00-0.031); Immature Granulocyte Percent A 0.3 % (0-0.5); Immature Platelet Fraction Pct 14.4 % (0.9-11.2); Lymphocytes Absolute Auto 1.31 K/mm3 (0.9-3.2); Lymphocytes Percent Auto 39.2 % (18.3-44.2); Mean Corpuscular HGB Conc 34.7 g/dl (32-36); Mean Corpuscular Hemoglobin 32.1 pg (26-34); Mean Corpuscular Volume 92.5 fl (80-100); Mean Platelet Volume 12.5 fl (7.4-10.4); Monocytes Absolute Auto 0.3 K/mm3 (0.1-0.6); Monocytes Percent Auto 8.1 % (2.6-8.5); Neutrophils Absolute Auto 1.7 K/mm3 (1.3-6.7); Neutrophils Percent Auto 49.4 % (45.5-73.1); Platelet Count Result 61 k/mm3 (150-375); Red Blood Count 4.55 M/mm3 (4.6-6.20); Red Cell Distribution Width 13.9 % (11.5-14.5); White Blood Count 3.3 K/mm3 (4.5-10.0)
[2024-12-10 11:58] LABS: Alanine Aminotransferase 71 U/L (6-50); Albumin Level 4.4 g/dL (3.5-5.1); Alkaline Phosphatase 156 U/L (38-126); Anion Gap 11 mmol/L (4-12); Aspartate Amino Transferase 68 U/L (17-59); Bilirubin,Total 0.7 mg/dL (0.2-1.3); Blood Urea Nitrogen 12 mg/dL (9-20); Calcium 9.7 mg/dL (8.4-10.2); Carbon Dioxide 24 mmol/L (22-30); Chloride 102 mmol/L (98-107); Cholesterol 171 mg/dL (0-200); Estimated Glomerular Filt Rate > 60; Glucose 144 mg/dL (65-110); HDL Direct 46 mg/dL; Potassium 4.4 mmol/L (3.4-5.0); Sodium 137 mmol/L (137-145); Triglycerides 167 mg/dL (<150)
[2024-12-10 11:59] LABS: Iron 115 ug/dL (49-181)
[2024-12-10 12:08] LABS: LDL Cholesterol Direct 92 mg/dL; Percent Iron Saturation 29 % (20-50)
[2024-12-10 12:11] LABS: Free T4 Free Thyroxine 1.08 ng/dL (0.78-2.19); Vitamin D 25 Hydroxy 66.5 ng/mL
[2024-12-10 12:40] LABS: Creatinine Urine 56.1 mg/dL
[2024-12-10 12:56] LABS: MALB Creatinine Ratio < 10.7 mg/g (0-30); Microalbumin Urine Random < 6.0 mg/L (0-16.7)
[2024-12-10 13:04] LABS: Folic Acid > 20.0 ng/mL (2.76->20)
== END 2024-12-10 08:31 | disposition home or self-care (01) ==
LOC: ANHLAB 08:31
PROVIDERS: PCP Family Medicine; Referring Provider Internal Medicine; Visit Provider Internal Medicine Hematology & Oncology
DX: E11.21 Type 2 diabetes mellitus with diabetic nephropathy (principal); E78.2 Mixed hyperlipidemia; E03.9 Hypothyroidism, unspecified; E55.9 Vitamin D deficiency, unspecified; Z87.19 Personal history of other diseases of the digestive system; D64.9 Anemia, unspecified
CPT/HCPCS: 36415; 80053; 80061; 82043; 82306; 82607; 82728; 82746; 83540; 83550; 84439; 84443; 85025; 85055

== ENCOUNTER 2025-01-12 13:52 | Emergency (ER) | payer MEDICARE, BC, SELFPAY ==
--- NOTE | ~2025-01-12 | XR_ITS ---
XR hand LT min 3V Ordering provider: Abdon Egale APRN History: . left 5 metcarpal pain . Comparison: None. FINDINGS: BONES: No acute fracture or dislocation. JOINT SPACES: Narrowing of the proximal and distal interphalangeal joints. Osteoarthritic changes of the first carpometacarpal joint. SOFT TISSUES: Unremarkable. IMPRESSION: No acute osseous abnormality left hand. Polyarticular osteoarthritic changes. Reviewed, dictated and finalized at location A.
--- NOTE | 2025-01-12 13:54 | ED.EXTPRO ---
HPI - Extremity Problem General Chief complaint: Extremity Injury, Upper Stated complaint: Left hand pain Time Seen by Provider: 01/12/25 13:54 Source: patient Mode of arrival: ambulatory Limitations: no limitations History of Present Illness HPI Narrative: Dylan is a 74-year-old male patient presenting to the clinic today with complaints of left 5th metacarpal pain. He reports that he started having pain over the left 5th metacarpal 2 weeks ago. Has pain with some flexion and extension of the left 5th phalanx. Has been lifting some dumbbell weights and thinks that this may have injured his hand. Related Data Home Medications ?Medication ?Instructions ?Recorded ?Confirmed ?Last Taken ?Type multivitamin with minerals-folic 1 tablet PO DAILY 10/27/22 01/12/25 11/02/22 History acid 0.4 mg tablet omega-3 fatty acids 1,000 mg PO DAILY 09/18/23 01/12/25 Unknown History sildenafil 100 mg tablet 100 mg PO DAILY PRN sexual activity 11/19/23 01/12/25 Unknown History atorvastatin 20 mg tablet 20 mg PO .QOD 05/19/24 01/12/25 Unknown History finasteride 5 mg tablet 5 mg PO QHS 11/19/24 01/12/25 Unknown History tamsulosin 0.4 mg capsule 0.4 mg PO QHS 11/19/24 01/12/25 Unknown History fluorouracil 5 % topical cream 1 applic topical BID 01/12/25 01/12/25 Unknown History Allergies Allergy/AdvReac Type Severity Reaction Status Date / Time No Known Allergies Allergy Verified 01/12/25 13:59 Review of Systems Review of Systems: Pertinent positives per HPI. Patient denies any fever, chills, rash, headache, visual changes, dizziness, cough, shortness of breath, chest pain, palpitations, nausea, vomiting, diarrhea, constipation, abdominal pain, or any urinary issues. 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 History of colon polyps Cirrhosis BPH (benign prostatic hyperplasia) Erectile dysfunction Chronic lymphocytic leukemia Hypothyroidism, unspecified Insomnia, unspecified Mixed hyperlipidemia VIKAS (obstructive sleep apnea) Type 2 diabetes mellitus with diabetic nephropathy Surgical History Surgical History History of cholecystectomy (~05/15/24) 05/15/2024 at [facility] History of shoulder surgery right shoulder adhesive capsulitis manipulation History of surgery on right wrist ORIF of right wrist fracture History of Mohs surgery for squamous cell carcinoma in situ of skin (~10/2019) right wrist Family History Family History Father Family history of malignant neoplasm, Onset Age: 75 CLL (chronic lymphocytic leukemia) Mother Carcinoma of colon, Onset Age: 60 Grandparent Hypertension Heart disease Cerebrovascular accident Social History Social History Smoking status: Never smoker Second hand tobacco smoke exposure: No Alcohol intake: never Alcohol use details: Six beers per year Substance use: never Substance use type: does not use Do You Feel Safe in your Home?: Yes Lack of Transportation: No Lack of Food: Never True Current Housing: I Have Housing Concerned About Future Housing: No Difficulty Paying Gas/Electric Bills: No Difficulty Paying for Meds: No Currently Unemployed: No Education: Master's Degree or Higher Difficulty w/ Childcare or Family Care: No Living arrangements: with family Additional living arrangements comments: Lives with in [facility] Occupation/Education: retired Gender identity (if verbalized by the patient): Male Sexual Orientation (if Verbalized by the Patient): Straight or Heterosexual Spiritual care concerns: No Agree to blood products: Yes Comments At the time of my signature, I reviewed and agree with the nursing past medical, surgical, social, and family history. There is no relevant family history pertinent to the patient complaint. Exam Narrative: General: Well-developed, well nourished, in no apparent distress Head: Normocephalic, atraumatic. Cardio: Regular rate and rhythm, s1 and s2 normal, no murmur appreciated. Resp: Clear to auscultation bilaterally, no rhonchi, rales, wheezing or rubs. Musculoskeletal: No deformity, tender to palpation over the distal left 5th meta carpal, mild discomfort with flexion and extension of the MCP joint, grossly normal range of motion, muscle strength strong and equal, peripheral pulse strong, no edema, no cyanosis, normal gait and station Course Course Emergency Course: Portions of this record may have been created with voice recognition software. Level of Care: Express Care Visit Vital Signs Vital signs: Vital Signs Temperature 36.2 C L 01/12/25 13:57 Pulse Rate 59 L 01/12/25 13:57 Respiratory Rate 16 01/12/25 13:57 Blood Pressure 125/56 L 01/12/25 13:57 Pulse Oximetry 98 01/12/25 13:57 Oxygen Delivery Room Air 01/12/25 13:57 Temperature 36.2 C L 01/12/25 13:57 Pulse Rate 59 L 01/12/25 13:57 Respiratory Rate 16 01/12/25 13:57 Blood Pressure 125/56 L 01/12/25 13:57 Pulse Oximetry 98 01/12/25 13:57 Oxygen Delivery Room Air 01/12/25 13:57 Vital signs reviewed MDM - Extremity (Nontraumatic) MDM Narrative Medical decision making narrative: At the time of visit patient is resting comfortably on the exam table. Patient appears to be nontoxic. Diagnostics: X-ray of the left hand was performed and shows poly articular osteoarthritis. No sign of fracture or malalignment. 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 Supportive measures were discussed with the patient and they voiced understanding discharge instructions and agrees to treatment plan. Return precautions reviewed Differential Diagnosis Differential diagnosis: Likely gout and other (Tendinitis, arthritis, metacarpal fracture, strain) Imaging Data Radiologist's impression: ITS Impressions Hand X-Ray 01/12/25 14:53 IMPRESSION: No acute osseous abnormality left hand. Polyarticular osteoarthritic changes. Discharge Plan Discharge Clinical Impression: Polyarticular osteoarthritis Pain in metacarpus Qualifiers: Laterality: left Qualified Code(s): M25.542 - Pain in joints of left hand Patient Disposition: Home, Self-Care Condition: Stable Instructions: Antibiotic Form, Osteoarthritis (ED) Additional Instructions: X-rays negative for any sign of fracture or malalignment of the right left hand. Shows polyarticular osteoarthritic changes Rest, ice, and elevate. Tylenol/motrin for pain as discussed. Follow up with your PCP if symptoms persist more than 1 week. Patient Language: Venezuelan Prescriptions: No Action fluorouracil 5 % cream 1 applic TOPICAL BID ferrous sulfate 325 mg (65 mg iron) tablet 325 mg PO DAILY Qty: 1 0RF vitamin W17-arhqs acid 500-400 mcg tablet 1 tablet PO DAILY Qty: 1 0RF Rx Instructions: administer with a meal sildenafil 100 mg tablet 100 mg PO DAILY PRN (Reason: sexual activity) pantoprazole 20 mg tablet,delayed release (DR/EC) 20 mg PO QAM PRN (Reason: gastric reflux) Qty: 90 1RF tamsulosin 0.4 mg capsule 0.4 mg PO QHS lisinopril 5 mg tablet 5 mg PO DAILY Qty: 100 3RF finasteride 5 mg tablet 5 mg PO QHS atorvastatin 20 mg tablet 20 mg PO .QOD omega-3 fatty acids Capsule 1,000 mg PO DAILY multivit with min-folic acid 0.4 mg Tablet 1 tablet PO DAILY Gvoke HypoPen 2-Pack 1 mg/0.2 mL auto-injector 1 mg subcut ONCE Qty: 0.4 0RF Rx Instructions: as a single dose; may repeat once after 15 minutes if no response glucose 4 gram tablet,chewable 16 g PO Q15M PRN (Reason: hypoglycemia) Qty: 360 0RF Rx Instructions: until symptoms of low blood sugar are controlled (DME) FreeStyle [place] 3 Sensor Device See Rx Instructions .Route Qty: 6 2RF Rx Instructions: change every 14 days levothyroxine 100 mcg tablet 100 mcg PO DAILY Qty: 90 1RF metformin 500 mg tablet extended release 24 hr 1,000 mg PO BID Qty: 360 1RF insulin glargine [Basaglar KwikPen U-100 Insulin] 100 unit/mL (3 mL) insulin pen 24 unit subcut QAM Qty: 45 0RF (DME) pen needle, diabetic [Comfort EZ Pen [place]] 33 gauge x 1/4 needle See Rx Instructions .Route Qty: 400 12RF Rx Instructions: 5 times daily insulin aspart U-100 [Novolog FlexPen U-100 Insulin] 100 unit/mL (3 mL) insulin pen 14 unit subcut .before meals MDD 60 Qty: 21 3RF Rx Instructions: plus sliding scale Follow-up/Referrals: Sil Joseph MD [Primary Care Provider] - Time of Disposition: 15:00 Quality NIHSS Nursing Documentation ED NIHSS nursing documentation: reviewed/agree
[2025-01-12 13:57] VITALS: BP 125/56; PULSE 59; RESP 16; TEMP 36.2; O2SAT 98
== END 2025-01-12 15:04 | disposition home or self-care (01) ==
PROVIDERS: Emergency Provider Nurse Practitioner Family; PCP Family Medicine
DX: M19.042 Primary osteoarthritis, left hand (principal); M25.542 Pain in joints of left hand; K74.60 Unspecified cirrhosis of liver; N40.0 Benign prostatic hyperplasia without lower urinary tract symptoms; E03.9 Hypothyroidism, unspecified; C91.10 Chronic lymphocytic leukemia of B-cell type not having achieved remission; E78.2 Mixed hyperlipidemia; E11.42 Type 2 diabetes mellitus with diabetic polyneuropathy; Z79.84 Long term (current) use of oral hypoglycemic drugs; Z79.4 Long term (current) use of insulin; Z85.828 Personal history of other malignant neoplasm of skin; R01.1 Cardiac murmur, unspecified
CPT/HCPCS: 73130; 99213; G0463

== ENCOUNTER 2025-01-13 13:35 | Emergency (ER) | payer MEDICARE, BC, SELFPAY ==
[2025-01-13 13:46] VITALS: BP 134/60; PULSE 57; RESP 16; TEMP 36.1; O2SAT 100
--- NOTE | 2025-01-13 13:52 | ED_ITS ---
HPI - Wound/Laceration General Chief Complaint: Wound/Laceration Stated Complaint: Injured Hand Time Seen by Provider: 01/13/25 13:53 Source: patient, RN notes reviewed and old records reviewed Mode of arrival: ambulatory Limitations: no limitations History of Present Illness HPI narrative: 74 year old male accompanied by spouse with puncture wound to his left hand in the web space between his thumb and index finger. 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 Patient has full mobility of his thumb and index finger, denies any tingling or numbness to his left hand or finger, and pulses strong to left radius with brisk capillary refill of nail beds left hand. No acute bleeding noted from wound, Onset (ago): minute(s) (within past 30 minutes prior to arrival) Location: other (left hand) Place: home Patient tetanus UTD: No Treatments prior to arrival: bandage and other (washed with soap and water) Related Data Home Medications ?Medication ?Instructions ?Recorded ?Confirmed ?Last Taken ?Type multivitamin with minerals-folic 1 tablet PO DAILY 10/27/22 01/13/25 11/02/22 H istory acid 0.4 mg tablet omega-3 fatty acids 1,000 mg PO DAILY 09/18/23 01/13/25 Unknown History sildenafil 100 mg tablet 100 mg PO DAILY PRN sexual activity 11/19/23 01/13/25 Unknown History atorvastatin 20 mg tablet 20 mg PO .QOD 05/19/24 01/13/25 Unknown History finasteride 5 mg tablet 5 mg PO QHS 11/19/24 01/13/25 Unknown History tamsulosin 0.4 mg capsule 0.4 mg PO QHS 11/19/24 01/13/25 Unknown History fluorouracil 5 % topical cream 1 applic topical BID 01/12/25 01/13/25 Unknown History Allergies Allergy/AdvReac Type Severity Reaction Status Date / Time No Known Allergies Allergy Verified 01/13/25 13:38 Review of Systems Review of Systems: CONSTITUTIONAL: Denies fever, chills, or sweats. CARDIOVASCULAR: Denies chest pain, palpitations, or edema. RESPIRATORY: Denies cough or dyspnea. SKIN: Reports puncture/laceration to the web space left hand between the thumb and index finger. MUSCULOSKELETAL: Denies musculoskeletal pain NEUROLOGIC: Denies numbness, or weakness. 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 History of colon polyps Cirrhosis BPH (benign prostatic hyperplasia) Erectile dysfunction Chronic lymphocytic leukemia Hypothyroidism, unspecified Insomnia, unspecified Mixed hyperlipidemia VIKAS (obstructive sleep apnea) Type 2 diabetes mellitus with diabetic nephropathy Surgical History Surgical History History of cholecystectomy (~05/15/24) 05/15/2024 at [facility] History of shoulder surgery right shoulder adhesive capsulitis manipulation History of surgery on right wrist ORIF of right wrist fracture History of Mohs surgery for squamous cell carcinoma in situ of skin (~10/2019) right wrist Family History Family History Father Family history of malignant neoplasm, Onset Age: 75 CLL (chronic lymphocytic leukemia) Mother Carcinoma of colon, Onset Age: 60 Grandparent Hypertension Heart disease Cerebrovascular accident Social History Social History Smoking status: Never smoker Second hand tobacco smoke exposure: No Alcohol intake: never Alcohol use details: Six beers per year Substance use: never Substance use type: does not use Do You Feel Safe in your Home?: Yes Lack of Transportation: No Lack of Food: Never True Current Housing: I Have Housing Concerned About Future Housing: No Difficulty Paying Gas/Electric Bills: No Difficulty Paying for Meds: No Currently Unemployed: No Education: Master's Degree or Higher Difficulty w/ Childcare or Family Care: No Living arrangements: with family Additional living arrangements comments: Lives with in [facility] Occupation/Education: retired Gender identity (if verbalized by the patient): Male Sexual Orientation (if Verbalized by the Patient): Straight or Heterosexual Spiritual care concerns: No Agree to blood products: Yes Comments At time of signature, agree with nursing past medical, surgical, social and family history. There is no relevant family history pertinent to the presenting complaint Exam Narrative: GENERAL: Well-appearing, well-nourished, and in no acute distress. HEAD: Normocephalic, atraumatic. NECK: Supple.no lymphadenopathy CHEST: Clear to auscultation. No respiratory distress.SAO2 100% on room air HEART: Regular rate and rhythm. No murmur heard. Normal peripheral pulses. EXTREMITIES: Normal range of motion. No edema. SKIN: Warm, dry, no rash. Reports laceration to the web space left hand between thumb and index finger, bleeding controlled, full mobility of thumb and also index finger, denies any tingling or numbness to his hand or fingers, strong left radial pulse. see procedure note. NEURO: No focal deficits. Alert and oriented x3. Course Course Level of Care: Express Care Visit Vital Signs Vital signs: Vital Signs Temperature 36.1 C L 01/13/25 13:46 Pulse Rate 57 L 01/13/25 13:46 Respiratory Rate 16 01/13/25 13:46 Blood Pressure 134/60 01/13/25 13:46 Pulse Oximetry 100 01/13/25 13:46 Temperature 36.1 C L 01/13/25 13:46 Pulse Rate 57 L 01/13/25 13:46 Respiratory Rate 16 01/13/25 13:46 Blood Pressure 134/60 01/13/25 13:46 Pulse Oximetry 100 01/13/25 13:46 reviewed Procedures Laceration hand: Date: 01/13/25 Time: 14:10 Site: hand Side (If applicable): left Size (cm): 2 Description: linear Depth: simple, single layer Local Anesthetic: lidocaine 1% Amount of anesthesia used (mL): 2 Pre-repair: irrigated extensively and other (cleansed with wound care cleanser) ====== Skin Level ====== Skin layer closed with: nylon Size (cm): 4-0 Number of sutures: 4 Technique: simple, interrupted ====== Subcutaneous Layer ====== ====== Muscle Layer ====== ====== Tendon Layer ====== Dressing: triple antibiotic ointment and band-aid dressing applied over laceration site.Patient tolerated suturing well MDM - Wound/Laceration MDM Narrative Medical decision making narrative: Wound explored for foreign body and copious irrigation provided with no evidence of FB. Discussed the potential of retained foreign body with the patient and signs/symptoms that should prompt the patient to immediately go to the ED for reevaluation. The wound was explored and no foreign bodies were found. There was no evidence of tendon or nerve lacerations. The wound was closed per procedure note. A sterile dressing was then applied and anticipatory guidance was provided. Tetanus prophylaxis was given. Differential Diagnosis Differential diagnosis: Likely laceration, abrasion, avulsion of skin and other (puncture wound to left hand) Medical Records Attestation: I reviewed the patient's medical records. Critical Care Time Critical Care Time Critical Care Time: No Discharge Plan Discharge Clinical Impression: Laceration of hand, left Qualifiers: Encounter type: initial encounter Foreign body presence: without foreign body Qualified Code(s): S61.412A - Laceration without foreign body of left hand, initial encounter Patient Disposition: Home, Self-Care Condition: Stable Instructions: Antibiotic Form, Laceration (ED) Additional Instructions: Keep the area clean and dry No continuous water contact like dishes or swimming You may bathe and wash you hair caution with hair products or lotions Antibiotic ointment(Bacitracin)to the area 1time a day dressing of choice watch for infection--redness, swelling, drainage follow up with PCP for suture/staple in removal *10 days recheck with PCP if further concerns or problems Antibiotic for 7 days 2 x daily of Cephalexin If your symptoms persist, change or worsen significantly before you can contact your personal physician then please, without delay, go to the emergency department for further evaluation. Follow-up with PCP in 7-10 days or sooner if needed Follow up with PCP soon in regards to your blood pressure which is elevated above threshold for referral. Blood pressure above 120/80 may indicate pre- hypertension. 134/60 Patient Language: Arabic Prescriptions: New cephalexin 500 mg capsule 500 mg PO Q12H Qty: 14 0RF No Action fluorouracil 5 % cream 1 applic TOPICAL BID ferrous sulfate 325 mg (65 mg iron) tablet 325 mg PO DAILY Qty: 1 0RF vitamin [id number]-qcoqa acid 500-400 mcg tablet 1 tablet PO DAILY Qty: 1 0RF Rx Instructions: administer with a meal sildenafil 100 mg tablet 100 mg PO DAILY PRN (Reason: sexual activity) pantoprazole 20 mg tablet,delayed release (DR/EC) 20 mg PO QAM PRN (Reason: gastric reflux) Qty: 90 1RF tamsulosin 0.4 mg capsule 0.4 mg PO QHS lisinopril 5 mg tablet 5 mg PO DAILY Qty: 100 3RF finasteride 5 mg tablet 5 mg PO QHS atorvastatin 20 mg tablet 20 mg PO .QOD omega-3 fatty acids Capsule 1,000 mg PO DAILY multivit with min-folic acid 0.4 mg Tablet 1 tablet PO DAILY Gvoke HypoPen 2-Pack 1 mg/0.2 mL auto-injector 1 mg subcut ONCE Qty: 0.4 0RF Rx Instructions: as a single dose; may repeat once after 15 minutes if no response glucose 4 gram tablet,chewable 16 g PO Q15M PRN (Reason: hypoglycemia) Qty: 360 0RF Rx Instructions: until symptoms of low blood sugar are controlled (DME) FreeStyle [place] 3 Sensor Device See Rx Instructions .Route Qty: 6 2RF Rx Instructions: change every 14 days levothyroxine 100 mcg tablet 100 mcg PO DAILY Qty: 90 1RF metformin 500 mg tablet extended release 24 hr 1,000 mg PO BID Qty: 360 1RF (DME) pen needle, diabetic [Comfort EZ Pen [place]] 33 gauge x 1/4 needle See Rx Instructions .Route Qty: 400 12RF Rx Instructions: 5 times daily insulin aspart U-100 [Novolog FlexPen U-100 Insulin] 100 unit/mL (3 mL) insulin pen 14 unit subcut .before meals MDD 60 Qty: 21 3RF Rx Instructions: plus sliding scale insulin glargine [Basaglar KwikPen U-100 Insulin] 100 unit/mL (3 mL) insulin pen 30 unit subcut QAM Qty: 60 0RF Follow-up/Referrals: PHYSICIAN,RADIOLOGIC TECHNOLOGY TEACHER [Primary Care Provider] - Time of Disposition: 14:30 Quality [place] Coma Scale Eyes: Open Verbal: Oriented and Alert Motor: Follows Commands Kitty Coma Total Score: 15
[2025-01-13] MEDS: TETANUS,DIPHTHERIA,AC PERTUSSIS ADULT (0.5 ML) BOOSTRIX IM (14:02)
[2025-01-13] MEDS: LIDOCAINE 1% LOCAL INJ 2 ML AMPUL 4 ML INFILTRATE (14:03)
== END 2025-01-13 14:34 | disposition home or self-care (01) ==
PROVIDERS: Emergency Provider Registered Nurse
DX: S61.432A Puncture wound without foreign body of left hand, initial encounter (principal); E11.9 Type 2 diabetes mellitus without complications; E78.2 Mixed hyperlipidemia; E03.9 Hypothyroidism, unspecified; Z85.6 Personal history of leukemia; Z23 Encounter for immunization; W27.0XXA Contact with workbench tool, initial encounter
CPT/HCPCS: 12041; 90471; 90715; 99213; G0463; J2003

== ENCOUNTER 2025-06-08 09:34 | Outpatient (CLI) | payer MEDICARE, BC, SELFPAY ==
[2025-06-08 09:54] LABS: Hematocrit 39.4 % (42.0-52.0); Hemoglobin 13.6 g/dL (14.0-18.0); Immature Granulocyte Percent A 0.3 % (0-0.5); Immature Platelet Fraction Pct 10.7 % (0.9-11.2); Lymphocytes Absolute Auto 1.26 K/mm3 (0.9-3.2); Mean Corpuscular HGB Conc 34.5 g/dl (32-36); Mean Corpuscular Hemoglobin 32.3 pg (26-34); Mean Corpuscular Volume 93.6 fl (80-100); Nucleated Red Blood Cells Absolute Auto 0.000 K/mm3 (0.0-0.012); Nucleated Red Blood Cells Perc 0.0 % (0.0-0.2); Platelet Count Result 60 k/mm3 (150-375); Red Blood Count 4.21 M/mm3 (4.6-6.20); White Blood Count 3.6 K/mm3 (4.5-10.0)
[2025-06-08 09:57] LABS: Blood Urea Nitrogen 10 mg/dL (8-26); Carbon Dioxide 23 mmol/L (22-30); Chloride 103 mmol/L (98-109); Estimated Glomerular Filt Rate > 60; Glucose 152 mg/dL (70-105); Ionized Calcium (POC) 1.20 mmol/L (1.11-1.31); Potassium 4.1 mmol/L (3.5-4.9); Sodium 138 mmol/L (138-146)
--- OUTSIDE RECORDS SUMMARY | 2025-06-08 10:18 | XMS_ITS | Clinical Summary ---
Author Organization [facility] [employer] Address [address] [place] [address] Care Team Providers Care Split And Drum Room Supervisor Name Role Phone Jason Joseph MD Primary Care Provider Source Comments [facility] [employer],non-owned Affiliates and Associated Physician Practices is amultiple site organization consisting of ambulatory clinics and hospital sitesin [place], [place], [place] and [place]. This disclosure is being madepursuant to the Care Everywhere program and may not contain all information available regarding this patient. Last updated 18.[facility] [employer] Allergies Active Allergy Reactions Criticality Noted Date Comments Bee Venom Itching Low 02/23/1975 Medications * Be aware that medications may not be up to date on this document. Alwaysverify current medications with the patient. Multiple Vitamins-Minera ls (CENTRUM SILVER PO)Indications: Hepatic cirrhosis, unspecified hepatic cirrhosis type, unspecified whether ascites present (HCC) Active ferrous sulfate 325 (65 FE) MG tabletIndicatio ns:Hepatic cirrhosis, unspecified hepatic cirrhosis type, unspecified whether ascites present (HCC) Take 1 (one) tablet by mouth once daily Active finasteride (Proscar) 5 MG tabletIndicatio ns:Hepatic cirrhosis, unspecified hepatic cirrhosis type, unspecified whether ascites present (HCC) Per instructions DAILY (route: oral) 03/21/20 22 Active levothyroxine (Synthroid) 100 MCG tabletIndicatio ns:Hepatic cirrhosis, unspecified hepatic cirrhosis type, unspecified whether ascites present (HCC) Take 1 (one) tablet by mouth once daily 06/19/20 23 Active metFORMIN ER 24hr (Glucophage XR) 500 MG tabletIndicatio ns:Hepatic cirrhosis, unspecified hepatic cirrhosis type, unspecified whether ascites present (HCC) Take 2 (two) tablets by mouth 2 times daily 07/19/20 23 Active pantoprazole EC (Protonix) 40 MG tabletIndicatio ns:Hepatic cirrhosis, unspecified hepatic cirrhosis type, unspecified whether ascites present (HCC) Take 1 (one) tablet by mouth as needed for Heartburn 3 times per week 03/16/20 23 Active lidocaine 1.5%-NIFEdipine 0.3% compounded ointmentIndicat ions:Hepatic cirrhosis, unspecified hepatic cirrhosis type, unspecified whether [...] 1 (one) tablet by mouth once daily 01/11/20 24 Active insulin aspart (NovoLOG) pen Inject 12 (twelve) Units subcutaneously 3 times daily before meals Sliding scale Active vitamin D3 (Cholecalcifero l) 25 MCG (1000 UNITS) tablet Take 1 (one) tablet by mouth once daily Active fish oil/omega-3 fatty acids (Promega;Cardi- Effort 3) 1000 MG capsule Take 1 (one) capsule by mouth 3 times daily with meals Active Multiple Vitamins-Minera ls (EYE VITAMINS PO) Take by mouth once Active lisinopril (Prinivil; Zestril) 5 MG tablet Take 1 (one) tablet by mouth once daily Active Active Problems Problem Noted Date Diagnosed Date Thrombocytopenia 06/01/2025 Kidney mass 06/01/2025 Nonrheumatic aortic valve stenosis 11/03/2024 Mixed hyperlipidemia 08/11/2024 Type 2 diabetes mellitus without complication Idiopathic chronic pancreatitis 08/11/2024 Cirrhosis (marta baird [facility]) 09/07/2023 Overview (09/07/2023): 09/06/23 Fibroscan CAP 291, LSM 9.7 kPa Chronic lymphocytic leukemia 06/12/2022 Osteopenia of multiple sites 06/16/2020 Resolved Problems Problem Noted Date Diagnosed Date Resolved Date 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 Encounters Date Type Department Care Team Description 06/01/2025 9:00 AM CDT Office Visit [facility] - Urology [address] [place] [address] Terry Salinas MD Kidney mass (Primary Dx); Type 2 diabetes mellitus without complication, with long-term current use of insulin (HCC); [facility]); Thrombocytopenia; Nocturia 06/01/2025 Travel 05/15/2025 11:31 AM CDT - 05/15/2025 11:59 PM CDT Hospital Encounter [facility] CAT SCAN [address] [place] [address] Clif Sepulveda MD Discharge Disposition: Home or Self Care 05/15/2025 Travel 05/07/[address] [facility] - GI [address] [place] [phone] Clif Sepulveda MD Pulmonary nodule 05/01/2025 Results Follow-Up [facility] - [address] [phone] Clif Sepulveda MD 04/23/2025 10:00 AM CDT Office Visit [facility] - GI [address] [place] [phone] Clif Sepulveda MD Hepatic cirrhosis, unspecified hepatic cirrhosis type, unspecified whether ascites present (HCC) (Primary Dx); Encounter for screening for other viral diseases; Kidney mass; Pulmonary nodule 04/23/2025 8:54 AM CDT - 04/23/2025 11:59 PM CDT Hospital Encounter H CAT SCAN [address] [place] [address] Clif Sepulveda MD Discharge Disposition: Home or Self Care 04/23/2025 Travel from Last 3 Months Immunizations Immunization Administration Dates Next Due [employer] primary monoval ent 12+ yr 0.3mL Purple cap 06/08/2021,01/02/2021,12/05/2020 Hep B, Adjuvanted 11/06/2023,09/28/2023 INFLUENZA VACCINE 07/09/2020 INFLUENZA VACCINE, ADJUVANTE D, TRIV. (FLUAD TRIVALENT; 65Y+) (AIIV3) 07/03/2019 INFLUENZA VACCINE, HIGH-DOSE , QUADR. (FLUZONE HIGH-DOSE QUADRIVALENT; 65Y+), 0.7 ML (HD-IIV4) 07/31/2023,08/01/2022,07/20/2021,2017 INFLUENZA VACCINE, HIGH-DOSE , TRIV. (FLUZONE HIGH-DOSE [...] drink = 0.6 oz pur e alcohol) PHQ-2 Answer Date Recorded Patient Health Questionnaire-2 Score 0 06/01/2025 Sex and Gender Information Value Date Recorded Sex Assigned at Not on file Legal Sex Male 5:29 PM [employer] Gender Identity Male 04/16/2025 6:56 PM CDT Sexual Orientation Straight 04/16/2025 6: 56 PM CDT Last Filed Vital Signs Vital Sign Reading Time Taken Comments Blood Pressure 124/69 06/01/2025 8:59 AM CDT Pulse 65 06/01/2025 8:59 AM CDT Temperature 36.8 C (98.2 F) 06/01/2025 8:59 AM CDT Respiratory Rate 17 06/01/2025 8:59 AM CDT Oxygen Saturation 98% 06/01/2025 8:59 AM CDT Inhaled Oxygen Concentration 40% 05/15/2024 9 :55 AM CDT Weight 78 kg (172 lb) 06/01/2025 8:59 AM CDT Height 170.2 cm (5' 7) 06/01/2025 8:59 AM CDT Body Mass Index 26.94 06/01/2025 8:59 AM CDT Plan of Treatment Upcoming Encounters Date Type Department Care Team (Late st Contact Info) Description 06/11/2025 10:00 AM CDT Appointment [facility] Health Imaging Services - CT Scan [address] [place] [address] 07/14/2025 9:00 AM CDT Office Visit [facility] - Pulmonology [address] , [facility] [address] [place] [phone] Josh Richards MD [facility] [facility] 2L DIV OF PULMONARY/[place] [address] 10/29/2025 8:00 AM [employer] BUSINESS [employer]NER Appointment [facility] [address] [place] [phone] Clif Sepulveda MD [facility] [place] [phone] 10/29/2025 9:30 AM [employer] BUSINESS [employer]NER Office Visit [facility] - GI [address] [facility] [place] [phone] Clif Sepulveda MD [address] [place] [phone] 11/02/2025 11:00 AM FIN[employer] BUSINESS PARTNER Office Visit [facility] - Cardiology [address] [facility], [facility] [address] [place] [phone] Jack Díaz MD [address] [facility] [address] [place] [phone] Health Maintenance Due Date Last Done Comments [...] 2024 07/31/2023, 08/01/2022, 01/21/2022, Additional history exists DIABETES RETINOPATHY SCREENING 08/11/2024 DIABETES-FOOT EXAM WITH MONOFILAMENT 08/11/2024 DIABETES-HGB A1C 08/11/2024 DIABETES - URINE PROTEIN SCREENING 10/22/2024 INFLUENZA VACCINE (#1) 2025 , 08/01/2022, 07/20/2021, Additional history exists DIABETES-SERUM CREATININE 04/25/20262024, 04/23/2025, 08/22/2024, Additional history exists DTAP/TDAP/TD VACCINES (2 - Td or Tdap) 05/20/2031 05/20/2021 HEPATITIS C SCREENING Completed 09/07/2023 Respiratory Syncytial Virus (RSV) Vaccine Pt: or over 60 yrs Completed 10/24/2023 HEPATITIS B VACCINE Completed 11/06/2023, DEPRESSION SCREENING Completed 06/01/2025 HIB VACCINE Aged Out No longer eligi ble based on patient's age to complete this topic HPV VACCINE Aged Out No longer eligi ble based on patient's age to complete this topic MENINGOCOCCAL (Group B) VACCINE SHARED DECISION-MAKING Aged Out No longer eligible based on patient's age to complete this topic MENINGOCOCCAL GROUPS A/C/Y/W VACCINE Aged Out No longer eligible based on patient's age to complete this topic Goals Goal Patient Goal Type Associated Problems Recent Progress Patient-Stated? Author Medication Management General On track( 025 10:13 AM CDT) Tyesha Mcdaniels, RN Note: Expected end date: ongoing Interventions: Take all medications as prescribed Let your doctor know right away about any changes in your medications Make sure to request a refill of your medication at least one week prior to your last dose Procedures Procedure Name Priority Date/Time Associated Diagnosis Comments BLADDER SCAN - POINT OF CARE (AMB) Routine 06/01/2025 9:07 AM CDT Kidney mass URINALYSIS AUTO - POINT OF CARE (AMB) [facility] Routine 06/01/2025 9:07 AM CDT Kidney mass CT CHEST WO CONTRAST Routine 05/15/2025 11:37 AM CDT Pulmonary nodule PT-INR Routine 04/25/2025 9:58 AM CDT Hepatic cirrhosis, unspecified hepatic cirrhosis type, unspecified whether ascites present (HCC) COMPREHENSIVE METABOLIC PANEL Routine 04/25/2025 9:58 AM CDT Hepatic cirrhosis, unspecified hepatic cirrhosis type, unspecified whether ascites present (HCC) CBC W AUTO DIFFERENTIAL Routine 04/25/2025 9:58 AM CDT Hepatic cirrhosis, unspecified hepatic cirrhosis type, unspecified whether ascites present (HCC) BILIRUBIN DIRECT Routine 04/25/2025 9:58 AM CDT Hepatic cirrhosis, unspecified hepatic cirrhosis type, unspecified whether ascites present (HCC) ALPHA FETOPROTEIN BLOOD TUMOR MARKER Routine 04/25/2025 9:58 AM CDT Hepatic cirrhosis, unspecified hepatic cirrhosis type, unspecified whether ascites present (HCC) HEPATITIS B SURFACE ANTIBODY QUANT Routine 04/25/2025 9:58 AM CDT Encounter for screening for other viral diseases CT ABDOMEN MULTI PHASE W CONT Routine 04/23/2025 9:39 AM CDT Hepatic cirrhosis, unspecified hepatic cirrhosis type, unspecified whether ascites present (HCC) ISTAT CREATININE Routine 04/23/2025 9:27 AM CDT HEPATITIS C AB W/RFLX TO HCV RNA QN PCR Routine 09/07/2023 7:59 AM [employer]NER Hepatic cirrhosis, unspecified hepatic cirrhosis type, unspecified whether ascites present Portal hypertension from Last 3 Months or Most Recently Relevant to Health Maintenance Results * URINALYSIS AUTO - POINT OF CARE (AMB) [facility] (06/01/2025 9:07 AM CDT) Glucose UA neg [facility] [address] Bilirubin UA POCT neg [facility] [address] Ketones UA POCT neg [facility] [address] Specific Graham UA 1.[address] [facility] [address] Blood Urine POCT neg [facility] [address] pH UA 6.0 [facility] [address] Protein UA neg [facility] [address] Urobilinogen UA 0.2mg/dl [facility] [address] Nitrite UA neg [facility] [address] WBC UA neg [facility] [address] Urine URINE / Unknown 06/01/2025 9 :07 AM CDT Terry Salinas MD LAB - POINT OF CARE ORDER DIAMOND Final Result Performing Organization Address City/State/[facility] Co de Phone Number [facility] [address] [place] [address], [facility] [phone] * BLADDER SCAN - POINT OF CARE (AMB) (06/01/2025 9:07 AM CDT) mL 24ml [facility] [address] Urine URINE / Unknown 06/01/2025 9 :07 AM CDT Terry Salinas MD LAB - POINT OF CARE ORDER DIAMOND Final Result [facility] [address] [place] [address], [facility] [phone] * CT Chest Wo Contrast (05/15/2025 11:37 AM CDT) Anatomical Region Laterality Modality Chest Computed Tomogra phy 05/15/2025 2:00 PM CDT Impressions 05/15/2025 3:44 PM CDT Impression: 1.Multiple indeterminate nodules of the lungs with the largest measuring 7 mm within the right superior lobe. Recommend 6 month follow-up. No pleural fluid or pneumothorax is present. > Dictated by Jassi Walker MD (vice president compliance). > Dictated by Jassi walker (Police Surgeon) 05/15/2025 2:00 PM I, Serafin Davenport MD have personally reviewed and interpreted this examination/study. > Interpreting Provider: Serafin Davenport MD on 05/15/2025 3:44 PM Narrative 05/15/2025 3:44 PM CDT PROCEDURE: CT CHEST WO CONTRAST, DATE/TIME OF EXAM: 05/15/2025 11:37 AM, LOCATION [facility] INDICATION: R91.1: Pulmonary nodule ADDITIONAL CLINICAL INFORMATION: Ordering Provider Reason For Exam: Evaluation of pulmonary nodule Technologist Note: Additional: COMPARISON: CT abdomen multiphasic contrast 04/23/2025 TECHNIQUE: CT of the chest was performed without contrast according to standard protocol. Findings: Evaluation of visceral and vascular structures is degraded due to lack of intravenous contrast administration. Lower Neck and Axillae: Normal. Lungs: Mild bilateral dependent atelectasis is present. There is a 7 mm juxtapleural solid nodule within the right superior lobe, unchanged from prior exam (series 4 image 65). There is additionally 2.7 mm groundglass nodule within the right lower lobe (series 4 image 60). There is further a 4 mm part solid juxtapleural nodule within the left lower lobe (series 4 image 71). There is a 4 mm juxtapleural solid nodule within the right lung base. No pleural fluid or pneumothorax is present. Heart and Pericardium: The cardiac chambers are normal in size. No pericardial fluid or thickening is present. Coronary atherosclerosis. Mediastinum and Hailey: No enlarged lymph nodes are present. Thoracic Vasculature: There is calcification of the aortic arch and thoracic aorta. Bones and Chest Wall: Bone windows demonstrate no suspicious lytic or blastic lesions. The visible osseous structures are intact. Upper Abdomen: Mild splenomegaly measuring 14 cm. The gallbladder is absent. The stomach and esophagus appear normal. Otherwise, visible portions of the upper abdominal organs are normal. Procedure Note Serafin Davenport MD - 05/15/2025 PROCEDURE: CT CHEST WO CONTRAST, DATE/TIME OF EXAM: 05/15/2025 11:37AM, LOCATION [facility] INDICATION: R91.1: Pulmonary nodule ADDITIONAL CLINICAL INFORMATION: Ordering Provider Reason For Exam: Evaluation of pulmonary nodule Technologist Note: Additional: COMPARISON: CT abdomen multiphasic contrast 04/23/2025 TECHNIQUE: CT of the chest was performed without contrast according to standard protocol. Findings: Evaluation of visceral and vascular structures is degraded due to lackof intravenous contrast administration. Lower Neck and Axillae: Normal. Lungs: Mild bilateral dependent atelectasis is present. There is a 7 mm juxtapleural solid nodule within the right superior lobe, unchanged from prior exam (series 4 image 65). There is additionally 2.7 mm groundglass nodule within the right lower lobe (series 4 image 60). There is furthera 4 mm part solid juxtapleural nodule within the left lower lobe (series 4 image 71). There is a 4 mm juxtapleural solid nodule within the rightlung base. No pleural fluid or pneumothorax is present. Heart and Pericardium: The cardiac chambers are normal in size. No pericardial fluid orthickening is present. Coronary atherosclerosis. Mediastinum and Hailey: No enlarged lymph nodes are present. Thoracic Vasculature: There is calcification of the aortic arch and thoracic aorta. Bones and Chest Wall: Bone windows demonstrate no suspicious lytic or blastic lesions. The visible osseous structures are intact. Upper Abdomen: Mild splenomegaly measuring 14 cm. The gallbladder is absent. Thestomach and esophagus appear normal. Otherwise, visible portions of the upper abdominal organs are normal. Impression: 1.Multiple indeterminate nodules of the lungs with the largest measuring7 mm within the right superior lobe. Recommend 6 month follow-up. Nopleural fluid or pneumothorax is present. > Dictated by Jassi Walker MD (vice president compliance). > Dictated by Jassi walker (Police Surgeon) 05/15/2025 2:00 PM Serafin Chanel MD have personally reviewed and interpreted this examination/study. > Interpreting Provider: Serafin Davenport MD on 05/15/2025 3:44 PM Result [facility] Clif Sepulveda MD CT ORDERABLES Final Result * HEPATITIS B SURFACE ANTIBODY QUANT (04/25/2025 9:58 AM CDT) [facility] Hepatitis B Virus Surface Antibody Quantitative 260 > OR = 10 mIU/mL [facility] Comment: Patient has immunity to hepatitis B virus. For additional information, please refer to http://education.octoScope/faq/GTC092 (This link is being provided for informational/ educational purposes only). Test Performed at: [facility] [address] [place] [address] CELESTE VENTURA MD Blood BLOOD SPECIMEN / Unknown 04/25/2025 9:58 AM CDT 04/25/2025 9:59 AM CDT Result [facility] Clif Sepulveda MD LAB - SEROLOGY ORDERABLES [facility] al Result Performing Organization Address [facility]/State/[facility] Phone Number [facility] [address] [place] [address] * ALPHA FETOPROTEIN BLOOD TUMOR MARKER (04/25/2025 9:58 AM CDT) [facility] Alpha-Fetoprotei n Tumor Marker 3.6 <6.1 ng/mL [facility] Comment: This test was performed using the Nic Fany chemiluminescent method. Values obtained from different assay methods cannot be used interchangeably. AFP levels, regardless of value, should not be interpreted as absolute evidence of the presence or absence of disease. REPORT COMMENT: FASTING:YES Test Performed at: [facility] [address] [address] MATTHEW BROOKS Blood BLOOD SPECIMEN / Unknown 04/25/2025 9:58 AM CDT 04/25/2025 9:59 AM CDT Result [facility] Clif Sepulveda MD LAB - CHEMISTRY ORDERABLES Fi nal Result Performing Organization Address [facility] Co de Phone Number [facility] [address] [place] [address] * (ABNORMAL) PT-INR (04/25/2025 9:58 AM CDT) [facility] INR 1.2(H) [facility] Comment: Reference Range 0.9-1.1 Moderate-intensity Warfarin Therapy 2.0-3.0 Higher-intensity Warfarin Therapy 3.0-4.0 PT 12.5(H) 9.0 - 11.5 sec [facility] Comment: For additional information, please refer to http://education.octoScope/faq/FCS717 (This link is being provided for informational/ educational purposes only.) Test Performed at: [facility] [address] CELESTE VENTURA MD Blood BLOOD SPECIMEN / Unknown 04/25/2025 9:58 AM CDT 04/25/2025 9:59 AM CDT Clif Sepulveda MD LAB - COAGULATION ORDERABLES Final Result Performing Organization Address [facility] de Phone Number [facility] [address] [place] [address] * (ABNORMAL) CBC WITH DIFFERENTIAL (04/25/2025 9:58 AM CDT) [facility] White Blood Cell Count 3.3(L) 3.8 - 10.8 Thousand/ uL [facility] RBC 4.56 4.20 - 5.80 Million/u L [facility] Hemoglobin 14.4 13.2 - 17.1 g/dL [facility] Hematocrit 44.1 38.5 - 50.0 % [facility] MCV 96.7 80.0 - 100.0 fL [facility] MCH 31.6 27.0 - 33.0 pg [facility] MCHC 32.7 32.0 - 36.0 g/dL [facility] Comment: For adults, a slight decrease in the calculated MCHC value (in the range of 30 to 32 g/dL) is most likely not clinically significant; however, it should be interpreted with caution in correlation with other red cell parameters and the patient's clinical condition. RDW 13.4 11.0 - 15.0 % [facility] Platelet Count 63(L) 140 - 400 Thousand/ uL [facility] MPV 12.8(H) 7.5 - 12.5 fL [facility] Neutrophil Absolute 1706 1500 - 7800 cells/uL [facility] Absolute Bands [facility] Metamyelocytes Absolute [facility] Myelocytes Absolute [facility] Absolute Prolymphocytes [facility] Lymphocytes Absolute 1201 850 - 3900 cells/uL [facility] Absolute Monocytes 314 200 - 950 cells/uL [facility] Eosinophils Absolute 59 15 - 500 cells/uL [facility] Basophils Absolute 20 0 - 200 cells/uL [facility] Absolute Blasts [facility] nRBC Absolute [facility] Granulocytes % 51.7 % [facility] Band Neutrophil [facility] Metamyelocytes [facility] Myelocytes [facility] Promyelocytes [facility] Lymphocytes % 36.4 % [facility] Lymphocyte Reactive [facility] Monocytes % 9.5 % [facility] Eosinophils % 1.8 % [facility] Basophils % 0.6 % [facility] Blasts [facility] nRBC [facility] Comments [facility] Comment: Review of the peripheral smear reveals decreased numbers of platelets. Test Performed at: [facility] [address] [place] [phone] CELESTE VENTURA MD Blood BLOOD SPECIMEN / Unknown 04/25/2025 9:58 AM CDT 04/25/2025 9:59 AM CDT us Clif Sepulveda MD LAB - HEMATOLOGY ORDERABLES F inal Result [facility] [address] [place] [address] * (ABNORMAL) COMPREHENSIVE METABOLIC PANEL (04/25/2025 9:58 AM CDT) Glucose 146(H) 65 - 99 mg/dL [facility] Comment: Fasting reference interval For someone without known diabetes, a glucose value >125 mg/dL indicates that they may have diabetes and this should be confirmed with a follow-up test. BUN 12 7 - 25 mg/dL [facility] Creatinine 0.72 0.70 - 1.28 mg/dL [facility] eGFR by Cystatin C 96 > OR = 60 mL/min/1. 73m2 [facility] BUN/Creatinine Ratio SEE NOTE: 6 - 22 (calc) [facility] Comment: Not Reported: BUN and Creatinine are within reference range. Sodium 135 135 - 146 mmol/L [facility] Potassium 4.3 3.5 - 5.3 mmol/L [facility] Chloride 101 98 - 110 mmol/L [facility] CO2 23 20 - 32 mmol/L [facility] Calcium 9.6 8.6 - 10.3 mg/dL [facility] Protein Total 7.4 6.1 - 8.1 g/dL [facility] Albumin 4.1 3.6 - 5.1 g/dL [facility] Globulin Total 3.3 1.9 - 3.7 g/dL (calc) [facility] Albumin/Globulin Ratio 1.2 1.0 - 2.5 (calc) [facility] Bilirubin Total 0.9 0.2 - 1.2 mg/dL [facility] Alkaline Phosphatase 89 35 - 144 U/L [facility] AST 89(H) 10 - 35 U/L [facility] ALT 70(H) 9 - 46 U/L [facility] Comment: Test Performed at: [place] [address] CELESTE VENTURA MD Blood BLOOD SPECIMEN / Unknown 04/25/2025 9:58 AM CDT 04/25/2025 9:59 AM CDT us Clif Sepulveda MD LAB - CHEMISTRY ORDERABLES Fi nal Result Performing Organization Address [facility] de Phone Number [facility] [address] [place] [address] * BILIRUBIN DIRECT (04/25/2025 9:58 AM CDT) Bilirubin Direct 0.2 < OR = 0.2 mg/dL [facility] Comment: Test Performed at: [place] [address] CELESTE VENTURA MD Blood BLOOD SPECIMEN / Unknown 04/25/2025 9:58 AM CDT 04/25/2025 9:59 AM CDT Clif Sepulveda MD LAB - CHEMISTRY ORDERABLES Fi nal Result Performing Organization Address [facility] de Phone Number [address] [address] * CT Abdomen Multi Phase W Cont (04/23/2025 9:39 AM CDT) Anatomical Region Laterality Modality Abdomen Computed Tomogra phy 04/23/2025 1:50 PM CDT Impressions 04/23/2025 3:10 PM CDT Impression: 1.No suspicious hepatic observations. 2.Cirrhosis and stigmata of portal venous hypertension. 3.Enhancing endophytic lesion involving the superior aspect of left kidney is suspicious for underlying renal cell carcinoma. However given questionable adjacent caliectasis, transitional cell carcinoma is included in the differential. 4.A 0.9 cm pulmonary nodule in the medial segment of the right middle lobe. Consider comparing with prior if present. If no priors present and according to the Fleischner criteria given the size, consider follow-up CT at 3 months, and/or CT-PET Report dictated by Alexandro WARREN, [facility] (radiology fellow). I, Gt Cortez have personally reviewed and interpreted this examination/study. > Interpreting Provider: Gt Cortez on 04/23/2025 3:10 PM Narrative 04/23/2025 3:10 PM CDT PROCEDURE: CT ABDOMEN MULTI PHASE W CONT, DATE/TIME OF EXAM: 04/23/2025 9:40 AM, LOCATION [facility] INDICATION: K74.60: Hepatic cirrhosis, unspecified hepatic cirrhosis type, unspecified whether ascites present (HCC) COMPARISON: None. TECHNIQUE: CT of the abdomen was performed following the uneventful administration of 150 mL of Isovue 370 intravenous contrast according to a three-phase liver protocol. Multiplanar reconstructions and MIP images were produced. Findings: Lower Chest: 0.9 cm pulmonary nodule in the medial segment of the right middle lobe. Atherosclerotic calcification of the articular valve cusps. Hepatobiliary system Liver morphology: The liver is shrunken and has a nodular surface, consistent with hepatic cirrhosis. Varices: Moderate-sized periesophageal and perigastric varices. Spleen: Enlarged, measuring 15.1 cm in craniocaudal dimension. Ascites: None. Focal liver observations Observations compatible with hepatocellular carcinoma by LI-RADS criteria: None. Indeterminate liver observations: None. Benign liver observations: None. Hepatic vasculature Portal and hepatic veins: Normal and patent. Arterial anatomy: Replaced left hepatic artery arising from left gastric artery. Atherosclerotic calcification of the aorta and its major branches. Gallbladder and bile ducts Gallbladder: Absent. Bile ducts: Nondilated. Retroperitoneum Pancreas: Normal. Adrenals: Normal. Kidneys: Enhancing appearing endophytic mass involving the superior aspect of the left kidney measuring 3.3 cm (Series 10, Image 66). There appears to be minimal focal caliectasis adjacent to this region. Lymph nodes: No lymphadenopathy. Gastrointestinal: Mild haziness of the periduodenal fat, nonspecific. There is a small ventral anterior abdominal wall hernia containing small bowel loops, no bowel obstruction. The large bowel normal. Normal appendix. Bones: Bone windows demonstrate no suspicious lytic or blastic lesions. The visible osseous structures are intact. Degenerative changes are seen in the spine. Soft tissues: Normal. Procedure Note Gt Cortez MD - 04/23/2025 PROCEDURE: CT ABDOMEN MULTI PHASE W CONT, DATE/TIME OF EXAM: 04/23/2025 9:40 AM, LOCATION [facility] INDICATION: K74.60: Hepatic cirrhosis, unspecified hepatic cirrhosis type,unspecified whether ascites present (HCC) COMPARISON: None. TECHNIQUE: CT of the abdomen was performed following the uneventful administration of 150 mL of Isovue 370 intravenous contrast according toa three-phase liver protocol. Multiplanar reconstructions and MIP imageswere produced. Findings: Lower Chest: 0.9 cm pulmonary nodule in the medial segment of the right middle lobe. Atherosclerotic calcification of the articular valve cusps. Hepatobiliary system Liver morphology: The liver is shrunken and has a nodular surface, consistent with hepatic cirrhosis. Varices: Moderate-sized periesophageal and perigastric varices. Spleen: Enlarged, measuring 15.1 cm in craniocaudal dimension. Ascites: None. Focal liver observations Observations compatible with hepatocellular carcinoma by LI-RADScriteria: None. Indeterminate liver observations: None. Benign liver observations: None. Hepatic vasculature Portal and hepatic veins: Normal and patent. Arterial anatomy: Replaced left hepatic artery arising from left gastric artery. Atherosclerotic calcification of the aorta and its majorbranches. Gallbladder and bile ducts Gallbladder: Absent. Bile ducts: Nondilated. Retroperitoneum Pancreas: Normal. Adrenals: Normal. Kidneys: Enhancing appearing endophytic mass involving the superioraspect of the left kidney measuring 3.3 cm (Series 10, Image 66). There appearsto be minimal focal caliectasis adjacent to this region. Lymph nodes: No lymphadenopathy. Gastrointestinal: Mild haziness of the periduodenal fat, nonspecific. There is a small ventral anterior abdominal wall hernia containing small bowel loops, no bowel obstruction. The large bowel normal. Normal appendix. Bones: Bone windows demonstrate no suspicious lytic or blastic lesions. The visible osseous structures are intact. Degenerative changes are seen inthe spine. Soft tissues: Normal. Impression: 1.No suspicious hepatic observations. 2.Cirrhosis and stigmata of portal venous hypertension. 3.Enhancing endophytic lesion involving the superior aspect of leftkidney is suspicious for underlying renal cell carcinoma. However given questionable adjacent caliectasis, transitional cell carcinoma isincluded in the differential. 4.A 0.9 cm pulmonary nodule in the medial segment of the right middlelobe. Consider comparing with prior if present. If no priors present and according to the Fleischner criteria given the size, consider follow-upCT at 3 months, and/or CT-PET Report dictated by Alexandro Perdomo, FR (radiology fellow). I, Gt Cortez have personally reviewed and interpreted this examination/study. > Interpreting Provider: Gt Cortez on 04/23/2025 3:10 PM us Clif Sepulveda MD CT ORDERABLES Final Result * ISTAT CREATININE (04/23/2025 9:27 AM CDT) Pathologist [facility] Creatinine POCT 0.80 0.60 - 1.30 mg/dL 04/23/2025 9:28 AM T [facility] eGFR by CKD-EPI >90 >90 mL/min/1.7 3 m2 04/23/2025 9:28 AM CDT [facility] Sample iSTAT JEFERSON 04/23/2025 9:28 AM CDT [facility] Blood BLOOD SPECIMEN / Unknown 04/23/2025 9:27 AM CDT 04/23/2025 9:28 AM CDT Clif Sepulveda MD LAB - POINT OF CARE ORDERABLE S Final Result [facility] [address] [place] [id number], [facility] [phone] * HEPATITIS C AB W/RFLX TO HCV RNA QN PCR (09/07/2023 7:59 AM FINANCE BUSINESS PARTNER) Pathologist [facility] Hepatitis C Antibody NON-REACTI VE NON-REACT [facility] Comment: HCV antibody was non-reactive. There is no laboratory evidence of HCV infection. In most cases, no further action is required. However, if recent HCV exposure is suspected, a test for HCV RNA (test code 34312) is suggested. For additional information please refer to http://education.octoScope/faq/NNH92n2 (This link is being provided for informational/ educational purposes only.) Test Performed at: [facility] [address] [facility] SHAHID DEREK [address] CELESTE VENTURA MD Blood BLOOD SPECIMEN / Unknown 09/07/2023 7:59 AM FINANCE BUSINESS PARTNER 09/07/2023 8:00 AM FINANCE BUSINESS PARTNER Clif Sepulveda MD LAB - CHEMISTRY ORDERABLES Fi nal Result Performing Organization Address City/State/RUST Co de Phone Number [employer] [address] [place] [address] from Last 3 Months or Most Recently Relevant to Health [place] [address] MEDICARE [facility] MEDICARE [facility] Advance Directives Documents on File Type Date Recorded Patient Wire Weaver Expl anation Adv Directive/Living Will/POA 05/16/2024 9:57 AM Care Teams Split And Drum Room Supervisor Relationship Specialty Start Date End Date Jason Joseph MD [address] [place] [address] PCP - General Family Medicine 08/11/24
--- OUTSIDE RECORDS SUMMARY | 2025-06-08 10:18 | XMS_ITS | Encounter Summary ---
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
--- OUTSIDE RECORDS SUMMARY | 2025-06-08 10:18 | XMS_ITS | Clinical Summary ---
Author Organization [facility] [address] Address [address] [place] [address] Care Team Providers Care Flight Operations Coordinator Name Role Phone Savanah Moss MD Primary Care Provider [phone] Savanah Moss MD Unavailable Vignesh Bean MD Unavailable [phone] Allergies Active Allergy Reactions Criticality Noted [...] w ithout mention of having achieved remission(204.10) 05/08/2018 Immunizations Immunization Administration Dates Next Due [...] on file Legal Sex Male 2:00 AM SOCK IRONER Gender Identity Male 06/01/2020 10:59 PM CDT Sexual Orientation Straight 06/01/2020 10 :59 PM CDT Obstetrics History Last Filed Vital Signs Vital Sign Reading Time Taken Comments Blood Pressure 120/77 12/02/2021 10:24 AM SOCK IRONER Pulse 66 12/02/2021 10:24 AM SOCK IRONER Temperature 36.6 C (97.9 F) 12/02/2021 10:24 AM SOCK IRONER Respiratory Rate 16 12/02/2021 10:2 4 AM SOCK IRONER Oxygen Saturation 96% 12/02/2021 10: 24 AM SOCK IRONER Inhaled Oxygen Concentration - - Weight 70.2 kg (154 lb 12.8 oz) 022 10:24 AM SOCK IRONER Height 170.2 cm (5' 7) 12/02/2021 10:2 4 AM SOCK IRONER Body Mass Index 24.25 12/02/2021 10:24 AM SOCK IRONER Plan of Treatment Health Maintenance Due Date [...] 2024 06/08/2021, 01/02/2021, 12/05/2020 Influenza Vaccine (#1) 2025 , 07/03/2019, 07/09/2018 Insurance MEDICARE [facility] MEDICARE MEDICARE [facility] WORKERS COMPENSATION GENERIC Care Teams Flight Operations Coordinator Relationship Specialty Start Date End Date Savanah Moss MD [address] [place] [address] PCP - General 10/28/19 Savanah Moss MD [address] [place] [address] 10/28/19 Vignesh Bean MD [address] [place] [address] Medical Oncologist/Mortgage Banker Hematology and Oncology 10/30/18
--- OUTSIDE RECORDS SUMMARY | 2025-06-08 10:18 | XMS_ITS | Clinical Summary ---
Author Organization [facility] Address [address] [place] [address] Care Team Providers Care Filter Changer Name Role Phone Jason Joseph MD Primary [...] pen syringe Inject by subcutaneous injection. Active lisinopriL (PRINIVIL) 5 mg tablet Take 1 Tablet by mouth daily. Active Active Problems Problem Noted Date Diagnosed Date Pancytopenia 06/27/2022 CLL (chronic lymphocytic leukemia) 06/12/2022 Encounters Date Type Department Care Team Description 06/04/2025 Telephone [facility] and Hematology [facility] [address] [place] [address] Kwadwo Ford MD labs for appt 03/24/2025 External Device Data STL ABSTRACTION Provider, Abstract from Last 3 Months Family History Medical History Relation Name Comments Cancer Father Cancer Mother Cancer Sister Relation Name Status Comments Father Mother Sister Alive Social History Tobacco Use Types Packs/Day Years Used Date Smoking Tobacco: Never Smokeless Tobacco: Never Tobacco Cessation:Counseling Given: Not Answered Alcohol Use Standard Drinks/Week Comments Never 0 (1 standard drink = 0.6 oz pur e alcohol) Sex and Gender Information Value Date Recorded Sex Assigned at Not on file Legal Sex Male 11:44 AM CDT Gender Identity Not on file Sexual Orientation Not on file Last Filed Vital Signs Vital Sign Reading Time Taken Comments Blood Pressure 103/64 12/11/2024 9:38 AM INJECTION MOLDING MACHINE OPERATOR Pulse 64 12/11/2024 9:38 AM INJECTION MOLDING MACHINE OPERATOR Temperature 35.8 C (96.4 F) 12/11/2024 9:38 AM INJECTION MOLDING MACHINE OPERATOR Respiratory Rate 15 12/11/2024 9:38 AM INJECTION MOLDING MACHINE OPERATOR Oxygen Saturation 96% 12/11/2024 9:38 AM INJECTION MOLDING MACHINE OPERATOR Inhaled Oxygen Concentration - - Weight 77.2 kg (170 lb 3.2 oz) 12/11/2024 9:38 A M INJECTION MOLDING MACHINE OPERATOR Height 167.6 cm (5' 6) 06/27/2022 11:08 AM CDT Body Mass Index 27.47 06/27/2022 11:08 AM CDT Plan of Treatment Upcoming Encounters Date Type Department Care Team (Late st Contact Info) Description 06/08/2025 4:30 PM CDT Telephone Check Up [facility] and [facility] [address] [place] [address] Kwadwo Ford MD [address] [place] [address] Health Maintenance Due Date Last Done Comments DIABETES ANNUAL FOOT EXAM 1970 DIABETES MICROALBUMIN ANNUAL SCREEN 1970 LDL CHOLESTEROL ANNUAL 1970 PNEUMOCOCCAL VACCINE 50+ YEA RS (1 of 2 - PCV) 1971 Traditional Medicare (ACO) A nnual Wellness Visit 1971 ZOSTER VACCINE (1 of 2) 1971 FIT-DNA Q 3 years 1997 FIT/FOBT Q 1 year 1997 Flex Sig/CT Colonography Q 5 years 1997 RSV VACCINE (60+ or ) (1 - Risk 60-74 years 1-dose series) 2012 COVID-19 Vaccine (2023-2 5 season) 2024 06/08/2021, 01/02/2021, 12/05/2020 INFLUENZA VACCINE (#1) 2025 , 08/01/2022, 07/20/2021, Additional history exists DIABETES HBA1C Q 6 MONTHS 09/17/20252024, 12/16/2024, 08/05/2024, Additional history exists DIABETES ANNUAL RETINAL EXAM 10/17/2025, 10/17/2024, 10/05/2023, Additional history exists DTAP/TDAP/TD VACCINES (2 - T d or Tdap) 05/20/2031 05/20/2021 COLORECTAL SCREENING 11/03/2032 11/03/2022 Colorectal Cancer Screening 11/03/2032 Procedures Procedure Name Priority Date/Time Associated Diagnosis Comments VITAMIN B12 AND FOLATE Routine 06/03/2025 7:39 AM CDT Chronic anemia IRON, TIBC, AND PERCENT SATURATION Routine 06/03/2025 7:39 AM CDT Chronic anemia FERRITIN Routine 06/03/2025 7:39 AM CDT Chronic anemia from Last 3 Months Results * (ABNORMAL) VITAMIN B12 AND FOLATE (06/03/2025 7:39 AM CDT) VITAMIN B12 1113(H) 200 - 1100 pg/mL [facility] FOLATE, SERUM 22.8 ng/mL [facility] Comment: Reference Range Low: <3.4 Borderline: 3.4-5.4 Normal: >5.4 FASTING:NO FASTING: NO Test Performed at: [facility] [address] StefanieHelen Du MD Blood 06/03/2025 7:39 AM CDT 06/03/2025 7:40 AM CDT Kwadwo Ford MD CHEMISTRY ORDERABLES Final Resu lt Performing Organization Address [facility] Co de Phone Number [facility] [phone] [facility] [address] * IRON, TIBC, AND PERCENT SATURATION (06/03/2025 7:39 AM CDT) [facility] IRON 100 50 - 180 mcg/dL [facility] TIBC 387 250 - 425 mcg/dL (calc) [facility] IRON % SATURATION 26 20 - 48 % (calc) [facility] Comment: FASTING:NO FASTING: NO Test Performed at: [facility] [address] StefanieHelen Du MD Blood 06/03/2025 7:39 AM CDT 06/03/2025 7:40 AM CDT Kwadwo Ford MD CHEMISTRY ORDERABLES Final Resu lt Performing Organization Address [facility] Co de Phone Number [facility] [phone] [facility] [address] * FERRITIN (06/03/2025 7:39 AM CDT) [facility] FERRITIN 215 24 - 380 ng/mL [facility] Comment: Test Performed at: [facility] [address] [address] Neena Du MD Blood 06/03/2025 7:39 AM CDT 06/03/2025 7:40 AM CDT Kwadwo Ford MD CHEMISTRY ORDERABLES Final Resu lt [facility] [phone] [facility] [address] [phone] from Last [address] [place] [address] MEDICARE PART A AND B [facility] Care Teams Filter Changer Relationship Specialty Start Date End Date Jason Joseph MD [address] [place] [address] PCP - General Family Practice 06/27/22
--- OUTSIDE RECORDS SUMMARY | 2025-06-08 10:18 | XMS_ITS | Encounter Summary ---
Author Organization [facility] Address [address] [facility] [place] [address] Care Team Providers Care Education Rn Name Role Phone Jason Joseph MD Primary Care Provider Encounter Details Date Type Department Care Team (Late st Contact Info) Description 05/01/2025 Results Follow-Up [facility] - [address] [place] [address], [facility] [place] [address] Clif Sepulveda MD [facility] [place] [address] Social History Tobacco Use Types Packs/Day Years Used Date Smoking Tobacco: Never Smokeless Tobacco: Never Alcohol Use Standard Drinks/Week Comments Not Currently 0 (1 standard drink = 0.6 oz pur e alcohol) Sex and Gender Information Value Date Recorded Sex Assigned at Not on file Legal Sex Male 5:29 PM SENIOR BRAND MANAGER Gender Identity Male 04/16/2025 6:56 PM CDT Sexual Orientation Straight 04/16/2025 6: 56 PM CDT documented as of this encounter Functional Status * Is person deaf or have serious hearing difficulty? Answer Date of Assessment Author No 05/15/2024 11:29 AM Shanique Lackey RN * Is person blind or have serious difficulty seeing? Answer Date of Assessment Author No 05/15/2024 11:29 AM Shanique Lackey RN * Does person have serious difficulty walking/climbing stairs? Answer Date of Assessment Author No 05/15/2024 11:29 AM Shanique Lackey RN * Does person have difficulty dressing/bathing? Answer Date of Assessment Author No 05/15/2024 11:29 AM EMEMTTT Shanique Dunne RN * Does person have difficulty doing errands alone? Answer Date of Assessment Author No 05/15/2024 11:29 AM Shanique Lackey RN documented as of this encounter Mental Status * Does person have difficulty concentrating/remembering/making decisions? Answer Entry Date Author No 05/15/2024 11:29 AM Shanique Lackey RN documented in this encounter Plan of Treatment Upcoming Encounters Date Type Department Care Team (Late st Contact Info) Description 06/11/2025 10:00 AM CDT Appointment [facility] Health Imaging Services - CT Scan [address] [place] [address] 07/14/2025 9:00 AM CDT Office Visit [facility] - Pulmonology [address] , [facility] [address] [place] [phone] Josh Richards MD [address] [facility] 2L DIV OF PULMONARY/[place] [address] 10/29/2025 8:00 AM SENIOR BRAND MANAGER Appointment [facility] [address] [place] [phone] Clif Sepulveda MD [address] [place] [address] 10/29/2025 9:30 AM SENIOR BRAND MANAGER Office Visit [facility] - GI [address] [facility], [place] [phone] Clif Sepulveda MD [address] [place] [phone] 11/02/2025 11:00 AM SENIOR BRAND MANAGER Office Visit [facility] - Cardiology [address] [facility] [place] [place] [address] Jack Díaz MD [address] [facility] [address] [place] [address] documented as of this encounter Goals Goal Patient Goal Type Associated Problems [...] one week prior to your last dose documented as of this encounter Visit Diagnoses Not on filedocumented in this encounter Care Teams Education Rn Relationship Specialty Start Date End Date Jason Joseph MD [address] [facility] [address] [place] [address] [place] [address] PCP - General Family Medicine 08/11/24 documented as of this encounter
--- OUTSIDE RECORDS SUMMARY | 2025-06-08 10:18 | XMS_ITS ---
Author Organization [facility] Address [address] [place] [address] Care Team Providers Care Instruction Assistant Principal Name Role Phone Jason Joseph MD Primary Care Provider Active Problems Problem Noted Date Diagnosed Date Thrombocytopenia 06/01/2025 Kidney mass 06/01/2025 Nonrheumatic aortic valve stenosis 11/03/2024 Mixed hyperlipidemia 08/11/2024 Type 2 diabetes mellitus without complication Idiopathic chronic pancreatitis 08/11/2024 Cirrhosis ([facility]) 09/07/2023 Overview (09/07/2023): 09/06/23 Fibroscan CAP 291, LSM 9.7 kPa Chronic lymphocytic leukemia 06/12/2022 Osteopenia of multiple sites 06/16/2020 Current Treatment and Therapy Plans No current plan information found. Past Treatment and Therapy Plans No past plan information found. Lifetime Dose Tracking * Chemical Lifetime Dose Automatic Entry Manual Entr y CTDI(vol) 171 mGy 171 mGy 0 mGy Dose Length Product 952 mGy-cm 952 mGy-cm 0 mGy-cm Resolved Problems Problem Noted Date Diagnosed Date Resolved Date 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
--- OUTSIDE RECORDS SUMMARY | 2025-06-08 10:18 | XMS_ITS | Clinical Summary ---
Author Organization [facility] Address [address] [place] [address] Care Team Providers Care Die Stamping Press Operator Name Role Phone Silverio Moss MD Primary Care Provider [phone] Social History Tobacco Use Types Packs/Day Years [...] Td Vaccines ( 1 - Tdap) 1971 Pneumococcal Vaccine: 50+ Ye ars (1 of 1 - PCV) 2002 Zoster Vaccines (1 of 2) 2002 Annual Medicare Wellness Visit 2017 COVID-19 Vaccine ( - 2023-2 5 season) 2024 RSV Immunization or 60+ Years (1 [...] patient's age to complete this topic Insurance [place] [address] [address] MEDICARE [facility] Care Teams Die Stamping Press Operator Relationship Specialty Start Date End Date Silverio Moss MD [address] [place] [address] PCP - General FAMILY PRACTICE 10/08/19
--- OUTSIDE RECORDS SUMMARY | 2025-06-08 10:18 | XMS_ITS | Encounter Summary ---
Author Organization [facility] Address [address] [facility] [place] [address] Care Team Providers Care Environment Artist Name Role Phone Jason Joseph MD Primary Care Provider Jason Joseph MD Primary Care Provider Encounter Details Date Type Department Care Team (Late Contact Info) Description 12/27/2018 Lab Requisition [facility] DermPath Lab [address] [facility], [place] [phone] Kylah Olvera MD [address] [place] [address] 3 [place] [address] Social History Tobacco Use Types Packs/Day Years Used Date Smoking Tobacco: Never Assessed Sex and Gender Information Value Date Recorded Sex Assigned at Not on file Legal Sex Male 5:29 PM PETROLEUM GEOLOGIST Gender Identity Male 04/16/2025 6:56 PM CDT Sexual Orientation Straight 04/16/2025 6: 56 PM CDT documented as of this encounter Plan of Treatment Upcoming Encounters Date Type Department Care Team (Late Contact Info) Description 06/11/2025 10:00 AM CDT Appointment [facility] Health Imaging Services - CT Scan [address] [place] [address] 07/14/2025 9:00 AM CDT Office Visit [facility] - Pulmonology [address], [facility] [address] [place] [phone] Josh Richards MD [address] [facility] 2L DIV OF PULMONARY/[place] [address] 10/29/2025 8:00 AM PETROLEUM GEOLOGIST Appointment [facility] [address] [place] [address] Clif Sepulveda MD [address] [place] [address] 10/29/2025 9:30 AM PETROLEUM GEOLOGIST Office Visit [facility] - GI [address] [facility], [place] [phone] Clif Sepulveda MD [address] [place] [phone] 11/02/2025 11:00 AM PETROLEUM GEOLOGIST Office Visit [facility] - Cardiology [address] [facility], [facility] 1[address] [place] [phone] Jack Díaz MD 12[address] [facility] [address] [place] [phone] documented as of this encounter Procedures Procedure Name Priority Date/Time Associated Diagnosis Comments DERMATOPATHOLOGY Routine 12/26/2018 12:0 0 AM PETROLEUM GEOLOGIST documented in this encounter Results * DERMATOPATHOLOGY (12/26/2018 12:00 AM PETROLEUM GEOLOGIST) Case Report Dermatopathology Report Case: [id number] Authorizing Provider: Kylah Olvera MD Collected: 12/26/2018 12:00 AM Pathologist: Lis Garcia MD Received: 12/27/2018 11:56 AM Specimen: Skin, left christianity 9 3:02 PM CDT DERMATOPATHOLOGY LABORATORY Final Diagnosis Specimen A. SKIN, left christianity: SEBORRHEIC KERATOSIS, RETICULATED (ADENOID) TYPE (L82.1) 9 3:02 PM CDT DERMATOPATHOLOGY LABORATORY at 1502 CDT Clinical History SK vs other. Failed LN2 x 2. 3:02 PM CDT DERMATOPATHOLOGY LABORATORY Gross Description Specimen A: Received is one formalin filled container labeled with the patient's name and designated left christianity. The specimen consists of a shave measuring [id number]. Jar 0. 3:02 PM CDT DERMATOPATHOLOGY LABORATORY [...] characteristic determined by the Dermatopathology Laboratory at [facility], directed by Dr. Leonard Poole. These tests need not be, and therefore are not, approved by the [place] Food and Drug Administration. The tests are used for clinical purposes. Billing Codes Specimen Charges Stain Charges 93740 1 3:02 PM CDT DERMATOPATHOLOGY LABORATORY Embedded Images 3:02 PM CDT DERMATOPATHOLOGY LABORATORY Pathology/Cytolog y TISSUE SPECIMEN FROM SKIN / Unknown 12/26/2018 12/27/2018 11:56 AM PETROLEUM GEOLOGIST Kylah Olvera MD LAB - PATHOLOGY/CYTOLOGY OR DERABLES Final Result DERMATOPATHOLOGY LABORATORY [facility] - Department of Dermatology [address] [place] [address], 5th [place] [address], [facility] [phone] documented in this encounter Visit Diagnoses Not on filedocumented in this encounter Care Teams Environment Artist Relationship Specialty Start Date End Date Jason Joseph MD [address] [place] [phone] PCP - General Family Medicine 09/07/23 08/10/24 Jason Joseph MD [address] [facility] [address] [place] [address] [place] [address] PCP - General Family Medicine 08/11/24 documented as of this encounter
[2025-06-08 17:44] LABS: Alanine Aminotransferase 112 U/L (6-50); Albumin Level 4.3 g/dL (3.5-5.1); Alkaline Phosphatase 178 U/L (38-126); Anion Gap 9 mmol/L (4-12); Aspartate Amino Transferase 118 U/L (17-59); Bilirubin,Total 0.7 mg/dL (0.2-1.3); Blood Urea Nitrogen 10 mg/dL (9-20); Calcium 9.6 mg/dL (8.4-10.2); Carbon Dioxide 21 mmol/L (22-30); Chloride 104 mmol/L (98-107); Estimated Glomerular Filt Rate > 60; Glucose 148 mg/dL (65-110); Potassium 4.3 mmol/L (3.4-5.0); Sodium 134 mmol/L (137-145); Total Protein 8.3 g/dL (6.3-8.2)
== END 2025-06-08 09:35 | disposition home or self-care (01) ==
LOC: ANHLAB 09:37
PROVIDERS: PCP Family Medicine; Visit Provider Internal Medicine Hematology & Oncology
DX: D64.9 Anemia, unspecified (principal)
CPT/HCPCS: 36415; 80047; 80053; 85025; 85055

== ENCOUNTER 2025-06-30 09:00 | Outpatient (CLI) | payer MEDICARE, BC, SELFPAY ==
--- NOTE | 2025-06-30 | ECG_ITS ---
Test Date: 2025-06-30 09:38:58 Measurements Intervals [place] Rate: 53 P: 17 UT: 211 QRS: 57 QRSD: 94 T: 56 QT: 427 QTc: 404 Interpretive Statements SINUS BRADYCARDIA WITH FIRST DEGREE AV BLOCK OTHERWISE UNREMARKABLE ECG No previous ECG available for comparison Electronically Signed On 07-01-2025 15:39:02 CDT by Jermaine Florian M.D.
--- NOTE | ~2025-06-30 | XR_ITS ---
EXAMINATION: XR chest 2V, 06/30/2025 9:16 CDT HISTORY: pre op testing, H/O KIDNEY CA, HTN, TAKING BP MEDS COMPARISON: No comparisons available. Technique: 2 views obtained. Findings: The lungs are clear, no effusion. No pneumothorax. Heart is normal size. Mediastinal and hilar contours are within normal limits. Bony thorax no acute abnormality. Impression: No acute cardiopulmonary abnormality. Reviewed, dictated and finalized at location A. Impression: No acute cardiopulmonary abnormality.
--- OUTSIDE RECORDS SUMMARY | 2025-06-30 09:48 | XMS_ITS | Clinical Summary ---
Author Organization [facility] Chapito Salazar Address [address] [place] [address] Care Team Providers Care Blackener Name Role Phone Jason Joseph MD Primary [...] Encounters Date Type Department Care Team Description 06/23/2025 External Device Data STL ABSTRACTION Provider, Abstract 06/09/2025 External Device Data STL ABSTRACTION Provider, Abstract 06/09/2025 Orders Only [facility] Oncology and Hematology [facility] [address] [place] [address] Kwadwo Ford MD 06/08/2025 4:30 PM CDT Telephone Check Up [facility] Oncology and Hematology [facility] [address] [place] [address] Kwadwo Ford MD Chronic anemia (Primary Dx) 06/08/2025 Orders Only [facility] Oncology and Hematology [facility] [address] [place] [address] Kwadwo Ford MD 06/04/2025 Telephone [facility] Oncology and Hematology [facility] [address] [place] [address] Kwadwo Ford MD labs for appt from Last 3 Months Family History Medical [...] Comments Blood Pressure 103/64 12/11/2024 9:38 AM ROOM COOLER INSTALLER Pulse 64 12/11/2024 9:38 AM ROOM COOLER INSTALLER Temperature 35.8 C (96.4 F) 12/11/2024 9:38 AM ROOM COOLER INSTALLER Respiratory Rate 15 12/11/2024 9:38 AM ROOM COOLER INSTALLER Oxygen Saturation 96% 12/11/2024 9:38 AM ROOM COOLER INSTALLER Inhaled Oxygen Concentration - - Weight 77.2 kg (170 lb 3.2 oz) 12/11/2024 9:38 A M ROOM COOLER INSTALLER Height 167.6 cm (5' 6) 06/27/2022 11:08 AM CDT Body Mass Index 27.47 06/27/2022 11:08 AM CDT Plan of Treatment Upcoming Encounters Date Type Department Care Team (Late st Contact Info) Description 12/10/2025 1:15 PM ROOM COOLER INSTALLER Office Visit [facility] Oncology and Hematology - [place] [address] [facility] [address] [place] [address] Kwadwo Ford MD [address] [facility] [address] [place] [address] Health Maintenance Due Date Last Done Comments DIABETES ANNUAL FOOT EXAM 1970 DIABETES MICROALBUMIN ANNUAL SCREEN 1970 LDL CHOLESTEROL ANNUAL 1970 PNEUMOCOCCAL VACCINE 50+ YEA RS (1 of 2 - PCV) 1971 ZOSTER VACCINE (1 of 2) 1971 FIT-DNA Q 3 years 1997 FIT/FOBT Q 1 year 1997 Flex Sig/CT Colonography Q 5 years 1997 RSV VACCINE (60+ or ) (1 - Risk 60-74 years 1-dose series) 2012 INFLUENZA VACCINE (#1) 2025 , 08/01/2022, 07/20/2021, Additional history exists COVID-19 Vaccine ( - 2024-2 6 season) 2025 06/08/2021, 01/02/2021, 12/05/2020 DIABETES HBA1C Q 6 MONTHS 09/17/20252024, 12/16/2024, 08/05/2024, Additional history exists DIABETES ANNUAL RETINAL EXAM 10/17/2025, 10/17/2024, 10/05/2023, Additional history exists DTAP/TDAP/TD VACCINES (2 - T d or Tdap) 05/20/2031 05/20/2021 COLORECTAL SCREENING 11/03/2032 11/03/2022 Colorectal Cancer Screening 11/03/2032 Procedures Procedure Name Priority Date/Time Associated Diagnosis Comments BASIC METABOLIC PANEL Routine 06/08/2025 2:29 PM CDT CBC WITH AUTODIFFERENTIAL Routine 06/08/2025 2:24 PM CDT COMPREHENSIVE METABOLIC PANEL Routine 06/08/2025 10:28 AM CDT VITAMIN B12 AND FOLATE Routine 7:39 AM CDT Chronic anemia IRON, TIBC, AND PERCENT SATURATION Routine 06/03/2025 7:39 AM CDT Chronic anemia FERRITIN Routine 06/03/2025 7:39 AM CDT Chronic anemia from Last 3 Months Results * BASIC METABOLIC PANEL (06/08/2025 2:29 PM CDT) Blood us Kwadwo Ford MD CHEMISTRY ORDERABLES Final Resu lt * CBC WITH AUTODIFFERENTIAL (06/08/2025 2:24 PM CDT) Blood us Kwadwo Ford MD HEMATOLOGY ORDERABLES Final Res ult * COMPREHENSIVE METABOLIC PANEL (06/08/2025 10:28 AM CDT) Blood us Kwadwo Ford MD CHEMISTRY ORDERABLES Final Resu lt * (ABNORMAL) VITAMIN B12 AND FOLATE (06/03/2025 7:39 AM CDT) VITAMIN B12 1113(H) 200 - 1100 pg/mL [facility] FOLATE, SERUM 22.8 ng/mL [facility] Comment: Reference Range Low: <3.4 Borderline: 3.4-5.4 Normal: >5.4 FASTING:NO FASTING: NO Test Performed at: [facility] [address] [address] [address] Neena uD MD Blood 06/03/2025 7:39 AM CDT 06/03/2025 7:40 AM CDT Kwadwo Ford MD CHEMISTRY ORDERABLES Final Resu lt Performing Organization Address [facility] Co de Phone Number [facility] [phone] [facility] [address] [place] [address] * IRON, TIBC, AND PERCENT SATURATION (06/03/2025 7:39 AM CDT) IRON 100 50 - 180 mcg/dL [facility] TIBC 387 250 - 425 mcg/dL (calc) [facility] IRON % SATURATION 26 20 - 48 % (calc) [facility] Comment: FASTING:NO FASTING: NO Test Performed at: [facility] [id number] [place] [address] Neena Du MD Blood 06/03/2025 7:39 AM CDT 06/03/2025 7:40 AM CDT us Kwadwo Ford MD CHEMISTRY ORDERABLES Final Resu lt Performing Organization Address [facility] Co de Phone Number [facility] [phone] [facility] [address] * FERRITIN (06/03/2025 7:39 AM CDT) FERRITIN 215 24 - 380 ng/mL [facility] Comment: Test Performed at: [facility] [address] [place] [address] Neena Du MD Blood 06/03/2025 7:39 AM CDT 06/03/2025 7:40 AM CDT us wKadwo Ford MD CHEMISTRY ORDERABLES Final Resu lt [facility] [phone] [facility] [address] [address] [phone] from Last 3 Months Insurance MEDICARE PART A AND B [facility] Care Teams Blackener Relationship Specialty Start Date End Date Jason Joseph MD [address] [place] [address] PCP - General Family Practice 06/27/22
--- OUTSIDE RECORDS SUMMARY | 2025-06-30 09:49 | XMS_ITS | Clinical Summary ---
Author Organization [facility] [address] Address [address] [place] [address] Care Team Providers Care Short Order Fry Cook Name Role Phone Savanah Moss MD Primary Care Provider [phone] Savanah Moss MD Unavailable Vignesh Bean MD Unavailable [phone] Allergies Active Allergy Reactions Criticality Noted [...] on file Legal Sex Male 2:00 AM FLOOR TECHNICIAN Gender Identity Male 06/01/2020 10:59 PM CDT Sexual Orientation Straight 06/01/2020 10 :59 PM CDT Obstetrics History Last Filed Vital Signs Vital Sign Reading Time Taken Comments Blood Pressure 120/77 12/02/2021 10:24 AM FLOOR TECHNICIAN Pulse 66 12/02/2021 10:24 AM FLOOR TECHNICIAN Temperature 36.6 C (97.9 F) 12/02/2021 10:24 AM FLOOR TECHNICIAN Respiratory Rate 16 12/02/2021 10:2 4 AM FLOOR TECHNICIAN Oxygen Saturation 96% 12/02/2021 10: 24 AM FLOOR TECHNICIAN Inhaled Oxygen Concentration - - Weight 70.2 kg (154 lb 12.8 oz) 022 10:24 AM FLOOR TECHNICIAN Height 170.2 cm (5' 7) 12/02/2021 10:2 4 AM FLOOR TECHNICIAN Body Mass Index 24.25 12/02/2021 10:24 AM FLOOR TECHNICIAN Plan of Treatment Health Maintenance Due Date [...] (#1) 2025 , 07/03/2019, 07/09/2018 Insurance MEDICARE [facility] MEDICARE MEDICARE [facility] WORKERS COMPENSATION GENERIC Care Teams Short Order Fry Cook Relationship Specialty Start Date End Date Savanah Moss MD [address] [place] [address] PCP - General 10/28/19 Savanah Moss MD [address] [place] [address] 10/28/19 Vignesh Bean MD [address] [place] [address] Medical Oncologist/Applier Hematology and Oncology 10/30/18
--- OUTSIDE RECORDS SUMMARY | 2025-06-30 09:49 | XMS_ITS | Encounter Summary ---
Author Organization [facility] Address [address] [facility] [place] [address] Phone Care Team Providers Care Preforms Laminator Name Role Phone Savanah Moss MD Primary Care Provider [phone] Savanah Moss MD Primary Care Provider [phone] Savanah Moss MD Unavailable Vignesh Bean MD Unavailable [phone] Encounter Details Date Type Department Care Team [...] on file Legal Sex Male 2:00 AM CLERICAL DENTIST ASSISTANT Gender Identity Male 06/01/2020 10:59 PM CDT [...] on filedocumented in this encounter Care Teams Preforms Laminator Relationship Specialty Start Date End Date Isa, K Max, MD [address] [place] [address] PCP - General 10/06/11 10/27/19 Savanah Moss MD [address] [place] [address] PCP - General 10/28/19 Savanah Moss MD [address] [place] [address] 10/28/19 Vignesh Bean MD [address] [place], [place] [id number] Medical Oncologist/Employee Relations Advisor Hematology and Oncology 10/30/18 documented as of this encounter
== END 2025-06-30 09:01 | disposition home or self-care (01) ==
PROVIDERS: PCP Family Medicine
DX: Z01.818 Encounter for other preprocedural examination (principal); I44.0 Atrioventricular block, first degree
CPT/HCPCS: 71046; 93005

== ENCOUNTER 2025-08-19 10:39 | Outpatient (CLI) | payer MEDICARE, BC, SELFPAY ==
--- OUTSIDE RECORDS SUMMARY | 2025-08-19 12:07 | XMS_ITS | Encounter Summary ---
Author Organization [facility] Address [address] [place] [address] Care Team Providers Care Traffic I Manager Name Role Phone Jason Joseph MD Primary Care Provider Jason Joseph MD Primary Care Provider Encounter Details Date Type Department Care Team (Late Contact Info) Description 12/27/2018 Lab Requisition [facility] Care DermPath Lab [address] [facility] [place] [address] Kylah Olvera MD [address] [facility] 3 [place] [address] Social History Tobacco Use Types Packs/Day Years Used Date Smoking Tobacco: Never Assessed Sex and Gender Information Value Date Recorded Sex Assigned at Not on file Legal Sex Male 5:29 PM TRANSMISSION SUPERVISOR Gender Identity Male 04/16/2025 6:56 PM CDT Sexual Orientation Straight 04/16/2025 6: 56 PM CDT documented as of this encounter Plan of Treatment Upcoming Encounters Date Type Department Care Team (Late Contact Info) Description 09/04/2025 9:20 AM TRANSMISSION SUPERVISOR Office Visit [facility] - Urology [address] [facility] [place] [phone] Darius Mccloud PA [address] [place] [address] 11/02/2025 11:00 AM TRANSMISSION SUPERVISOR Office Visit [facility] - Cardiology [address] [facility] [place] [address] [place] [address] Jack Díaz MD [address] [facility] DIV OF CARDIOLOGY 2L [place] [address] 11/09/2025 10:30 AM TRANSMISSION SUPERVISOR Appointment [facility] Health Imaging Services - CT Scan [address] [place] [address] Terry Salinas MD [address] [facility] [address] [place] [address] 11/09/2025 1:00 PM TRANSMISSION SUPERVISOR Office Visit [facility] - Urology [address] [facility] [address] [place] [address] Terry Salinas MD [address] [facility] [address] [place] [address] 12/10/2025 9:30 AM TRANSMISSION SUPERVISOR Office Visit [facility] - Pulmonology [address] [place] [address], [place] [phone] Josh Richards MD [address] [place] [address] 2L DIV OF PULMONARY/[place] [address] 12/17/2025 7:30 AM TRANSMISSION SUPERVISOR Appointment [facility] [address] [place] [phone] Clif Sepulveda MD [address] [place] [phone] 12/17/2025 8:00 AM TRANSMISSION SUPERVISOR Office Visit [facility] - GI [address] [place] [address], [place] [phone] Clif Sepulveda MD [address] [place] [phone] documented as of this encounter Procedures Procedure Name Priority Date/Time Associated Diagnosis Comments DERMATOPATHOLOGY Routine 12/26/2018 12:0 0 AM TRANSMISSION SUPERVISOR documented in this encounter Results * DERMATOPATHOLOGY (12/26/2018 12:00 AM TRANSMISSION SUPERVISOR) Case Report Dermatopathology Report Case: [id number] Authorizing Provider: Kylah Olvera MD Collected: 12/26/2018 12:00 AM Pathologist: Lis Garcia MD Received: 12/27/2018 11:56 AM Specimen: Skin, left judaism 3:02 PM CDT DERMATOPATHOLOGY LABORATORY Final Diagnosis Specimen A. SKIN, left judaism: SEBORRHEIC KERATOSIS, RETICULATED (ADENOID) TYPE (L82.1) 3:02 PM CDT DERMATOPATHOLOGY LABORATORY at 1502 CDT Clinical History SK vs other. Failed LN2 x 2. 3:02 PM CDT DERMATOPATHOLOGY LABORATORY Gross Description Specimen A: Received is one formalin filled container labeled with the patient's name and designated left judaism. The specimen consists of a shave measuring [id number]. Jar 0. 3:02 PM CDT DERMATOPATHOLOGY LABORATORY Microscopic Description Specimen A. SKIN, left judaism: There is reticulated hyperplasia of the epidermis [...] characteristic determined by the Dermatopathology Laboratory at [facility], directed by Dr. Leonard Poole. These tests need not be, and therefore are not, approved by the [place] Food and Drug Administration. The tests are used for clinical purposes. Billing Codes Specimen Charges Stain Charges 61078 1 03/11/201 9 3:02 PM CDT DERMATOPATHOLOGY LABORATORY Embedded Images 9 3:02 PM CDT DERMATOPATHOLOGY LABORATORY Pathology/Cytolog y TISSUE SPECIMEN FROM SKIN / Unknown 12/26/2018 12/27/2018 11:56 AM TRANSMISSION SUPERVISOR Kylah Olvera MD LAB - PATHOLOGY/CYTOLOGY OR DERABLES Final Result DERMATOPATHOLOGY LABORATORY [facility] - Department of Dermatology [address] [place] [address], 5th Floor Lab B [address] [phone] documented in this encounter Visit Diagnoses Not on filedocumented in this encounter Care Teams Traffic I Manager Relationship Specialty Start Date End Date Jason Joseph MD [address] [place] [address] PCP - General Family Medicine 09/07/23 08/10/24 Jason Joseph MD [address] [facility] [address] [place] [address] PCP - General Family Medicine 08/11/24 documented as of this encounter
--- OUTSIDE RECORDS SUMMARY | 2025-08-19 12:07 | XMS_ITS ---
Author Organization [facility] Address [address] [facility] [place] [address] Care Team Providers Care Spike Machine Operator Name Role Phone Jason Joseph MD Primary Care Provider Active Problems Problem Noted Date Diagnosed Date S/p nephrectomy 08/08/2025 Hypothyroidism 08/06/2025 Thrombocytopenia 06/01/2025 Renal cell carcinoma of left kidney, pT3a ccRCC (G2, renal vein invasion, - [place]) 06/01/2025 Nonrheumatic aortic valve stenosis 11/03/2024 Hyperlipidemia associated with type 2 diabetes m ellitus 08/11/2024 Type 2 diabetes mellitus wit h hyperglycemia, with long-term current use of insulin 08/11/2024 Overview (07/22/2025): IMO 07/22/2025 Idiopathic chronic pancreatitis 08/11/2024 Cirrhosis 09/07/2023 Overview (09/07/2023): 09/06/23 Fibroscan CAP 291, LSM 9.7 kPa CLL (chronic lymphocytic leukemia) 06/12/2022 09/07/2023 Osteopenia of multiple sites 06/16/2020 CLL (chronic lymphocytic leukemia) Disorder of liver Overview (08/06/2025): cirrhosis GERD (gastroesophageal reflux disease) Current Treatment and Therapy Plans No current plan information found. Past Treatment and Therapy Plans No past plan information found. Lifetime Dose Tracking * Chemical Lifetime Dose Automatic Entry Manual Entr y CTDI(vol) 905 mGy 905 mGy 0 mGy Dose Length Product 952 mGy-cm 952 mGy-cm 0 mGy-cm Resolved Problems Problem Noted Date Diagnosed Date Resolved Date 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
--- OUTSIDE RECORDS SUMMARY | 2025-08-19 12:07 | XMS_ITS | Clinical Summary ---
Author Organization [facility] [address] Address [address] [place] [address] Care Team Providers Care Care Management Assistant Name Role Phone Savanah Moss MD Primary Care Provider [phone] Savanah Moss MD Unavailable Vignesh Bean MD Unavailable [phone] Allergies Active Allergy Reactions Criticality Noted [...] History Medical History Date Comments Diabetes mellitus Leukemia (HCC) H/O wrist surgery 11/06/2019 Gastric [...] on file Legal Sex Male 2:00 AM MOTOR AND GENERATOR BRUSH MAKER Gender Identity Male 06/01/2020 10:59 PM CDT Sexual Orientation Straight 06/01/2020 10 :59 PM CDT Obstetrics History Last Filed Vital Signs Vital Sign Reading Time Taken Comments Blood Pressure 120/77 12/02/2021 10:24 AM MOTOR AND GENERATOR BRUSH MAKER Pulse 66 12/02/2021 10:24 AM MOTOR AND GENERATOR BRUSH MAKER Temperature 36.6 C (97.9 F) 12/02/2021 10:24 AM MOTOR AND GENERATOR BRUSH MAKER Respiratory Rate 16 12/02/2021 10:2 4 AM MOTOR AND GENERATOR BRUSH MAKER Oxygen Saturation 96% 12/02/2021 10: 24 AM MOTOR AND GENERATOR BRUSH MAKER Inhaled Oxygen Concentration - - Weight 70.2 kg (154 lb 12.8 oz) 022 10:24 AM MOTOR AND GENERATOR BRUSH MAKER Height 170.2 cm (5' 7) 12/02/2021 10:2 4 AM MOTOR AND GENERATOR BRUSH MAKER Body Mass Index 24.25 12/02/2021 10:24 AM MOTOR AND GENERATOR BRUSH MAKER Plan of Treatment Health Maintenance Due Date [...] Visit 65+ 2017 Covid-19 Vaccine ( season) 2025 06/08/2021, 01/02/2021, 12/05/2020 Influenza Vaccine (#1) 2025 , 07/03/2019, 07/09/2018 Insurance MEDICARE [facility] MEDICARE MEDICARE [facility] WORKERS COMPENSATION GENERIC Care Teams Care Management Assistant Relationship Specialty Start Date End Date Savanah Moss MD [address] [place] [address] PCP - General 10/28/19 Savanah Moss MD [address] [place] [address] 10/28/19 Vignesh Bean MD [address] [place] [address] Medical Oncologist/Inclusion Special Educator Hematology and Oncology 10/30/18
--- OUTSIDE RECORDS SUMMARY | 2025-08-19 12:07 | XMS_ITS | Clinical Summary ---
Author Organization [facility] Address [address] [place] [address] Care Team Providers Care Credentialer Name Role Phone Jason Joseph MD Primary [...] Encounters Date Type Department Care Team Description 08/12/2025 External Device Data [facility] ABSTRACTION Provider, Abstract 06/23/2025 External Device Data [facility] ABSTRACTION Provider, Abstract 06/09/2025 External Device Data [facility] ABSTRACTION Provider, Abstract 06/09/2025 Orders Only [facility] [address] [place] [address] Kwadwo Ford MD 06/08/2025 4:30 PM CDT Telephone Check Up [facility] Hematology [facility] [address] [place] [phone] Kwadwo Ford MD Chronic anemia (Primary Dx) 06/08/2025 Orders Only [facility] [address] [place] [address] Kwadwo Ford MD 06/04/2025 Telephone [facility] [address] [place] [address] Kwadwo Ford MD labs for appt from [...] Comments Blood Pressure 103/64 12/11/2024 9:38 AM CHANNEL ROUGHER Pulse 64 12/11/2024 9:38 AM CHANNEL ROUGHER Temperature 35.8 C (96.4 F) 12/11/2024 9:38 AM CHANNEL ROUGHER Respiratory Rate 15 12/11/2024 9:38 AM CHANNEL ROUGHER Oxygen Saturation 96% 12/11/2024 9:38 AM CHANNEL ROUGHER Inhaled Oxygen Concentration - - Weight 77.2 kg (170 lb 3.2 oz) 12/11/2024 9:38 A M CHANNEL ROUGHER Height 167.6 cm (5' 6) 06/27/2022 11:08 AM CDT Body Mass Index 27.47 06/27/2022 11:08 AM CDT Plan of Treatment Upcoming Encounters Date Type Department Care Team (Late st Contact Info) Description 12/10/2025 1:15 PM CH[facility]ER Office Visit [facility] - [place] [address] [facility] [address] [place] [address] Kwadwo Ford MD [address] [facility] [address] [place] [address] Health Maintenance Due Date Last [...] VACCINE (60+ or ) (1 - Risk 50-74 years 1-dose series) 2002 INFLUENZA VACCINE (#1) 2025 , 08/01/2022, 07/20/2021, [...] (06/08/2025 2:29 PM CDT) Blood us Kwadwo oFrd MD CHEMISTRY ORDERABLES Final Resu lt * [...] >5.4 FASTING:NO FASTING: NO Test Performed at: [facility] [address] [place] [address] Neena Du MD Blood 06/03/2025 7:39 AM CDT 06/03/2025 7:40 AM CDT Kwadwo Ford MD CHEMISTRY ORDERABLES Final Resu lt Performing Organization Address [facility] de Phone Number [facility] [phone] [facility] [address] [place] [phone] * IRON, TIBC, AND PERCENT SATURATION (06/03/2025 7:39 AM CDT) IRON 100 50 - 180 mcg/dL [facility] TIBC 387 250 - 425 mcg/dL (calc) [facility] IRON % SATURATION 26 20 - 48 % (calc) [facility] Comment: FASTING:NO FASTING: NO Test Performed at: [facility] [address] [place] [phone] Neena Du MD Blood 06/03/2025 7:39 AM CDT 06/03/2025 7:40 AM CDT Kwadwo Ford MD CHEMISTRY ORDERABLES Final Resu lt Performing Organization Address [facility] de Phone Number [facility] [phone] [facility] [address] [place] [phone] * FERRITIN (06/03/2025 7:39 AM CDT) FERRITIN 215 24 - 380 ng/mL [facility] Comment: Test Performed at: [facility] [address] [place] [address] Neena Du MD Blood 06/03/2025 7:39 AM CDT 06/03/2025 7:40 AM CDT Kwadwo Ford MD CHEMISTRY ORDERABLES Final Resu lt [facility] [phone] [facility] [address] [phone] from Last 3 Months Insurance MEDICARE PART A AND B [facility] [employer] Care Teams Credentialer Relationship Specialty Start Date End Date Jason Joseph MD [address] [place] [phone] PCP - General Family Practice 06/27/22
--- OUTSIDE RECORDS SUMMARY | 2025-08-19 12:07 | XMS_ITS | Encounter Summary ---
Author Organization [facility] Address [address] [facility] [place] [address] Phone Care Team Providers Care Intake Counselor Name Role Phone Savanah Moss MD Primary Care Provider [phone] Savanah Moss MD Primary Care Provider [phone] Savanah Moss MD Unavailable Vignesh Bean MD Unavailable [phone] Encounter Details Date Type Department Care Team [...] on file Legal Sex Male 2:00 AM ETHNOGRAPHIC [employer]S CONSERVATOR Gender Identity Male 06/01/2020 10:59 PM CDT [...] on filedocumented in this encounter Care Teams Intake Counselor Relationship Specialty Start Date End Date Isa, K Max, MD [address] [place] [address] PCP - General 10/06/11 10/27/19 Savanah Moss MD [address] [place] [address] PCP - General 10/28/19 Savanah Moss MD [address] [place] [address] 10/28/19 Vignesh Bean MD [address] [place], [place] [phone] Medical Oncologist/Post Anesthesia Room Nurse Hematology and Oncology 10/30/18 documented as of this encounter
--- OUTSIDE RECORDS SUMMARY | 2025-08-19 12:07 | XMS_ITS | Clinical Summary ---
Author Organization [facility] Address [address] [facility] [place] [address] Care Team Providers Care Senior Sales Representative Name Role Phone Jason Joseph MD Primary Care Provider Source Comments [facility],non-owned Affiliates and Associated Physician Practices is amultiple site organization consisting of ambulatory clinics and hospital sitesin [place], [place], [place] and [place]. This disclosure is being madepursuant to the Care Everywhere program and may not contain all information available regarding this patient. Last updated 18.[facility] Allergies Active Allergy Reactions Criticality Noted Date Comments Bee Venom Itching Low 02/23/1975 Honey Other Low 06/03/2020 Tongue tingles Medications * Be aware that medications may not be up to date on this document. Alwaysverify current medications with the patient. Multiple Vitamins-Legal Billing Coordinator als (CENTRUM SILVER PO)Indications :Hepatic cirrhosis, unspecified hepatic cirrhosis type, unspecified whether ascites present (HCC) Active ferrous sulfate 325 (65 FE) MG tabletIndicati ons:Hepatic cirrhosis, unspecified hepatic cirrhosis type, unspecified whether ascites present (HCC) Take 1 (one) tablet by mouth once daily Active finasteride (Proscar) 5 MG tabletIndicati ons:Hepatic cirrhosis, unspecified hepatic cirrhosis type, unspecified whether ascites present (HCC) Per instructions DAILY (route: oral) 022 Active levothyroxine (Synthroid) 100 MCG tabletIndicati ons:Hepatic cirrhosis, unspecified hepatic cirrhosis type, unspecified whether ascites present (HCC) Take 1 (one) tablet by mouth once daily 023 Active metFORMIN ER 24hr (Glucophage XR) 500 MG tabletIndicati ons:Hepatic cirrhosis, unspecified hepatic cirrhosis type, unspecified whether ascites present (HCC) Take 2 (two) tablets by mouth 2 times daily 023 Active pantoprazole EC (Protonix) 40 MG tabletIndicati ons:Hepatic cirrhosis, unspecified hepatic cirrhosis type, unspecified whether ascites present (HCC) Take 1 (one) tablet by mouth as needed for Heartburn 3 times per week 023 Active lidocaine 1.5%-NIFEdipin e 0.3% compounded ointmentIndica tions:Hepatic cirrhosis, unspecified hepatic cirrhosis type, unspecified whether ascites present (HCC) Apply to affected area as needed 1 g rectally BID Active Basaglar KwikPen (Basaglar) pen Inject 36 (thirty six) Units subcutaneously once daily Active atorvastatin (Lipitor) 20 MG tablet Take 1 (one) tablet by mouth at bedtime patient only takes 4-5 times per week Active cyanocobalamin (Vitamin B-12) 1000 MCG tablet Take 1 (one) tablet by mouth once daily Active sildenafil (Viagra) 100 MG tablet Take 1 (one) tablet by mouth once daily 024 Active insulin aspart (NovoLOG) pen Inject 14 (fourteen) Units subcutaneously 3 times daily before meals Sliding scale 16 units with breakfast 14 with lunch 14 with dinner Active vitamin D3 (Cholecalcifer ol) 25 MCG (1000 UNITS) tablet Take 1 (one) tablet by mouth once daily Active fish oil/omega-3 fatty acids (Promega;Cardi -Valencia 3) 1000 MG capsule Take 1 (one) capsule by mouth 3 times daily with meals Active Multiple Vitamins-[place] als (EYE VITAMINS PO) Take by mouth once Active lisinopril (Prinivil; Zestril) 5 MG tablet Take 1 (one) tablet by mouth once daily Active Glucagon 1 MG/0.2ML SOAJ Inject subcutaneously as needed 024 Active Glucose 4-6 GM-MG CHEW AND SWALLOW 4 TABLETS BY MOUTH EVERY 15 MINUTES NEEDED FOR HYPOGLYCEMIA UNTIL SYMPTOMS OF LOW BLOOD SUGAR ARE CONTROLLED 024 Active ondansetron (Zofran) 4 MG tablet Take 1 (one) tablet by mouth every 4 hours as needed 025 Active tamsulosin (Flomax) 0.4 MG capsule Take 1 (one) capsule by mouth once daily Active acetaminophen (Tylenol) 500 MG tablet Take 1 (one) tablet by mouth every 6 hours Maximum amount to take is 2 g Active polyethylene glycol 3350 (MiraLax) 17 g packet Take 17 (seventeen) g by mouth once daily 10 packet Active lidocaine (Aspercreme Lidocaine) 4 % patch Apply 1 (one) patch to skin once daily Apply patch to most painful area and remove after 12 hours. May reapply a new patch 12 hours later. 7 patch Active oxyCODONE, immediate release, (Roxicodone) 5 MG tabletIndicati ons:Kidney mass Take 1 (one) tablet by mouth every 6 hours as needed 28 tablet Active senna (Senokot) 8.6 MG tablet Take 1 (one) tablet by mouth once daily 30 tablet Active oxyCODONE, immediate release, (Roxicodone) 5 MG tabletIndicati ons:Kidney mass Take 1 (one) tablet by mouth once as needed 12 tablet 2024 Discontinued oxyCODONE, immediate release, (Roxicodone) 5 MG tabletIndicati ons:Kidney mass Take 1 (one) tablet by mouth every 6 hours as needed 12 tablet 025 2024 Discontinued Active Problems Problem Noted Date Diagnosed Date [...] Overview (08/06/2025): cirrhosis GERD (gastroesophageal reflux disease) Resolved Problems Problem Noted Date Diagnosed Date Resolved Date 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 Encounters Date Type Department Care Team Description 08/08/2025 Orders Only [facility] 3 Transitional Care Unit [address] [place] [id number] Ricky Rosado, DO Renal cell carcinoma of left kidney, pT3a ccRCC (G2, renal vein invasion, - [place]) (HCC) ; Left sided abdominal pain 08/06/2025 7:33 AM CDT Anesthesia Event [facility] [address] [place] [address] Johan Edouard MD 08/06/2025 7:15 AM CDT - 08/06/2025 11:06 AM CDT Surgery [facility] [address] [place] [address] Terry Salinas MD ROBOTIC ASSISTED RADICAL NEPHRECTOMY 08/06/2025 5:42 AM CDT - 08/08/2025 1:00 PM CDT Hospital Encounter 1E Surg - [facility] [address] [place] [phone] Terry Salinas MD Thomas, Justin D, DO Urology Discharge Disposition: Home or Self Care 08/06/2025 Orders Only [facility] - General Surgery [address] [facility], [place] [address] Alla Edmondson MD Kidney mass 08/06/2025 Travel 07/31/2025 Travel 07/30/2025 Telephone [facility] - GI [address] [facility] [place] [address] Clif Sepulveda MD Appointment 07/14/2025 9:00 AM CDT Office Visit [facility] - Pulmonology [address] [place], [place] [address] [place] [phone] Josh Richards MD Multiple lung nodules on CT (Primary Dx) 06/29/2025 Orders Only [facility] - Urology [address] [facility] [place] [address] Thu Lainez RN Pre-op testing 06/29/2025 Telephone [facility] - Urology [address] [place] [phone] Terry Salinas MD Results 06/25/2025 9:01 AM CDT - 06/25/2025 11:59 PM CDT Hospital Encounter [facility] Health Imaging Services - CT Scan [address] [place] [address] Trery Salinas MD Discharge Disposition: Home or Self Care 06/25/2025 Travel 06/09/2025 Travel 06/01/2025 9:00 AM CDT Office Visit [facility] - Urology [address] [place] [phone] Terry Salinas MD Kidney mass (Primary Dx); Type 2 diabetes mellitus without complication, with long-term current use of insulin (HCC); Cirrhosis ([facility]); Thrombocytopenia; Nocturia 06/01/2025 Travel from Last 3 Months Immunizations Immunization Administration Dates Next Due [employer] primary monoval ent 12+ yr 0.3mL Purple [...] Recorded Patient Health Questionnaire-2 Score 0 06/01/2025 AUDIT-C Answer Date Recorded Q1: How often do you have a drink containing alcohol? Never 08/07/2025 Q2: How many drinks containi ng alcohol do you have on a typical day when you are drinking? Patient does not drink Q3: How often do you have si x or more drinks on one occasion? Never 08/07/2025 Overall Financial Resource Strain (CARDIA) Answe r Date Recorded How hard is it for you to pa y for the very basics like food, housing, medical care, and heating? Not hard at all 08/07/2025 [facility] - Occupational Stress Questionnaire Answer Date Recorded Do you feel stress - tense, restless, nervous, or anxious, or unable to sleep at night because your mind is troubled all the time - these days? Not at all 08/07/2025 Hunger Vital Sign Answer Date Recorded Within the past 12 months, y ou worried that your food would run out before you got the money to buy more. Never true 08/07/20 25 Within the past 12 months, t he food you bought just didn't last and you didn't have money to get more. Never true 08/07/2025 PRAPARE - Transportation Answer Date Re corded In the past 12 months, has l ack of transportation kept you from medical appointments or from getting medications? No 07/22 In the past 12 months, has l ack of transportation kept you from meetings, work, or from getting things needed for daily living? No 08/07/2025 Housing Stability Vital Sign Answer Orlin e Recorded In the last 12 months, was t here a time when you were not able to pay the mortgage or rent on time? No 08/07/2025 In the past 12 months, how m any times have you moved where you were living? 0 08/07/2025 At any time in the past [address] [facility], were you homeless or living in a care home (including now)? No 08/07/2025 Sex and Gender Information Value Date Recorded Sex Assigned at Not on file Legal Sex Male 5:29 PM CORPORATE CONTROLLER Gender Identity Male 04/16/2025 6:56 PM CDT Sexual Orientation Straight 04/16/2025 6: 56 PM CDT Last Filed Vital Signs Vital Sign Reading Time Taken Comments Blood Pressure 123/62 08/08/2025 8:05 AM CDT Pulse 60 08/08/2025 8:05 AM CDT Temperature 36.6 C (97.9 F) 08/08/2025 8:05 AM CDT Respiratory Rate 18 08/08/2025 8:05 AM CDT Oxygen Saturation 94% 08/08/2025 8:05 AM CDT Inhaled Oxygen Concentration 40% 05/15/2024 9 :55 AM CDT Weight 77.5 kg (170 lb 12.8 oz) 08/06/2025 7:49 PM CDT Height 170.2 cm (5' 7) 08/06/2025 7:49 PM CDT Body Mass Index 26.75 08/06/2025 7:49 PM CDT Plan of Treatment Upcoming Encounters Date Type Department Care Team (Late st Contact Info) Description 09/04/2025 9:20 AM CORPORATE CONTROLLER Office Visit [facility] - Urology [address] [facility] [place] [address] Darius Mccloud PA [address] [place] [address] 11/02/2025 11:00 AM CORPORATE CONTROLLER Office Visit [facility] - Cardiology [address] [facility] [place] [address] Jack Díaz MD [address] [facility] DIV OF CARDIOLOGY [address] [place] [address] 11/09/2025 10:30 AM CORPORATE CONTROLLER Appointment [facility] Health Imaging Services - CT Scan [address], [address] [place] [address] Terry Salinas MD [address] [facility] [address] [place] [phone] 11/09/2025 1:00 PM CORPORATE CONTROLLER Office Visit [facility] - Urology [address] [facility] [address] [place] [phone] Terry Salinas MD [address] [place] [phone] 12/10/2025 9:30 AM CORPORATE CONTROLLER Office Visit [facility] - Pulmonology [address] [place] [address], [place] [phone] Josh Richards MD [facility] [facility] 2L DIV OF PULMONARY/[place] [address] 12/17/2025 7:30 AM CORPORATE CONTROLLER Appointment [facility] [address] [place] [address] Clif Sepulveda MD [facility] [place] [phone] 12/17/2025 8:00 AM CORPORATE CONTROLLER Office Visit [facility] - GI [address] [place] [address], [place] [phone] Clif Sepulveda MD [facility] [place] [address] Health Maintenance Due Date Last Done Comments [...] 1971 ZOSTER VACCINE (1 of 2) 1971 DIABETES RETINOPATHY SCREENING 08/11/2024 DIABETES-FOOT EXAM WITH MONOFILAMENT 08/11/2024 DIABETES-HGB A1C 08/11/2024 DIABETES - URINE PROTEIN SCREENING 10/22/2024 COVID-19 VACCINE ( season) 2025 08/06/2024, 07/31/2023, 08/01/2022, Additional history exists INFLUENZA VACCINE (#1) 2025 , 07/31/2023, 08/01/2022, Additional history exists DIABETES-SERUM CREATININE 08/07/20262024, 08/06/2025, 06/25/2025, Additional history exists DTAP/TDAP/TD VACCINES (2 - [...] On track( 025 10:13 AM CDT) Tyesha Mcdaniels RN Note: Expected end date: ongoing Interventions: Take all medications as prescribed Let your doctor know right away about any changes in your medications Make sure to request a refill of your medication at least one week prior to your last dose Procedures Procedure Name Priority Date/Time Associated Diagnosis Comments CARDIAC RHYTHM STRIP ORDER 08/11/2025 1:56 AM CDT GLUCOSE - POINT OF CARE Routine 08/08/2025 8:59 AM CDT CBC W/O DIFFERENTIAL AM Draw 08/08/2025 2:46 AM CDT GLUCOSE - POINT OF CARE Routine 08/07/2025 9:13 PM CDT GLUCOSE - POINT OF CARE Routine 08/07/2025 6:08 PM CDT CBC W/O DIFFERENTIAL Routine 08/07/2025 1:29 PM CDT Kidney mass GLUCOSE - POINT OF CARE Routine 08/07/2025 1:03 PM CDT CBC W/O DIFFERENTIAL AM Draw 08/07/2025 11:53 AM CDT GLUCOSE - POINT OF CARE Routine 08/07/2025 9:15 AM CDT COMPREHENSIVE METABOLIC PANEL AM Draw 08/07/2025 2:26 AM CDT CBC W AUTO DIFFERENTIAL AM Draw 08/07/2025 2:26 AM CDT GLUCOSE - POINT OF CARE Routine 08/06/2025 8:51 PM CDT GLUCOSE - POINT OF CARE Routine 08/06/2025 6:43 PM CDT GLUCOSE - POINT OF CARE Routine 08/06/2025 12:57 PM CDT COMPREHENSIVE METABOLIC PANEL AM Draw 08/06/2025 11:08 AM CDT CBC W/O DIFFERENTIAL AM Draw 08/06/2025 11:08 AM CDT GLUCOSE - POINT OF CARE Routine 08/06/2025 10:45 AM CDT PATHOLOGY TISSUE EXAM (STL) Routine 08/06/2025 9:59 AM CDT Diagnosis unknown ENDOTRACHEAL TUBE NOTE Routine 08/06/2025 8:20 AM CDT TRANSFUSE PLATELET PHERESIS UNIT(S) Routine 08/06/2025 7:47 AM CDT PREPARE PLATELET PHERESIS UNIT(S) Routine 08/06/2025 7:02 AM CDT TYPE + SCREEN PANEL STAT 08/06/2025 7 :02 AM CDT CBC W AUTO DIFFERENTIAL STAT 08/06/2025 7:02 AM CDT Kidney mass GLUCOSE - POINT OF CARE Routine 08/06/2025 6:57 AM CDT SD LAP, RADICAL NEPHRECTOMY 08/06/2025 6:40 AM CDT Diagnosis unknown Special Needs NEEDS YUAN SANDERS--ON 06/29/25 REP. NOTIFIED VIA EMAIL PER OFFICE (NEFF)--07/24 KW PREPARE PLATELET PHERESIS UNIT(S) Routine 08/06/2025 6:40 AM CDT CARDIAC EKG ORDER 06/30/2025 CT KIDNEY BIOPSY Routine 06/25/2025 12:0 0 PM CDT Kidney mass PATHOLOGY TISSUE EXAM (STL) Routine 06/25/2025 11:45 AM CDT Kidney mass TRANSFUSE PLATELET PHERESIS UNIT(S) Routine 06/25/2025 10:49 AM CDT COMPREHENSIVE METABOLIC PANEL AYESHA 06/25/2025 9:34 AM CDT Kidney mass TYPE + SCREEN PANEL STAT 06/25/2025 9 :33 AM CDT Kidney mass PREPARE PLATELET PHERESIS UNIT(S) Routine 06/25/2025 9:33 AM CDT Kidney mass CBC W AUTO DIFFERENTIAL STAT 06/25/2025 9:33 AM CDT Kidney mass PT-INR STAT 06/25/2025 9:33 AM CDT Kidney mass BLADDER SCAN - POINT OF CARE (AMB) Routine 06/01/2025 9:07 AM CDT Kidney mass URINALYSIS AUTO - POINT OF CARE (AMB) [facility] Routine 06/01/2025 9:07 AM CDT Kidney mass HEPATITIS C AB W/RFLX TO HCV RNA QN PCR Routine 09/07/2023 7:59 AM CORPORATE CONTROLLER Hepatic cirrhosis, unspecified hepatic cirrhosis type, unspecified whether ascites present Portal hypertension from Last 3 Months or Most Recently Relevant to Health Maintenance Results * CARDIAC RHYTHM STRIP ORDER (08/11/2025 1:56 AM CDT) Narrative 08/11/2025 1:56 AM CDT Ordered by an unspecified provider. us Scanned Document CARDIAC SERVICES ORDERABLES Fin al Result * (ABNORMAL) GLUCOSE - POINT OF CARE (08/08/2025 8:59 AM CDT) Only the most recent of10 resultswithin the time period is included. Pathologist [facility] Glucose WB/POC 175(H) 70 - 99 mg/dL 08/08/2025 9:06 AM CDT [facility] Specimen Type Arterial/C apillary 08/08/2025 9:06 AM CDT [facility] Blood BLOOD SPECIMEN / Unknown 08/08/2025 8:59 AM CDT 08/08/2025 9:06 AM CDT us Ricky Rosado DO LAB - POINT OF CARE ORDERABLE S Final Result [facility] [address] [place] [address] * (ABNORMAL) CBC W/O DIFFERENTIAL (08/08/2025 2:46 AM CDT) Only the most recent of4 resultswithin the time period is included. [facility] WBC 4.1 4.0 - 10.7 x10E9/L 08/08/2025 4:49 AM CDT [facility] RBC Count 3.71(L) 4.30 - 5.80 x10E12/L 08/08/2025 4:49 AM CDT [facility] Hemoglobin 12.1(L) 13.3 - 17.5 g/dL 08/08/2025 4:49 AM CDT [facility] Hematocrit 35.0(L) 38.7 - 51.1 % 08/08/2025 4:49 AM CDT [facility] MCV 94.3 80.0 - 98.0 fL 08/08/2025 4:49 AM CDT [facility] MCH 32.6 26.7 - 33.6 pg 08/08/2025 4:49 AM CDT [facility] MCHC 34.6 31.7 - 36.3 g/dL 08/08/2025 4:49 AM CDT [facility] RDW-CV 14.1 11.3 - 14.8 % 08/08/2025 4:49 AM CDT [facility] Platelet Count 69(L) 150 - 420 x10E9/L 08/08/2025 4:49 AM CDT [facility] MPV 11.9(H) 7.8 - 11.4 fL 08/08/2025 4:49 AM CDT [facility] Blood BLOOD SPECIMEN / Unknown Lab Venipuncture / Unknown 08/08/2025 2:46 AM CDT 08/08/2025 4:27 AM CDT us Terry Salinas MD LAB - HEMATOLOGY ORDERABL ES Final Result [facility] [address] [place] [address] * (ABNORMAL) CBC W AUTO DIFFERENTIAL (08/07/2025 2:26 AM CDT) Only the most recent of3 resultswithin the time period is included. WBC 4.7 4.0 - 10.7 x10E9/L 08/07/2025 3:36 AM CDT [facility] RBC Count 3.69(L) 4.30 - 5.80 x10E12/L 08/07/2025 3:36 AM CDT [facility] Hemoglobin 12.0(L) 13.3 - 17.5 g/dL 08/07/2025 3:36 AM CDT [facility] Hematocrit 35.6(L) 38.7 - 51.1 % 08/07/2025 3:36 AM CDT [facility] MCV 96.5 80.0 - 98.0 fL 08/07/2025 3:36 AM CDT [facility] MCH 32.5 26.7 - 33.6 pg 08/07/2025 3:36 AM CDT [facility] MCHC 33.7 31.7 - 36.3 g/dL 08/07/2025 3:36 AM CDT [facility] RDW-CV 14.2 11.3 - 14.8 % 08/07/2025 3:36 AM CDT [facility] Platelet Count 62(L) 150 - 420 x10E9/L 08/07/2025 3:36 AM CDT [facility] MPV 12.1(H) 7.8 - 11.4 fL 08/07/2025 3:36 AM CDT [facility] Neutrophil % 64.3 41.0 - 74.0 % 08/07/2025 3:36 AM CDT [facility] Lymphocyte % 24.7 17.0 - 47.0 % 08/07/2025 3:36 AM CDT [facility] Monocyte % 8.4 3.0 - 11.0 % 08/07/2025 3:36 AM CDT [facility] Eosinophil % 2.2 0.0 - 7.0 % 08/07/2025 3:36 AM CDT [facility] Basophil % 0.2 0.0 - 1.6 % 08/07/2025 3:36 AM CDT [facility] Immature Granulocytes % 0.2 0.0 - 1.0 % 08/07/2025 3:36 AM CDT [facility] Neutrophil Absolute 2.99 1.60 - 7.50 x10E9/L 08/07/2025 3:36 AM CDT [facility] Lymphocyte Absolute 1.15 1.00 - 4.40 x10E9/L 08/07/2025 3:36 AM CDT [facility] Monocyte Absolute 0.39 0.15 - 1.00 x10E9/L 08/07/2025 3:36 AM CDT [facility] Eosinophil Absolute 0.10 0.00 - 0.60 x10E9/L 08/07/2025 3:36 AM CDT [facility] Basophil Absolute 0.01 0.00 - 0.13 x10E9/L 08/07/2025 3:36 AM CDT [facility] Blood BLOOD SPECIMEN / Unknown Lab Venipuncture / Unknown 08/07/2025 2:26 AM CDT 08/07/2025 3:11 AM CDT Terry Salinas MD LAB - HEMATOLOGY ORDERABL ES Final Result Performing Organization Address City/State/[facility] Co de Phone Number [facility] [address] [place] [address] * (ABNORMAL) COMPREHENSIVE METABOLIC PANEL (08/07/2025 2:26 AM CDT) Only the most recent of3 resultswithin the time period is included. Glucose 158(H) 70 - 99 mg/dL 08/07/2025 3:32 AM CDT [facility] Sodium 135(L) 136 - 145 mmol/L 08/07/2025 3:32 AM CDT [facility] Potassium 4.1 3.5 - 5.1 mmol/L 08/07/2025 3:32 AM CDT [facility] Chloride 104 98 - 107 mmol/L 08/07/2025 3:32 AM CDT [facility] CO2 23 22 - 29 mmol/L 08/07/2025 3:32 AM CDT [facility] Calcium 8.3(L) 8.4 - 10.4 mg/dL 08/07/2025 3:32 AM CDT [facility] Anion Gap 8 6 - 16 mmol/L 08/07/2025 3:32 AM CDT [facility] BUN 14 7 - 26 mg/dL 08/07/2025 3:32 AM CDT [facility] Creatinine 1.15 0.70 - 1.30 mg/dL 08/07/2025 3:32 AM CDT [facility] Alkaline Phosphatase 86 40 - 150 U/L 08/07/2025 3:32 AM CDT [facility] ALT 73(H) 6 - 57 U/L 08/07/2025 3:32 AM CDT [facility] AST 97(H) 10 - 48 U/L 08/07/2025 3:32 AM CDT [facility] Protein Total 6.4 6.4 - 8.3 gm/dL 08/07/2025 3:32 AM CDT [facility] Albumin 3.0(L) 3.1 - 4.5 gm/dL 08/07/2025 3:32 AM CDT [facility] Bilirubin Total 0.7 0.2 - 1.2 mg/dL 08/07/2025 3:32 AM CDT [facility] eGFR by CKD-EPI 67(L) >=90 mL/min/1.7 3 m2 08/07/2025 3:32 AM CDT [facility] Comment:Estimated Glomerular Filtration Rate (eGFR) calculated using the CKD-EPI Creatinine Equation (2020), per the National Kidney Foundation and [employer] Nephrology recommendations. Blood BLOOD SPECIMEN / Unknown Lab Venipuncture / Unknown 08/07/2025 2:26 AM CDT 08/07/2025 3:11 AM CDT us Terry Salinas MD LAB - CHEMISTRY ORDERABLE S Final Result [facility] [address] [place] [address] * PATHOLOGY TISSUE EXAM (STL) (08/06/2025 9:59 AM CDT) Only the most recent of2 resultswithin the time period is included. Case Report Surgical Pathology Report Case: [id number] Authorizing Provider: Terry Salinas MD Collected: 08/06/2025 09:59 AM Ordering Location: [facility] Received: 08/06/2025 10:45 AM Pathologist: Aishwarya Mcdaniels MD Specimen: Kidney, LEFT KIDNEY 08/07/2025 9:10 AM CDT [facility] Final Diagnosis Kidney, left, nephrectomy - Clear cell renal cell carcinoma, 2.7 cm, WHO grade 2, invading renal vein, margins uninvolved 08/07/2025 9:10 AM [facility] at 0910 CDT Clinical History The patient is a 75-year-old man. Operative procedure: radical nephrectomy. 08/07/2025 9:10 AM T [facility] Gross Description The specimen is identified with the patient's name and date of . Received in formalin, specimen A left kidney is a radical lumpectomy, 596 g, including a kidney 13 x 7.0 x 6.5 cm, ureter (7.1 cm long and 0.5 cm diameter), with a perinephric fat thickness of 6.5 cm. Sectioning is shows 2.7 x 1.9 x 1.5 centimeters yellow-red, soft harrell mass, located adjacent to the renal sinus with extension into the renal vein. The remaining kidney is pink-brown with distinct corticomedullary junctions. The perinephric fat is sectioned showing no adrenal or hilar nodes. Shirring Machine Operator sections submitted as follows: A1-ureter and vascular margins, A2-A4-mass to renal sinus, A5-A6-mass to adjacent kidney and renal capsule, A7-uninvolved kidney. LJ 08/07/2025 9:10 AM CDT [facility] Microscopic Description Microscopic examination substantiates the above diagnosis. 08/07/2025 9:10 AM CDT [facility] Pathologist Location at [facility] 08/07/2025 9:10 AM CDT [facility] Disclaimer All histochemical and/or immunohistochemical results are interpreted with controls that demonstrate appropriate staining reactions before reporting results. Note on use of immunocytochemistry reagents: This test was developed and its performance characteristic determined by [facility], Department of Laboratory Medicine. It has not been cleared or approved by the U.S. Food and Drug Administration (FDA). The FDA has determined that such clearance or approval is not necessary. The test is used for clinical purpose. It should not be regarded as investigational or for research. This laboratory is certified to perform high complexity testing. The performance characteristics of the IHC/JANINE assays have been validated on formalin-fixed paraffin embedded tissues only. The assays have not been validated on decalcified tissues. Results should be interpreted with caution. 08/07/2025 9:10 AM T [facility] Synoptic Report KIDNEY: Nephrectomy KIDNEY: NEPHRECTOMY - All Specimens 8th Edition - Protocol posted: 04/09/2024 SPECIMEN Procedure: Radical nephrectomy Specimen Laterality: Left TUMOR Tumor Focality: Unifocal Tumor Size: Greatest Dimension (Centimeters): 2.7 cm Histologic Type: Clear cell renal cell carcinoma Histologic Grade (WHO / ISUP): G2, nucleoli conspicuous and visible at 400x magnification, not prominent at 100x magnification Tumor Extent: Extends into renal vein or its segmental branches Histologic Features: Sarcomatoid or rhabdoid features not identified Tumor Necrosis: Not identified Lymphatic and / or Vascular Invasion: Not identified MARGINS Margin Status: All margins negative for invasive carcinoma REGIONAL LYMPH NODES Regional Lymph Node Status: Not applicable (no regional lymph nodes submitted or found) pTNM CLASSIFICATION (AJCC 8th Edition) Reporting of pT, pN, and (when applicable) pM categories is based on information available to the pathologist at the time the report is issued. As per the AJCC (Chapter 1, 8th Ed.) it is the managing physician's responsibility to establish the final pathologic stage based upon all pertinent information, including but potentially not limited to this pathology report. pT Category: pT3a pN Category: pN not assigned (no nodes submitted or found) ADDITIONAL FINDINGS Additional Findings in Kidney: No significant pathologic change identified 08/07/2025 9:10 AM CDT [facility] Embedded Images 08/07/2025 9:10 AM CDT [facility] Pathology/Cytolo gy ENTIRE KIDNEY / Unknown 08/06/2025 9:59 AM CDT 08/06/2025 10:45 AM CDT Comment:Pre-op diagnosis: Diagnosis unknown [R69] Terry Salinas MD LAB - PATHOLOGY/CYTOLOGY ORDERABLES Final Result [facility] [address] [place] [address] * TRANSFUSE PLATELET PHERESIS UNIT(S) (08/06/2025 8:30 AM CDT) Johan Edouard MD NURSING - BLOOD PROD TRANSFU VISHAL Edited Result - Final * ETT LINE PERFORMABLE (08/06/2025 8:20 AM CDT) Narrative Blessing Jon APRN-CRNA - 08/06/2025 8:20 AM CDT Blessing Jon APRN-CRNA 08/06/2025 8:20 AM Endotracheal Tube Placement: Patient Location: OR. Intubation Event Date/Time: 08/06/2025 7:42 AM Procedure: intubation (59286) Procedure Section: Sedation: under general anesthesia. Indications for Airway Management: anesthesia Induction: standard IV Patient Position: sniffing Mask Ventilation: easy. Blade Type: Harpal Blade Size: 4 Laryngoscopy View: grade 1 (full cords) Intubation Adjuncts: stylet Tube: endotracheal tube Placement: oral Tube type: cuff - inflated Tube Size (MM): 8 Depth of Insertion (CM): 24 Measured From: teeth Cuff volume (mL): 5 Cuff Inflated With: air Number of Attempts: 1. Placement Verified By: direct visualization, bilateral breath sounds, chest auscultation and CO2 monitor Tube secured with: adhesive tape. Difficult Airway? No. Procedure Start Time: 08/06/2025 7:42 AM. Staff Section Anesthesia Provider: Blessing Jon APRN-CRNA, Performed the procedure Additional Comments: Dentition/oral mucosa unchanged from pre op exam following DVOI.. Johan Edouard MD GENERAL ANESTHESIA ORDERABLE S Final Result * PREPARE PLATELET PHERESIS UNIT(S), 1 Units (08/06/2025 7:02 AM CDT) Only the most recent of3 resultswithin the time period is included. Unit Description LR PLT Phere B7 [facility] Unit ABO O [facility] Unit Rh NEG [facility] Product Number P28 [facility] Unit Donor # [id number] [facility] B[facility] Unit Status transfused [facility] Product Code [id number] [facility] Blood Type Barcode 9500 [facility] Expiration Date [id number] [facility] Blood Bank BLOOD SPECIMEN / Unknown 08/06/2025 7:02 AM CDT 08/06/2025 7:08 AM CDT Terry Salinas MD LAB - BLOOD BANK ORDERABL ES Final Result Performing Organization Address [facility] Co de Phone Number [facility] [address] [place] [address] * TYPE + SCREEN PANEL (08/06/2025 7:02 AM CDT) Only the most recent of2 resultswithin the time period is included. ABO Rh O POS 08/06/2025 7:58 AM CDT [facility] Comment:History checked. Antibody Screen NEG 7:58 AM CDT [facility] Blood Bank BLOOD SPECIMEN / Unknown Venipuncture / Unknown 08/06/2025 7:02 AM CDT 08/06/2025 7:08 AM CDT Terry Salinas MD LAB - BLOOD BANK ORDERABL ES Final Result Performing Organization Address City/[facility]/ZIP Co de Phone Number [facility] [address] [place] [address] * CARDIAC EKG ORDER (06/30/2025) 06/30/2025 Narrative 06/30/2025 Ordered by an unspecified provider. Scanned Document CARDIAC SERVICES ORDERABLES Fin al Result * CT KIDNEY BIOPSY( 82543 and [address]256) (06/25/2025 12:00 PM CDT) Anatomical Region Laterality Modality Abdomen Computed Tomogra phy 06/25/2025 12:3 4 PM CDT Impressions 06/26/2025 10:39 AM CDT Impression: CT-guided core biopsy of left kidney mass, as described above. The pathology report is pending at the time of this dictation. I, Dr. Quarles, was present and performed/supervised the entire procedure. Moderate sedation on this adult patient was ordered by me, administered intravenously in my presence, and monitored by the procedure nurse as an independent trained observer who was present throughout the procedure. The following parameters were monitored: oxygen saturation, heart rate, blood pressure, and response to care. Intra-service sedation start time was 1127 and end time was 1148 during which I was present. Total physician intra-service sedation time was 19 minutes. For details on pre moderate sedation and post moderate sedation patient evaluation, please review the evaluation forms in [email or web address]. For details on monitored clinical parameters during the intra-service sedation time, please review the procedure nurse documentation in [facility]. > Dictated by Jassi Walker MD vice president for philanthropy > Dictated by Locomotive Electrician Rd Chanel MD have personally reviewed and interpreted this examination/study. > Interpreting Provider: Rd Quarles MD on 06/26/2025 10:39 AM Narrative 06/26/2025 10:39 AM CDT History: 75M pmh chronic leukemia, thrombocytopenia , cirrhosis and DM. New renal mass 3.3 cm left kidney. IR for CT left renal mass bx moderate sedation. Notes say T&S to transfuse plts during procedure. Operators: 1.Dr. Rd Quarles, Attending Physician 2.Dr. Jassi Walker, Resident Physician Anesthesia: 1.Local anesthesia - 10 mL of 1% lidocaine 2.Intravenous conscious sedation - Versed 2 mg and Fentanyl 100 mcg Procedure: 1.Limited non-contrast CT of the abdomen. 2.CT-guided core biopsy of Left kidney mass. Procedure in detail: The procedure, risks, and possible complications were explained to the patient in detail, and informed consent was obtained. The patient was placed in a prone position on the CT table and a radio-opaque grid was placed over the region of interest. Limited non-contrast CT of the abdomen showed left kidney with isodense 3cm mass. A percutaneous entry site was marked on the skin. The marked site and skin around the region was prepped and draped in sterile fashion. Local anesthesia was provided with 1% Lidocaine. A 17-gauge co-axial needle system was advanced in stages under CT guidance. With the needle tip at the edge of the lesion, 3 core samples were acquired with an 18-gauge biopsy gun. The samples were sent to the pathology service. Post-procedure limited non-contrast CT did not show any immediate complications such as major hemorrhage. The patient tolerated the procedure well and was transferred to the holding area in stable condition. Procedure Note Rd Quarles MD - 06/26/2025 History: 75M pmh chronic leukemia, thrombocytopenia , cirrhosis and DM.New renal mass 3.3 cm left kidney. IR for CT left renal mass bx moderate sedation. Notes say T&S to transfuse plts during procedure. Operators: 1.Dr. Rd Quarles, Attending Physician 2.Dr. Jassi Walker, Resident Physician Anesthesia: 1.Local anesthesia - 10 mL of 1% lidocaine 2.Intravenous conscious sedation - Versed 2 mg and Fentanyl 100 mcg Procedure: 1.Limited non-contrast CT of the abdomen. 2.CT-guided core biopsy of Left kidney mass. Procedure in detail: The procedure, risks, and possible complications were explained to the patient in detail, and informed consent was obtained. The patient was placed in a prone position on the CT table and a radio-opaque grid was placed over the region of interest. Limited non-contrast CT of theabdomen showed left kidney with isodense 3cm mass. A percutaneous entry site was marked on the skin. The marked site and skin around the region was prepped and draped in sterile fashion. Local anesthesia was provided with 1% Lidocaine. A 17-gauge co-axial needle system was advanced in stages under CTguidance. With the needle tip at the edge of the lesion, 3 core samples wereacquired with an 18-gauge biopsy gun. The samples were sent to the pathology service. Post-procedure limited non-contrast CT did not show any immediate complications such as major hemorrhage. The patient tolerated theprocedure well and was transferred to the holding area in stable condition. Impression: CT-guided core biopsy of left kidney mass, as describedabove. The pathology report is pending at the time of this dictation. I, Dr. Quarles, was present and performed/supervised the entireprocedure. Moderate sedation on this adult patient was ordered by me, administered intravenously in my presence, and monitored by the procedure nurse as an independent trained observer who was present throughout the procedure.The following parameters were monitored: oxygen saturation, heart rate,blood pressure, and response to care. Intra-service sedation start time [id number] and end time was 1148 during which I was present. Total physician intra-service sedation time was 19 minutes. For details on pre moderate sedation and post moderate sedation patient evaluation, please reviewthe evaluation forms in [facility]. For details on monitored clinical parameters during the intra-service sedation time, please review the procedurenurse documentation in [facility]. > Dictated by Jassi Walker MD vice president for philanthropy > Dictated by Locomotive Electrician [place], Rd Quarles MD have personally reviewed and interpreted this examination/study. > Interpreting Provider: Rd Quarles MD on 06/26/2025 10:39 AM Terry Salinas MD CT ORDERABLES Final Res ult * TRANSFUSE PLATELET PHERESIS UNIT(S) (06/25/2025 11:15 AM CDT) Demond Redding MD NURSING - BLOOD PROD TRANS FUSION Final Result * PT-INR (06/25/2025 9:33 AM CDT) PT 14.1 12.1 - 14.8 sec 06/25/2025 9:51 AM CDT [facility] INR 1.1 0.9 - 1.1 06/25/2025 9:51 AM CDT [facility] Blood BLOOD SPECIMEN / Unknown Venipuncture / Unknown 06/25/2025 9:33 AM CDT 06/25/2025 9:37 AM CDT Narrative [facility] - 06/25/2025 9:51 AM CDT Conventional Warfarin Anticoagulant Therapy: INR Reference Range: 2.0-3.0 Intensive Warfarin Anticoagulant Therapy: INR Reference Range: 2.5-3.5 Demond Redding MD LAB - COAGULATION ORDERABL ES Final Result [facility] [address] [place] [address] * URINALYSIS AUTO - POINT OF CARE (AMB) [facility] (06/01/2025 9:07 AM CDT) Pathologist [facility] Glucose UA neg [facility] [address] Bilirubin UA POCT neg [facility] [address] Ketones UA POCT neg [facility] [address] Specific [place] UA 1.[address] [facility] [address] Blood [...] ORDER DIAMOND Final Result Performing Organization Address City/[facility]/ZIP Co de Phone Number [facility] [address] [place] [address], [facility] [phone] * BLADDER SCAN - POINT OF CARE (AMB) (06/01/2025 9:07 AM CDT) Pathologist [facility] mL 24ml [facility] [address] Urine URINE / Unknown 06/01/2025 9 :07 AM CDT Terry Salinas MD LAB - POINT OF CARE ORDER DIAMOND Final Result [facility] [address] [place] [address], [facility] [phone] * HEPATITIS C AB W/RFLX TO HCV RNA QN PCR (09/07/2023 7:59 AM CORPORATE CONTROLLER) Pathologist [facility] Hepatitis C Antibody NON-REACTI VE NON-REACT [facility] Comment: HCV antibody was non-reactive. There is no laboratory evidence of HCV infection. In most cases, no further action is required. However, if recent HCV exposure is suspected, a test for HCV RNA (test code 71984) is suggested. For additional information please refer to http://education.[employer]/faq/AYB77s6 (This link is being provided for informational/ educational purposes only.) Test Performed at: [facility] [address] [place] [address] CELESTE VENTURA MD Blood BLOOD SPECIMEN / Unknown 09/07/2023 7:59 AM CORPORATE CONTROLLER 09/07/2023 8:00 AM CORPORATE CONTROLLER Clif Sepulveda MD LAB - CHEMISTRY ORDERABLES [facility] Result [facility] [address] [place] [address] from Last 3 Months or Most Recently Relevant to Health Maintenance [place] [address] [place] [address] MEDICARE [facility] Advance Directives Documents on File Type Date Recorded 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
[2025-08-19 13:17] LABS: Alanine Aminotransferase 73 U/L (6-50); Albumin Level 4.3 g/dL (3.5-5.1); Alkaline Phosphatase 198 U/L (38-126); Anion Gap 12 mmol/L (4-12); Aspartate Amino Transferase 102 U/L (17-59); Bilirubin,Total 0.5 mg/dL (0.2-1.3); Blood Urea Nitrogen 20 mg/dL (9-20); Calcium 9.8 mg/dL (8.4-10.2); Carbon Dioxide 24 mmol/L (22-30); Chloride 99 mmol/L (98-107); Estimated Glomerular Filt Rate > 60; Glucose 187 mg/dL (65-110); Potassium 4.7 mmol/L (3.4-5.0); Sodium 135 mmol/L (137-145); Total Protein 8.5 g/dL (6.3-8.2)
--- OUTSIDE RECORDS SUMMARY | 2025-10-09 19:00 | XMS_ITS | Clinical Summary ---
Author Organization Unknown Care Team Providers Care Director Of Occupational Therapy Name Role Phone SAULO BUSTAMANTE, ABBEY Unavailable Unava ilable KAREN PHYSICAL THERAPIST, BRY Unavailable Unavailable [facility] CALLS NURSE PRACTITIONER, ANGÉLICA Gasca ailable Unavailable MCKEON OCCUPATIONAL THERAPIST, LIZZIE Unavailable Unavailable SHADI REGISTERED NURSE, CHRISTINA Unavailable Unavailable Payers Payer Name Policy Type Policy Number Effective Date Expira tion Date MEDICARE [facility] [id number] Problems Condition Name Condition Details Condition Category Status Onset Date Resolution Date Last Treatment Date Treating Clinician Comments AFTERCARE FOLLOWING SURGERY FOR NEOPLASM Active 2024-10 00:00: 00 MALIGNANT NEOPLASM OF LEFT KIDNEY, EXCEPT RENAL PELVIS Active 2024-10 00:00: 00 ACQUIRED ABSENCE OF KIDNEY Active 10-22 00:00: 00 TYPE 2 DIABETES MELLITUS WITHOUT COMPLICATION S Active 10-22 00:00: 00 PURE HYPERCHOLEST EROLEMIA, UNSPECIFIED Active 10-22 00:00: 00 HYPOTHYROIDI SM, UNSPECIFIED Active 10-22 00:00: 00 SLEEP APNEA, UNSPECIFIED Active 10-22 00:00: 00 UNSPECIFIED CIRRHOSIS OF LIVER Active 10-22 00:00: 00 GASTRO-ESOPH AGEAL REFLUX DISEASE WITHOUT ESOPHAGITIS Active 10-22 00:00: 00 USED CAR LOT PORTER (CURRENT) USE OF INSULIN Active 10-22 00:00: 00 HORMONE REPLACEMENT THERAPY Active 10-22 00:00: 00 SKILLED NURSING (CURRENT) USE OF ORAL HYPOGLYCEMIC DRUGS Active 10-22 00:00: 00 PERSONAL HISTORY OF LEUKEMIA Active 10-22 00:00: 00 PERSONAL HISTORY OF OTHER MALIGNANT NEOPLASM OF SKIN Active 10-22 00:00: 00 Allergies, Adverse Reactions, Alerts Allergy Name Allergy Type Status Severity Reaction(s) Onset Date Inactive Date Treating Clinician Comments BEE VENOM (HONEY BEE) Propensity to adverse reactions Active 2025-07 10:52:1 4 HONEY Propensity to adverse reactions Active 2025-07 10:52:2 0 Medications Ordered Medication Name Filled Medication Name Start Date Stop Date Current Medication? Ordering Clinician Indication Dosage Frequency Signature (SIG) Comments Components acetaminoph en 325 mg tablet 02-03 00:00: 00 06-03 14:26 :39.4 27 No [id number] PAIN 2 tablet EVERY 6 HOURS NEEDED 2 tablet EVERY 6 HOURS NEEDED (route: oral) Med Classific ation: Analgesic , Anti-infl ammatory or Antipyret ic amlodipine 10 mg-atorvast atin 10 mg tablet 02-01 00:00: 00 06-03 14:26 :41.5 53 No [id number] F 1 tablet ONCE DAILY 1 tablet ONCE DAILY (route: oral) Alternate Route: BY MOUTH. Med Classific ation: Cardiovas cular Therapy Agents atorvastati n 40 mg tablet 05-31 00:00: 00 07-09 23:59 :00 No [id number] HIGH CHOLESTEROL 1 tablet AT BEDTIME 1 tablet AT BEDTIME (route: oral) Med Classific ation: Cardiovas cular Therapy Agents atorvastati n 80 mg tablet 02-01 00:00: 00 06-03 14:26 :43.3 67 No [id number] Y 1 tablet AT BEDTIME 1 tablet AT BEDTIME (route: oral) Alternate Route: BY MOUTH. Med Classific ation: Cardiovas cular Therapy Agents brimonidine 0.2 % eye drops 02-03 00:00: 00 06-03 14:26 :44.9 6 No [id number] GLAUCOMA 1 drops TWICE DAILY 1 drops TWICE DAILY (route: ophthalmic (eye)) Med Classific ation: Ophthalmi c Agents brimonidine 0.2 % eye drops 05-31 00:00: 00 07-09 23:59 :00 No [id number] GLAUCOMA 1 drops 2 TIMES DAILY 1 drops 2 TIMES DAILY (route: ophthalmic (eye)) Alternate Route: LEFT EYE. Med Classific ation: Ophthalmi c Agents calcium carbonate 500 mg (1,250 mg)-vitamin D3 125 unit tablet 02-03 00:00: 00 06-03 14:26 :46.5 23 No [id number] SUPPLEMENT 1 tablet ONCE DAILY 1 tablet ONCE DAILY (route: oral) Med Classific ation: Electroly te Balance-N ольгаa l Products irbesartan 300 mg tablet 02-03 00:00: 00 06-03 14:24 :26.4 73 No [id number] HEART 1 mg ONCE DAILY 1 mg ONCE DAILY (route: oral) Med Classific ation: Cardiovas cular Therapy Agents latanoprost (PF) 0.005 % eye drops 02-03 00:00: 00 06-03 14:23 :05.2 63 No [id number] GLAUCOMA 1 drops ONCE DAILY 1 drops ONCE DAILY (route: ophthalmic (eye)) Med Classific ation: Ophthalmi c Agents latanoprost 0.005 % eye drops 05-31 00:00: 00 07-09 23:59 :00 No [id number] GLAUCOMA 1 drops AT BEDTIME 1 drops AT BEDTIME (route: ophthalmic (eye)) Alternate Route: LEFT EYE. Med Classific ation: Ophthalmi c Agents Melatin 3 mg tablet 05-31 00:00: 00 07-09 23:59 :00 No [id number] SLEEP AID 1 tablet AT BEDTIME 1 tablet AT BEDTIME (route: oral) Med Classific ation: Central Nervous System Agents metformin 500 mg tablet 02-04 00:00: 00 06-03 14:23 :07.4 03 No [id number] F, 1 tablet ONCE DAILY 1 tablet ONCE DAILY (route: oral) Alternate Route: BY MOUTH. Med Classific ation: Endocrine metoprolol succinate ER 200 mg capsule sprinkle, ext. release 24 hr 02-03 00:00: 00 06-03 14:23 :09.4 03 No [id number] BLOOD PRESSURE 1 mg ONCE DAILY 1 mg ONCE DAILY (route: oral) Med Classific ation: Cardiovas cular Therapy Agents metoprolol succinate ER 25 mg tablet,exte nded release 24 hr 2020-0 8-10 00:00: 00 07-09 23:59 :00 No [id number] heart/blood pressure 1 tablet ONCE DAILY 1 tablet ONCE DAILY (route: oral) Med Classific ation: Cardiovas cular Therapy Agents omeprazole 20 mg delayed release,dis integrating tablet 15 00:00: 06-03 14:23 :11.2 33 No [id number] STOMACH 1 tablet ONCE DAILY 1 tablet ONCE DAILY (route: oral) Med Classific ation: Gastroint estinal Therapy Agents pantoprazol e 40 mg tablet,geovany yed release 05-31 00:00: 00 07-09 23:59 :00 No [id number] gastric reflux 1 tablet 2 TIMES DAILY 1 tablet 2 TIMES DAILY (route: oral) Med Classific ation: Gastroint estinal Therapy Agents potassium chloride ER 10 mEq tablet,exte nded release 05-31 00:00: 00 07-09 23:59 :00 No [id number] SUPPLEMENT 1 tablet ONCE DAILY 1 tablet ONCE DAILY (route: oral) Med Classific ation: Electroly te Balance-N utritiona l Products Procardia XL 30 mg tablet,exte nded release 05-31 00:00: 00 07-09 23:59 :00 No [id number] blood pressure 1 tablet ONCE DAILY 1 tablet ONCE DAILY (route: oral) Med Classific ation: Cardiovas cular Therapy Agents simvastatin 20 mg/5 mL (4 mg/mL) oral suspension 02-03 00:00: 00 06-03 14:23 :13.0 43 No [id number] CHOLESTEROL 1 mL BEDTIME 1 mL BEDTIME (route: oral) Med Classific ation: Cardiovas cular Therapy Agents torsemide 10 mg tablet 05-31 00:00: 00 07-09 23:59 :00 No [id number] CHF 1 tablet ONCE DAILY 1 tablet ONCE DAILY (route: oral) Med Classific ation: Cardiovas cular Therapy Agents Tylenol 325 mg tablet 8 00:00: 00 07-09 23:59 :00 No [id number] PAIN 2 tablet EVERY 4 HOURS 2 tablet EVERY 4 HOURS (route: oral) Med Classific ation: Analgesic , Anti-infl ammatory or Antipyret ic Vitamin D3 25 mcg (1,000 unit) capsule 02-03 00:00: 00 06-03 14:23 :14.9 67 No [id number] SUPPLEMENT 1 mcg ONCE DAILY 1 mcg ONCE DAILY (route: oral) Med Classific ation: Electroly te Balance-N utritiona l Products warfarin 5 mg tablet 02-03 00:00: 00 07-09 23:59 :00 No [id number] BLOOD THINNER 1 tablet EVERY PM 1 tablet EVERY PM (route: oral) Med Classific ation: Hematolog ical Agents metoprolol succinate ER 25 mg tablet,exte nded release 24 hr 06-24 00:00: 00 09-05 23:59 :00 No [id number] HEART RATE AND BLOOD PRESSURE 1 tablet ONCE DAILY 1 tablet ONCE DAILY (route: oral) Med Classific ation: Cardiovas cular Therapy Agents atorvastati n 40 mg tablet 07-15 00:00: 00 08-09 23:59 :00 No [id number] CHOLESTEROL 1 tablet AT BEDTIME 1 tablet AT BEDTIME (route: oral) Med Classific ation: Cardiovas cular Therapy Agents brimonidine 0.2 % eye drops 07-15 00:00: 00 08-09 23:59 :00 No [id number] GLAUCOMA 1 drops TWICE DAILY 1 drops TWICE DAILY (route: ophthalmic (eye)) Alternate Route: EYE - BOTH. Med Classific ation: Ophthalmi c Agents Claritin 10 mg tablet 07-15 00:00: 00 08-09 23:59 :00 No [id number] ALLERGIES 1 tablet ONCE DAILY 1 tablet ONCE DAILY (route: oral) Med Classific ation: Respirato ry Therapy Agents Jantoven 3 mg tablet 07-15 00:00: 00 09-05 23:59 :00 No [id number] BLOOD THINNER 1 tablet ONCE DAILY 1 tablet ONCE DAILY (route: oral) Med Classific ation: Hematolog ical Agents latanoprost 0.005 % eye drops 07-15 00:00: 00 08-09 23:59 :00 No [id number] GLAUCOMA 1 drops AT BEDTIME 1 drops AT BEDTIME (route: ophthalmic (eye)) Alternate Route: EYE - LEFT. Med Classific ation: Ophthalmi c Agents nifedipine ER 30 mg tablet,exte nded release 07-15 00:00: 00 09-05 23:59 :00 No [id number] BLOOD PRESSURE 1 tablet ONCE DAILY 1 tablet ONCE DAILY (route: oral) Med Classific ation: Cardiovas cular Therapy Agents torsemide 20 mg tablet 07-15 00:00: 00 09-05 23:59 :00 No [id number] FLUID RETENTION 2 tablet 3 TIMES A WEEK 2 tablet 3 TIMES A WEEK (route: oral) Med Classific ation: Cardiovas cular Therapy Agents acetaminoph en 325 mg tablet 2023-10 00:00: 00 08-09 23:59 :00 No [id number] PAIN 1 tablet EVERY 6 HOURS 1 tablet EVERY 6 HOURS (route: oral) Med Classific ation: Analgesic , Anti-infl ammatory or Antipyret ic clopidogrel 75 mg tablet 2023-10 00:00: 00 08-09 23:59 :00 No [id number] BLOOD THINNER 1 tablet ONCE DAILY 1 tablet ONCE DAILY (route: oral) Med Classific ation: Hematolog ical Agents Eliquis 2.5 mg tablet 2023-10 00:00: 00 08-09 23:59 :00 No [id number] BLOOD THINNER 1 tablet TWICE DAILY 1 tablet TWICE DAILY (route: oral) Med Classific ation: Hematolog ical Agents metoprolol succinate ER 25 mg tablet,exte nded release 24 hr 2023-10 00:00: 00 01-08 23:59 :00 No [id number] HIGH BLOOD PRESSURE 0.5 tablet ONCE DAILY 0.5 tablet ONCE DAILY (route: oral) Med Classific ation: Cardiovas cular Therapy Agents torsemide 20 mg tablet 2023-10 00:00: 00 08-09 23:59 :00 No [id number] FLUID OVERLOAD 1 tablet EVERY OTHER DAY 1 tablet EVERY OTHER DAY (route: oral) Med Classific ation: Cardiovas cular Therapy Agents amlodipine 5 mg tablet 01-28 00:00: 00 04-15 23:59 :00 No [id number] HIGH BLOOD PRESSURE 1 tablet ONCE DAILY 1 tablet ONCE DAILY (route: oral) Med Classific ation: Cardiovas cular Therapy Agents carvedilol 12.5 mg tablet 01-28 00:00: 00 04-15 23:59 :00 No [id number] HIGH BLOOD PRESSURE 1 tablet TWICE DAILY 1 tablet TWICE DAILY (route: oral) Med Classific ation: Cardiovas cular Therapy Agents torsemide 10 mg tablet 04-15 00:00: 00 08-09 23:59 :00 No [id number] FLUID OVERLOAD 1 tablet EVERY OTHER DAY 1 tablet EVERY OTHER DAY (route: oral) Med Classific ation: Cardiovas cular Therapy Agents Triad Wound Dressing paste 04-14 00:00: 00 08-09 23:59 :00 No [id number] STAGE 2 SACRAL WOUND 1 gram ONCE DAILY 1 gram ONCE DAILY (route: topical) Med Classific ation: Dermatolo gical carvedilol 12.5 mg tablet 06-09 00:00: 00 08-09 23:59 :00 No [id number] HEART 1 tablet TWICE DAILY 1 tablet TWICE DAILY (route: oral) Med Classific ation: Cardiovas cular Therapy Agents Basaglar KwikPen U-100 Insulin 100 unit/mL (3 mL) [facility] 2024-10 00:00: 00 Yes [id number] DIABETES 36 unit ONCE DAILY 36 unit ONCE DAILY (route: subcutaneo ) Med Classific ation: Endocrine Centrum Silver Men 300 mcg-60 mcg-600 mcg-300 mcg tablet 2024-10 0 00:00: 00 Yes [id number] SUPPLEMENT 1 tablet ONCE DAILY 1 tablet ONCE DAILY (route: oral) Med Classific ation: Electroly te Balance-N utritiona l Products Lidocaine Pain Relief 4 % topical patch 2024-10 0 00:00: 00 Yes [id number] PAIN 1 adhesiv e patch, medicat ed TWICE DAILY 1 adhesive patch, medicated TWICE DAILY (route: topical) Med Classific ation: Dermatolo gical Miralax 17 gram oral powder packet 2024-10 00:00: 00 Yes [id number] CONSTIPATIO N 1 packet ONCE DAILY 1 packet ONCE DAILY (route: oral) Med Classific ation: Gastroint estinal Therapy Agents oxycodone 5 mg tablet 2024-10 00:00: 00 Yes [id number] PAIN 1 tablet EVERY 6 HOURS 1 tablet EVERY 6 HOURS (route: oral) Med Classific ation: Analgesic , Anti-infl ammatory or Antipyret ic Senna Laxative 8.6 mg tablet 2024-10 00:00: 00 Yes [id number] CONSTIPATIO N 1 tablet ONCE DAILY 1 tablet ONCE DAILY (route: oral) Med Classific ation: Gastroint estinal Therapy Agents Tylenol Extra Strength 500 mg tablet 2024-10 00:00: 00 Yes [id number] PAIN 1 tablet EVERY 6 HOURS 1 tablet EVERY 6 HOURS (route: oral) Med Classific ation: Analgesic , Anti-infl ammatory or Antipyret ic cyanocobala min (vit B-12) 1,000 mcg tablet 2024-10 00:00: 00 Yes [id number] SUPPLEMENT 1 tablet ONCE DAILY 1 tablet ONCE DAILY (route: oral) Med Classific ation: Electroly te Balance-N utritiona l Products ferrous sulfate 325 mg (65 mg iron) tablet 2024-10 00:00: 00 Yes [id number] IRON DEFICIENCY 1 tablet ONCE DAILY 1 tablet ONCE DAILY (route: oral) Med Classific ation: Electroly te Balance-N utritiona l Products finasteride 5 mg tablet 2024-10 00:00: 00 Yes [id number] BPH 1 tablet ONCE DAILY 1 tablet ONCE DAILY (route: oral) Med Classific ation: Genitouri nary Therapy Fish Oil 1,000 mg (120 mg-180 mg) capsule 2024-10 00:00: 00 Yes [id number] SUPPLEMENT 1 capsule 3 TIMES DAILY 1 capsule 3 TIMES DAILY (route: oral) Med Classific ation: Cardiovas cular Therapy Agents Glucagon (HCl) Emergency Kit 1 mg solution for injection 2024-10 00:00: 00 Yes [id number] HYPOGLYCEMI A 1 mg NEEDED 1 mg NEEDED (route: injection) Med Classific ation: Endocrine insulin aspart U-100 100 unit/mL subcutaneou s solution 2024-10 00:00: 00 Yes [id number] DIABETES Per instruc tions 3 TIMES DAILY Per instructio ns 3 TIMES DAILY (route: subcutaneo us) Med Classific ation: Endocrine levothyroxi ne 100 mcg capsule 2024-10 00:00: 00 Yes [id number] HYPOTHYROID ISM 1 capsule ONCE DAILY 1 capsule ONCE DAILY (route: oral) Med Classific ation: Endocrine lisinopril 5 mg tablet 2024-10 00:00: 00 Yes [id number] HYPERTENSIO N 1 tablet ONCE DAILY 1 tablet ONCE DAILY (route: oral) Med Classific ation: Cardiovas cular Therapy Agents metformin ER 500 mg 24 hr tablet,exte nded release (gastric retention) 2024-10 00:00: 00 Yes [id number] DIABETES 2 tablet TWICE DAILY 2 tablet TWICE DAILY (route: oral) Med Classific ation: Endocrine ondansetron 4 mg disintegrat ing tablet 2024-10 00:00: 00 Yes [id number] NAUSEA 1 tablet EVERY 4 HOURS 1 tablet EVERY 4 HOURS (route: oral) Med Classific ation: Gastroint estinal Therapy Agents Protonix 40 mg tablet,geovany yed release 2024-10 00:00: 00 Yes [id number] ACID INDIGESTION 1 tablet 3 TIMES A WEEK 1 tablet 3 TIMES A WEEK (route: oral) Med Classific ation: Gastroint estinal Therapy Agents tamsulosin 0.4 mg capsule 2024-10 00:00: 00 Yes [id number] BPH 1 capsule ONCE DAILY 1 capsule ONCE DAILY (route: oral) Med Classific ation: Genitouri nary Therapy Viagra 100 mg tablet 2024-10 00:00: 00 Yes [id number] ERECTILE DYSFUNCTION 1 tablet ONCE DAILY 1 tablet ONCE DAILY (route: oral) Med Classific ation: Drugs to treat Erectile Dysfuncti on Vitamin D3 25 mcg (1,000 unit) chewable tablet 2024-10 00:00: 00 Yes [id number] SUPPLEMENT 1 tablet ONCE DAILY 1 tablet ONCE DAILY (route: oral) Med Classific ation: Electroly te Balance-N utritiona l Products METFORMIN ORAL 0 4-15 00:00: 00 03-31 00:00 :00 No BLOOD SUGAR 1,000 MG1 TABLET EVERY AM 1,000 MG1 TABLET EVERY AM (route: ) Med Classific ation: ENDOCRINE Vital Signs Vital Name Observation Time Observation Value Commen ts Temperature 2025-08-12 12:45:00.000 98.2 [degF] BMI (%) 2025-08-12 12:45:00.000 25 kg/m2 Height 2025-08-12 12:45:00.000 67 [in_us] Pulse 2025-08-12 12:45:00.000 64 /min O2 Saturation (%) 2025-08-12 12:45:00.000 98 % Respirations 2025-08-12 12:45:00.000 18 /min Weight (lbs) 2025-08-12 12:45:00.000 165 [lb_av] Systolic Blood Pressure 2025-08-12 12:45:00.000 110 mm [Hg] Diastolic Blood Pressure 2025-08-12 12:45:00.000 56 mm [Hg] Plan of Treatment Planned Activity Planned Date Details Comments Future Scheduled Test THE CER TIFYING PHYSICIAN, ASSOCIATED PHYSICIAN, NPP OR PA WITHIN THE SAME GROUP MAY APPROVE AND SIGN THE ORDER (ON ANY PAGE) ATTESTING THAT THE COMPREHENSIVE OUTCOME ASSESSMENTS, EVALUATIONS, AND HOME HEALTH CERTIFICATION PLANS SUPPORT HOMEBOUND STATUS. HOME HEALTH WEB-PORTAL DOCUMENTATION ACCESSED BY THE PHYSICIAN MUST BE INCORPORATED INTO THE MEDICAL RECORD TO CORROBORATE THE PHYSICIAN, NPP, OR PA S F2F ENCOUNTER TO SUPPORT ELIGIBILITY FOR HOME HEALTH SERVICES. [code = THE CERTIFYING PHYSICIAN, ASSOCIATED PHYSICIAN, NPP OR PA WITHIN THE SAME GROUP MAY APPROVE AND SIGN THE ORDER (ON ANY PAGE) ATTESTING THAT THE COMPREHENSIVE OUTCOME ASSESSMENTS, EVALUATIONS, AND HOME HEALTH CERTIFICATION PLANS SUPPORT HOMEBOUND STATUS. HOME HEALTH WEB-PORTAL DOCUMENTATION ACCESSED BY THE PHYSICIAN MUST BE INCORPORATED INTO THE MEDICAL RECORD TO CORROBORATE THE PHYSICIAN, NPP, OR PA S F2F ENCOUNTER TO SUPPORT ELIGIBILITY FOR HOME HEALTH SERVICES.] Future Scheduled Test EACH ORDER ED IN-HOME OR TELEHEALTH VISIT, THE SKILLED NURSE WILL CONDUCT A COMPREHENSIVE ASSESSMENT INCLUDING VITAL SIGNS, PAIN, SAFETY, MENTAL/COGNITIVE/PSYCHOSOCIAL STATUS, MED MANAGEMENT, NUTRITION, SKIN INTEGRITY, PRESSURE ULCER PREVENTION, AND PATIENT/CAREGIVER ABILITY TO SUPPORT ORDERED CARE. SKILLED NURSE WILL INSTRUCT ON DISEASE PROCESS, MED MGMT., FALL PREVENTION AND SAFETY, INFECTION CONTROL AND PREVENTION, WARNING SIGNS, ADDRESS RESULTS OUTSIDE OF ORDERED PARAMETERS LISTED ON CARE PLAN, AND COORDINATE DISCHARGE WITH THE TREATING PROVIDER. MAY ACCEPT ORDERS FROM THE FOLLOWING PROVIDER(S) WHO WILL BE CONSULTING ON THE CERTIFIED CARE PLAN: ABBEY VERNON MD. ANY COVERING PHYSICIAN MAY GIVE ORDERS TO AGENCY [code = EACH ORDERED IN-HOME OR TELEHEALTH VISIT, THE SKILLED NURSE WILL CONDUCT A COMPREHENSIVE ASSESSMENT INCLUDING VITAL SIGNS, PAIN, SAFETY, MENTAL/COGNITIVE/PSYCHOSOCIAL STATUS, MED MANAGEMENT, NUTRITION, SKIN INTEGRITY, PRESSURE ULCER PREVENTION, AND PATIENT/CAREGIVER ABILITY TO SUPPORT ORDERED CARE. SKILLED NURSE WILL INSTRUCT ON DISEASE PROCESS, MED MGMT., FALL PREVENTION AND SAFETY, INFECTION CONTROL AND PREVENTION, WARNING SIGNS, ADDRESS RESULTS OUTSIDE OF ORDERED PARAMETERS LISTED ON CARE PLAN, AND COORDINATE DISCHARGE WITH THE TREATING PROVIDER. MAY ACCEPT ORDERS FROM THE FOLLOWING PROVIDER(S) WHO WILL BE CONSULTING ON THE CERTIFIED CARE PLAN: ABBEY VERNON MD. ANY COVERING PHYSICIAN MAY GIVE ORDERS TO AGENCY] Future Scheduled Test HOME HEALT H NURSE TO INSTRUCT PATIENT/CAREGIVER AND ADMINISTER WOUND CARE TO LEFT LOWER ABDOMEN INCISION,CLOSED INCISION: PATIENT TO LEAVE SITE OPEN TO AIR, INCISON CLOSED WITH DERMABOND. MAY ADD 2 PRN VISITS PER MONTH FOR WOUND COMPLICATIONS SUCH REDNESS, INCREASE IN DRAINAGE AND OR PAIN OR COMPROMISED DRESSING. PHYSICAL THERAPIST MAY ASSIST WITH WOUND CARE. [code = HOME HEALTH NURSE TO INSTRUCT PATIENT/CAREGIVER AND ADMINISTER WOUND CARE TO LEFT LOWER ABDOMEN INCISION,CLOSED INCISION: PATIENT TO LEAVE SITE OPEN TO AIR, INCISON CLOSED WITH DERMABOND. MAY ADD 2 PRN VISITS PER MONTH FOR WOUND COMPLICATIONS SUCH REDNESS, INCREASE IN DRAINAGE AND OR PAIN OR COMPROMISED DRESSING. PHYSICAL THERAPIST MAY ASSIST WITH WOUND CARE.] Future Scheduled Test HOME HEALT H NURSE WILL TEACH PATIENT/CAREGIVER ABOUT THE USE OF A SYMPTOM LOG TO MONITOR PHYSICAL SIDE EFFECTS. HOME HEALTH NURSE WILL MONITOR THE RECORDED SYMPTOM LOG AND INFORM THE PHYSICIAN OF SYMPTOMS SO CHANGES CAN BE MADE WITH PRESCRIBED MEDICATIONS/TREATMENTS TO ALLEVIATE DISCOMFORT. [code = HOME HEALTH NURSE WILL TEACH PATIENT/CAREGIVER ABOUT THE USE OF A SYMPTOM LOG TO MONITOR PHYSICAL SIDE EFFECTS. HOME HEALTH NURSE WILL MONITOR THE RECORDED SYMPTOM LOG AND INFORM THE PHYSICIAN OF SYMPTOMS SO CHANGES CAN BE MADE WITH PRESCRIBED MEDICATIONS/TREATMENTS TO ALLEVIATE DISCOMFORT.] Future Scheduled Test HOME HEALT H NURSE WILL INSTRUCT PATIENT/CAREGIVER ABOUT RENAL CANCER, PRESCRIBED TREATMENT, SYMPTOMS LOG, AND WHAT SIGNS AND SYMPTOMS TO CALL THE AGENCY AND TREATING PROVIDER. [code = HOME HEALTH NURSE WILL INSTRUCT PATIENT/CAREGIVER ABOUT RENAL CANCER, PRESCRIBED TREATMENT, SYMPTOMS LOG, AND WHAT SIGNS AND SYMPTOMS TO CALL THE AGENCY AND TREATING PROVIDER.] Future Scheduled Test PHYSICAL T HERAPIST TO EVALUATE AND TREAT [code = PHYSICAL THERAPIST TO EVALUATE AND TREAT] Future Scheduled Test OCCUPATION AL THERAPIST TO EVALUATE AND TREAT [code = OCCUPATIONAL THERAPIST TO EVALUATE AND TREAT] Goal Patient Goal - P AIN TO BE RESOLVED AND WOUND TO HEAL WELL Goal Provider Goal - PATIENT/CAREGIVER WILL DEMONSTRATE APPROPRIATE INCISIONAL CARE. INCISION / SUTURE LINE IMPROVE EVIDENCED BY DECREASE IN SIZE / DRAINAGE OF WOUND, NO SIGNS AND SYMPTOMS OF INFECTION, DECREASED PAIN, HEALING IS PROGRESSING BY 08/21/25. Goal Provider Goal - PATIENT/CAREGIVER WILL DEMONSTRATE THE USE OF SYMPTOM LOG AND HOW TO IDENTIFY WHEN TO CALL THE TREATING PROVIDER. Goal Provider Goal - PATIENT/CAREGIVER WILL VERBALIZE UNDERSTANDING OF RENAL CANCER, SIGNS AND SYMPTOMS ASSOCIATED WITH THE GI TUMOR, AND DEMONSTRATES USE OF SYMPTOMS LOG TO HELP IDENTIFY WHEN TO CALL THE TREATING PROVIDER BY THE END OF HOME HEALTH SERVICES. Goal Provider Goal - Goal Provider Goal - Goal Provider Goal - A PLAN OF CARE WILL BE ESTABLISHED THAT MEETS ALL PATIENT'S FCI NEEDS AND COUNTER SIGNED BY PHYSICIAN. Goal Provider Goal - PATIENT WILL BE FREE OF FALLS AND HOSPITALIZATIONS THROUGHOUT EPISODE OF CARE. PATIENT/CAREGIVER WILL UNDERSTAND AND ADHERE TO ORDERED DIET. PATIENT/CAREGIVER WILL INDEPENDENTLY MANAGE MEDICATIONS, UNDERSTAND ANY CHANGES, SIDE EFFECTS TO REPORT BY EOE. PATIENT WILL BE FREE OF INFECTION AND UNDERSTAND MEASURES OF PREVENTION. PATIENT/CAREGIVER WILL COLLABORATE WITH SKILLED NURSE TO DEVELOP POC AT SOC AND ON AN ONGOING BASIS UPDATES ARE NEEDED. UNDERSTAND PROGRESS MADE/DISCHARGE PLANNING. ADDITIONAL ORDERS WILL BE RECEIVED FROM ALTERNATE PHYSICIANS IN A TIMELY MANNER. Encounters Start Date/Time End Date/Time Encounter Type Admission Type Attending Clinicians Care Facility Care Department Encounter ID Discharge Date Discharge Status Discharge Condition Discharge Reason Percent Goals Met 2025-08-12 00:00:00 2025-10-10 00:00:00 Outpatient NEW ADMISSION CHRISTINA [facility] [id number]
--- OUTSIDE RECORDS SUMMARY | 2025-10-09 19:00 | XMS_ITS | Clinical Summary ---
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 Med Classific ation: Cardiovas cular Therapy Agents atorvastati n 40 mg tablet 05-31 00:00: 00 07-09 23:59 :00 No [id number] HIGH CHOLESTEROL 1 tablet AT BEDTIME 1 tablet AT BEDTIME (route: oral) Med Classific ation: Cardiovas cular Therapy Agents atorvastati n 80 mg tablet 02-01 00:00: 00 06-03 14:26 :43.3 67 No [id number] Y 1 tablet AT BEDTIME 1 tablet AT BEDTIME (route: oral) Alternate Route: BY MOUTH. Med Classific ation: Cardiovas cular Therapy Agents brimonidine 0.2 % eye drops 02-03 00:00: 00 06-03 14:26 :44.9 6 No [id number] GLAUCOMA 1 drops TWICE DAILY 1 drops TWICE DAILY (route: ophthalmic (eye)) Med Classific ation: Ophthalmi c Agents brimonidine 0.2 % eye drops 05-31 00:00: 00 07-09 23:59 :00 No [id number] GLAUCOMA 1 drops 2 TIMES DAILY 1 drops 2 TIMES DAILY (route: ophthalmic (eye)) Alternate Route: LEFT EYE. Med Classific ation: Ophthalmi c Agents calcium carbonate 500 mg (1,250 mg)-vitamin D3 125 unit tablet 02-03 00:00: 00 06-03 14:26 :46.5 23 No [id number] SUPPLEMENT 1 tablet ONCE DAILY 1 tablet ONCE DAILY (route: oral) Med Classific ation: Electroly te Balance-N ольгаa l Products irbesartan 300 mg tablet 02-03 00:00: 00 06-03 14:24 :26.4 73 No [id number] HEART 1 mg ONCE DAILY 1 mg ONCE DAILY (route: oral) Med Classific ation: Cardiovas cular Therapy Agents latanoprost (PF) 0.005 % eye drops 02-03 00:00: 00 06-03 14:23 :05.2 63 No [id number] GLAUCOMA 1 drops ONCE DAILY 1 drops ONCE DAILY (route: ophthalmic (eye)) Med Classific ation: Ophthalmi c Agents latanoprost 0.005 % eye drops 05-31 00:00: 00 07-09 23:59 :00 No [id number] GLAUCOMA 1 drops AT BEDTIME 1 drops AT BEDTIME (route: ophthalmic (eye)) Alternate Route: LEFT EYE. Med Classific ation: Ophthalmi c Agents Melatin 3 mg tablet 05-31 00:00: 00 07-09 23:59 :00 No [id number] SLEEP AID 1 tablet AT BEDTIME 1 tablet AT BEDTIME (route: oral) Med Classific ation: Central Nervous System Agents metformin 500 mg tablet 02-04 00:00: 00 06-03 14:23 :07.4 03 No [id number] F, 1 tablet ONCE DAILY 1 tablet ONCE DAILY (route: oral) Alternate Route: BY MOUTH. Med Classific ation: Endocrine metoprolol succinate ER 200 mg capsule sprinkle, ext. release 24 hr 02-03 00:00: 00 06-03 14:23 :09.4 03 No [id number] BLOOD PRESSURE 1 mg ONCE DAILY 1 mg ONCE DAILY (route: oral) Med Classific ation: Cardiovas cular Therapy Agents metoprolol succinate ER 25 mg tablet,exte nded release 24 hr 2020-0 8-10 00:00: 00 07-09 23:59 :00 No [id number] heart/blood pressure 1 tablet ONCE DAILY 1 tablet ONCE DAILY (route: oral) Med Classific ation: Cardiovas cular Therapy Agents omeprazole 20 mg delayed release,dis integrating tablet 15 00:00: 06-03 14:23 :11.2 33 No [id number] STOMACH 1 tablet ONCE DAILY 1 tablet ONCE DAILY (route: oral) Med Classific ation: Gastroint estinal Therapy Agents pantoprazol e 40 mg tablet,geovany yed release 05-31 00:00: 00 07-09 23:59 :00 No [id number] gastric reflux 1 tablet 2 TIMES DAILY 1 tablet 2 TIMES DAILY (route: oral) Med Classific ation: Gastroint estinal Therapy Agents potassium chloride ER 10 mEq tablet,exte nded release 05-31 00:00: 00 07-09 23:59 :00 No [id number] SUPPLEMENT 1 tablet ONCE DAILY 1 tablet ONCE DAILY (route: oral) Med Classific ation: Electroly te Balance-N utritiona l Products Procardia XL 30 mg tablet,exte nded release 05-31 00:00: 00 07-09 23:59 :00 No [id number] blood pressure 1 tablet ONCE DAILY 1 tablet ONCE DAILY (route: oral) Med Classific ation: Cardiovas cular Therapy Agents simvastatin 20 mg/5 mL (4 mg/mL) oral suspension 02-03 00:00: 00 06-03 14:23 :13.0 43 No [id number] CHOLESTEROL 1 mL BEDTIME 1 mL BEDTIME (route: oral) Med Classific ation: Cardiovas cular Therapy Agents torsemide 10 mg tablet 05-31 00:00: 00 07-09 23:59 :00 No [id number] CHF 1 tablet ONCE DAILY 1 tablet ONCE DAILY (route: oral) Med Classific ation: Cardiovas cular Therapy Agents Tylenol 325 mg tablet 8 00:00: 00 07-09 23:59 :00 No [id number] PAIN 2 tablet EVERY 4 HOURS 2 tablet EVERY 4 HOURS (route: oral) Med Classific ation: Analgesic , Anti-infl ammatory or Antipyret ic Vitamin D3 25 mcg (1,000 unit) capsule 02-03 00:00: 00 06-03 14:23 :14.9 67 No [id number] SUPPLEMENT 1 mcg ONCE DAILY 1 mcg ONCE DAILY (route: oral) Med Classific ation: Electroly te Balance-N utritiona l Products warfarin 5 mg tablet 02-03 00:00: 00 07-09 23:59 :00 No [id number] BLOOD THINNER 1 tablet EVERY PM 1 tablet EVERY PM (route: oral) Med Classific ation: Hematolog ical Agents metoprolol succinate ER 25 mg tablet,exte nded release 24 hr 06-24 00:00: 00 09-05 23:59 :00 No [id number] HEART RATE AND BLOOD PRESSURE 1 tablet ONCE DAILY 1 tablet ONCE DAILY (route: oral) Med Classific ation: Cardiovas cular Therapy Agents atorvastati n 40 mg tablet 07-15 00:00: 00 08-09 23:59 :00 No [id number] CHOLESTEROL 1 tablet AT BEDTIME 1 tablet AT BEDTIME (route: oral) Med Classific ation: Cardiovas cular Therapy Agents brimonidine 0.2 % eye drops 07-15 00:00: 00 08-09 23:59 :00 No [id number] GLAUCOMA 1 drops TWICE DAILY 1 drops TWICE DAILY (route: ophthalmic (eye)) Alternate Route: EYE - BOTH. Med Classific ation: Ophthalmi c Agents Claritin 10 mg tablet 07-15 00:00: 00 08-09 23:59 :00 No [id number] ALLERGIES 1 tablet ONCE DAILY 1 tablet ONCE DAILY (route: oral) Med Classific ation: Respirato ry Therapy Agents Jantoven 3 mg tablet 07-15 00:00: 00 09-05 23:59 :00 No [id number] BLOOD THINNER 1 tablet ONCE DAILY 1 tablet ONCE DAILY (route: oral) Med Classific ation: Hematolog ical Agents latanoprost 0.005 % eye drops 07-15 00:00: 00 08-09 23:59 :00 No [id number] GLAUCOMA 1 drops AT BEDTIME 1 drops AT BEDTIME (route: ophthalmic (eye)) Alternate Route: EYE - LEFT. Med Classific ation: Ophthalmi c Agents nifedipine ER 30 mg tablet,exte nded release 07-15 00:00: 00 09-05 23:59 :00 No [id number] BLOOD PRESSURE 1 tablet ONCE DAILY 1 tablet ONCE DAILY (route: oral) Med Classific ation: Cardiovas cular Therapy Agents torsemide 20 mg tablet 07-15 00:00: 00 09-05 23:59 :00 No [id number] FLUID RETENTION 2 tablet 3 TIMES A WEEK 2 tablet 3 TIMES A WEEK (route: oral) Med Classific ation: Cardiovas cular Therapy Agents acetaminoph en 325 mg tablet 2023-10 00:00: 00 08-09 23:59 :00 No [id number] PAIN 1 tablet EVERY 6 HOURS 1 tablet EVERY 6 HOURS (route: oral) Med Classific ation: Analgesic , Anti-infl ammatory or Antipyret ic clopidogrel 75 mg tablet 2023-10 00:00: 00 08-09 23:59 :00 No [id number] BLOOD THINNER 1 tablet ONCE DAILY 1 tablet ONCE DAILY (route: oral) Med Classific ation: Hematolog ical Agents Eliquis 2.5 mg tablet 2023-10 00:00: 00 08-09 23:59 :00 No [id number] BLOOD THINNER 1 tablet TWICE DAILY 1 tablet TWICE DAILY (route: oral) Med Classific ation: Hematolog ical Agents metoprolol succinate ER 25 mg tablet,exte nded release 24 hr 2023-10 00:00: 00 01-08 23:59 :00 No [id number] HIGH BLOOD PRESSURE 0.5 tablet ONCE DAILY 0.5 tablet ONCE DAILY (route: oral) Med Classific ation: Cardiovas cular Therapy Agents torsemide 20 mg tablet 2023-10 00:00: 00 08-09 23:59 :00 No [id number] FLUID OVERLOAD 1 tablet EVERY OTHER DAY 1 tablet EVERY OTHER DAY (route: oral) Med Classific ation: Cardiovas cular Therapy Agents amlodipine 5 mg tablet 01-28 00:00: 00 04-15 23:59 :00 No [id number] HIGH BLOOD PRESSURE 1 tablet ONCE DAILY 1 tablet ONCE DAILY (route: oral) Med Classific ation: Cardiovas cular Therapy Agents carvedilol 12.5 mg tablet 01-28 00:00: 00 04-15 23:59 :00 No [id number] HIGH BLOOD PRESSURE 1 tablet TWICE DAILY 1 tablet TWICE DAILY (route: oral) Med Classific ation: Cardiovas cular Therapy Agents torsemide 10 mg tablet 04-15 00:00: 00 08-09 23:59 :00 No [id number] FLUID OVERLOAD 1 tablet EVERY OTHER DAY 1 tablet EVERY OTHER DAY (route: oral) Med Classific ation: Cardiovas cular Therapy Agents Triad Wound Dressing paste 04-14 00:00: 00 08-09 23:59 :00 No [id number] STAGE 2 SACRAL WOUND 1 gram ONCE DAILY 1 gram ONCE DAILY (route: topical) Med Classific ation: Dermatolo gical carvedilol 12.5 mg tablet 06-09 00:00: 00 08-09 23:59 :00 No [id number] HEART 1 tablet TWICE DAILY 1 tablet TWICE DAILY (route: oral) Med Classific ation: Cardiovas cular Therapy Agents Basaglar KwikPen U-100 Insulin 100 unit/mL (3 mL) [facility] 2024-10 00:00: 00 Yes [id number] DIABETES 36 unit ONCE DAILY 36 unit ONCE DAILY (route: subcutaneo ) Med Classific ation: Endocrine Centrum Silver Men 300 mcg-60 mcg-600 mcg-300 mcg tablet 2024-10 0 00:00: 00 Yes [id number] SUPPLEMENT 1 tablet ONCE DAILY 1 tablet ONCE DAILY (route: oral) Med Classific ation: Electroly te Balance-N utritiona l Products Lidocaine Pain Relief 4 % topical patch 2024-10 0 00:00: 00 Yes [id number] PAIN 1 adhesiv e patch, medicat ed TWICE DAILY 1 adhesive patch, medicated TWICE DAILY (route: topical) Med Classific ation: Dermatolo gical Miralax 17 gram oral powder packet 2024-10 00:00: 00 Yes [id number] CONSTIPATIO N 1 packet ONCE DAILY 1 packet ONCE DAILY (route: oral) Med Classific ation: Gastroint estinal Therapy Agents oxycodone 5 mg tablet 2024-10 00:00: 00 Yes [id number] PAIN 1 tablet EVERY 6 HOURS 1 tablet EVERY 6 HOURS (route: oral) Med Classific ation: Analgesic , Anti-infl ammatory or Antipyret ic Senna Laxative 8.6 mg tablet 2024-10 00:00: 00 Yes [id number] CONSTIPATIO N 1 tablet ONCE DAILY 1 tablet ONCE DAILY (route: oral) Med Classific ation: Gastroint estinal Therapy Agents Tylenol Extra Strength 500 mg tablet 2024-10 00:00: 00 Yes [id number] PAIN 1 tablet EVERY 6 HOURS 1 tablet EVERY 6 HOURS (route: oral) Med Classific ation: Analgesic , Anti-infl ammatory or Antipyret ic cyanocobala min (vit B-12) 1,000 mcg tablet 2024-10 00:00: 00 Yes [id number] SUPPLEMENT 1 tablet ONCE DAILY 1 tablet ONCE DAILY (route: oral) Med Classific ation: Electroly te Balance-N utritiona l Products ferrous sulfate 325 mg (65 mg iron) tablet 2024-10 00:00: 00 Yes [id number] IRON DEFICIENCY 1 tablet ONCE DAILY 1 tablet ONCE DAILY (route: oral) Med Classific ation: Electroly te Balance-N utritiona l Products finasteride 5 mg tablet 2024-10 00:00: 00 Yes [id number] BPH 1 tablet ONCE DAILY 1 tablet ONCE DAILY (route: oral) Med Classific ation: Genitouri nary Therapy Fish Oil 1,000 mg (120 mg-180 mg) capsule 2024-10 00:00: 00 Yes [id number] SUPPLEMENT 1 capsule 3 TIMES DAILY 1 capsule 3 TIMES DAILY (route: oral) Med Classific ation: Cardiovas cular Therapy Agents Glucagon (HCl) Emergency Kit 1 mg solution for injection 2024-10 00:00: 00 Yes [id number] HYPOGLYCEMI A 1 mg NEEDED 1 mg NEEDED (route: injection) Med Classific ation: Endocrine insulin aspart U-100 100 unit/mL subcutaneou s solution 2024-10 00:00: 00 Yes [id number] DIABETES Per instruc tions 3 TIMES DAILY Per instructio ns 3 TIMES DAILY (route: subcutaneo us) Med Classific ation: Endocrine levothyroxi ne 100 mcg capsule 2024-10 00:00: 00 Yes [id number] HYPOTHYROID ISM 1 capsule ONCE DAILY 1 capsule ONCE DAILY (route: oral) Med Classific ation: Endocrine lisinopril 5 mg tablet 2024-10 00:00: 00 Yes [id number] HYPERTENSIO N 1 tablet ONCE DAILY 1 tablet ONCE DAILY (route: oral) Med Classific ation: Cardiovas cular Therapy Agents metformin ER 500 mg 24 hr tablet,exte nded release (gastric retention) 2024-10 00:00: 00 Yes [id number] DIABETES 2 tablet TWICE DAILY 2 tablet TWICE DAILY (route: oral) Med Classific ation: Endocrine ondansetron 4 mg disintegrat ing tablet 2024-10 00:00: 00 Yes [id number] NAUSEA 1 tablet EVERY 4 HOURS 1 tablet EVERY 4 HOURS (route: oral) Med Classific ation: Gastroint estinal Therapy Agents Protonix 40 mg tablet,geovany yed release 2024-10 00:00: 00 Yes [id number] ACID INDIGESTION 1 tablet 3 TIMES A WEEK 1 tablet 3 TIMES A WEEK (route: oral) Med Classific ation: Gastroint estinal Therapy Agents tamsulosin 0.4 mg capsule 2024-10 00:00: 00 Yes [id number] BPH 1 capsule ONCE DAILY 1 capsule ONCE DAILY (route: oral) Med Classific ation: Genitouri nary Therapy Viagra 100 mg tablet 2024-10 00:00: 00 Yes [id number] ERECTILE DYSFUNCTION 1 tablet ONCE DAILY 1 tablet ONCE DAILY (route: oral) Med Classific ation: Drugs to treat Erectile Dysfuncti on Vitamin D3 25 mcg (1,000 unit) chewable tablet 2024-10 00:00: 00 Yes [id number] SUPPLEMENT 1 tablet ONCE DAILY 1 tablet [...] WILL BE ESTABLISHED THAT MEETS ALL PATIENT'S GROUP HOME NEEDS AND COUNTER SIGNED BY PHYSICIAN. Goal [...] 2025-10-10 00:00:00 Outpatient NEW ADMISSION CHRISTINA [facility] [id number] [phone]
== END 2025-08-19 10:40 | disposition home or self-care (01) ==
LOC: ANHGOSHLAB 10:41
PROVIDERS: PCP Family Medicine; Visit Provider Family Medicine
DX: I10 Essential (primary) hypertension (principal); Z79.899 Other long term (current) drug therapy
CPT/HCPCS: 36415; 80053